=== PATIENT | female | born 1945 | race Caucasian/White ===

== ENCOUNTER 2017-01-13 12:57 | Outpatient (CLI) | payer MEDICARE, OTHER | END 2017-01-13 12:58 | disposition home or self-care (01) | DX: Z12.31 Encounter for screening mammogram for malignant neoplasm of breast (principal) ==

== ENCOUNTER 2017-01-13 13:00 | Outpatient (CLI) | payer MEDICARE, OTHER | END 2017-01-13 13:01 | disposition home or self-care (01) | DX: M85.89 Other specified disorders of bone density and structure, multiple sites (principal) ==

== ENCOUNTER 2017-01-20 08:22 | Outpatient (CLI) | payer MEDICARE, OTHER | END 2017-01-20 08:23 | disposition critical access hospital (66) | DX: M25.551 Pain in right hip (principal); M53.3 Sacrococcygeal disorders, not elsewhere classified; W18.39XA Other fall on same level, initial encounter; Y92.039 Unspecified place in apartment as the place of occurrence of the external cause | CPT/HCPCS: A0425; A0429 ==

== ENCOUNTER 2017-01-20 08:42 | Emergency (ER) | payer MEDICARE, OTHER ==
[2017-01-20] MEDS ORDERED: traMADol 50 MG TABLET PO STA (09:08)
[2017-01-20] MEDS ORDERED: ACETAMINOPHEN 325 MG TABLET PO STA (09:08)
[2017-01-20] MEDS ORDERED: traMADol 50 MG TABLET PO ONE (09:16)
[2017-01-20] MEDS ORDERED: ACETAMINOPHEN 325 MG TABLET PO ONE (09:16)
== END 2017-01-20 13:19 | disposition home or self-care (01) ==
DX: M54.2 Cervicalgia (principal); M54.5 Low back pain; W01.0XXA Fall on same level from slipping, tripping and stumbling without subsequent striking against object, initial encounter; Y92.013 Bedroom of single-family (private) house as the place of occurrence of the external cause; E78.00 Pure hypercholesterolemia, unspecified; K21.9 Gastro-esophageal reflux disease without esophagitis; M19.90 Unspecified osteoarthritis, unspecified site; Z86.718 Personal history of other venous thrombosis and embolism; Z86.711 Personal history of pulmonary embolism
CPT/HCPCS: 71020; 72125; 72192; 99283; 99284; A9270

== ENCOUNTER 2017-02-12 09:28 | Day surgery (SDC) | payer MEDICARE, OTHER ==
[2017-02-12] MEDS ORDERED: LACTATED RINGERS 1,000 ML IV ONE (10:19)
[2017-02-12] MEDS ORDERED: MIDAZOLAM 2 MG/2 ML VIAL IVP ONE (11:06)
[2017-02-12] MEDS ORDERED: fentaNYL 100 MCG/2 ML VIAL IVP ONE (11:06)
[2017-02-12 11:58] VITALS: BP 132/71
== END 2017-02-12 09:29 | disposition home or self-care (01) ==
LOC: SDS 09:28
PROVIDERS: ATTEND Internal Medicine
PROC: 0DBL8ZX Excision of Transverse Colon, Via Natural or Artificial Opening Endoscopic, Diagnostic (ICD-10-PCS; 2017-02-12)
PROC: 0DBM8ZX Excision of Descending Colon, Via Natural or Artificial Opening Endoscopic, Diagnostic (ICD-10-PCS; 2017-02-12)
PROC: 0DBK8ZX Excision of Ascending Colon, Via Natural or Artificial Opening Endoscopic, Diagnostic (ICD-10-PCS; principal; 2017-02-12 11:00)
DX: Z12.11 Encounter for screening for malignant neoplasm of colon (principal); D12.2 Benign neoplasm of ascending colon; D12.4 Benign neoplasm of descending colon; D12.3 Benign neoplasm of transverse colon; K64.1 Second degree hemorrhoids; K21.9 Gastro-esophageal reflux disease without esophagitis; Z86.718 Personal history of other venous thrombosis and embolism
CPT/HCPCS: 45380; 45385; 88305; J7120

== ENCOUNTER 2017-03-25 11:53 | Outpatient (CLI) | payer MEDICARE, OTHER | END 2017-03-25 11:54 | disposition critical access hospital (66) | LOC: EMS 11:53 | PROVIDERS: ATTEND Surgery | DX: M79.662 Pain in left lower leg (principal) | CPT/HCPCS: A0425; A0429 ==

== ENCOUNTER 2017-03-25 12:13 | Emergency (ER) | payer MEDICARE, OTHER ==
--- NOTE | 2017-03-25 12:54 | ED Physician Documentation ---
PD HPI LOWER EXT INJURY - Stated complaint Stated Complaint: L LEG PX - Chief complaint Chief Complaint: Ext Problem - History obtained from History obtained from: Patient - History of Present Illness PD HPI LOW EXT INJURY LOCATION: Left, Knee, Lower leg Type of injury: Other (she has been trying to exercise more and had walked a bit more than usual several days ago. Having pain in left knee and some swelling of left lower leg increasing since then.). No: Fall, Twist, Blunt / blow Where injury occurred: Home Timing - onset: How many days ago (4-5) Timing - details: Gradual onset, Still present, Waxing and waning Improved by: Rest Worsened by: Moving, Other (walking hurts in the knee a lot.) Associated symptoms: Swelling (of the knee and lower leg some. Has some pain in upper calf and medial thigh.). No: Weakness, Numbness Similar symptoms before: Has not had sx before Recently seen: Not recently seen (tried to get appt with PMD but no openings until next week.) Review of Systems Constitutional: denies: Fever, Chills Nose: denies: Rhinorrhea / runny nose, Congestion Throat: denies: Sore throat Cardiac: denies: Chest pain / pressure, Palpitations Respiratory: denies: Dyspnea, Cough GI: denies: Nausea, Vomiting, Diarrhea PD PAST MEDICAL HISTORY - Past Medical History Cardiovascular: High cholesterol, Deep vein thrombosis, Pulmonary embolism Respiratory: None Neuro: Headache/migraine Endocrine/Autoimmune: None GI: GERD : Incontinence, Frequency Psych: Depression, Anxiety, Panic attacks Musculoskeletal: Osteoarthritis Derm: Other - Past Surgical History Past Surgical History: No 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, 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 HEENT: Tonsil/Adenoidectomy Derm: Skin cancer surgery - Present Medications Home Medications: Ambulatory Orders Medication Instructions Recorded Confirmed Venlafaxine ER [Effexor ER] 2 tab PO DAILY 04/30/13 03/25/17 Vitamin B12 Injection 1,000 mcg IM ONCE 07/17/14 03/25/17 Topiramate [Topamax] 200 mg PO QPM 11/24/15 03/25/17 diltiaZEM [Cardizem] 15 mg PO DAILY 11/24/15 03/25/17 raNITIdine [Zantac] 150 mg PO BID 11/24/15 03/25/17 traMADol [Ultram] 50 mg PO Q6HR PRN 11/24/15 03/25/17 LORazepam [Ativan] 1 mg PO TID 01/13/16 03/25/17 Hydrocodone/Acetaminophen [[place] 1 each PO Q6H PRN #15 tablet 03/25/17 5-325 Tablet] - Allergies Allergies/Adverse Reactions: Allergies Allergy/AdvReac Type Severity Reaction Status Date / Time lithium [[place]] Allergy Severe Edema Verified 02/11/17 13:22 tetracycline [Tetracycline] Allergy Severe Hives Verified 02/11/17 13:22 butalbital [From Fioricet] AdvReac Severe Dizziness Verified 02/11/17 13:54 - Social History Does the pt smoke?: No Smoking Status: Never smoker Does the pt drink ETOH?: No Does the pt have substance abuse?: No - Immunizations Immunizations are current?: No - POLST Patient has POLST: No PD ED PE NORMAL - Vitals Vital signs reviewed: Yes - General General: Alert and oriented X 3, No acute distress, Well developed/nourished - Cardiac Cardiac: RRR - Respiratory Respiratory: No respiratory distress, Clear bilaterally - Abdomen Abdomen: Soft, Non tender - Back Back: No CVA TTP - Derm Derm: Normal color, Warm and dry, No rash - Extremities Extremities: No calf tenderness / cord, Other (normal pulses, color and cap refill in toes. pain in anterior and medial knee without obvious effusion. Some local swelling of the knee. No calf tenderness nor overt swelling. No rash nor sores. ) - Neuro Neuro: No motor deficit, No sensory deficit Results - Vitals Vitals: Vital Signs - 24 hr 03/25/17 03/25/17 12:19 15:16 Temperature 36.7 C 36.5 C Heart Rate 93 81 Respiratory 18 20 Rate Blood Pressure 142/84 H 136/84 H O2 Saturation 96 100 Oxygen O2 Source Room air - Rads (name of study) duplex left lower leg Radiology: Prelim report reviewed (no DVT) PD MEDICAL DECISION MAKING - ED course Complexity details: reviewed results, considered differential (presume arthritis of knee as she had been doing some more walking than usual. ), d/w patient Departure - Departure Disposition: 01 Home, Self Care Clinical Impression: Left leg swelling, Arthritis of knee, left Knee pain, acute Qualifiers: Laterality: left Qualified Code(s): M25.562 - Pain in left knee Clinical Impression: (Ruled Out): Deep vein thrombosis Condition: Stable Record reviewed to determine appropriate education?: Yes Instructions: ED Degenerative Joint Disease Follow-Up: Moose Shelton DO [Primary Care Provider] - Prescriptions: Hydrocodone/Acetaminophen [[place] 5-325 Tablet] 1 each PO Q6H PRN #15 tablet PRN Reason: Pain Comments: Presume the knee pain is some arthritis flare up leading to some swelling in lower leg. Follow up with Dr. Shelton in a few days/next week, call for appt. Continue usual medications, adding hydrocodone short term if needed for pains. Discharge Date/Time: 03/25/17 16:07
[2017-03-25] MEDS ORDERED: HYDROcod/ACETAM 5/325 MG TABLET PO STA ×2 (13:19→15:18)
[2017-03-25] MEDS ORDERED: HYDROcod/ACETAM 5/325 MG TABLET ONE ×2 (13:21→15:24)
[2017-03-25 15:17] VITALS: BP 136/84
[2017-03-25] MEDS ORDERED: DEXAMETHASONE 10 MG/ML VIAL PO STA (15:20)
[2017-03-25] MEDS ORDERED: DEXAMETHASONE 10 MG/ML VIAL ONE (15:24)
[2017-03-25] MEDS ORDERED: CHERRY SYRUP 10 ML UDC PO ONE (15:24)
--- NOTE | 2017-03-25 15:41 | Ultrasound Report ---
ULTRASOUND VENOUS DUPLEX LEFT LE03/25/2017 CLINICAL INDICATION: Left leg swelling, pain. COMPARISON: 06/27/2015 TECHNIQUE: Real-time sonographic vascular imaging was performed by the party supply specialist through the left l ower extremity utilizing both color flow and Doppler spectral analysis. Multiple aircraft sales representative stat ic images were saved for review. FINDINGS: A left lower extremity venous sonogram is performed revealing the common femoral, superfici al femoral, profunda femoris, and popliteal veins to be adequately visualized without intraluminal de fects. There is normal venous compression, augmentation, phasicity, and spontaneity of venous flow. In the calf, the visualized more cephalad portions of posterior tibial and peroneal veins are grossly compressible, without filling defects. IMPRESSION: NO EVIDENCE OF DEEP VENOUS THROMBOSIS. JOB #: [id number] EXT JOB #:[id number]
== END 2017-03-25 16:07 | disposition home or self-care (01) ==
LOC: EDUNIT# → ED 12:13
DX: M17.12 Unilateral primary osteoarthritis, left knee (principal); M25.562 Pain in left knee; M79.89 Other specified soft tissue disorders; Z86.718 Personal history of other venous thrombosis and embolism
CPT/HCPCS: 93971; 99283; A9270

== ENCOUNTER 2017-04-18 13:18 | Outpatient (CLI) | payer MEDICARE, OTHER ==
--- NOTE | 2017-04-19 08:46 | XRAY Report ---
THREE VIEW BILATERAL KNEES: 04/18/2017 CLINICAL INDICATION: Worsening pain. AP, lateral, sunrise views of the bilateral knees demonstrate mild bilateral osteoarthritis. There i s no evidence of acute fracture. No effusion is seen. IMPRESSION: MILD BILATERAL KNEE OSTEOARTHRITIS. JOB #: [id number] EXT JOB #:[id number]
== END 2017-04-18 13:19 | disposition home or self-care (01) ==
LOC: DI.N 13:18
PROVIDERS: ATTEND Family Medicine
DX: M17.0 Bilateral primary osteoarthritis of knee (principal)

== ENCOUNTER 2017-05-13 13:38 | Outpatient (CLI) | payer MEDICARE, OTHER | END 2017-05-13 13:39 | disposition critical access hospital (66) | LOC: EMS 13:38 | PROVIDERS: ATTEND Surgery | DX: F41.0 Panic disorder [episodic paroxysmal anxiety] (principal) | CPT/HCPCS: A0425; A0429 ==

== ENCOUNTER 2017-05-13 14:04 | Emergency (ER) | payer MEDICARE, OTHER ==
[2017-05-13 14:07] VITALS: BP 127/72
[2017-05-13] MEDS ORDERED: diazePAM INJ 5 MG/ML SYRINGE IM STA (14:08)
--- NOTE | 2017-05-13 14:12 | ED Physician Documentation ---
History of Present Illness - Stated complaint Stated Complaint: PANICK ATTACK - Chief complaint Chief Complaint: General - History obtained from History obtained from: Patient - History of Present Illness Timing: Other (She has been having a lot of heartburn lately and her insurance stopped paying for Nexium. Because of that she is become increasingly depressed and her psychiatrist recommended increasing the dose of venlafaxine but she became quite anxious about that and is feeling very anxious today but without suicidal ideation. She needs something to help her calm down.) Review of Systems Constitutional: denies: Fever, Chills GI: reports: Abdominal Pain (upper, GERD). denies: Nausea, Vomiting PD PAST MEDICAL HISTORY - Present Medications Home Medications: Ambulatory Orders Medication Instructions Recorded Confirmed Hydroxyzine Pamoate 50 mg PO BID PRN #10 capsule 05/13/17 Sucralfate [Carafate] 1 gm PO ACHS #40 tablet 05/13/17 PD ED PE NORMAL - Vitals Vital signs reviewed: Yes - General General: Alert and oriented X 3 - Abdomen Abdomen: Normal bowel sounds, Soft, Non tender - Neuro Neuro: Alert and oriented X 3, drop forge operator 2-12 intact, No motor deficit, No sensory deficit, Normal speech - Psych Psych: Other (anxious, not manic) Results - Vitals Vitals: Vital Signs - 24 hr 05/13/17 14:04 Temperature 37.8 C H Heart Rate 97 Respiratory 24 Rate Blood Pressure 127/72 O2 Saturation 98 Oxygen O2 Source Room air PD MEDICAL DECISION MAKING - ED course ED course: She presents with anxiety, just needs something to calm her down. No suicidal ideation. She is administered Valium 5 mg IM. Departure - Departure Disposition: 01 Home, Self Care Clinical Impression: Anxiety Condition: Good Record reviewed to determine appropriate education?: Yes Instructions: ED Panic Attack Prescriptions: Sucralfate [Carafate] 1 gm PO ACHS #40 tablet Hydroxyzine Pamoate 50 mg PO BID PRN #10 capsule PRN Reason: Anxiety Comments: You can take the hydroxyzine in addition to your usual Ativan as needed for anxiety. Do not drink or drive with it. The Carafate should help with your heartburn/reflux symptoms. Take it before eating and at bedtime. Do not take it within half an hour of any of your other medications because it will inhibit absorption of the other medications. Follow up with your psychiatrist on Friday as scheduled. Return if worse.
[2017-05-13] MEDS ORDERED: diazePAM INJ 5 MG/ML SYRINGE ONE (14:16)
== END 2017-05-13 14:28 | disposition home or self-care (01) ==
LOC: ED 14:04 → MERGE 14:04 → ED 14:28
DX: F41.9 Anxiety disorder, unspecified (principal)
CPT/HCPCS: 96372; 99283

== ENCOUNTER 2017-05-15 15:47 | Outpatient (CLI) | payer MEDICARE, OTHER | END 2017-05-15 15:48 | disposition critical access hospital (66) | LOC: EMS 15:47 | PROVIDERS: ATTEND Surgery | DX: R45.851 Suicidal ideations (principal) | CPT/HCPCS: A0425; A0429 ==

== ENCOUNTER 2017-05-15 16:06 | Emergency (ER) | payer MEDICARE, OTHER ==
--- NOTE | 2017-05-15 16:18 | ED Physician Documentation ---
PD HPI MHE - Stated complaint Stated Complaint: SI - Chief complaint Chief Complaint: MHE - History obtained from History obtained from: Patient, EMS - History of Present Illness Primary symptom: Suicidal ideation (She is a long history of depression and and anxiety. She was seen here couple of days ago for anxiety, at that time she denied suicidal ideation but now returns by ambulance and says she has had suicidal thoughts for 2 weeks without attempts. She called her psychiatrist who recommended she come to the emergency department for evaluation and likely admission to a psychiatric facility. She says she has been hospitalized for psychiatric reasons about 15 years ago in [place].) Review of Systems Ten Systems: 10 systems reviewed and negative Constitutional: reports: Reviewed and negative Throat: reports: Reviewed and negative Cardiac: reports: Reviewed and negative Respiratory: reports: Reviewed and negative PD PAST MEDICAL HISTORY - Past Medical History Cardiovascular: Deep vein thrombosis, High cholesterol, Pulmonary embolism Respiratory: None Neuro: Headache/migraine Endocrine/Autoimmune: None GI: GERD : Frequency, Incontinence Psych: Depression, Anxiety, Panic attacks Musculoskeletal: Osteoarthritis Derm: Other - Past Surgical History Past Surgical History: No 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, 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 HEENT: Tonsil/Adenoidectomy Derm: Skin cancer surgery - Present Medications Home Medications: Ambulatory Orders Medication Instructions Recorded Confirmed Venlafaxine ER [Effexor ER] 2 tab PO BID 04/30/13 05/15/17 Vitamin B12 Injection 1,000 mcg IM ONCE 07/17/14 05/15/17 Topiramate [Topamax] 200 mg PO QPM 11/24/15 05/15/17 diltiaZEM [Cardizem] 15 mg PO DAILY 11/24/15 05/15/17 traMADol [Ultram] 50 mg PO BID 11/24/15 05/15/17 LORazepam [Ativan] 1 mg PO TID 01/13/16 05/15/17 Hydroxyzine Pamoate 50 mg PO BID PRN #10 capsule 05/13/17 05/15/17 - Allergies Allergies/Adverse Reactions: Allergies Allergy/AdvReac Type Severity Reaction Status Date / Time lithium [[place]] Allergy Severe Edema Verified 02/11/17 13:22 tetracycline [Tetracycline] Allergy Severe Hives Verified 02/11/17 13:22 butalbital [From Fioricet] AdvReac Severe Dizziness Verified 02/11/17 13:54 - Social History Does the pt smoke?: No Smoking Status: Never smoker Does the pt drink ETOH?: No Does the pt have substance abuse?: No - Family History Family history: reports: Non contributory - Immunizations Immunizations are current?: No - POLST Patient has POLST: No PD ED PE NORMAL - Vitals Vital signs reviewed: Yes - General General: Alert and oriented X 3, No acute distress - HEENT HEENT: PERRL, EOMI - Neck Neck: Supple, no meningeal sign, No bony TTP - Cardiac Cardiac: Strong equal pulses, Other (Intermittently irregular and tachycardic, sometimes regular and normal rate) - Respiratory Respiratory: No respiratory distress, Clear bilaterally - Abdomen Abdomen: Soft, Non tender - Back Back: No CVA TTP, No spinal TTP - Derm Derm: Normal color, Warm and dry - Extremities Extremities: No edema, No calf tenderness / cord - Neuro Neuro: Alert and oriented X 3, Normal speech - Psych Psych: Normal mood, Normal affect Results - Vitals Vitals: Vital Signs - 24 hr 05/15/17 05/15/17 16:11 20:03 Temperature 37.4 C Heart Rate 61 78 Respiratory 18 20 Rate Blood Pressure 159/102 H 112/62 O2 Saturation 94 98 Oxygen O2 Source Room air - EKG (time done) 1619 Rate: Rate (enter#) (91) Rhythm: NSR (PVC) [place]: Normal Intervals: Normal AR QRS: Normal Ischemia: Normal ST segments Computer interpretation: Agree with computer - Labs Labs: Laboratory Tests 05/15/17 05/15/17 05/15/17 16:32 16:32 16:32 WBC 6.9 RBC 4.47 Hgb 13.9 Hct 41.8 MCV 93.7 MCH 31.2 H MCHC 33.3 RDW 15.9 H Plt Count 263 MPV 6.8 L Neut # 4.1 Lymph # 1.8 [place] # 0.8 Eos # 0.1 Baso # 0.1 Absolute Nucleated RBC 0.00 Nucleated RBCs 0.0 Sodium 142 Potassium 3.4 L Chloride 112 H Carbon Dioxide 22 Anion Gap 8.0 BUN 9 Creatinine 0.9 Estimated GFR (MDRD) 61 L Glucose 87 Calcium 9.4 Total Bilirubin 0.5 AST 13 ALT 17 Alkaline Phosphatase 83 Total Protein 6.4 L Albumin 4.2 Globulin 2.2 Albumin/Globulin Ratio 1.9 Lipase 22 TSH 0.72 Urine Color Urine Clarity Urine pH Ur Specific [place] Urine Protein Urine Glucose (UA) Urine Ketones Urine Occult Blood Urine Nitrite Urine Bilirubin Urine Urobilinogen Ur Leukocyte Esterase Ur Microscopic Review Urine Culture Comments Salicylates < 6.0 Urine Opiates Screen Ur Oxycodone Screen Urine Methadone Screen Ur Propoxyphene Screen Acetaminophen < 10 L Ur Barbiturates Screen Ur Tricyclics Screen Ur Phencyclidine Scrn Ur Amphetamine Screen U Methamphetamines Scrn U Benzodiazepines Scrn Urine Cocaine Screen U Cannabinoids Screen Ethyl Alcohol < 5.0 05/15/17 17:04 WBC RBC Hgb Hct MCV MCH MCHC RDW Plt Count MPV Neut # Lymph # [place] # Eos # Baso # Absolute Nucleated RBC Nucleated RBCs Sodium Potassium Chloride Carbon Dioxide Anion Gap BUN Creatinine Estimated GFR (MDRD) Glucose Calcium Total Bilirubin AST ALT Alkaline Phosphatase Total Protein Albumin Globulin Albumin/Globulin Ratio Lipase TSH Urine Color STRAW Urine Clarity CLEAR Urine pH 7.0 Ur Specific [place] <=1.005 Urine Protein NEGATIVE Urine Glucose (UA) NEGATIVE Urine Ketones NEGATIVE Urine Occult Blood NEGATIVE Urine Nitrite NEGATIVE Urine Bilirubin NEGATIVE Urine Urobilinogen 0.2 (NORMAL) Ur Leukocyte Esterase NEGATIVE Ur Microscopic Review NOT INDICATED Urine Culture Comments NOT INDICATED Salicylates Urine Opiates Screen NEGATIVE Ur Oxycodone Screen NEGATIVE Urine Methadone Screen NEGATIVE Ur Propoxyphene Screen NEGATIVE Acetaminophen Ur Barbiturates Screen NEGATIVE Ur Tricyclics Screen NEGATIVE Ur Phencyclidine Scrn NEGATIVE Ur Amphetamine Screen NEGATIVE U Methamphetamines Scrn NEGATIVE U Benzodiazepines Scrn POSITIVE H Urine Cocaine Screen NEGATIVE U Cannabinoids Screen NEGATIVE Ethyl Alcohol PD MEDICAL DECISION MAKING - ED course ED course: 71-year-old woman with depression and suicidal ideation, seen and evaluated by the drug abuse social worker, And arrangements were made to send her to [facility], cobras were completed. Departure - Departure Disposition: 65 Psych Hosp/Unit DC/Xfer Clinical Impression: Depression Qualifiers: Depression Type: major depressive disorder Major depression recurrence: recurrent Active/Remission status: currently active Major depression episode severity: severe Psychotic features: without psychotic features Qualified Code(s ): F33.2 - Major depressive disorder, recurrent severe without psychotic features Condition: Stable
[2017-05-15 16:40] LABS: BASOPHILS # (AUTO) 0.1 10^3/uL (0.0-0.1); BASOPHILS % (AUTO) 0.8 %; EOSINOPHILS # (AUTO) 0.1 10^3/uL (0.0-0.7); EOSINOPHILS % (AUTO) 1.3 %; HCT - HEMATOCRIT 41.8 % (37.0-47.0); HGB - HEMOGLOBIN 13.9 g/dL (12.0-16.0); LYMPHOCYTES # (AUTO) 1.8 10^3/uL (1.5-3.5); LYMPHOCYTES % (AUTO) 26.3 %; MEAN CORPUSCULAR HEMOGLOBIN 31.2 pg (27.0-31.0); MEAN CORPUSCULAR HGB CONC 33.3 g/dL (32.0-36.0); MEAN CORPUSCULAR VOLUME 93.7 fL (81.0-99.0); MEAN PLATELET VOLUME 6.8 fL (7.9-10.8); MONOCYTES # (AUTO) 0.8 10^3/uL (0.0-1.0); MONOCYTES % (AUTO) 11.8 %; NEUTROPHILS # (AUTO) 4.1 10^3/uL (1.5-6.6); NEUTROPHILS % (AUTO) 59.8 %; RED BLOOD COUNT 4.47 10^6/uL (4.20-5.40); RED CELL DISTRIBUTION WIDTH 15.9 % (12.0-15.0); UNCORRECTED WHITE BLOOD COUNT 6.9 x10^3/uL; WHITE BLOOD COUNT 6.9 x10^3/uL (4.8-10.8)
[2017-05-15 16:57] LABS: ALBUMIN/GLOBULIN RATIO 1.9 (1.0-2.2); BILIRUBIN,TOTAL 0.5 mg/dL (0.2-1.0); BUN - BLOOD UREA NITROGEN 9 mg/dL (6-20); CALCIUM 9.4 mg/dL (8.5-10.3); CARBON DIOXIDE - CO2 22 mmol/L (21-32); CHLORIDE 112 mmol/L (101-111); CREATININE 0.9 mg/dL (0.4-1.0); GFR - MDRD 61 (>89); GLUCOSE 87 mg/dL (70-100); LIPASE 22 U/L (22-51); POTASSIUM 3.4 mmol/L (3.5-5.0); SALICYLATE < 6.0 mg/dL; SODIUM 142 mmol/L (135-145); TOTAL PROTEIN 6.4 g/dL (6.7-8.2)
[2017-05-15 17:06] LABS: BILIRUBIN,URINE NEGATIVE (NEGATIVE)
[2017-05-15 17:09] LABS: UA CHARGE (STRIP ONLY) YES; UR CULTURE IF IND NOT INDICATED
[2017-05-15 17:21] LABS: ACETAMINOPHEN < 10 ug/mL (10-30)
[2017-05-15] MEDS ORDERED: diazePAM 5 MG TABLET PO STA ×2 (17:24→21:12)
[2017-05-15] MEDS ORDERED: diazePAM 5 MG TABLET PO ONE ×2 (17:28→21:18)
[2017-05-15] MEDS ORDERED: ACETAMINOPHEN 500 MG TABLET PO STA (19:15)
[2017-05-15] MEDS ORDERED: ACETAMINOPHEN 500 MG TABLET PO ONE (19:27)
[2017-05-15 21:19] VITALS: BP 124/62
== END 2017-05-15 22:54 ==
LOC: ED 16:06
DX: F33.2 Major depressive disorder, recurrent severe without psychotic features (principal); Z86.718 Personal history of other venous thrombosis and embolism; Z86.711 Personal history of pulmonary embolism
CPT/HCPCS: 36415; 80053; 80306; 80307; 81003; 83690; 84443; 85025; 93005; 99284; 99285; A9270; G0480; 80320; 80329; 81001; 87086

== ENCOUNTER 2017-06-12 20:21 | Outpatient (CLI) | payer MEDICARE, OTHER | END 2017-06-12 20:22 | disposition EMS.NT | LOC: EMS 20:21 | PROVIDERS: ATTEND Surgery | DX: Z03.89 Encounter for observation for other suspected diseases and conditions ruled out (principal) ==

== ENCOUNTER 2017-09-06 14:22 | Outpatient (CLI) | payer MEDICARE, OTHER | END 2017-09-06 14:23 | disposition critical access hospital (66) | LOC: EMS 14:22 | PROVIDERS: ATTEND Surgery | DX: R41.0 Disorientation, unspecified (principal) | CPT/HCPCS: A0425; A0429 ==

== ENCOUNTER 2017-09-06 14:40 | Emergency (ER) | payer MEDICARE, OTHER ==
[2017-09-06 15:41] LABS: BASOPHILS # (AUTO) 0.1 10^3/uL (0.0-0.1); BASOPHILS % (AUTO) 1.3 %; EOSINOPHILS # (AUTO) 0.1 10^3/uL (0.0-0.7); EOSINOPHILS % (AUTO) 0.7 %; HCT - HEMATOCRIT 42.4 % (37.0-47.0); HGB - HEMOGLOBIN 14.2 g/dL (12.0-16.0); LYMPHOCYTES % (AUTO) 27.3 %; MEAN CORPUSCULAR HEMOGLOBIN 32.3 pg (27.0-31.0); MEAN CORPUSCULAR HGB CONC 33.6 g/dL (32.0-36.0); MEAN CORPUSCULAR VOLUME 96.3 fL (81.0-99.0); MEAN PLATELET VOLUME 6.7 fL (7.9-10.8); MONOCYTES # (AUTO) 0.8 10^3/uL (0.0-1.0); MONOCYTES % (AUTO) 10.2 %; NEUTROPHILS # (AUTO) 4.5 10^3/uL (1.5-6.6); NEUTROPHILS % (AUTO) 60.5 %; RED CELL DISTRIBUTION WIDTH 13.6 % (12.0-15.0); UNCORRECTED WHITE BLOOD COUNT 7.4 x10^3/uL; WHITE BLOOD COUNT 7.4 x10^3/uL (4.8-10.8)
--- NOTE | 2017-09-06 15:45 | ED Physician Documentation ---
History of Present Illness - Stated complaint Stated Complaint: CONFUSION - Chief complaint Chief Complaint: General - History obtained from History obtained from: Patient, EMS - History of Present Illness Timing: How many days ago (2) Pain level max: 0 Pain level now: 0 Improved by: nothing Worsened by: nothing - Additonal information Additional information: Patient is a 71-year-old female with a long psychiatric history who presents to the emergency department with 2 days of intermittent confusion. States that occasionally she has trouble remembering which medications to take as well as trouble reading the packages. This appears to be intermittent. No focal weakness or numbness. No difficulty with word finding or speech. States that this happened when she stopped her Ativan which she had been on for several years. Her psychiatrist told her "you are addicted and need to stop denying it ". Review of Systems Ten Systems: 10 systems reviewed and negative Constitutional: denies: Fever, Chills Ears: denies: Ear pain Nose: denies: Rhinorrhea / runny nose, Congestion Throat: denies: Sore throat Cardiac: denies: Chest pain / pressure Respiratory: denies: Cough GI: denies: Abdominal Pain, Nausea, Vomiting, Diarrhea : denies: Dysuria, Frequency, Hesitancy Skin: denies: Rash Musculoskeletal: denies: Neck pain, Back pain Neurologic: denies: Focal weakness, Numbness, Headache, Head injury, LOC PD PAST MEDICAL HISTORY - Past Medical History Cardiovascular: Deep vein thrombosis, High cholesterol, Pulmonary embolism Respiratory: None Neuro: Headache/migraine Endocrine/Autoimmune: None GI: GERD : Frequency, Incontinence Psych: Depression, Anxiety, Panic attacks Musculoskeletal: Osteoarthritis Derm: Other - Past Surgical History Past Surgical History: No 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, 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 HEENT: Tonsil/Adenoidectomy Derm: Skin cancer surgery - Present Medications Home Medications: Ambulatory Orders Medication Instructions Recorded Confirmed Venlafaxine ER [Effexor ER] 2 tab PO BID 04/30/13 05/15/17 Vitamin B12 Injection 1,000 mcg IM ONCE 07/17/14 05/15/17 Topiramate [Topamax] 200 mg PO QPM 11/24/15 05/15/17 diltiaZEM [Cardizem] 15 mg PO DAILY 11/24/15 05/15/17 traMADol [Ultram] 50 mg PO BID 11/24/15 05/15/17 LORazepam [Ativan] 1 mg PO TID 01/13/16 05/15/17 hydrOXYzine pamoate [Hydroxyzine 50 mg PO BID PRN #10 capsule 05/13/17 05/15/17 Pamoate] - Allergies Allergies/Adverse Reactions: Allergies Allergy/AdvReac Type Severity Reaction Status Date / Time lithium [[place]] Allergy Severe Edema Verified 02/11/17 13:22 tetracycline [Tetracycline] Allergy Severe Hives Verified 02/11/17 13:22 butalbital [From Fioricet] AdvReac Severe Dizziness Verified 02/11/17 13:54 - Social History Does the pt smoke?: No Smoking Status: Never smoker Does the pt drink ETOH?: No Does the pt have substance abuse?: No - Immunizations Immunizations are current?: No - POLST Patient has POLST: No PD ED PE NORMAL - Vitals Vital signs reviewed: Yes - General General: Alert and oriented X 3, No acute distress, Well developed/nourished - HEENT HEENT: PERRL, Ears normal, Moist mucous membranes, Pharynx benign - Neck Neck: Supple, no meningeal sign, No bony TTP, No adenopathy - Cardiac Cardiac: RRR, Strong equal pulses - Respiratory Respiratory: No respiratory distress, Clear bilaterally - Abdomen Abdomen: Soft, Non tender, Non distended - Derm Derm: Warm and dry - Extremities Extremities: No edema - Neuro Neuro: Alert and oriented X 3, produce sorter 2-12 intact, No motor deficit, No sensory deficit, Normal speech Eye Opening: Spontaneous Motor: Obeys Commands Verbal: Oriented GCS Score: 15 - Psych Psych: Normal mood, Normal affect Results - Vitals Vitals: Vital Signs - 24 hr 09/06/17 09/06/17 15:13 17:03 Temperature 37.3 C 36.7 C Heart Rate 94 84 Respiratory 20 16 Rate Blood Pressure 131/71 H 136/78 H O2 Saturation 98 100 Oxygen O2 Source Room air - Labs Labs: Laboratory Tests 09/06/17 09/06/17 09/06/17 15:32 15:32 17:20 WBC 7.4 RBC 4.40 Hgb 14.2 Hct 42.4 MCV 96.3 MCH 32.3 H MCHC 33.6 RDW 13.6 Plt Count 308 MPV 6.7 L Neut # 4.5 Lymph # 2.0 [place] # 0.8 Eos # 0.1 Baso # 0.1 Absolute Nucleated RBC 0.00 Nucleated RBC % 0.0 Sodium 139 Potassium 3.1 L Chloride 111 Carbon Dioxide 20 L Anion Gap 8.0 BUN 6 Creatinine 0.9 Estimated GFR (MDRD) 61 L Glucose 96 Calcium 9.1 Total Bilirubin 0.4 AST 15 ALT 16 Alkaline Phosphatase 72 Total Protein 6.7 Albumin 4.1 Globulin 2.6 Albumin/Globulin Ratio 1.6 Lipase 15 L Urine Color YELLOW Urine Clarity CLEAR Urine pH 7.0 Ur Specific [place] <=1.005 Urine Protein NEGATIVE Urine Glucose (UA) NEGATIVE Urine Ketones NEGATIVE Urine Occult Blood NEGATIVE Urine Nitrite NEGATIVE Urine Bilirubin NEGATIVE Urine Urobilinogen 0.2 (NORMAL) Ur Leukocyte Esterase NEGATIVE Ur Microscopic Review NOT INDICATED Urine Culture Comments NOT INDICATED Salicylates < 6.0 Urine Opiates Screen NEGATIVE Ur Oxycodone Screen NEGATIVE Urine Methadone Screen NEGATIVE Ur Propoxyphene Screen NEGATIVE Acetaminophen < 10 L Ur Barbiturates Screen NEGATIVE Ur Tricyclics Screen NEGATIVE Ur Phencyclidine Scrn NEGATIVE Ur Amphetamine Screen NEGATIVE U Methamphetamines Scrn NEGATIVE U Benzodiazepines Scrn NEGATIVE Urine Cocaine Screen NEGATIVE U Cannabinoids Screen NEGATIVE Ethyl Alcohol < 5.0 - Rads (name of study) head CT Radiology: Prelim report reviewed, EMP read contemporaneously, See rad report ( no acute changes) PD MEDICAL DECISION MAKING - ED course Complexity details: reviewed old records, reviewed results, re-evaluated patient , considered differential, d/w patient ED course: Patient is a 71-year-old female who presents to the emergency department with apparent perceptual changes secondary to benzodiazepine withdrawal. No evidence of seizures, hallucinations. No other acute laboratory findings to explain her symptoms. Mildly decreased potassium and this was replaced. No acute findings on head CT. No seizures. Will have her follow-up with her doctor to create a plan to taper off her medications. Patient counseled regarding signs and symptoms for which I believe and urgent re-evaluation would be necessary. Patient with good understanding of and agreement to plan and is comfortable going home at this time This document was made in part using voice recognition software. While efforts are made to proofread this document, sound alike and grammatical errors may occur. 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 Shelton on Friday to discuss tapering off of your benzodiazepines. The withdrawal from the benzodiazepine is likely causing your symptoms today. Your laboratory tests are otherwise normal other than a mildly decreased potassium. Return if you worsen
[2017-09-06 15:52] LABS: ALBUMIN/GLOBULIN RATIO 1.6 (1.0-2.2); BILIRUBIN,TOTAL 0.4 mg/dL (0.2-1.0); BUN - BLOOD UREA NITROGEN 6 mg/dL (6-20); CALCIUM 9.1 mg/dL (8.5-10.3); CARBON DIOXIDE - CO2 20 mmol/L (21-32); CHLORIDE 111 mmol/L (101-111); CREATININE 0.9 mg/dL (0.4-1.0); GFR - MDRD 61 (>89); GLUCOSE 96 mg/dL (70-100); LIPASE 15 U/L (22-51); POTASSIUM 3.1 mmol/L (3.5-5.0); SALICYLATE < 6.0 mg/dL; SODIUM 139 mmol/L (135-145); TOTAL PROTEIN 6.7 g/dL (6.7-8.2)
[2017-09-06 16:02] LABS: ACETAMINOPHEN < 10 ug/mL (10-30)
--- NOTE | 2017-09-06 16:13 | CT Preliminary Report ---
Exam: CT HEAD W/O IMPRESSION: 1. No definite acute intracranial abnormality. 2. Chronic atrophic and probable small vessel ischemic changes, as noted above. RADIA SITE ID: [id number]
--- NOTE | 2017-09-06 16:15 | CT Report ---
EXAM: CT HEAD EXAM DATE: 09/06/2017 03:57 PM. CLINICAL HISTORY: ALOC x 2 days. COMPARISON: CT head 02/15/2016. TECHNIQUE: Multiaxial CT images were obtained from the foramen magnum to the vertex. Reformats: Coron al. IV contrast: None. In accordance with CT protocol optimization, one or more of the following dose reduction techniques w ere utilized for this exam: automated exposure control, adjustment of mA and/or KV based on patient s ize, or use of iterative reconstructive technique. FINDINGS: Parenchyma: No intraparenchymal hemorrhage. No evidence of mass, midline shift, or CT findings of inf arction. Lemon-white differentiation is distinct. Mild patchy hypodensity in the periventricular white matter and centrum semiovale suggesting chronic microvascular ischemic change. Extraaxial Spaces: Normal for age. No subdural or epidural collections identified. Ventricles: Normal in size and position accounting for mild generalized cerebral and cerebellar volum e loss. Sinuses and Orbits: Imaged paranasal sinuses, orbits, and mastoids show no significant abnormality. Bones: No evidence of fracture or calvarial defect. Other: None. IMPRESSION: 1. No definite acute intracranial abnormality. 2. Chronic atrophic and probable small vessel ischemic changes, as noted above. [facility] Referring Provider Line: [phone] SITE ID: [id number]
[2017-09-06] MEDS ORDERED: SODIUM CHLORIDE 0.9% 1,000 ML IV ONE (16:23)
[2017-09-06] MEDS ORDERED: POTASSIUM BICARB 25 MEQ TABLET PO STA (16:41)
[2017-09-06] MEDS ORDERED: POTASSIUM BICARB 25 MEQ TABLET PO ONE (16:59)
[2017-09-06 17:24] LABS: BILIRUBIN,URINE NEGATIVE (NEGATIVE)
[2017-09-06 17:29] LABS: UA CHARGE (STRIP ONLY) YES; UR CULTURE IF IND NOT INDICATED
[2017-09-06 18:23] VITALS: BP 121/68
== END 2017-09-06 19:40 | disposition home or self-care (01) ==
LOC: EDUNIT# → ED 14:40
DX: F13.232 Sedative, hypnotic or anxiolytic dependence with withdrawal with perceptual disturbance (principal); E87.6 Hypokalemia; R41.0 Disorientation, unspecified; E78.00 Pure hypercholesterolemia, unspecified; K21.9 Gastro-esophageal reflux disease without esophagitis; M19.90 Unspecified osteoarthritis, unspecified site; Z86.718 Personal history of other venous thrombosis and embolism; Z86.711 Personal history of pulmonary embolism
CPT/HCPCS: 36415; 70450; 80053; 80306; 80307; 81003; 83690; 85025; 96360; 96361; 99283; 99284; A9270; G0480; 80320; 80329; 81001; 87086

== ENCOUNTER 2017-10-08 09:00 | Outpatient (CLI) | payer MEDICARE, OTHER ==
--- NOTE | 2017-10-08 11:55 | XRAY Report ---
DATE OF SERVICE: 10/08/2017 MODIFIED BARIUM SWALLOW: 10/08/2017 CLINICAL INDICATION: Swallowing difficulty. FINDINGS: Various consistencies of barium were prepared and administered in conjunction with speech pathology. There was no evidence of penetration or aspiration with any administered consistency. Please also refer to full report from speech pathology for further findings. IMPRESSION: NO EVIDENCE OF PENETRATION OR ASPIRATION. FLUOROSCOPY TIME: 1 MINUTE 6 SECONDS; 1 SPOT IMAGE OBTAINED (CINE FLUOROSCOPY RECORDED). TD: 10/08/2017 12:54
== END 2017-10-08 09:01 | disposition home or self-care (01) ==
LOC: DI 09:00
PROVIDERS: ATTEND Family Medicine
DX: R13.10 Dysphagia, unspecified (principal)
CPT/HCPCS: 74230; 92611; G8996; G8997; G8998

== ENCOUNTER 2017-10-11 20:18 | Outpatient (CLI) | payer MEDICARE, OTHER | END 2017-10-11 20:19 | disposition EMS.NT | LOC: EMS 20:18 | PROVIDERS: ATTEND Surgery | DX: T40.4X1A Poisoning by other synthetic narcotics, accidental (unintentional), initial encounter (principal) ==

== ENCOUNTER 2018-02-20 12:55 | Outpatient (CLI) | payer MEDICARE, OTHER ==
--- NOTE | 2018-02-24 17:16 | Mammography Report ---
DIGITAL SCREENING MAMMOGRAM: 02/20/2018 CLINICAL INDICATION: A 72-year-old for screening. COMPARISON: 12/2016, 08/2014, 05/2009. TECHNIQUE: Routine CC and MLO projections were obtained of the breasts. FINDINGS: The breasts again demonstrate scattered fibroglandular densities bilaterally. A few punctate, typically benign calcifications are present. No suspicious masses, clustered microcalcifications, or regions of architectural distortion are identified. IMPRESSION: BENIGN FINDINGS. RECOMMENDATION: Routine annual screening unless otherwise clinically indicated. BIRADS category 2 benign findings. STANDARD QUALIFYING STATEMENTS 1. This examination was reviewed with the aid of Computed-Aided Detection (CAD). 2. A negative or benign imaging report should not delay biopsy if clinically suspicious findings are present. Consider surgical consultation if warranted. More than 5% of cancers are not identified by imaging. 3. Dense breasts may obscure an underlying neoplasm. TD: 02/24/2018 15:24
== END 2018-02-20 12:56 | disposition home or self-care (01) ==
LOC: DI.N 12:55
PROVIDERS: ATTEND Family Medicine
DX: Z12.31 Encounter for screening mammogram for malignant neoplasm of breast (principal)
CPT/HCPCS: 77067

== ENCOUNTER 2018-04-10 11:55 | Outpatient (CLI) | payer MEDICARE, OTHER ==
[2018-04-10] MEDS ORDERED: IOPAMIDOL-300 100 ML VIAL ONE (12:15)
[2018-04-10] MEDS ORDERED: IOPAMIDOL-300 100 ML VIAL IVP ONE (13:15)
--- NOTE | 2018-04-10 14:48 | CT Report ---
Procedure Date: 04/10/2018 Accession Number: [id number] / [id number] Procedure: CT - Head W/WO CPT Code: FULL RESULT: EXAM: Head W/WO DATE: 04/10/2018 1:08 PM CLINICAL HISTORY: LEFT SIDE WEAKNESS, R FACIAL DROOP COMPARISON: None. TECHNIQUE: Multiaxial CT images were obtained from the foramen magnum to the vertex. IV contrast: None. Reformats: Coronal. In accordance with CT protocol optimization, one or more of the following dose reduction techniques were utilized for this exam: automated exposure control, adjustment of mA and/or KV based on patient size, or use of iterative reconstructive technique. FINDINGS: Parenchyma: No intraparenchymal hemorrhage. No evidence of mass, midline shift, or CT findings of infarction. Lemon-white differentiation is distinct. Extraaxial Spaces: Normal for age. No subdural or epidural collections identified. Ventricles: Normal in size and position. Sinuses: Imaged paranasal sinuses, orbits, and mastoids show no significant abnormality. Bones: No evidence of fracture or calvarial defect. Other: None. IMPRESSION: No evidence of acute intracranial hemorrhage. If there is concern for ischemic infarction in the acute to subacute setting, MRI represents the appropriate modality. [facility]
== END 2018-04-10 11:56 | disposition home or self-care (01) ==
LOC: DI 11:55
PROVIDERS: ATTEND Family Medicine
DX: R29.810 Facial weakness (principal); R53.1 Weakness
CPT/HCPCS: 70470; Q9967

== ENCOUNTER 2018-05-27 12:29 | Outpatient (CLI) | payer MEDICARE, OTHER | END 2018-05-27 12:30 | disposition short-term general hospital (02) | LOC: EMS 12:29 | PROVIDERS: ATTEND Surgery | DX: T17.920A Food in respiratory tract, part unspecified causing asphyxiation, initial encounter (principal) | CPT/HCPCS: A0425; A0427 ==

== ENCOUNTER 2018-09-16 03:17 | Outpatient (CLI) | payer MEDICARE, OTHER | END 2018-09-16 03:18 | disposition critical access hospital (66) | LOC: EMS 03:17 | PROVIDERS: ATTEND Surgery | DX: R41.82 Altered mental status, unspecified (principal); S05.92XA Unspecified injury of left eye and orbit, initial encounter; X58.XXXA Exposure to other specified factors, initial encounter; Y92.039 Unspecified place in apartment as the place of occurrence of the external cause | CPT/HCPCS: A0425; A0429 ==

== ENCOUNTER 2018-09-16 03:34 | Emergency (ER) | payer MEDICARE, OTHER ==
--- NOTE | 2018-09-16 04:40 | ED Physician Documentation ---
PD HPI SYNCOPE - Stated complaint Stated Complaint: SYNCOPE/L EYE INJ - Chief complaint Chief Complaint: Neuro - History obtained from History obtained from: Patient, EMS - History of Present Illness Witnessed: Unwitnessed Timing - onset: Today Preceding symptoms: None Associated symptoms: Vision changes Contributing factors: Unknown Injury occurred: Other (facial injury) Pain level now: 8 Similar symptoms before: Has not had sx before Recently seen: Not recently seen - Additional information Additional information: BIBA. Patient says she has no recollection of passing out or feeling unusual in any way until she felt something trickling from her left eye while walking in her house. She applied a washcloth to the left side of her face and noted blood on the washcloth. She went to the mirror and noted blood and fluid coming from her left eye. She had significant pain and great difficulty opening the left eye due to pain, but noted she could only see shadows and light with left eye. She then called 911. Patient lives alone. Review of Systems Constitutional: reports: Reviewed and negative Eyes: reports: Loss of vision (left eye), Discharge Ears: reports: Reviewed and negative Nose: reports: Reviewed and negative Throat: reports: Reviewed and negative Cardiac: reports: Reviewed and negative Respiratory: reports: Reviewed and negative GI: reports: Reviewed and negative Skin: reports: Reviewed and negative Musculoskeletal: reports: Reviewed and negative Neurologic: reports: Head injury. denies: Generalized weakness, Focal weakness, Numbness, Difficulty speaking, Confused, Headache PD PAST MEDICAL HISTORY - Past Medical History Past Medical History: Yes Cardiovascular: Deep vein thrombosis, High cholesterol, Pulmonary embolism Respiratory: None Endocrine/Autoimmune: None GI: GERD : Frequency, Incontinence Psych: Depression, Anxiety, Panic attacks Musculoskeletal: Osteoarthritis Derm: Other - Past Surgical History Past Surgical History: Yes 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, Appendectomy /[employer] ERECTING: Hysterectomy HEENT: Tonsil/Adenoidectomy Derm: Skin cancer surgery - Present Medications Home Medications: Ambulatory Orders Medication Instructions Recorded Confirmed Venlafaxine ER [Effexor ER] 2 tab PO BID 04/30/13 05/15/17 Vitamin B12 Injection 1,000 mcg IM ONCE 07/17/14 05/15/17 Topiramate [Topamax] 200 mg PO QPM 11/24/15 05/15/17 diltiaZEM [Cardizem] 15 mg PO DAILY 11/24/15 05/15/17 traMADol [Ultram] 50 mg PO BID 11/24/15 05/15/17 LORazepam [Ativan] 1 mg PO TID 01/13/16 05/15/17 hydrOXYzine pamoate [Hydroxyzine 50 mg PO BID PRN #10 capsule 05/13/17 05/15/17 Pamoate] - Allergies Allergies/Adverse Reactions: Allergies Allergy/AdvReac Type Severity Reaction Status Date / Time lithium [[place]] Allergy Severe Edema Verified 09/16/18 03:50 tetracycline [Tetracycline] Allergy Severe Hives Verified 09/16/18 03:50 butalbital [From Fioricet] AdvReac Severe Dizziness Verified 09/16/18 03:50 - Social History Does the pt smoke?: No Smoking Status: Never smoker Does the pt drink ETOH?: No Does the pt have substance abuse?: No - Immunizations Immunizations are current?: No - POLST Patient has POLST: No PD ED PE NORMAL - Vitals Vital signs reviewed: Yes - General General: Alert and oriented X 3, No acute distress, Well developed/nourished - HEENT HEENT: Other (trace swelling, mild tenderness supra/infraorbit left eye. trace dried blood from left orbit. Difficult to open left eye due to pain, but inspection reveals globe rupture with some blood and vitreous leaking from the globe and absence of corneal tissue.) - Neck Neck: Supple, no meningeal sign, No bony TTP - Cardiac Cardiac: RRR, No murmur - Respiratory Respiratory: No respiratory distress, Clear bilaterally - Abdomen Abdomen: Soft, Non tender - Derm Derm: Normal color, Warm and dry - Extremities Extremities: No edema - Neuro Neuro: Alert and oriented X 3, No motor deficit, No sensory deficit, Normal speech Eye Opening: Spontaneous Motor: Obeys Commands Verbal: Oriented GCS Score: 15 - Psych Psych: Normal mood, Normal affect Results - Vitals Vitals: Vital Signs - 24 hr 09/16/18 09/16/18 03:43 05:00 Temperature 36.8 C Heart Rate 82 87 Respiratory 14 18 Rate Blood Pressure 127/62 126/71 O2 Saturation 100 97 Oxygen O2 Source Room air - EKG (time done) No standard instances Rate: Rate (enter#) (79) Rhythm: NSR Lena: LAD Intervals: Normal GA QRS: Normal Ischemia: Normal ST segments - Labs Labs: Laboratory Tests 09/16/18 09/16/18 09/16/18 06:07 06:07 06:07 WBC 8.3 RBC 4.09 L Hgb 13.5 Hct 39.7 MCV 96.9 MCH 33.1 H MCHC 34.1 RDW 13.2 Plt Count 226 MPV 6.5 L Neut # (Auto) 6.4 Lymph # (Auto) 1.1 L [place] # (Auto) 0.6 Eos # (Auto) 0.0 Baso # (Auto) 0.1 Absolute Nucleated RBC 0.00 Nucleated RBC % 0.0 Sodium 140 Potassium 3.4 L Chloride 108 Carbon Dioxide 23 Anion Gap 9.0 BUN 16 Creatinine 1.0 Estimated GFR (MDRD) 54 L Glucose 127 H Calcium 9.2 Total Bilirubin 0.4 AST 18 ALT 19 Alkaline Phosphatase 62 Troponin I < 0.04 Total Protein 6.2 L Albumin 3.8 Globulin 2.4 Albumin/Globulin Ratio 1.6 Lipase 21 L - Rads (name of study) CT head Radiology: Prelim report reviewed, See rad report CT facial bones Radiology: Prelim report reviewed, See rad report PD MEDICAL DECISION MAKING - ED course Complexity details: reviewed results, re-evaluated patient, considered differential, d/w patient ED course: D/W Dr. Bowers (ophtho at [facility]) regarding the initial exam findings. She recommends CTH and CT facial bones before considering transfer. These do not demonstrate any fractures, but confirm globe rupture and also reveal 7mm right frontal SAH. D/W Dr. Nj (trauma at [facility]), accepts patient for transfer. I also updated Dr. Bowers with the results. Dr. Bowers had recommended IV moxifloxacin. This was started in IV RUE but there was swelling and erythema which RN thought was due to infiltration of the IV and thus it was discontinued and eventually resumed through IV in LUE. As flight medics were evaluating patient and preparing to take patient, they noted swelling and erythema at LUE IV site. I was asked to evaluate this, and there is significant swelling and erythema of LUE s/o local reaction to the moxifloxacin and thus this was discontinued. Rather than delay transport, I did not order another antibiotic. Departure - Departure Disposition: 02 Transfer Acute Care Hosp Clinical Impression: Ruptured globe of left eye, Subarachnoid bleed Condition: Serious
[2018-09-16] MEDS ORDERED: MOXIFLOXACIN 400MG/250ML IV 400 MG/250 ML BAG IV STA (05:41)
[2018-09-16 06:18] LABS: BASOPHILS # (AUTO) 0.1 10^3/uL (0.0-0.1); BASOPHILS % (AUTO) 0.7 %; EOSINOPHILS % (AUTO) 0.6 %; HGB - HEMOGLOBIN 13.5 g/dL (12.0-16.0); LYMPHOCYTES # (AUTO) 1.1 10^3/uL (1.5-3.5); LYMPHOCYTES % (AUTO) 13.9 %; MEAN CORPUSCULAR HEMOGLOBIN 33.1 pg (27.0-31.0); MEAN CORPUSCULAR HGB CONC 34.1 g/dL (32.0-36.0); MEAN CORPUSCULAR VOLUME 96.9 fL (81.0-99.0); MEAN PLATELET VOLUME 6.5 fL (7.9-10.8); MONOCYTES # (AUTO) 0.6 10^3/uL (0.0-1.0); MONOCYTES % (AUTO) 7.5 %; NEUTROPHILS # (AUTO) 6.4 10^3/uL (1.5-6.6); NEUTROPHILS % (AUTO) 77.3 %; PLT - PLATELET COUNT 226 10^3/uL (130-450); RED BLOOD COUNT 4.09 10^6/uL (4.20-5.40); RED CELL DISTRIBUTION WIDTH 13.2 % (12.0-15.0); WHITE BLOOD COUNT 8.3 x10^3/uL (4.8-10.8)
[2018-09-16 06:28] LABS: ALBUMIN 3.8 g/dL (3.2-5.5); ALBUMIN/GLOBULIN RATIO 1.6 (1.0-2.2); BILIRUBIN,TOTAL 0.4 mg/dL (0.2-1.0); CALCIUM 9.2 mg/dL (8.5-10.3); TOTAL PROTEIN 6.2 g/dL (6.7-8.2)
[2018-09-16] MEDS ORDERED: ONDANSETRON 4 MG/2 ML VIAL IVP STA (06:40)
--- NOTE | 2018-09-16 06:57 | CT Report ---
Reason: syncope Procedure Date: 09/16/2018 Accession Number: [id number] / [id number] Procedure: CT - Head W/O CPT Code: FULL RESULT: EXAM: CT HEAD EXAM DATE: 09/16/2018 06:36 AM. CLINICAL HISTORY: Syncope, fall. COMPARISON: Prior head CT on 04/10/2018. TECHNIQUE: Multiaxial CT images were obtained from the foramen magnum to the vertex. Reformats: Sagittal and coronal. IV contrast: None. In accordance with CT protocol optimization, one or more of the following dose reduction techniques were utilized for this exam: automated exposure control, adjustment of mA and/or KV based on patient size, or use of iterative reconstructive technique. FINDINGS: Parenchyma: No intraparenchymal hemorrhage. No evidence of mass, midline shift, or CT findings of infarction. Lemon-white differentiation is distinct. Extraaxial Spaces: There is a 7 mm focus of right frontal subarachnoid hemorrhage. No parenchymal hemorrhage. No subdural or epidural collections identified. Ventricles: Normal in size and position. Sinuses and Orbits: Paranasal sinuses are well aerated. Status post left globe rupture. Bones: No evidence of fracture or calvarial defect. Other: None. IMPRESSION: 1. 7 mm focus of right frontal convexity traumatic subarachnoid hemorrhage. [facility] The above findings were discussed with Dr. Hernandez by Dr. Mitch Link at 06:55 hrs on 09/16/18.
--- NOTE | 2018-09-16 07:04 | CT Report ---
Reason: fall, left globe rupture Procedure Date: 09/16/2018 Accession Number: [id number] / [id number] Procedure: CT - Facial Bones W/O CPT Code: FULL RESULT: EXAM: CT MAXILLOFACIAL WITHOUT CONTRAST EXAM DATE: 09/16/2018 06:36 AM. CLINICAL HISTORY: Fall, left globe rupture. COMPARISONS: None. TECHNIQUE: Thin-section axial images were acquired of the face without contrast. Post-processing: Coronal and sagittal reformats. Other: None. In accordance with CT protocol optimization, one or more of the following dose reduction techniques were utilized for this exam: automated exposure control, adjustment of mA and/or KV based on patient size, or use of iterative reconstructive technique. FINDINGS: Soft Tissue: There is left periorbital and left cheek contusion. Orbits: Left globe contour is distorted with a 13 mm area of gas anteriorly. There is a small radiodense focus posteriorly in the globe which may represent displaced lens implant. Bones: No fracture or bone lesion. Temporomandibular Joints: The temporomandibular joints are symmetric and normally located. Sinuses: Normal. No mucosal thickening or fluid levels. Other: None. IMPRESSION: 1. Left globe rupture with probable displaced lens implant. 2. No evidence of maxillofacial fracture. [facility]
[2018-09-16] MEDS ORDERED: ONDANSETRON ODT 4 MG TABLET TL STA (08:07)
[2018-09-16 10:22] VITALS: BP 113/78
== END 2018-09-16 08:20 | disposition short-term general hospital (02) ==
LOC: EDUNIT# → ED 03:34
DX: S05.32XA Ocular laceration without prolapse or loss of intraocular tissue, left eye, initial encounter (principal); S06.6X9A Traumatic subarachnoid hemorrhage with loss of consciousness of unspecified duration, initial encounter; R22.9 Localized swelling, mass and lump, unspecified; Z86.718 Personal history of other venous thrombosis and embolism; Z86.711 Personal history of pulmonary embolism; Z79.899 Other long term (current) drug therapy
CPT/HCPCS: 36415; 70450; 70486; 80053; 83690; 84484; 85025; 93005; 96365; 99284; 99285

== ENCOUNTER 2018-09-23 20:32 | Outpatient (CLI) | payer MEDICARE, OTHER | END 2018-09-23 20:33 | disposition EMS.NT | LOC: EMS 20:32 | PROVIDERS: ATTEND Surgery | DX: Z03.89 Encounter for observation for other suspected diseases and conditions ruled out (principal) ==

== ENCOUNTER 2018-12-02 13:56 | Outpatient (CLI) | payer MEDICARE, OTHER | END 2018-12-02 13:57 | disposition home or self-care (01) | LOC: DI 13:56 | PROVIDERS: ATTEND Internal Medicine | DX: I48.91 Unspecified atrial fibrillation (principal) | CPT/HCPCS: 93306 ==

== ENCOUNTER 2018-12-03 23:19 | Outpatient (CLI) | payer MEDICARE, OTHER | END 2018-12-03 23:20 | disposition critical access hospital (66) | LOC: EMS 23:19 | PROVIDERS: ATTEND Surgery | DX: R53.1 Weakness (principal); R05 Cough; R51 Headache | CPT/HCPCS: A0425; A0429 ==

== ENCOUNTER 2018-12-03 23:40 | Emergency (ER) | payer MEDICARE, OTHER ==
[2018-12-04] MEDS ORDERED: ACETAMINOPHEN 325 MG TABLET PO STA (01:15)
--- NOTE | 2018-12-04 01:31 | ED Physician Documentation ---
History of Present Illness - Stated complaint Stated Complaint: GLF - Chief complaint Chief Complaint: General - History obtained from History obtained from: Patient - History of Present Illness Timing: How many days ago (2-3) Improved by: rest Worsened by: exertion , ambulation - Additonal information Additional information: c/o 2-3 days of cough, dyspnea, generalized weakness, chest discomfort (only when coughing). saw PMD earlier today, no tests and no rd, but has since develope fever with sweats and chills Review of Systems Constitutional: reports: Fever, Chills, Myalgias, Fatigue, Sweats Cardiac: reports: Chest pain / pressure. 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 HEENT: Tonsil/Adenoidectomy Derm: Skin cancer surgery - Present Medications Home Medications: Ambulatory Orders Medication Instructions Recorded Confirmed Venlafaxine ER [Effexor ER] 2 tab PO BID 04/30/13 05/15/17 Vitamin B12 Injection 1,000 mcg IM ONCE 07/17/14 05/15/17 Topiramate [Topamax] 200 mg PO QPM 11/24/15 05/15/17 diltiaZEM [Cardizem] 15 mg PO DAILY 11/24/15 05/15/17 traMADol [Ultram] 50 mg PO BID 11/24/15 05/15/17 LORazepam [Ativan] 1 mg PO TID 01/13/16 05/15/17 hydrOXYzine pamoate [Hydroxyzine 50 mg PO BID PRN #10 capsule 05/13/17 05/15/17 Pamoate] Oseltamivir [Tamiflu] 75 mg PO BID #9 capsule 12/04/18 - Allergies Allergies/Adverse Reactions: Allergies Allergy/AdvReac Type Severity Reaction Status Date / Time lithium [[place]] Allergy Severe Edema Verified 12/03/18 23:59 tetracycline [Tetracycline] Allergy Severe Hives Verified 12/03/18 23:59 butalbital [From Fioricet] AdvReac Severe Dizziness Verified 12/03/18 23:59 - Social History Does the pt smoke?: No Smoking Status: Never smoker Does the pt drink ETOH?: No Does the pt have substance abuse?: No - Immunizations Immunizations are current?: No - POLST Patient has POLST: No PD ED PE NORMAL - Vitals Vital signs reviewed: Yes - General General: Alert and oriented X 3, No acute distress, Well developed/nourished - HEENT HEENT: Moist mucous membranes, Pharynx benign - Neck Neck: Supple, no meningeal sign - Cardiac Cardiac: No murmur - Respiratory Respiratory: No respiratory distress, Clear bilaterally - Derm Derm: Normal color, Warm and dry, No rash PD ED PE EXPANDED - Cardiac Cardiac: Tachy, Regular Rhythm Results - Vitals Vitals: Vital Signs - 24 hr 12/04/18 12/04/18 12/04/18 01:00 02:23 03:30 Temperature 38.4 C H 37.9 C H Heart Rate 111 H 110 H 109 H Respiratory 22 17 15 Rate Blood Pressure 142/72 H 125/60 125/67 O2 Saturation 93 93 97 12/04/18 12/04/18 12/04/18 03:54 04:59 06:08 Temperature 38.4 C H 37.5 C Heart Rate 106 H 108 H Respiratory 19 18 Rate Blood Pressure 114/71 130/78 O2 Saturation 95 94 12/04/18 06:20 Temperature 37.7 C H Heart Rate Respiratory Rate Blood Pressure O2 Saturation Oxygen O2 Source Room air - Labs Labs: Microbiology 12/04/18 00:20 Group A Strep Throat Culture - Preliminary Throat CULTURE IN PROGRESS. RESULTS TO FOLLOW. Laboratory Tests 12/04/18 12/04/18 12/04/18 00:20 00:20 01:55 WBC 5.8 RBC 4.00 L Hgb 12.8 Hct 38.3 MCV 95.8 MCH 32.0 H MCHC 33.4 RDW 13.1 Plt Count 203 MPV 6.5 L Neut # (Auto) 4.6 Lymph # (Auto) 0.3 L [place] # (Auto) 0.7 Eos # (Auto) 0.0 Baso # (Auto) 0.0 Absolute Nucleated RBC 0.00 Nucleated RBC % 0.0 Sodium Potassium Chloride Carbon Dioxide Anion Gap BUN Creatinine Estimated GFR (MDRD) Glucose Calcium Total Bilirubin AST ALT Alkaline Phosphatase Total Protein Albumin Globulin Albumin/Globulin Ratio Lipase Influenza A (Rapid) POSITIVE H Influenza B (Rapid) Negative Group A Strep Rapid Negative 12/04/18 01:55 WBC RBC Hgb Hct MCV MCH MCHC RDW Plt Count MPV Neut # (Auto) Lymph # (Auto) [place] # (Auto) Eos # (Auto) Baso # (Auto) Absolute Nucleated RBC Nucleated RBC % Sodium 137 Potassium 3.2 L Chloride 107 Carbon Dioxide 21 Anion Gap 9.0 BUN 8 Creatinine 0.8 Estimated GFR (MDRD) 70 L Glucose 120 H Calcium 8.9 Total Bilirubin 0.6 AST 13 ALT 17 Alkaline Phosphatase 69 Total Protein 6.1 L Albumin 3.7 Globulin 2.4 Albumin/Globulin Ratio 1.5 Lipase 24 Influenza A (Rapid) Influenza B (Rapid) Group A Strep Rapid PD MEDICAL DECISION MAKING - ED course Complexity details: reviewed results, re-evaluated patient, considered differential, d/w patient Departure - Departure Disposition: 01 Home, Self Care Clinical Impression: Influenza A Condition: Good Instructions: ED Flu, Medication: Tamiflu (Oseltamivir) Follow-Up: Bennett Storey MD [Primary Care Provider] - Prescriptions: Oseltamivir [Tamiflu] 75 mg PO BID #9 capsule Discharge Date/Time: 12/04/18 06:30
[2018-12-04] MEDS ORDERED: SODIUM CHLORIDE 0.9% 1,000 ML IV STA (01:49)
[2018-12-04 02:06] LABS: BASOPHILS % (AUTO) 0.6 %; EOSINOPHILS % (AUTO) 0.6 %; HGB - HEMOGLOBIN 12.8 g/dL (12.0-16.0); LYMPHOCYTES # (AUTO) 0.3 10^3/uL (1.5-3.5); LYMPHOCYTES % (AUTO) 5.9 %; MEAN CORPUSCULAR HGB CONC 33.4 g/dL (32.0-36.0); MEAN CORPUSCULAR VOLUME 95.8 fL (81.0-99.0); MEAN PLATELET VOLUME 6.5 fL (7.9-10.8); MONOCYTES # (AUTO) 0.7 10^3/uL (0.0-1.0); MONOCYTES % (AUTO) 12.8 %; NEUTROPHILS # (AUTO) 4.6 10^3/uL (1.5-6.6); NEUTROPHILS % (AUTO) 80.1 %; PLT - PLATELET COUNT 203 10^3/uL (130-450); RED CELL DISTRIBUTION WIDTH 13.1 % (12.0-15.0); WHITE BLOOD COUNT 5.8 x10^3/uL (4.8-10.8)
[2018-12-04 02:22] LABS: ALBUMIN 3.7 g/dL (3.2-5.5); ALBUMIN/GLOBULIN RATIO 1.5 (1.0-2.2); BILIRUBIN,TOTAL 0.6 mg/dL (0.2-1.0); CALCIUM 8.9 mg/dL (8.5-10.3); CREATININE 0.8 mg/dL (0.4-1.0); TOTAL PROTEIN 6.1 g/dL (6.7-8.2)
--- NOTE | 2018-12-04 02:27 | XRAY Report ---
Reason: cough, fever Procedure Date: 12/04/2018 Accession Number: [id number] / [id number] Procedure: XR - Chest 2 View X-Ray CPT Code: 90353 FULL RESULT: EXAM: CHEST RADIOGRAPHY EXAM DATE: 12/04/2018 02:11 AM. CLINICAL HISTORY: Cough, fever. COMPARISON: CHEST 2 VIEW PA/LAT 01/20/2017 9:15 AM. TECHNIQUE: 2 views. FINDINGS: Lungs/Pleura: No alveolar consolidation or pleural effusion seen. No pneumothorax. Mediastinum: Lordotic position. Cardiomediastinal silhouette is unremarkable. Other: Osteopenia. IMPRESSION: 1. No acute abnormality seen in the chest. [facility]
[2018-12-04] MEDS ORDERED: OSELTAMIVIR 75 MG CAPSULE PO STA (03:40)
[2018-12-04] MEDS ORDERED: ACETAMINOPHEN 160 MG/5 ML SUSP UDC PO STA (03:40)
[2018-12-04 06:08] VITALS: BP 130/78
== END 2018-12-04 06:30 | disposition home or self-care (01) ==
LOC: EDUNIT# → ED 23:40
DX: J10.1 Influenza due to other identified influenza virus with other respiratory manifestations (principal); R00.0 Tachycardia, unspecified; E78.00 Pure hypercholesterolemia, unspecified; Z86.718 Personal history of other venous thrombosis and embolism; Z79.01 Long term (current) use of anticoagulants; Z86.711 Personal history of pulmonary embolism
CPT/HCPCS: 36415; 71046; 80053; 83690; 85025; 87070; 87275; 87276; 87430; 93005; 96360; 99283; 99285; A9270

== ENCOUNTER 2018-12-26 10:33 | Outpatient (CLI) | payer MEDICARE, OTHER | END 2018-12-26 10:34 | disposition critical access hospital (66) | LOC: EMS 10:33 | PROVIDERS: ATTEND Surgery | DX: R07.81 Pleurodynia (principal); W01.190A Fall on same level from slipping, tripping and stumbling with subsequent striking against furniture, initial encounter; Y93.89 Activity, other specified; Y92.009 Unspecified place in unspecified non-institutional (private) residence as the place of occurrence of the external cause | CPT/HCPCS: A0425; A0429 ==

== ENCOUNTER 2018-12-26 10:52 | Emergency (ER) | payer MEDICARE, OTHER ==
--- NOTE | 2018-12-26 11:07 | ED Physician Documentation ---
PD HPI Fall - Stated complaint Stated Complaint: GLF - History obtained from History obtained from: Patient, Family - History of Present Illness Mechanism of injury: Lost balance Fall distance: Standing position Where injury occurred: Home Timing - onset: Today Injury(ies) location: Chest Quality of pain: Pain Associated symptoms: No: LOC, AMS, Amnesia, Seizures, Ear drainage, Nasal drainage, Neck pain, Weakness, Paresthesias, Dyspnea, Nausea / vomiting, Hematemesis, Abdominal distension Symptoms improve with: Rest Worsens with: Movement, Palpation Contributing factors: No: Anticoagulated Similar symptoms before: Has not had sx before Recently seen: Not recently seen - Additional information Additional information: 73-year-old female who has 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 She complains of pain in the left lateral chest wall. She states that she was well prior to this and that she does use a walker for ambulation for the past 3 years. She uses a cane inside of her house and the walker when she is outside the house. Review of Systems Constitutional: denies: Fever Eyes: reports: Loss of vision (left eye pre-existing). denies: Photophobia Ears: denies: Ear pain Nose: denies: Congestion Throat: denies: Sore throat Cardiac: reports: Chest pain / pressure. denies: Palpitations, Pedal edema, Calf pain Respiratory: denies: Dyspnea, Cough GI: denies: Abdominal Pain, Nausea, Vomiting : reports: Frequency. 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 HEENT: Tonsil/Adenoidectomy Derm: Skin cancer surgery - Present Medications Home Medications: Ambulatory Orders Medication Instructions Recorded Confirmed Venlafaxine ER [Effexor ER] 2 tab PO DAILY 04/30/13 12/26/18 Vitamin B12 Injection 1,000 mcg IM ONCE 07/17/14 12/26/18 Topiramate [Topamax] 200 mg PO QPM 11/24/15 12/26/18 traMADol [Ultram] 50 mg PO BID 11/24/15 05/15/17 Aspirin [Aspirin EC] 81 mg PO DAILY 12/26/18 12/26/18 Calcium Carbonate [[id number]] 500 mg PO BID 12/26/18 12/26/18 Cholecalciferol (Vitamin D3) 2,000 unit PO DAILY PM 12/26/18 12/26/18 [Vitamin D] Esomeprazole Magnesium 40 mg PO DAILY 12/26/18 12/26/18 Hydrocodone/Acetaminophen 1 - 2 each PO Q6H PRN #14 tablet 12/26/18 [Hydrocodon-Acetaminophen 5-325] Magnesium Oxide [Magnesium] 500 mg PO DAILY 12/26/18 12/26/18 Metoprolol Tartrate 12.5 mg PO BID 12/26/18 12/26/18 Multivitamin [Multiple Vitamins] 1 each PO DAILY 12/26/18 12/26/18 [place]-3S/Dha/Epa/Fish Oil [Fish 1 each PO DAILY 12/26/18 12/26/18 Oil 1,200 mg Softgel] Polyethylene Glycol 3350 [Miralax] 17 gm PO DAILY PRN 12/26/18 12/26/18 Prednisolone Acetate/Pf 1 drops LEFTEYE TID 12/26/18 12/26/18 [Prednisolone Acet 1% Eye Drop] Trazodone HCl 300 mg PO DAILY PM 12/26/18 12/26/18 - Allergies Allergies/Adverse Reactions: Allergies Allergy/AdvReac Type Severity Reaction Status Date / Time lithium [[place]] Allergy Severe Edema Verified 12/03/18 23:59 tetracycline [Tetracycline] Allergy Severe Hives Verified 12/03/18 23:59 gabapentin Allergy Edema Verified 12/26/18 11:14 butalbital [From Fioricet] AdvReac Severe Dizziness Verified 12/03/18 23:59 - Social History Does the pt smoke?: No Smoking Status: Never smoker Does the pt drink ETOH?: No Does the pt have substance abuse?: No - Immunizations Immunizations are current?: No - POLST Patient has POLST: No PD ED PE NORMAL - Vitals Vital signs reviewed: Yes - General General: Alert and oriented X 3, No acute distress, Well developed/nourished - HEENT HEENT: Atraumatic, EOMI, Other (There is corneal opacification to the left eye.) - Neck Neck: Supple, no meningeal sign, No bony TTP - Cardiac Cardiac: No murmur, Other (irregular) - Respiratory Respiratory: No respiratory distress, Clear bilaterally, Other (point tenderness to the chest wall anterolateral at breast level. ) - Abdomen Abdomen: Soft, Non tender - Back Back: No CVA TTP, No spinal TTP - Derm Derm: Normal color, Warm and dry, No rash - Extremities Extremities: No deformity, No edema - Neuro Neuro: Alert and oriented X 3, No motor deficit, No sensory deficit, Normal speech Eye Opening: Spontaneous Motor: Obeys Commands Verbal: Oriented GCS Score: 15 - Psych Psych: Normal mood, Normal affect Results - Vitals Vitals: Vital Signs - 24 hr 12/26/18 12/26/18 10:57 11:57 Temperature 36.8 C Heart Rate 72 67 Respiratory 16 16 Rate Blood Pressure 123/74 98/58 L O2 Saturation 97 99 Oxygen O2 Source Room air - Labs Labs: Laboratory Tests 12/26/18 12:48 Urine Color YELLOW Urine Clarity CLEAR Urine pH 8.0 H Ur Specific Beauty 1.010 Urine Protein NEGATIVE Urine Glucose (UA) NEGATIVE Urine Ketones NEGATIVE Urine Occult Blood NEGATIVE Urine Nitrite NEGATIVE Urine Bilirubin NEGATIVE Urine Urobilinogen 0.2 (NORMAL) Ur Leukocyte Esterase NEGATIVE Ur Microscopic Review NOT INDICATED Urine Culture Comments NOT INDICATED - Rads (name of study) ribs and PA chest Radiology: Prelim report reviewed (Impression: No displaced rib fracture or acute cardiopulmonary abnormality demonstrated.), EMP read indepedently, See rad report PD MEDICAL DECISION MAKING - ED course Complexity details: considered differential, d/w patient ED course: 73-year-old female with a fall in her home has a chest wall contusion without evidence of fracture of the ribs. Her pain is manageable when she is not moving around. Departure - Departure Disposition: Home, Self Care Clinical Impression: Chest wall contusion Qualifiers: Encounter type: initial encounter Laterality: left Qualified Code(s): S20.212A - Contusion of left front wall of thorax, initial encounter Condition: Stable Instructions: ED Contusion Rib Follow-Up: Bennett Storey MD [Primary Care Provider] - Prescriptions: Hydrocodone/Acetaminophen [Hydrocodon-Acetaminophen 5-325] 1 - 2 each PO Q6H PRN #14 tablet PRN Reason: pain
[2018-12-26 11:59] VITALS: BP 98/58
--- NOTE | 2018-12-26 12:17 | XRAY Report ---
Reason: fall onto left chest wall. Procedure Date: 12/26/2018 Accession Number: [id number] / [id number] Procedure: XR - Ribs w/PA Chest LT CPT Code: FULL RESULT: EXAM: LEFT RIB RADIOGRAPHY EXAM DATE: 12/26/2018 11:44 AM. CLINICAL HISTORY: Left chest wall pain. COMPARISON: CHEST 2 VIEW 12/04/2018 1:54 AM. TECHNIQUE: 1 view of the chest and 2 views of the ribs. FINDINGS: Bones: Normal. No fracture or bone lesion. Lungs: No focal opacities. No pneumothorax. No pleural effusions. Mediastinum: Heart and mediastinal contours are unremarkable. Other: None. IMPRESSION: No displaced rib fracture or acute cardiopulmonary abnormality demonstrated. RADIA
[2018-12-26 12:52] LABS: BILIRUBIN,URINE NEGATIVE (NEGATIVE); GLUCOSE, URINE (UA) NEGATIVE (NEGATIVE); KETONES,URINE (UA) NEGATIVE (NEGATIVE); LEUKOCYTE ESTERASE, URINE NEGATIVE (NEGATIVE); NITRITE,URINE NEGATIVE (NEGATIVE); OCCULT BLOOD,URINE NEGATIVE (NEGATIVE); PROTEIN,URINE NEGATIVE (NEGATIVE); UROBILINOGEN,URINE 0.2 (NORMAL) E.U./dL (NORMAL)
[2018-12-26 12:54] LABS: CLARITY,URINE CLEAR (CLEAR)
== END 2018-12-26 13:15 | disposition home or self-care (01) ==
LOC: EDUNIT# → ED 10:52
DX: S20.212A Contusion of left front wall of thorax, initial encounter (principal); W18.39XA Other fall on same level, initial encounter; Y92.009 Unspecified place in unspecified non-institutional (private) residence as the place of occurrence of the external cause
CPT/HCPCS: 81001; 81003; 87086; 99283

== ENCOUNTER 2019-03-03 13:40 | Outpatient (CLI) | payer MEDICARE, OTHER ==
--- NOTE | 2019-03-04 08:45 | Mammography Report ---
Reason: SCREENING MAMMO Procedure Date: 03/03/2019 Accession Number: [id number] / [id number] Procedure: MGN - Screening Mammo Dig Bilat CPT Code: FULL RESULT: EXAM: Screening Mammo Dig Bilat DATE: 03/03/2019 2:30 PM CLINICAL HISTORY: Screening encounter. History of early menses. TECHNIQUE: (B) - Bilateral CC and MLO views were obtained. COMPARISON: 02/20/2018 through 06/12/2009. PARENCHYMAL PATTERN: (D) - The breast(s) demonstrate(s) heterogeneously dense fibroglandular parenchyma. FINDINGS: There are no suspicious masses, calcifications, or areas of distortion. IMPRESSION: Negative examination. BI-RADS category 1. RECOMMENDATION: (ANNUAL) - Recommend routine annual screening mammography. BI-RADS CATEGORY: (1) - Negative. STANDARD QUALIFYING STATEMENTS: 1. This examination was not reviewed with the aid of Computer-Aided Detection (CAD). 2. A negative or benign imaging report should not preclude biopsy if clinically suspicious findings are present. 3. Dense breasts may obscure an underlying neoplasm. 4. This examination was reviewed without the aid of 3D breast imaging (tomosynthesis).
== END 2019-03-03 13:41 | disposition home or self-care (01) ==
LOC: DI.N 13:40
DX: Z12.31 Encounter for screening mammogram for malignant neoplasm of breast (principal)
CPT/HCPCS: 77067

== ENCOUNTER 2019-07-15 22:00 | Outpatient (CLI) | payer MEDICARE, OTHER | END 2019-07-15 22:01 | disposition EMS.NT | LOC: EMS 22:00 | PROVIDERS: ATTEND Surgery | DX: M79.622 Pain in left upper arm (principal) ==

== ENCOUNTER 2019-11-27 23:33 | Outpatient (CLI) | payer MEDICARE, OTHER | END 2019-11-27 23:59 | disposition critical access hospital (66) | LOC: EMS 23:33 | PROVIDERS: ATTEND Surgery | DX: R51 Headache (principal); W18.30XA Fall on same level, unspecified, initial encounter; Y92.032 Bedroom in apartment as the place of occurrence of the external cause | CPT/HCPCS: A0425; A0429 ==

== ENCOUNTER 2019-11-27 23:49 | Emergency (ER) | payer MEDICARE, OTHER ==
[2019-11-28] MEDS ORDERED: SODIUM CHLORIDE 0.9% 1,000 ML IV ONE (00:20)
--- NOTE | 2019-11-28 00:28 | ED Physician Documentation ---
History of Present Illness - Stated complaint Stated Complaint: GLF - Chief complaint Chief Complaint: Trauma Hd/Nk - History obtained from History obtained from: Patient, EMS - Additonal information Additional information: Patient is brought to the emergency department by EMS after taking a fall at home and having a possible syncopal episode. Patient states the last thing she remembers was getting ready for bed, and then suddenly, she woke up on the floor away from where she had last remembered being. Patient states that she has had a bad cold and a cough recently and has not been feeling so great. She denies shortness of breath that is worse than usual, and denies fever. She states that she is mainly had a dry cough with thick lesional phlegm production. She is also had nasal congestion. The patient states that she did not remember having any chest pain or particular shortness of breath. She is not been nauseated or vomiting. She states she has been trying to drink plenty of fluid. She does not remember tripping or slipping and falling. Patient states she woke up on the floor with her walker on top of her, and pressed her life alert button to call for the medics. She states that she feels some soreness on the back of her head as though she may have hit her head. She states she also has distant fractures in her C-spine and some arthritis, but that she has noticed some pain in her neck since the fall. Patient denies any weakness, numbness or tingling in her extremities. She denies any rib pain. She states she has some mild left hip pain. No abdominal or chest pain. No other complaints at this time. Review of Systems Ten Systems: 10 systems reviewed and negative Constitutional: reports: Reviewed and negative Eyes: reports: Reviewed and negative Ears: reports: Reviewed and negative Nose: reports: Rhinorrhea / runny nose, Congestion Throat: reports: Reviewed and negative Cardiac: reports: Reviewed and negative Respiratory: reports: Cough GI: reports: Reviewed and negative : reports: Reviewed and negative Skin: reports: Reviewed and negative Musculoskeletal: reports: Neck pain, Joint pain Neurologic: reports: Syncope, Headache, Head injury Psychiatric: reports: Reviewed and negative Endocrine: reports: Reviewed and negative Immunocompromised: reports: Reviewed and negative PD PAST MEDICAL HISTORY - Past Medical History Past Medical History: Yes Cardiovascular: Deep vein thrombosis, High cholesterol, Pulmonary embolism Respiratory: None Neuro: Head injury Endocrine/Autoimmune: None GI: GERD : Frequency, Incontinence Psych: Depression, Anxiety, Panic attacks Musculoskeletal: Osteoarthritis Derm: Other - Past Surgical History Past Surgical History: Yes 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, 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 HEENT: Tonsil/Adenoidectomy Derm: Skin cancer surgery - Present Medications Home Medications: Ambulatory Orders Medication Instructions Recorded Confirmed Venlafaxine ER [Effexor ER] 2 tab PO DAILY 04/30/13 12/26/18 Vitamin B12 Injection 1,000 mcg IM ONCE 07/17/14 12/26/18 Topiramate [Topamax] 200 mg PO QPM 11/24/15 12/26/18 traMADol [Ultram] 50 mg PO BID 11/24/15 05/15/17 Aspirin [Aspirin EC] 81 mg PO DAILY 12/26/18 12/26/18 Calcium Carbonate [[id number]] 500 mg PO BID 12/26/18 12/26/18 Cholecalciferol (Vitamin D3) 2,000 unit PO DAILY PM 12/26/18 12/26/18 [Vitamin D] Esomeprazole Magnesium 40 mg PO DAILY 12/26/18 12/26/18 Hydrocodone/Acetaminophen 1 - 2 each PO Q6H PRN #14 tablet 12/26/18 [Hydrocodon-Acetaminophen 5-325] Magnesium Oxide [Magnesium] 500 mg PO DAILY 12/26/18 12/26/18 Metoprolol Tartrate 12.5 mg PO BID 12/26/18 12/26/18 Multivitamin [Multiple Vitamins] 1 each PO DAILY 12/26/18 12/26/18 [place]-3S/Dha/Epa/Fish Oil [Fish 1 each PO DAILY 12/26/18 12/26/18 Oil 1,200 mg Softgel] Prednisolone Acetate/Pf 1 drops LEFTEYE TID 12/26/18 12/26/18 [Prednisolone Acet 1% Eye Drop] Trazodone HCl 300 mg PO DAILY PM 12/26/18 12/26/18 polyethylene glycoL 3350 [Miralax] 17 gm PO DAILY PRN 12/26/18 12/26/18 - Allergies Allergies/Adverse Reactions: Allergies Allergy/AdvReac Type Severity Reaction Status Date / Time lithium [[place]] Allergy Severe Edema Verified 12/03/18 23:59 tetracycline [Tetracycline] Allergy Severe Hives Verified 12/03/18 23:59 acetaminophen [From Fioricet] Allergy Hives Verified 11/27/19 23:57 caffeine [From Fioricet] Allergy Hives Verified 11/27/19 23:57 gabapentin Allergy Edema Verified 12/26/18 11:14 butalbital [From Fioricet] AdvReac Severe Dizziness Verified 12/03/18 23:59 - Social History Does the pt smoke?: No Smoking Status: Never smoker Does the pt drink ETOH?: No Does the pt have substance abuse?: No - Immunizations Immunizations are current?: No - POLST Patient has POLST: No PD ED PE NORMAL - Vitals Vital signs reviewed: Yes - General General: Alert and oriented X 3, No acute distress, Well developed/nourished - HEENT HEENT: PERRL, EOMI, Moist mucous membranes, Other (Patient has mild tenderness without swelling over the left occipital area.) - Neck Neck: Supple, no meningeal sign, Other (Mild bony tenderness around the C3 areaNo deformity or step-off.) - Cardiac Cardiac: RRR, No murmur - Respiratory Respiratory: No respiratory distress, Clear bilaterally - Abdomen Abdomen: Soft, Non tender, Non distended - Back Back: No CVA TTP, No spinal TTP - Derm Derm: Normal color, Warm and dry, No rash - Extremities Extremities: No deformity, Other (Mild tenderness palpation over left hip. No shortening or rotation.) - Neuro Neuro: Alert and oriented X 3, vamp throater 2-12 intact, No motor deficit, No sensory deficit, Normal speech - Psych Psych: Normal mood, Normal affect Results - Vitals Vitals: Vital Signs - 24 hr 11/27/19 11/28/19 11/28/19 23:58 00:06 02:00 Temperature 36.7 C Heart Rate 89 87 92 Respiratory 18 16 16 Rate Blood Pressure 128/68 115/93 H 132/65 H O2 Saturation 98 97 97 11/28/19 03:12 Temperature Heart Rate 95 Respiratory 18 Rate Blood Pressure 123/78 O2 Saturation 97 Oxygen O2 Source Room air - EKG (time done) 0036 Rate: Rate (enter#) (86) Rhythm: NSR [place]: Normal Intervals: Other (Left anterior fascicular block) QRS: Normal Ischemia: Normal ST segments Compare to prior EKG: Old EKG unavailable - Labs Labs: Laboratory Tests 11/28/19 11/28/19 11/28/19 00:30 00:30 00:30 WBC 8.3 RBC 4.28 Hgb 13.8 Hct 42.9 MCV 100.2 H MCH 32.2 H MCHC 32.2 RDW 12.6 Plt Count 184 MPV 8.7 Neut # (Auto) 7.0 H Lymph # (Auto) 0.5 L [place] # (Auto) 0.7 Eos # (Auto) 0.1 Baso # (Auto) 0.0 Absolute Nucleated RBC 0.00 Nucleated RBC % 0.0 Sodium 134 L Potassium 3.4 L Chloride 102 Carbon Dioxide 24 Anion Gap 8.0 BUN 15 Creatinine 1.0 Estimated GFR (MDRD) 54 L Glucose 143 H Calcium 9.1 Total Bilirubin 0.6 AST 16 ALT 18 Alkaline Phosphatase 66 Troponin I High Sens 13.4 Total Protein 6.6 L Albumin 4.0 Globulin 2.6 Albumin/Globulin Ratio 1.5 Lipase 22 Influenza A (Rapid) Influenza B (Rapid) 11/28/19 01:25 WBC RBC Hgb Hct MCV MCH MCHC RDW Plt Count MPV Neut # (Auto) Lymph # (Auto) [place] # (Auto) Eos # (Auto) Baso # (Auto) Absolute Nucleated RBC Nucleated RBC % Sodium Potassium Chloride Carbon Dioxide Anion Gap BUN Creatinine Estimated GFR (MDRD) Glucose Calcium Total Bilirubin AST ALT Alkaline Phosphatase Troponin I High Sens Total Protein Albumin Globulin Albumin/Globulin Ratio Lipase Influenza A (Rapid) Negative Influenza B (Rapid) Negative - Rads (name of study) CT head Radiology: Final report received, Discussed with JOSE RAFAEL key read indepedently, See rad report (Final radiologist impression: No acute intracranial findings; hyperdense material within the left globe; mild decrease parenchymal volume loss; minimal chronic microangiopathic changes.) CT C-spine Radiology: Final report received, Discussed with JOSE RAFAEL key read indepedently, See rad report (Final radiologist impression: Stable appearing C2 deformity consistent with old fracture; stable degenerative changes in the cervical spine; no evidence of recent fracture.) X-ray hip/pelvis Radiology: Final report received, Discussed with JOSE RAFAEL key read indepedently, See rad report (Final radiology interpretation: No acute fractures.) Chest x-ray Radiology: Final report received, Discussed with JOSE RAFAEL key read indepedently, See rad report (Final radiologist interpretation: No acute radiographic pulmonary abnormalities.) PD MEDICAL DECISION MAKING - ED course Complexity details: reviewed old records, reviewed results, re-evaluated patient, considered differential, d/w patient ED course: Patient was worked up with labs, EKG, chest x-ray, pelvis and left hip x-rays, and CTs of the head and neck. She was given a liter bolus point and normal saline in the emergency department, as well.Patient was found to be feeling quite a bit better. I discussed with her that her entire work-up was unremarkable, And that she had been hemodynamically stable in the emergency department. I discussed with her that if she continues to have episodes like this, she will need to get set up with her doctor to wear a Holter monitor to try to troubleshoot symptoms. We have discussed home management of her symptoms as well as usual indications for return. Departure - Departure Disposition: 01 Home, Self Care Clinical Impression: Fall, Fall from ground level, Syncope Condition: Good Instructions: ED Fainting Unkn Cause Comments: Your labs, urinalysis, CTs, and x-rays all look good. It is not clear what caused you to fall or lose consciousness today. It is possible that you lost her balance, fell backward, hit your head, and lost consciousness in this way. However, you do not have much in the way of trauma to the back of your head, and your head CT is normal. It is possible that you fainted first and then fell. We have not found a serious or emergent cause for your fainting episode, if this is so. It is possible that you are somewhat weak from the viral illness you have been fighting, and that this caused you to fall in the first place. We have given you IV fluids to be sure that any possible dehydration has been treated. Additionally, you have been tested for influenza, which was negative, and of also been evaluated with chest x-ray, which did not show any pneumonia. At this point in time, please be sure to get plenty of rest and plenty of fluids. Any walking you do should be with your walker until you are feeling better. If you continue to have fainting episodes, then you will need to follow-up with your primary care physician to discuss wearing an event monitor to see what your heart may be doing during the episodes. At this point in time, and while you have been here, there has been no evidence of any trouble with your heart. Please make an appointment first thing on Friday morning to follow- up with your primary care physician.She developed chest pain, worsening shortness of breath, or any other concerning symptoms, please return to the emergency department. Discharge Date/Time: 11/28/19 03:12
[2019-11-28 00:44] LABS: BASOPHILS % (AUTO) 0.4 %; EOSINOPHILS # (AUTO) 0.1 10^3/uL (0.0-0.7); HGB - HEMOGLOBIN 13.8 g/dL (12.0-16.0); LYMPHOCYTES # (AUTO) 0.5 10^3/uL (1.5-3.5); LYMPHOCYTES % (AUTO) 6.1 %; MEAN CORPUSCULAR HEMOGLOBIN 32.2 pg (27.0-31.0); MEAN CORPUSCULAR HGB CONC 32.2 g/dL (32.0-36.0); MEAN CORPUSCULAR VOLUME 100.2 fL (81.0-99.0); MEAN PLATELET VOLUME 8.7 fL (7.9-10.8); MONOCYTES # (AUTO) 0.7 10^3/uL (0.0-1.0); MONOCYTES % (AUTO) 8.9 %; NEUTROPHILS % (AUTO) 83.2 %; PLT - PLATELET COUNT 184 10^3/uL (130-450); RED BLOOD COUNT 4.28 10^6/uL (4.20-5.40); RED CELL DISTRIBUTION WIDTH 12.6 % (12.0-15.0); WHITE BLOOD COUNT 8.3 x10^3/uL (4.8-10.8)
[2019-11-28 01:09] LABS: ALBUMIN/GLOBULIN RATIO 1.5 (1.0-2.2); BILIRUBIN,TOTAL 0.6 mg/dL (0.2-1.0); CALCIUM 9.1 mg/dL (8.5-10.3); TOTAL PROTEIN 6.6 g/dL (6.7-8.2)
--- NOTE | 2019-11-28 01:50 | XRAY Report ---
Reason: chest pain Procedure Date: 11/28/2019 Accession Number: [id number] / [id number] Procedure: XR - Chest 1 View X-Ray CPT Code: 24702 Final Report FULL RESULT: EXAM: CHEST RADIOGRAPHY EXAM DATE: 11/28/2019 01:05 AM. CLINICAL HISTORY: Chest pain. COMPARISON: RIBS W/PA CHEST LT 12/26/2018 11:22 AM. TECHNIQUE: 1 view. FINDINGS: Lungs/Pleura: No dense consolidation. No large effusion or pneumothorax. No pulmonary edema. Mediastinum: Heart and mediastinal contours are unremarkable. Other: None. IMPRESSION: No acute radiographic pulmonary abnormalities. RADIA
--- NOTE | 2019-11-28 01:50 | CT Report ---
Reason: fall/pain/bony tenderness Procedure Date: 11/28/2019 Accession Number: [id number] / [id number] Procedure: CT - CERVICAL SPINE WO CPT Code: Final Report FULL RESULT: EXAM: CT CERVICAL SPINE WITHOUT CONTRAST DATE: 11/28/2019 12:59 AM. HISTORY: Fall/pain/bony tenderness. COMPARISONS: CERVICAL SPINE W/O 01/20/2017 11:35 AM. TECHNIQUE: Thin-section axial images were acquired of the cervical spine without contrast. Post-processing: Coronal and sagittal reformats. Other: None. In accordance with CT protocol optimization, one or more of the following dose reduction techniques were utilized for this exam: automated exposure control, adjustment of mA and/or KV based on patient size, or use of iterative reconstructive technique. FINDINGS: Alignment: No scoliosis or spondylolisthesis. Bones: Chronic appearing deformity of C2, unchanged. This involves the base of the dens and the right lateral mass consistent with remote, healed fracture. There is moderate diffuse osteopenia. Interspace Levels/Facets: Stable degenerative changes in the cervical spine, most pronounced at C6-C7. Endplate osteophyte mildly narrows the central canal with moderate to severe right-sided foraminal stenosis, unchanged. Moderate right-sided facet arthropathy at C5-C6, right-sided facet arthropathy at C1-C2. Musculature: Normal. No fatty atrophy. Other: The paravertebral and prevertebral soft tissues are unremarkable. The lung apices are clear. IMPRESSION: 1. Stable appearing C2 deformity consistent with old fracture. 2. Stable degenerative changes in the cervical spine. 3. No evidence of recent fracture. RADIA
--- NOTE | 2019-11-28 01:52 | XRAY Report ---
Reason: fall/pain Procedure Date: 11/28/2019 Accession Number: [id number] / [id number] Procedure: XR - Hip w/Pelvis 2-3V LT CPT Code: Final Report FULL RESULT: EXAM: LEFT HIP RADIOGRAPHY EXAM DATE: 11/28/2019 01:05 AM. CLINICAL HISTORY: Fall/pain. COMPARISON: None. TECHNIQUE: 2 views. FINDINGS: Bones: No acute fractures. Old fracture of the left inferior pubic ramus. Internal fixation of prior left iliac fractures. Joints: Moderate osteoarthritis of the hip joint. No dislocation. Soft Tissues: Unremarkable IMPRESSION: No acute fractures. RADIA
--- NOTE | 2019-11-28 01:53 | CT Report ---
Reason: trauma, LOC Procedure Date: 11/28/2019 Accession Number: [id number] / [id number] Procedure: CT - HEAD WO CPT Code: Final Report FULL RESULT: EXAM: CT HEAD EXAM DATE: 11/28/2019 12:59 AM. CLINICAL HISTORY: Trauma, LOC. COMPARISON: HEAD W/O 09/16/2018 6:20 AM HEAD W/WO 04/10/2018 12:41 PM. TECHNIQUE: Multiaxial CT images were obtained from the foramen magnum to the vertex. Reformats: Sagittal and coronal. IV contrast: None. In accordance with CT protocol optimization, one or more of the following dose reduction techniques were utilized for this exam: automated exposure control, adjustment of mA and/or KV based on patient size, or use of iterative reconstructive technique. FINDINGS: Parenchyma: No intraparenchymal hemorrhage. No evidence of mass, midline shift, or CT findings of infarction. Lemon-white differentiation is distinct. Mild decreased parenchymal volume loss. Minimal periventricular white matter hyperattenuation, statistically most like representing chronic cholangiopathy white matter changes. Extraaxial Spaces: No subdural or epidural collections identified. Ventricles: Normal in size and position. Sinuses and Orbits: Visualized paranasal sinuses unremarkable. Hyperdense material within the left globe. Bones: No evidence of fracture or calvarial defect. Other: None. IMPRESSION: 1. No acute intracranial findings. 2. Hyperdense material within the left globe. Air was seen in the left globe on CT scan from 2018 consistent with globe rupture at that time. Uncertain if this presents material seen today represents chronic vitreal hemorrhage versus iatrogenically placed material. 3. Mild decreased parenchymal volume loss. 4. Minimal chronic microangiopathic changes. RADIA
[2019-11-28 03:12] VITALS: BP 123/78
== END 2019-11-28 03:12 | disposition home or self-care (01) ==
LOC: EDUNIT# → ED 23:49
DX: R55 Syncope and collapse (principal)
CPT/HCPCS: 36415; 70450; 71045; 72125; 80053; 83690; 84484; 85025; 87275; 87276; 93005; 96360; 99285

== ENCOUNTER 2021-01-25 09:12 | Outpatient (CLI) | payer MEDICARE, OTHER | END 2021-01-25 09:13 | disposition critical access hospital (66) | LOC: EMS 09:12 | DX: M25.562 Pain in left knee (principal); M79.662 Pain in left lower leg; R29.898 Other symptoms and signs involving the musculoskeletal system | CPT/HCPCS: A0425; A0429 ==

== ENCOUNTER 2021-01-25 09:31 | Emergency (ER) | payer MEDICARE, OTHER ==
--- NOTE | 2021-01-25 10:50 | ED Physician Documentation ---
PD HPI LOWER EXT INJURY - Stated complaint Stated Complaint: GLF - Chief complaint Chief Complaint: Ext Problem - History obtained from History obtained from: Patient - History of Present Illness PD HPI LOW EXT INJURY LOCATION: Left, Knee Type of injury: Fall (she uses walker and has had leg weakness. Also limping gait due to recent toe fracture last week. Slumped/fell with some twist of knee. Able to get up. Had onset of pain in knee today, with hurting to walk. Pain anterior under patella, radiating to back of knee. No calf pain per se.) Where injury occurred: Home Timing - onset: Today, Last night Timing - details: Abrupt onset, Still present Worsened by: Moving, Other (weight bearing). No: Palpating Associated symptoms: No: Weakness, Numbness, Swelling Similar symptoms before: Diagnosis (knee arthritis but usually mild. This is more abrupt/worse.) Review of Systems Constitutional: denies: Fever, Chills Nose: denies: Rhinorrhea / runny nose, Congestion Throat: denies: Sore throat Cardiac: denies: Chest pain / pressure, Palpitations Respiratory: denies: Dyspnea, Cough Skin: denies: Abrasion (s), Laceration (s) Neurologic: denies: Focal weakness, Numbness PD PAST MEDICAL HISTORY - Past Medical History Past Medical History: Yes Cardiovascular: Deep vein thrombosis, High cholesterol, Pulmonary embolism Respiratory: None Neuro: Head injury Endocrine/Autoimmune: None GI: GERD : Frequency, Incontinence Psych: Depression, Anxiety, Panic attacks Musculoskeletal: Osteoarthritis Derm: Other - Past Surgical History Past Surgical History: Yes 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, 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 HEENT: Tonsil/Adenoidectomy Derm: Skin cancer surgery - Present Medications Home Medications: Ambulatory Orders Medication Instructions Recorded Confirmed Venlafaxine ER [Effexor ER] 2 tab PO DAILY 04/30/13 01/25/21 Topiramate [Topamax] 200 mg PO QPM 11/24/15 01/25/21 Aspirin [Aspirin EC] 81 mg PO DAILY 12/26/18 01/25/21 Calcium Carbonate [[id number]] 500 mg PO BID 12/26/18 01/25/21 Cholecalciferol (Vitamin D3) 2,000 unit PO DAILY PM 12/26/18 01/25/21 [Vitamin D] Esomeprazole Magnesium 40 mg PO DAILY 12/26/18 01/25/21 Magnesium Oxide [Magnesium] 500 mg PO DAILY 12/26/18 01/25/21 Metoprolol Tartrate 12.5 mg PO BID 12/26/18 01/25/21 Multivitamin [Multiple Vitamins] 1 each PO DAILY 12/26/18 01/25/21 [place]-3S/Dha/Epa/Fish Oil [Fish 1 each PO DAILY 12/26/18 01/25/21 Oil 1,200 mg Softgel] Trazodone HCl 300 mg PO DAILY PM 12/26/18 01/25/21 HYDROcod/ACETAM 5/325 [[place] 5/325] 1 ea PO Q8H PRN #15 tablet 01/25/21 Vitamin E 2,000 unit PO DAILY PM 01/25/21 01/25/21 - Allergies Allergies/Adverse Reactions: Allergies Allergy/AdvReac Type Severity Reaction Status Date / Time lithium [[place]] Allergy Severe Edema Verified 01/25/21 09:56 tetracycline [Tetracycline] Allergy Severe Hives Verified 01/25/21 09:56 acetaminophen [From Fioricet] Allergy Hives Verified 01/25/21 09:56 caffeine [From Fioricet] Allergy Hives Verified 01/25/21 09:56 gabapentin Allergy Edema Verified 01/25/21 09:56 butalbital [From Fioricet] AdvReac Severe Dizziness Verified 01/25/21 09:56 - Social History Does the pt smoke?: No Smoking Status: Never smoker Does the pt drink ETOH?: No Does the pt have substance abuse?: No - Immunizations Immunizations are current?: No - POLST Patient has POLST: No PD ED PE NORMAL - Vitals Vital signs reviewed: Yes - General General: Alert and oriented X 3, No acute distress (seems comfortable while sitting on cart. ), Well developed/nourished - Derm Derm: Normal color, Warm and dry - Extremities Extremities: Other (bruising and tender base of middle toe left foot from recent toe fracture. Left knee without effusion. Tender around infrapatellar area. Mild swelling/tender popliteal area and also tender in mid calf without swelling. No gross laxity on stress testing of knee but hurts with valgus stress. ) - Neuro Neuro: No motor deficit, No sensory deficit, Other (slight dusky color in both ankles/feet, but palpable DP pulses and has good color in nailbeds with brisk cap refill. ) Results - Vitals Vitals: Vital Signs - 24 hr 01/25/21 01/25/21 09:38 14:27 Temperature 36.7 C 98.7 C H Heart Rate 68 70 Respiratory 16 14 Rate Blood Pressure 127/63 111/56 L O2 Saturation 98 97 Oxygen O2 Source Room air - Labs Labs: Laboratory Tests 01/25/21 01/25/21 12:15 12:15 WBC 5.4 RBC 4.22 Hgb 13.6 Hct 42.9 MCV 101.7 H MCH 32.2 H MCHC 31.7 L RDW 12.2 Plt Count 198 MPV 8.5 Neut # (Auto) 3.5 Lymph # (Auto) 1.2 L [place] # (Auto) 0.5 Eos # (Auto) 0.1 Baso # (Auto) 0.1 Absolute Nucleated RBC 0.00 Nucleated RBC % 0.0 Sodium 140 Potassium 3.8 Chloride 109 Carbon Dioxide 22 Anion Gap 9.0 BUN 26 H Creatinine 1.0 Estimated GFR (MDRD) 54 L Glucose 101 H Calcium 9.2 Total Bilirubin 0.6 AST 12 ALT 13 Alkaline Phosphatase 62 C-Reactive Protein < 1.0 Total Protein 6.2 L Albumin 3.9 Globulin 2.3 Albumin/Globulin Ratio 1.7 Lipase 26 - Rads (name of study) left knee Radiology: Prelim report reviewed (arthritic changes, no fractrues), See rad report duplex left leg Radiology: Prelim report reviewed (no DVT), See rad report PD MEDICAL DECISION MAKING - ED course Complexity details: re-evaluated patient (patient ambulatory with walker after pain meds. ), considered differential (presume knee strain/arthritis flare. She had broken a toe last week, and admittedly is limping/favoring foot, so this likely caused knee arthritis to flare with changed gait. ), d/w patient Departure - Departure Disposition: 01 Home, Self Care Clinical Impression: Fall from slip, trip, or stumble Acute knee pain Qualifiers: Laterality: left Qualified Code(s): M25.562 - Pain in left knee Condition: Stable Record reviewed to determine appropriate education?: Yes Instructions: ED Sprain Knee Follow-Up: Moose Shelton DO [Primary Care Provider] - Prescriptions: HYDROcod/ACETAM 5/325 [[place] 5/325] 1 ea PO Q8H PRN #15 tablet PRN Reason: Pain Comments: Your x-ray of the knee does not show any fractures. I presume there is some strain of the ligaments or a flareup of arthritis in the knee causing your pain. This should likely be short-term and improve over the the next several days to week or so. Use the knee brace when up and around to help support the knee and still allow of flexion and extension. Use Tylenol 500 mg 4 times a day regularly for the next several days to week. Alternatively hydrocodone as needed for worse pain. Follow-up with your primary care early next week for recheck, call today for an appointment. Return to the ER if worsening symptoms or other things develop. Discharge Date/Time: 01/25/21 14:35
[2021-01-25] MEDS ORDERED: ACETAMINOPHEN 500 MG TABLET PO STA (11:17)
[2021-01-25] MEDS ORDERED: PANTOPRAZOLE 40 MG TABLET PO STA (11:17)
[2021-01-25] MEDS ORDERED: HYDROcod/ACETAM 5/325 MG TABLET PO STA (11:19)
--- NOTE | 2021-01-25 11:44 | XRAY Report ---
PROCEDURE: Knee 3 View LT INDICATIONS: knee pain for 2 days; no noted injury TECHNIQUE: 3 views of the right knee(s) were acquired. COMPARISON: None. FINDINGS: Bones: No fractures or dislocations. No suspicious bony lesions. Tricompartmental degenerative radha rowing. Small periarticular osteophytes are present without visualized erosions. Soft tissues: Trace joint effusion. No suspicious soft tissue calcifications. IMPRESSION: No visualized acute fracture or dislocation. However, occult injury cannot be excluded. Recommend short interval imaging follow-up in 7-10 days as clinically indicated for additional evalua tion. Reviewed by: Leta Adair MD on 01/25/2021 10:43 AM MANUEL Approved by: Leta Adair MD on 01/25/2021 10:43 AM MANUEL Station ID: [id number]
[2021-01-25 12:20] LABS: BASOPHILS # (AUTO) 0.1 10^3/uL (0.0-0.1); BASOPHILS % (AUTO) 0.9 %; EOSINOPHILS # (AUTO) 0.1 10^3/uL (0.0-0.7); EOSINOPHILS % (AUTO) 1.3 %; HCT - HEMATOCRIT 42.9 % (37.0-47.0); HGB - HEMOGLOBIN 13.6 g/dL (12.0-16.0); LYMPHOCYTES # (AUTO) 1.2 10^3/uL (1.5-3.5); LYMPHOCYTES % (AUTO) 23.1 %; MEAN CORPUSCULAR HEMOGLOBIN 32.2 pg (27.0-31.0); MEAN CORPUSCULAR HGB CONC 31.7 g/dL (32.0-36.0); MEAN CORPUSCULAR VOLUME 101.7 fL (81.0-99.0); MEAN PLATELET VOLUME 8.5 fL (7.9-10.8); MONOCYTES # (AUTO) 0.5 10^3/uL (0.0-1.0); MONOCYTES % (AUTO) 9.7 %; NEUTROPHILS # (AUTO) 3.5 10^3/uL (1.5-6.6); NEUTROPHILS % (AUTO) 64.8 %; PLT - PLATELET COUNT 198 10^3/uL (130-450); RED BLOOD COUNT 4.22 10^6/uL (4.20-5.40); RED CELL DISTRIBUTION WIDTH 12.2 % (12.0-15.0); WHITE BLOOD COUNT 5.4 x10^3/uL (4.8-10.8)
--- NOTE | 2021-01-25 12:20 | Ultrasound Report ---
PROCEDURE: Duplex Ext Veins Left INDICATIONS: knee/calf pain for 2 days TECHNIQUE: Real-time imaging, as well as color and pulse Doppler interrogation, were performed of the lower extr emity deep veins from the inguinal ligament to the popliteal fossa. COMPARISON: None. FINDINGS: The deep veins are normally compressible, and free of intraluminal thrombus. Color and pu lse Doppler demonstrate normal phasic intraluminal flow. There is normal augmentation response to di stal compression maneuver. IMPRESSION: No evidence of deep vein thrombosis involving the left lower extremity. Reviewed by: Olga Katz MD, PhD on 01/25/2021 12:19 PM PDT Approved by: Olga Katz MD, PhD on 01/25/2021 12:19 PM PDT Station ID: [id number]
[2021-01-25 12:49] LABS: ALBUMIN 3.9 g/dL (3.2-5.5); ALBUMIN/GLOBULIN RATIO 1.7 (1.0-2.2); ALKALINE PHOSPHATASE 62 IU/L (42-121); ALT ALANINE AMINOTRANSFERASE 13 IU/L (10-60); AST ASPARTATE AMINOTRANSFERASE 12 IU/L (10-42); BILIRUBIN,TOTAL 0.6 mg/dL (0.2-1.0); BUN - BLOOD UREA NITROGEN 26 mg/dL (6-20); CALCIUM 9.2 mg/dL (8.5-10.3); CARBON DIOXIDE - CO2 22 mmol/L (21-32); CHLORIDE 109 mmol/L (101-111); GFR - MDRD 54 (>89); GLUCOSE 101 mg/dL (70-100); LIPASE 26 U/L (22-51); POTASSIUM 3.8 mmol/L (3.5-5.0); SODIUM 140 mmol/L (135-145); TOTAL PROTEIN 6.2 g/dL (6.7-8.2)
[2021-01-25 14:31] VITALS: BP 111/56
[2021-01-25 14:41] LABS: CRP - C-REACTIVE PROTEIN < 1.0 mg/dL (0-1.0)
== END 2021-01-25 14:35 | disposition home or self-care (01) ==
LOC: EDUNIT# → ED 09:31
DX: M25.562 Pain in left knee (principal); W19.XXXA Unspecified fall, initial encounter; X50.1XXA Overexertion from prolonged static or awkward postures, initial encounter; Y92.009 Unspecified place in unspecified non-institutional (private) residence as the place of occurrence of the external cause; Z86.718 Personal history of other venous thrombosis and embolism; Z79.01 Long term (current) use of anticoagulants
CPT/HCPCS: 36415; 73562; 80053; 83690; 85025; 86140; 93971; 99283; 99284; A9270

== ENCOUNTER 2021-04-19 12:29 | Outpatient (CLI) | payer MEDICARE, OTHER ==
--- NOTE | 2021-04-19 16:50 | XRAY Report ---
PROCEDURE: Wrist 3 View RT INDICATIONS: RIGHT WRIST PAIN TECHNIQUE: 3 views of the wrist were acquired. COMPARISON: None FINDINGS: Bones: No fractures or dislocations. No suspicious bony lesions. Mild triscaphe joint degenerative arthritis. Soft tissues: No suspicious soft tissue calcifications. IMPRESSION: 1. Mild triscaphe joint degenerative change. 2. No evidence acute bony abnormality of the right wrist. If clinical suspicion and/or symptoms persist, further assessment with repeat plain films or advanced imaging (e.g., CT, MRI, or bone scan) may be helpful for further assessment. Reviewed by: Franco Hoffman MD on 04/19/2021 4:49 PM PDT Approved by: Franco Hoffman MD on 04/19/2021 4:49 PM PDT Station ID: [id number]
== END 2021-04-19 12:30 | disposition home or self-care (01) ==
LOC: DI.N 12:29
PROVIDERS: ATTEND Physician Assistant Medical
DX: M19.031 Primary osteoarthritis, right wrist (principal)

== ENCOUNTER 2021-07-16 13:36 | Outpatient (CLI) | payer MEDICARE, OTHER ==
--- NOTE | 2021-07-16 16:18 | CT Report ---
PROCEDURE: UPPER EXTREMITY WO - RT INDICATIONS: RIGHT WRIST NERVE COMPRESSION TECHNIQUE: Noncontrast 3 mm axial sections acquired of the right hand, with coronal and sagittal reformats. COMPARISON: None. FINDINGS: Image quality: Excellent. Bones: Mild ulnar negative variance is seen. Moderate and second through fifth the IP joints without significant bony erosive changes. No suspicious intraosseous lesion. No fracture or dislocation. Ost eoarthritic changes are noted throughout right-hand and wrist joints with joint space narrowing and s ubchondral sclerosis and prominent at first CMC joint. Osteoarthritic changes also noted involving fi rst interphalangeal joint. Soft tissues: There is no gross full-thickness wrist tendon rupture. No abnormal soft tissue calcifi cations. No discrete soft tissue mass or fluid collection is seen. No significant joint effusion. IMPRESSION: 1. Mild to moderate osteoarthritic changes in right hand and wrist joints as described above. No frac ture or dislocation. No bony erosive changes. No suspicious intraosseous lesion. 2. No gross right hand and wrist soft tissue abnormality is seen. No full-thickness tendon rupture. Reviewed by: Gunner Sahni MD on 07/16/2021 4:16 PM PDT Approved by: Gunner Sahni MD on 07/16/2021 4:16 PM PDT Station ID: [id number]
== END 2021-07-16 13:37 | disposition home or self-care (01) ==
LOC: DI 13:36
PROVIDERS: ATTEND Family Medicine
DX: M19.031 Primary osteoarthritis, right wrist (principal); M19.041 Primary osteoarthritis, right hand; M18.11 Unilateral primary osteoarthritis of first carpometacarpal joint, right hand

== ENCOUNTER 2021-09-04 12:18 | Outpatient (CLI) | payer MEDICARE, OTHER ==
--- NOTE | 2021-09-05 11:47 | Mammography Report ---
BILATERAL DIGITAL SCREENING MAMMOGRAM 3D/2D: 09/04/2021 CLINICAL: Routine screening. Comparison is made to exams dated: 03/03/2019 mammogram, 02/20/2018 mammogram, 01/13/2017 mammogram, mammogram - [facility], 08/21/1999 mammogram, and 08/06/1999 mammogram - [facility]. The tissue of both breasts is heterogeneously dense. This may lower the sensiti vity of mammography. No significant masses, calcifications, or other findings are seen in either breast. There has been no significant interval change. IMPRESSION: NEGATIVE There is no mammographic evidence of malignancy. A 1 year screening mammogram is recommended. This exam was interpreted at Station ID: [id number]. NOTE: For mammograms, a report in lay terms will be sent to the patient. Approximately 15% of breast malignancies will not be visualized mammographically. In the management of a palpable breast mass, a negative mammogram must not discourage biopsy of a clinically suspicious lesion. Electronically Signed By: Augustin cho/charles:09/04/2021 13:35:05 ACR BI-RADS Category 1: Negative [id number] PARENCHYMAL PATTERN: (D) - The breast(s) demonstrate(s) heterogeneously dense fibroglandular mari rosas. BI-RADS CATEGORY: (1) - 1 RECOMMENDATION: (ANNUAL) - Recommend routine annual screening mammography. [id number] 1 year screening LATERALITY: (B)
== END 2021-09-04 12:19 | disposition home or self-care (01) ==
LOC: DI.N 12:18
DX: Z12.31 Encounter for screening mammogram for malignant neoplasm of breast (principal)

== ENCOUNTER 2022-01-05 14:55 | Outpatient (CLI) | payer MEDICARE, OTHER ==
--- NOTE | 2022-01-05 16:45 | XRAY Report ---
PROCEDURE: Cervical Spine 2 View INDICATIONS: NECK PAIN TECHNIQUE: 3 view(s) of the cervical spine were acquired. COMPARISON: Cervical spine CT, 11/27/2019 FINDINGS: Bones: This patient has a known chronic fracture of C2, which appears similar to the prior CT examin ation. No new fracture can be seen on these plain films. Focal degenerative change can also be seen involving the C1-C2 interface anteriorly. There is mild di sc space narrowing seen at C5-C6, with at least moderate disc space narrowing at C6-C7. Partially michael dging anterior osteophytes are seen C4-C7. The lateral masses of C1 appear intact on the odontoid view. No suspicious bony lesions. Soft tissues: No prevertebral soft tissue swelling. The visualized pulmonary apices are unremarkab le. IMPRESSION: There is a chronic fracture seen involving the dens, which is better seen on the prior C T. Degenerative changes are seen, which are worst at C6-C7. If it would be helpful for clinical management decision making, please consider a dedicated cervical spine MRI for further evaluation (assuming that there is no contraindication). Reviewed by: Kevin Nunes MD on 01/05/2022 3:43 PM MANUEL Approved by: Kevin Nunes MD on 01/05/2022 3:43 PM MANUEL Station ID: [id number]
--- NOTE | 2022-01-05 16:46 | XRAY Report ---
PROCEDURE: Shoulder 3 View LT INDICATIONS: LEFT SHOULDER PAIN TECHNIQUE: 3 views of the shoulder were acquired. COMPARISON: Correlation is made with the accompanying cervical spine radiographs, 01/05/2022. FINDINGS: Bones: No fractures or dislocations. No suspicious bony lesions. Visualized ribs appear intact. D egenerative changes are seen, with mild subacromial spurring. Mild, humeral joint space narrowing can be seen. Soft tissues: No suspicious soft tissue calcifications. The visualized lung demonstrates a normal a ppearance. Calcification is seen of the aortic arch. IMPRESSION: Mild degenerative changes are seen of the left shoulder on these plain films. If it would be helpful for clinical management decision making, please consider a dedicated, schedule d shoulder MRI for further evaluation (assuming that there is no contraindication). Reviewed by: Kevin Nunes MD on 01/05/2022 3:44 PM MANUEL Approved by: Kevin Nunes MD on 01/05/2022 3:44 PM MANUEL Station ID: [id number]
== END 2022-01-05 14:56 | disposition home or self-care (01) ==
LOC: DI.N 14:55
PROVIDERS: ATTEND Physician Assistant
DX: M19.012 Primary osteoarthritis, left shoulder (principal); M48.52XS Collapsed vertebra, not elsewhere classified, cervical region, sequela of fracture; M47.812 Spondylosis without myelopathy or radiculopathy, cervical region

== ENCOUNTER 2022-03-27 12:27 | Outpatient (CLI) | payer MEDICARE | END 2022-03-27 12:28 | disposition EMS.NT | LOC: EMS 12:27 | DX: M79.671 Pain in right foot (principal) ==

== ENCOUNTER 2022-03-28 09:45 | Outpatient (CLI) | payer MEDICARE | END 2022-03-28 09:46 | disposition critical access hospital (66) | LOC: EMS 09:45 | DX: M25.571 Pain in right ankle and joints of right foot (principal); R60.0 Localized edema; R45.851 Suicidal ideations; Z91.81 History of falling | CPT/HCPCS: A0425; A0429 ==

== ENCOUNTER 2022-03-28 10:02 | Emergency (ER) | payer MEDICARE ==
--- NOTE | 2022-03-28 11:21 | ED Physician Documentation ---
PD HPI Fall - Stated complaint Stated Complaint: LEG PX - Chief complaint Chief Complaint: Trauma Ext - History obtained from History obtained from: Patient, EMS - History of Present Illness Mechanism of injury: Tripped, Lost balance Fall distance: Standing position Where injury occurred: Home Timing - onset: Last night Injury(ies) location: Right Foot. No: Head, Neck, Chest, Abdomen Associated symptoms: No: LOC, AMS Worsens with: Movement, Palpation, Other (weight bearing hurts and she feels her ankle is not supporting her. Concerned about fracture.) Contributing factors: No: Anticoagulated, Intoxicated Similar symptoms before: Has not had sx before Review of Systems Constitutional: denies: Fever, Chills Nose: denies: Rhinorrhea / runny nose, Congestion Throat: denies: Sore throat Cardiac: denies: Chest pain / pressure, Palpitations Respiratory: denies: Cough GI: denies: Vomiting, Diarrhea Neurologic: denies: Altered mental status, Headache, Head injury, LOC PD PAST MEDICAL HISTORY - Past Medical History Cardiovascular: Deep vein thrombosis, High cholesterol, Pulmonary embolism Respiratory: None Neuro: Head injury Endocrine/Autoimmune: None GI: GERD : Frequency, Incontinence Psych: Depression, Anxiety, Panic attacks Musculoskeletal: Osteoarthritis Derm: Other - Past Surgical History Past Surgical History: Yes 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, 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 HEENT: Tonsil/Adenoidectomy Derm: Skin cancer surgery - Present Medications Home Medications: Ambulatory Orders Medication Instructions Recorded Confirmed Venlafaxine ER [Effexor ER] 2 tab PO DAILY 04/30/13 01/25/21 Topiramate [Topamax] 200 mg PO QPM 11/24/15 01/25/21 Aspirin [Aspirin EC] 81 mg PO DAILY 12/26/18 01/25/21 Calcium Carbonate [Qppc-Tew-687] 500 mg PO BID 12/26/18 01/25/21 Cholecalciferol (Vitamin D3) 2,000 unit PO DAILY PM 12/26/18 01/25/21 [Vitamin D] Esomeprazole Magnesium 40 mg PO DAILY 12/26/18 01/25/21 Magnesium Oxide [Magnesium] 500 mg PO DAILY 12/26/18 01/25/21 Metoprolol Tartrate 12.5 mg PO BID 12/26/18 01/25/21 Multivitamin [Multiple Vitamins] 1 each PO DAILY 12/26/18 01/25/21 [place]-3S/Dha/Epa/Fish Oil [Fish 1 each PO DAILY 12/26/18 01/25/21 Oil 1,200 mg Softgel] Trazodone HCl 300 mg PO DAILY PM 12/26/18 01/25/21 HYDROcod/ACETAM 5/325 [[place] 5/325] 1 ea PO Q8H PRN #15 tablet 01/25/21 Vitamin E 2,000 unit PO DAILY PM 01/25/21 01/25/21 HYDROcod/ACETAM 5/325 [[place] 5/325] 1 ea PO Q6H PRN #12 tablet 03/28/22 - Allergies Allergies/Adverse Reactions: Allergies Allergy/AdvReac Type Severity Reaction Status Date / Time lithium [[place]] Allergy Severe Edema Verified 03/28/22 10:36 tetracycline [Tetracycline] Allergy Severe Hives Verified 03/28/22 10:36 acetaminophen [From Fioricet] Allergy Hives Verified 03/28/22 10:36 caffeine [From Fioricet] Allergy Hives Verified 03/28/22 10:36 gabapentin Allergy Edema Verified 03/28/22 10:36 butalbital [From Fioricet] AdvReac Severe Dizziness Verified 03/28/22 10:36 - Social History Does the pt smoke?: No Smoking Status: Never smoker Does the pt drink ETOH?: No Does the pt have substance abuse?: No - Immunizations Immunizations are current?: No - POLST Patient has POLST: No PD ED PE NORMAL - Vitals Vital signs reviewed: Yes - General General: Alert and oriented X 3, No acute distress, Well developed/nourished - HEENT HEENT: Atraumatic - Neck Neck: Supple, no meningeal sign, No bony TTP - Respiratory Respiratory: Clear bilaterally, Other (no chestwall tenderness) - Back Back: No spinal TTP - Derm Derm: Normal color, Warm and dry - Extremities Extremities: Other (right ankle with swelling and tenderness, early bruising at anterolateral ankle to proximal foot. Good color and cap refill in toes. Achilles not tender. Medially not tender. ) - Neuro Neuro: Alert and oriented X 3, No motor deficit, No sensory deficit, Normal speech Results - Vitals Vitals: Vital Signs - 24 hr 03/28/22 03/28/22 03/28/22 10:08 10:30 12:30 Temperature 37.3 C Heart Rate 73 73 86 Respiratory 23 18 17 Rate Blood Pressure 124/65 122/64 137/78 H O2 Saturation 99 97 97 03/28/22 13:00 Temperature Heart Rate 76 Respiratory 16 Rate Blood Pressure 152/74 H O2 Saturation 95 Oxygen O2 Source Room air - Labs Labs: Laboratory Tests 03/28/22 03/28/22 03/28/22 11:54 11:54 11:54 WBC 5.3 RBC 4.20 Hgb 13.4 Hct 41.8 MCV 99.5 H MCH 31.9 H MCHC 32.1 RDW 12.4 Plt Count 216 MPV 8.7 Neut # (Auto) 3.1 Lymph # (Auto) 1.4 L [place] # (Auto) 0.6 Eos # (Auto) 0.1 Baso # (Auto) 0.1 Absolute Nucleated RBC 0.00 Nucleated RBC % 0.0 Sodium 144 Potassium 3.8 Chloride 105 Carbon Dioxide 27 Anion Gap 12.0 BUN 17 Creatinine 1.1 H Estimated GFR (MDRD) 48 L Glucose 92 Calcium 9.5 Magnesium 2.2 Total Bilirubin 0.2 AST 13 ALT 15 Alkaline Phosphatase 65 Total Protein 6.7 Albumin 3.9 Globulin 2.8 Albumin/Globulin Ratio 1.4 Lipase 33 TSH 0.90 - Rads (name of study) right ankle and foot Radiology: Prelim report reviewed (no fractures. ), See rad report PD MEDICAL DECISION MAKING - ED course Complexity details: reviewed results (no fractures), considered differential (patient states having more falls due to balance the past few months. She was on floor awhile last evening after foot hurt since her [employer] button/neck cord is broken, so not on her. 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 Will have SW talk with her and help with these. ), d/w patient Departure - Departure Disposition: 01 Home, Self Care Clinical Impression: Frequent falls Ankle sprain Qualifiers: Encounter type: initial encounter Involved ligament of ankle: unspecified ligament Laterality: right Qualified Code(s): S93.401A - Sprain of unspecified ligament of right ankle, initial encounter Condition: Stable Record reviewed to determine appropriate education?: Yes Instructions: ED Sprain Ankle Prescriptions: HYDROcod/ACETAM 5/325 [[place]es 5/325] 1 ea PO Q6H PRN #12 tablet PRN Reason: Pain Comments: Your foot and ankle x-rays are good without any signs of fractures. Presume a sprain with swelling and bruising. We can add the ankle brace and wrap to help support your ankle while its healing. Will likely be 2 to 3 weeks for healing up however. The ankle brace should help you when you are walking around though. I would suggest some Tylenol 4 times daily for pain. Occasionally you could use the hydrocodone if needed for worse pain in the short-term. I sent your prescription to the pharmacy. I am prescribing a short course of narcotic pain medication for you. These are potentially dangerous and addictive medications that should be used carefully. These medications may constipate you. Take an feto-fuh-dalbbmo stool softener such as docusate twice daily with plenty of water while taking these medications. If you go 24 hours without a bowel movement, take rzap-evt-fursoiz MiraLAX, per package instructions. Do not drink or drive while taking these medications. If you received narcotic or sedating medications while in the emergency department do not drive for 24 hours. Store this medication in a safe, secure place and out of reach of children. It is a violation of federal law to give or sell this medication to another person or to use in a manner other than prescribed. The ED will not refill narcotic prescriptions, including prescriptions lost or stolen. You can dispose of unwanted medications at the [facility] office or at several pharmacies such as [facility]. Discharge Date/Time: 03/28/22 14:10
[2022-03-28] MEDS ORDERED: HYDROcod/ACETAM 5/325 MG TABLET PO STA (11:47)
[2022-03-28 11:58] LABS: BASOPHILS # (AUTO) 0.1 10^3/uL (0.0-0.1); BASOPHILS % (AUTO) 0.9 %; EOSINOPHILS # (AUTO) 0.1 10^3/uL (0.0-0.7); EOSINOPHILS % (AUTO) 1.5 %; HCT - HEMATOCRIT 41.8 % (37.0-47.0); HGB - HEMOGLOBIN 13.4 g/dL (12.0-16.0); LYMPHOCYTES # (AUTO) 1.4 10^3/uL (1.5-3.5); LYMPHOCYTES % (AUTO) 27.2 %; MEAN CORPUSCULAR HEMOGLOBIN 31.9 pg (27.0-31.0); MEAN CORPUSCULAR HGB CONC 32.1 g/dL (32.0-36.0); MEAN CORPUSCULAR VOLUME 99.5 fL (81.0-99.0); MEAN PLATELET VOLUME 8.7 fL (7.9-10.8); MONOCYTES # (AUTO) 0.6 10^3/uL (0.0-1.0); MONOCYTES % (AUTO) 11.7 %; NEUTROPHILS # (AUTO) 3.1 10^3/uL (1.5-6.6); NEUTROPHILS % (AUTO) 58.3 %; PLT - PLATELET COUNT 216 10^3/uL (130-450); RED CELL DISTRIBUTION WIDTH 12.4 % (12.0-15.0); WHITE BLOOD COUNT 5.3 x10^3/uL (4.8-10.8)
[2022-03-28] MEDS ORDERED: PANTOPRAZOLE 40 MG TABLET PO STA (12:17)
[2022-03-28 12:22] LABS: ALBUMIN 3.9 g/dL (3.2-5.5); ALBUMIN/GLOBULIN RATIO 1.4 (1.0-2.2); BILIRUBIN,TOTAL 0.2 mg/dL (0.2-1.0); CALCIUM 9.5 mg/dL (8.5-10.3); CREATININE 1.1 mg/dL (0.4-1.0); MAGNESIUM 2.2 mg/dL (1.7-2.8); POTASSIUM 3.8 mmol/L (3.5-5.0); TOTAL PROTEIN 6.7 g/dL (6.7-8.2)
--- NOTE | 2022-03-28 12:42 | XRAY Report ---
PROCEDURE: Ankle 3 View RT INDICATIONS: twist/fall with ankle pain TECHNIQUE: 3 views of the ankle were acquired. COMPARISON: None. FINDINGS: Bones: No definite acute fractures or dislocations. Ankle mortise is normally aligned. No suspicio us bony lesions. Corticated appearing osseous density adjacent to the fibular tip could represent se quela of prior trauma. Soft tissues: No tibiotalar joint effusion. Possible soft tissue swelling about the lateral malleolu s. IMPRESSION: No acute fracture visualized. If clinical suspicion for acute fracture persists, follow-up radiograph s or CT could be helpful for further evaluation. Reviewed by: Fidel Alcaraz MD on 03/28/2022 12:41 PM PDT Approved by: Fidel Alcaraz MD on 03/28/2022 12:41 PM PDT Station ID: [id number]
--- NOTE | 2022-03-28 12:43 | XRAY Report ---
PROCEDURE: Foot 3 View RT INDICATIONS: twist/fall injury TECHNIQUE: 3 views of the foot were acquired. COMPARISON: None FINDINGS: Bones: There are degenerative changes of interphalangeal joints. The toes demonstrate claw toe defor mities. The great toe has a moderate to severe hallux valgus deformity. No fractures or dislocations. No suspicious bony lesions. Soft tissues: No tibiotalar joint effusion. Achilles tendon appears normal. IMPRESSION: No acute abnormality of the right foot Reviewed by: Demetrio Pierre on 03/28/2022 12:42 PM PDT Approved by: Demetrio Pierre on 03/28/2022 12:42 PM PDT Station ID: [id number]
[2022-03-28 13:11] VITALS: BP 152/74
== END 2022-03-28 14:10 | disposition home or self-care (01) ==
LOC: EDUNIT# → ED 10:02
DX: S93.401A Sprain of unspecified ligament of right ankle, initial encounter (principal); W01.0XXA Fall on same level from slipping, tripping and stumbling without subsequent striking against object, initial encounter; Z91.81 History of falling
CPT/HCPCS: 36415; 73610; 73630; 80053; 83690; 83735; 84443; 85025; 99282; 99284; A9270

== ENCOUNTER 2022-12-13 18:37 | Outpatient (CLI) | payer MEDICARE | END 2022-12-13 23:59 | disposition critical access hospital (66) | LOC: EMS 18:37 | DX: R10.11 Right upper quadrant pain (principal); R10.811 Right upper quadrant abdominal tenderness | CPT/HCPCS: A0425; A0429 ==

== ENCOUNTER 2022-12-13 18:57 | Emergency (ER) | payer MEDICARE ==
[2022-12-13] MEDS ORDERED: iohexoL-300 100 ML VIAL ONE (19:29)
--- NOTE | 2022-12-13 19:33 | ED Physician Documentation ---
PD HPI ABD PAIN - Stated complaint Stated Complaint: RUQ ABD PAIN - Chief complaint Chief Complaint: Abd Pain - History obtained from History obtained from: Patient - Additional information Additional information: Patient is a 77-year-old female with a history of paroxysmal atrial fibrillation Presenting for evaluation of right-sided abdominal pain that started this evening. Patient had eaten bagel with peanut butter. She denies associated nausea or vomiting. She denies diarrhea. She denies chest pain or difficulty breathing. Nothing makes the pain better or worse. The pain is intermittent a nd feels sharp. It does not radiate elsewhere. She has had prior appendectomy and cholecystectomy and denies any recent surgeries.She does not currently take a blood thinner. Review of Systems Constitutional: denies: Fever Cardiac: denies: Chest pain / pressure Respiratory: denies: Dyspnea GI: reports: Abdominal Pain. 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 HEENT: Tonsil/Adenoidectomy Derm: Skin cancer surgery - Present Medications Home Medications: Ambulatory Orders Medication Instructions Recorded Confirmed Venlafaxine ER [Effexor ER] 2 tab PO DAILY 04/30/13 12/13/22 Topiramate [Topamax] 200 mg PO QPM 11/24/15 12/13/22 Aspirin [Aspirin EC] 81 mg PO DAILY 12/26/18 12/13/22 Calcium Carbonate [[id number]] 500 mg PO BID 12/26/18 12/13/22 Cholecalciferol (Vitamin D3) 2,000 unit PO DAILY PM 12/26/18 12/13/22 [Vitamin D] Esomeprazole Magnesium 40 mg PO DAILY 12/26/18 12/13/22 Magnesium Oxide [Magnesium] 500 mg PO DAILY 12/26/18 12/13/22 Metoprolol Tartrate 12.5 mg PO BID 12/26/18 12/13/22 Multivitamin [Multiple Vitamins] 1 each PO DAILY 12/26/18 12/13/22 [place]-3S/Dha/Epa/Fish Oil [Fish 1 each PO DAILY 12/26/18 12/13/22 Oil 1,200 mg Softgel] Trazodone HCl 300 mg PO DAILY PM 12/26/18 12/13/22 Vitamin E (Dl,Tocopheryl Acet) 2,000 unit PO DAILY PM 01/25/21 12/13/22 [Vitamin E] polyethylene glycoL 3350 [Miralax] 17 gm PO DAILY PRN #14 packet 12/13/22 - Allergies Allergies/Adverse Reactions: Allergies Allergy/AdvReac Type Severity Reaction Status Date / Time lithium [[place]] Allergy Severe Edema Verified 12/13/22 19:03 tetracycline [Tetracycline] Allergy Severe Hives Verified 12/13/22 19:03 acetaminophen [From Fioricet] Allergy Hives Verified 12/13/22 19:03 caffeine [From Fioricet] Allergy Hives Verified 12/13/22 19:03 gabapentin Allergy Edema Verified 12/13/22 19:03 butalbital [From Fioricet] AdvReac Severe Dizziness Verified 12/13/22 19:03 - Social History Does the pt smoke?: No Smoking Status: Never smoker Does the pt drink ETOH?: No Does the pt have substance abuse?: No - Immunizations Immunizations are current?: No - POLST Patient has POLST: No PD ED PE NORMAL - General General: Alert and oriented X 3, No acute distress, Well developed/nourished - HEENT HEENT: Atraumatic - Neck Neck: Supple, no meningeal sign - Cardiac Cardiac: RRR - Respiratory Respiratory: No respiratory distress, Clear bilaterally - Abdomen Abdomen: Soft, Non distended, Other (Right-sided abdominal tenderness to palpation) - Back Back: No CVA TTP - Derm Derm: Warm and dry - Neuro Neuro: Normal speech Results - Vitals Vitals: Vital Signs - 24 hr 12/13/22 12/13/22 12/13/22 19:03 19:06 21:31 Temperature 37.2 C Heart Rate 78 77 83 Respiratory 16 16 18 Rate Blood Pressure 116/68 120/65 127/70 O2 Saturation 99 96 97 Oxygen O2 Source Room air - EKG (time done) 1936 EKG releavant findings:: EKG personally interpreted by author of this note. Relevant findings are: Rate 72, normal sinus rhythm, no STEMI, no ST depressions Rate: Rate (enter#) (72) Rhythm: NSR Intervals: No: Prolonged QT Ischemia: No: ST elevation c/w ischemia, ST depression - Labs Labs: Laboratory Tests 12/13/22 12/13/22 12/13/22 19:23 19:23 20:13 WBC 5.1 RBC 4.54 Hgb 14.2 Hct 46.0 MCV 101.3 H MCH 31.3 H MCHC 30.9 L RDW 12.8 Plt Count 225 MPV 8.5 Neut # (Auto) 2.7 Lymph # (Auto) 1.6 [place] # (Auto) 0.6 Eos # (Auto) 0.2 Baso # (Auto) 0.0 Absolute Nucleated RBC 0.00 Nucleated RBC % 0.0 Sodium 139 Potassium 3.8 Chloride 109 Carbon Dioxide 26 Anion Gap 4.0 L BUN 20 Creatinine 0.9 Estimated GFR (MDRD) 60 L Glucose 85 Calcium 8.8 Total Bilirubin 0.6 AST 14 ALT 16 Alkaline Phosphatase 68 Total Protein 6.6 L Albumin 3.9 Globulin 2.7 Albumin/Globulin Ratio 1.4 Lipase 34 Urine Color YELLOW Urine Clarity CLEAR Urine pH 7.5 Ur Specific [place] 1.015 Urine Protein NEGATIVE Urine Glucose (UA) NEGATIVE Urine Ketones NEGATIVE Urine Occult Blood NEGATIVE Urine Nitrite NEGATIVE Urine Bilirubin NEGATIVE Urine Urobilinogen 0.2 (NORMAL) Ur Leukocyte Esterase NEGATIVE Ur Microscopic Review NOT INDICATED Urine Culture Comments NOT INDICATED PD Medical Decision Making - ED course Complexity details: reviewed results, re-evaluated patient, d/w patient ED course: Patient is a 77-year-old female with a prior history of appendectomy and cholecystectomy presenting for evaluation of right-sided abdominal pain starting this evening.Her vital signs are stable. An EKG was obtained given her age which demonstrates a sinus rhythm without signs of acute ischemia. Her labs including CBC, chemistries and urine analysis are reassuring without signs of infection or significant electrolyte derangement.A CT scan of the abdomen pelvis was obtained which I also reviewed. Patient appears to have constipation with stool burden on the right colon.Patient did have improvement in her pain with IV morphine, IV fluids and Zofran. I reviewed her CT results with her and discussed options for treatment including trial of MiraLAX which she is agreeable to.Patient is counseled on need for close follow-up with her PCP as well as advised on concerning symptoms to return for. Departure - Departure Disposition: 01 Home, Self Care Clinical Impression: Obstipation, Right sided abdominal pain Condition: Stable Instructions: ED Constipation Prescriptions: polyethylene glycoL 3350 [Miralax] 17 gm PO DAILY PRN #14 packet PRN Reason: Constipation Comments: Your testing today shows that you have constipation. Your stool is not located in an area where an enema would be helpful at this time. However I do think MiraLAX would be beneficial and have sent this prescription to [facility] in [place]. Please take as directed. Please stay hydrated.I would consider reaching out to your primary care doctor on Friday to discuss a bowel regiment to prevent this issue in the future. If you have any worsening symptoms please consider return to the emergency department. Discharge Date/Time: 12/13/22 21:35
[2022-12-13 19:34] LABS: BASOPHILS % (AUTO) 0.4 %; EOSINOPHILS # (AUTO) 0.2 10^3/uL (0.0-0.7); EOSINOPHILS % (AUTO) 3.2 %; HGB - HEMOGLOBIN 14.2 g/dL (12.0-16.0); LYMPHOCYTES # (AUTO) 1.6 10^3/uL (1.5-3.5); LYMPHOCYTES % (AUTO) 31.5 %; MEAN CORPUSCULAR HEMOGLOBIN 31.3 pg (27.0-31.0); MEAN CORPUSCULAR HGB CONC 30.9 g/dL (32.0-36.0); MEAN CORPUSCULAR VOLUME 101.3 fL (81.0-99.0); MEAN PLATELET VOLUME 8.5 fL (7.9-10.8); MONOCYTES # (AUTO) 0.6 10^3/uL (0.0-1.0); MONOCYTES % (AUTO) 11.3 %; NEUTROPHILS # (AUTO) 2.7 10^3/uL (1.5-6.6); NEUTROPHILS % (AUTO) 53.4 %; PLT - PLATELET COUNT 225 10^3/uL (130-450); RED BLOOD COUNT 4.54 10^6/uL (4.20-5.40); RED CELL DISTRIBUTION WIDTH 12.8 % (12.0-15.0); WHITE BLOOD COUNT 5.1 x10^3/uL (4.8-10.8)
[2022-12-13 19:44] LABS: ALBUMIN 3.9 g/dL (3.2-5.5); ALBUMIN/GLOBULIN RATIO 1.4 (1.0-2.2); BILIRUBIN,TOTAL 0.6 mg/dL (0.2-1.0); CALCIUM 8.8 mg/dL (8.5-10.3); CREATININE 0.9 mg/dL (0.4-1.0); POTASSIUM 3.8 mmol/L (3.5-5.0); TOTAL PROTEIN 6.6 g/dL (6.7-8.2)
[2022-12-13] MEDS ORDERED: SODIUM CHLORIDE 0.9% 500 ML IV STA (20:06)
[2022-12-13] MEDS ORDERED: ONDANSETRON 4 MG/2 ML VIAL IVP STA (20:06)
[2022-12-13] MEDS ORDERED: MORPHINE 2 MG/ML CARPUJECT IVP STA (20:06)
[2022-12-13 20:25] LABS: BILIRUBIN,URINE NEGATIVE (NEGATIVE); GLUCOSE, URINE (UA) NEGATIVE (NEGATIVE); KETONES,URINE (UA) NEGATIVE (NEGATIVE); LEUKOCYTE ESTERASE, URINE NEGATIVE (NEGATIVE); NITRITE,URINE NEGATIVE (NEGATIVE); OCCULT BLOOD,URINE NEGATIVE (NEGATIVE); PH,URINE 7.5 PH (5.0-7.5); PROTEIN,URINE NEGATIVE (NEGATIVE); UROBILINOGEN,URINE 0.2 (NORMAL) E.U./dL (NORMAL)
[2022-12-13 20:31] LABS: CLARITY,URINE CLEAR (CLEAR)
[2022-12-13] MEDS ORDERED: iohexoL-300 100 ML VIAL IVP ONE (20:53)
--- NOTE | 2022-12-13 21:07 | CT Report ---
PROCEDURE: ABDOMEN/PELVIS W INDICATIONS: R sided abd pain CONTRAST: 100 ML OMNI 300 AT 2 ML/SEC TECHNIQUE: After the administration of nonionic contrast, 5 mm thick sections acquired from the diaphragms to th e symphysis. 5 mm thick coronal and sagittal reformats were acquired. For radiation dose reduction, the following was used: automated exposure control, adjustment of mA and/or kV according to patient size. COMPARISON: Pelvic CT from 01/20/2017. FINDINGS: Image quality: Excellent. ABDOMEN: Lung bases: Lung bases are clear. Heart size is normal. Solid organs: Liver and spleen are normal in size and enhancement. Gallbladder has been previously resected Biliary system is non dilated. Pancreas enhances normally. No adrenal nodules. Kidneys d emonstrate normal size and enhancement, without hydronephrosis. Peritoneum and bowel: Bowel loops demonstrate normal wall thickness and caliber. Moderate colonic o bstipation, right greater than left. No free fluid or air. Nodes and vessels: No retroperitoneal or mesenteric adenopathy by size criteria. Aorta and inferior vena cava are normal in size. Miscellaneous: No ventral hernias. PELVIS: Genitourinary: Bladder wall thickness is normal. Miscellaneous: No inguinal hernias or adenopathy. Prior trauma surgery with fixation devices left h emipelvis. These appear chronic. A normal or abnormal appendix could not be located but there is no s econdary CT evidence of acute appendicitis. Asymmetric right colonic obstipation. Bones: No suspicious bony lesions. No vertebral body compression fractures. IMPRESSION: Right colonic obstipation, when compared to the colon on the left. This is present withi n the abdomen and pelvis. A normal or abnormal appendix could not be located but no secondary CT evidence of acute appendicitis is found. Prior cholecystectomy. Prior left pelvic trauma fracture fixations. Reviewed by: Alex Church MD on 12/13/2022 9:06 PM PDT Approved by: Alex Church MD on 12/13/2022 9:06 PM PDT Station ID: [id number]
[2022-12-13 21:32] VITALS: BP 127/70
== END 2022-12-13 21:35 | disposition home or self-care (01) ==
LOC: EDUNIT# → ED 18:57
DX: K59.00 Constipation, unspecified (principal); I10 Essential (primary) hypertension
CPT/HCPCS: 36415; 74177; 80053; 81003; 83690; 85025; 93005; 96374; 99284; 99285; Q9967; 81001; 87086

== ENCOUNTER 2022-12-27 19:16 | Outpatient (CLI) | payer MEDICARE | END 2022-12-27 23:59 | disposition left against medical advice (07) | LOC: EMS 19:16 | DX: R07.81 Pleurodynia (principal); W01.190A Fall on same level from slipping, tripping and stumbling with subsequent striking against furniture, initial encounter; Y92.009 Unspecified place in unspecified non-institutional (private) residence as the place of occurrence of the external cause; Y99.8 Other external cause status ==

== ENCOUNTER 2022-12-31 00:33 | Outpatient (CLI) | payer MEDICARE | END 2022-12-31 23:59 | disposition home or self-care (01) | LOC: DI 00:33 | PROVIDERS: ATTEND Internal Medicine | DX: Z53.9 Procedure and treatment not carried out, unspecified reason (principal) ==

== ENCOUNTER 2023-02-20 13:05 | Outpatient (CLI) | payer MEDICARE | END 2023-02-20 13:06 | disposition short-term general hospital (02) | LOC: EMS 13:05 | DX: R53.81 Other malaise (principal); R11.0 Nausea; R42 Dizziness and giddiness; R26.81 Unsteadiness on feet; R68.84 Jaw pain | CPT/HCPCS: A0425; A0429; A0888 ==

== ENCOUNTER 2023-03-17 15:33 | Outpatient (CLI) | payer MEDICARE | END 2023-03-17 23:59 | disposition critical access hospital (66) | LOC: EMS 15:33 | DX: R42 Dizziness and giddiness (principal); R11.0 Nausea | CPT/HCPCS: A0425; A0429 ==

== ENCOUNTER 2023-03-17 15:52 | Emergency (ER) | payer MEDICARE ==
[2023-03-17] MEDS ORDERED: MECLIZINE 12.5 MG TABLET PO STA (16:20)
--- NOTE | 2023-03-17 16:26 | ED Physician Documentation ---
PD HPI HEENT - Stated complaint Stated Complaint: DIZZY - Chief complaint Chief Complaint: Neuro - History obtained from History obtained from: Patient, EMS - History of Present Illness Timing - onset: Today (onset this morning when got up from bed.) Timing - duration: Hours (8) Timing - details: Abrupt onset, Still present Location: Other (The patient is experiencing vertigo initially with getting up this morning and has persisted with movement and head motion through the day. It does lessen when sleeping sitting still. It is associated with a moderate headache. She denies scotomata or vision changes in her right eye.) Associated symptoms: Headache. No: Fever, Congestion, Rhinorrhea Similar symptoms before: Diagnosis (general diagnosis of vertigo - presumed BPV as usually lasts just minutes to hour or so. COmmonly associated with headache. No focal weaknesses.) Recently seen: Clinic (Starting with a new provider, Dr. Storey. She was scheduled to get preappointment blood tests tomorrow at the office. 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 denies: Photophobia Nose: denies: Rhinorrhea / runny nose Throat: denies: Sore throat Cardiac: denies: Chest pain / pressure, Palpitations Respiratory: denies: Cough GI: reports: Nausea. denies: Abdominal Pain, Vomiting, Diarrhea Neurologic: reports: Headache. 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 HEENT: Tonsil/Adenoidectomy Derm: Skin cancer surgery - Present Medications Home Medications: Ambulatory Orders Medication Instructions Recorded Confirmed Venlafaxine ER [Effexor ER] 2 tab PO DAILY 04/30/13 12/13/22 Topiramate [Topamax] 200 mg PO QPM 11/24/15 12/13/22 Aspirin [Aspirin EC] 81 mg PO DAILY 12/26/18 12/13/22 Calcium Carbonate [[id number]] 500 mg PO BID 12/26/18 12/13/22 Cholecalciferol (Vitamin D3) 2,000 unit PO DAILY PM 12/26/18 12/13/22 [Vitamin D] Esomeprazole Magnesium 40 mg PO DAILY 12/26/18 12/13/22 Magnesium Oxide [Magnesium] 500 mg PO DAILY 12/26/18 12/13/22 Metoprolol Tartrate 12.5 mg PO BID 12/26/18 12/13/22 Multivitamin [Multiple Vitamins] 1 each PO DAILY 12/26/18 12/13/22 [place]-3S/Dha/Epa/Fish Oil [Fish 1 each PO DAILY 12/26/18 12/13/22 Oil 1,200 mg Softgel] Trazodone HCl 300 mg PO DAILY PM 12/26/18 12/13/22 Vitamin E (Dl,Tocopheryl Acet) 2,000 unit PO DAILY PM 01/25/21 12/13/22 [Vitamin E] polyethylene glycoL 3350 [Miralax] 17 gm PO DAILY PRN #14 packet 12/13/22 Meclizine HCl [Motion Sickness] 25 mg PO Q6H PRN #25 tablet 03/17/23 dexAMETHasone [Decadron] 4 mg PO DAILY #5 tablet 03/17/23 - Allergies Allergies/Adverse Reactions: Allergies Allergy/AdvReac Type Severity Reaction Status Date / Time lithium [[place]] Allergy Severe Edema Verified 03/17/23 15:54 tetracycline [Tetracycline] Allergy Severe Hives Verified 03/17/23 15:54 acetaminophen [From Fioricet] Allergy Hives Verified 03/17/23 15:54 caffeine [From Fioricet] Allergy Hives Verified 03/17/23 15:54 gabapentin Allergy Edema Verified 03/17/23 15:54 butalbital [From Fioricet] AdvReac Severe Dizziness Verified 03/17/23 15:54 - Social History Does the pt smoke?: No Smoking Status: Never smoker Does the pt drink ETOH?: No Does the pt have substance abuse?: No - Immunizations Immunizations are current?: No - POLST Patient has POLST: No PD ED PE NORMAL - Vitals Vital signs reviewed: Yes - General General: Alert and oriented X 3, Well developed/nourished - HEENT HEENT: EOMI (with nystagmus to right on right eye (left eye blind and eyelid closed).) - Neck Neck: Supple, no meningeal sign, No adenopathy, No bruit - Cardiac Cardiac: RRR, No murmur - Respiratory Respiratory: Clear bilaterally - Abdomen Abdomen: Soft, Non tender - Derm Derm: Normal color, Warm and dry - Extremities Extremities: Normal ROM s pain - Neuro Neuro: Alert and oriented X 3, No motor deficit, No sensory deficit, Normal speech Eye Opening: Spontaneous Motor: Obeys Commands Verbal: Oriented GCS Score: 15 Results - Vitals Vitals: Vital Signs - 24 hr 03/17/23 03/17/23 03/17/23 15:55 15:58 17:58 Temperature 36.9 C 36.9 C Heart Rate 84 84 78 Respiratory 16 16 16 Rate Blood Pressure 149/86 H 149/86 H 117/81 H O2 Saturation 98 98 98 Oxygen O2 Source Room air - Labs Labs: Laboratory Tests 03/17/23 03/17/23 03/17/23 16:30 16:30 16:30 WBC RBC Hgb Hct MCV MCH MCHC RDW Plt Count MPV Neut # (Auto) Lymph # (Auto) [place] # (Auto) Eos # (Auto) Baso # (Auto) Absolute Nucleated RBC Nucleated RBC % ESR 1 Sodium 143 Potassium 3.6 Chloride 112 H Carbon Dioxide 23 Anion Gap 8.0 BUN 11 Creatinine 1.0 Estimated GFR (MDRD) 53 L Glucose 112 H Calcium 9.2 Magnesium 2.0 Total Bilirubin 0.7 AST 14 ALT 12 Alkaline Phosphatase 68 Total Protein 6.5 L Albumin 3.8 Globulin 2.7 Albumin/Globulin Ratio 1.4 Lipase 29 TSH 0.17 L Free T4 Free T3 pg/mL T3 Uptake 03/17/23 03/17/23 16:30 16:51 WBC 4.9 RBC 4.48 Hgb 14.0 Hct 43.4 MCV 96.9 MCH 31.3 H MCHC 32.3 RDW 12.5 Plt Count 206 MPV 8.5 Neut # (Auto) 3.6 Lymph # (Auto) 0.9 L [place] # (Auto) 0.3 Eos # (Auto) 0.0 Baso # (Auto) 0.0 Absolute Nucleated RBC 0.00 Nucleated RBC % 0.0 ESR Sodium Potassium Chloride Carbon Dioxide Anion Gap BUN Creatinine Estimated GFR (MDRD) Glucose Calcium Magnesium Total Bilirubin AST ALT Alkaline Phosphatase Total Protein Albumin Globulin Albumin/Globulin Ratio Lipase TSH Free T4 0.84 Free T3 pg/mL 2.97 T3 Uptake 37.7 - Rads (name of study) brain MRI Relevant Findings:: Prelim report reviewed (normal brain MRI.), See rad report PD Medical Decision Making - ED course Complexity details: reviewed results (The patient with 6 months of episodic vertigo but associated with headache when it occurs. No change in vision or focal weaknesses. Likely positional vertigo. No tinnitus. However has not had evaluation for central causes. Can get MRI and labs.), considered differential (The patient states she has had episodic vertigo commonly in the morning when she first gets up and lasts just for a few minutes to an hour or so. Today's episode more severe symptoms and prolonged. No prior medications nor evaluation per se. Symptoms in the last 6 months.), d/w patient Reviewed Lab Results: Normal sed rate so unlikely vascular inflammatory process. Electrolytes are good with normal sodium in particular. Her TSH is quite low so I ordered T3 and T4 studies as well. The brain MRI does not show any abnormalities. Conclusion therefore is as it clinically sounded a peripheral/inner ear vertigo. However given the persistence of it through the day, less likely to think just otoliths related BPV and consider more inflammatory or such. With that in mind we can give some anti-inflammatories along with the meclizine motion sickness medicine. Follow-up with your primary care. I did try to call their office which was already closed. She was supposed to get bloods drawn preprimary care appointment tomorrow and I wanted to see if there was anything to add here. However was not able to get in touch with them to see what had been ordered for him that lab. Otherwise we did do basic labs here and that hopefully is sufficient. Consider for her primary care to potentially have a ENT referral for evaluation of the vertigo. Departure - Departure Disposition: 01 Home, Self Care Clinical Impression: Vertigo Nausea and vomiting Qualifiers: Vomiting type: unspecified Qualified Code(s): R11.2 - Nausea with vomiting, unspecified Condition: Stable Record reviewed to determine appropriate education?: Yes Instructions: ED Vertigo Unspecified Follow-Up: Bennett Storey MD [Primary Care Provider] - Prescriptions: dexAMETHasone [Decadron] 4 mg PO DAILY #5 tablet Meclizine HCl [Motion Sickness] 25 mg PO Q6H PRN #25 tablet PRN Reason: Vertigo Comments: Your brain MRI is normal without any signs of acute or prior strokes, tumors or masses, MS or other abnormalities. Therefore the conclusion reinforces that this sounds like an inner ear process with the vertigo. The brain related vertigo is excluded. There is still some different reasons to have vertigo related to the inner ear. Given the persistence of your symptoms through the day, it sounds less likely just small debris/calcifications in the wrong location and more likely to be perhaps increased fluid through the inner ear or inflammation. I would suggest treating this with a dexamethasone steroid anti-inflammatory for 3 to 5 days and also meclizine every 6-8 hours if needed for the vertigo. Moves slow and easily. Perhaps prop yourself up a little bit with pillows to sleep semireclined but what ever is most comfortable. Follow-up with Dr. Storey as planned. I did call their office soon after you got here to see what blood test you had ordered outpatient. However their office was already closed at 430. I would presume the test we did today are most likely the ones they would have wanted. He can call the office in the morning to see if there is any extra so as to not have to go get more blood drawn necessarily. Recheck if not improving well over the next few days. I sent your prescriptions to your preferred pharmacy.
[2023-03-17 16:50] LABS: ALBUMIN 3.8 g/dL (3.2-5.5); ALBUMIN/GLOBULIN RATIO 1.4 (1.0-2.2); BILIRUBIN,TOTAL 0.7 mg/dL (0.2-1.0); CALCIUM 9.2 mg/dL (8.5-10.3); POTASSIUM 3.6 mmol/L (3.5-5.0); TOTAL PROTEIN 6.5 g/dL (6.7-8.2)
[2023-03-17 16:54] LABS: BASOPHILS % (AUTO) 0.8 %; EOSINOPHILS % (AUTO) 0.6 %; HCT - HEMATOCRIT 43.4 % (37.0-47.0); LYMPHOCYTES # (AUTO) 0.9 10^3/uL (1.5-3.5); LYMPHOCYTES % (AUTO) 17.8 %; MEAN CORPUSCULAR HEMOGLOBIN 31.3 pg (27.0-31.0); MEAN CORPUSCULAR HGB CONC 32.3 g/dL (32.0-36.0); MEAN CORPUSCULAR VOLUME 96.9 fL (81.0-99.0); MEAN PLATELET VOLUME 8.5 fL (7.9-10.8); MONOCYTES # (AUTO) 0.3 10^3/uL (0.0-1.0); MONOCYTES % (AUTO) 6.9 %; NEUTROPHILS # (AUTO) 3.6 10^3/uL (1.5-6.6); NEUTROPHILS % (AUTO) 73.5 %; PLT - PLATELET COUNT 206 10^3/uL (130-450); RED BLOOD COUNT 4.48 10^6/uL (4.20-5.40); RED CELL DISTRIBUTION WIDTH 12.5 % (12.0-15.0); WHITE BLOOD COUNT 4.9 x10^3/uL (4.8-10.8)
--- OUTSIDE RECORDS SUMMARY | 2023-03-17 17:05 | EXTERNAL MEDICAL SUMMARY RPT | Continuity of Care Document ---
Author Name Unknown Address [address] [place] [address] Phone Organization [facility] Address [address] [place] [address] Phone Care Team Providers Care District Superintendent Name Role Phone Mitch Roland Unavailable Unavailable Allergies and Intolerances date description facility type (no date) acetaminophen [facility] (unknown) (no date) butalbital [facility] (unknown) (no date) caffeine [facility] (unknown) (no date) gabapentin [facility] (unknown) (no date) lithium [facility] (unknown) (no date) tetracycline [facility] (unknown) Problems date description facility 2023-02-20 00:00 Chronic 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 [facility] 2023-02-20 00:[address] [facility] Procedures date description facility 2023-02-20 00:00 Computed tomography of head or brain without contrast [facility] 2023-02-20 00:00 X-ray of chest, single [facility] Results/Labs test date author facility value unit interpretation Result panel 1 (unknown) (no date) (unknown) [facility] (no value) (units unknown) (unknown) Result panel 2 (unknown) (no date) (unknown) [facility] (no value) (units unknown) (unknown) Result panel 3 (unknown) (no date) (unknown) [facility] (no value) (units unknown) (unknown) Result panel 4 (unknown) (no date) (unknown) [facility] (no value) (units unknown) (unknown) Result panel 5 (unknown) (no date) (unknown) [facility] (no value) (units unknown) (unknown) Result panel 6 (unknown) (no date) (unknown) [facility] (no value) (units unknown) (unknown) Result panel 7 (unknown) (no date) (unknown) [facility] (no value) (units unknown) (unknown) Result panel 8 (unknown) (no date) (unknown) [facility] (no value) (units unknown) (unknown) Result panel 9 (unknown) (no date) (unknown) [facility] (no value) (units unknown) (unknown) Result panel 10 (unknown) (no date) (unknown) [facility] (no value) (units unknown) (unknown) Result panel 11 (unknown) (no date) (unknown) [facility] (no value) (units unknown) (unknown) Result panel 12 (unknown) (no date) (unknown) [facility] (no value) (units unknown) (unknown) Result panel 13 (unknown) (no date) (unknown) [facility] (no value) (units unknown) (unknown) Result panel 14 (unknown) (no date) (unknown) [facility] (no value) (units unknown) (unknown) Result panel 15 (unknown) (no date) (unknown) [facility] (no value) (units unknown) (unknown) Result panel 16 (unknown) (no date) (unknown) [facility] (no value) (units unknown) (unknown) Result panel 17 (unknown) (no date) (unknown) [facility] (no value) (units unknown) (unknown) Result panel 18 (unknown) (no date) (unknown) [facility] (no value) (units unknown) (unknown) Result panel 19 (unknown) (no date) (unknown) [facility] (no value) (units unknown) (unknown) Result panel 20 (unknown) (no date) (unknown) [facility] (no value) (units unknown) (unknown) Result panel 21 (unknown) (no date) (unknown) [facility] (no value) (units unknown) (unknown) Result panel 22 (unknown) (no date) (unknown) [facility] (no value) (units unknown) (unknown) Result panel 23 (unknown) (no date) (unknown) [facility] (no value) (units unknown) (unknown) Result panel 24 (unknown) (no date) (unknown) [facility] (no value) (units unknown) (unknown) Result panel 25 (unknown) (no date) (unknown) [facility] (no value) (units unknown) (unknown) Result panel 26 (unknown) (no date) (unknown) [facility] (no value) (units unknown) (unknown) Result panel 27 (unknown) (no date) (unknown) [facility] (no value) (units unknown) (unknown) Result panel 28 (unknown) (no date) (unknown) [facility] (no value) (units unknown) (unknown) Result panel 29 (unknown) (no date) (unknown) [facility] (no value) (units unknown) (unknown) Result panel 30 (unknown) (no date) (unknown) [facility] (no value) (units unknown) (unknown) Result panel 31 (unknown) (no date) (unknown) [facility] (no value) (units unknown) (unknown) Result panel 32 (unknown) (no date) (unknown) [facility] (no value) (units unknown) (unknown) Result panel 33 (unknown) (no date) (unknown) [facility] (no value) (units unknown) (unknown) Result panel 34 (unknown) (no date) (unknown) [facility] (no value) (units unknown) (unknown) Result panel 35 (unknown) (no date) (unknown) [facility] (no value) (units unknown) (unknown) Result panel 36 (unknown) (no date) (unknown) [facility] (no value) (units unknown) (unknown) Result panel 37 (unknown) (no date) (unknown) [facility] (no value) (units unknown) (unknown) Result panel 38 (unknown) (no date) (unknown) [facility] (no value) (units unknown) (unknown) Result panel 39 (unknown) (no date) (unknown) [facility] (no value) (units unknown) (unknown) Result panel 40 (unknown) (no date) (unknown) [facility] (no value) (units unknown) (unknown) Result panel 41 (unknown) (no date) (unknown) [facility] (no value) (units unknown) (unknown) Result panel 42 (unknown) (no date) (unknown) [facility] (no value) (units unknown) (unknown) Result panel 43 (unknown) (no date) (unknown) [facility] (no value) (units unknown) (unknown) Result panel 44 (unknown) (no date) (unknown) [facility] (no value) (units unknown) (unknown) Result panel 45 (unknown) (no date) (unknown) [facility] (no value) (units unknown) (unknown) Result panel 46 (unknown) (no date) (unknown) [facility] (no value) (units unknown) (unknown) Result panel 47 (unknown) (no date) (unknown) [facility] (no value) (units unknown) (unknown) Result panel 48 (unknown) (no date) (unknown) [facility] (no value) (units unknown) (unknown) Result panel 49 (unknown) (no date) (unknown) [facility] (no value) (units unknown) (unknown) Result panel 50 (unknown) (no date) (unknown) [facility] (no value) (units unknown) (unknown) Result panel 51 (unknown) (no date) (unknown) [facility] (no value) (units unknown) (unknown) Result panel 52 (unknown) (no date) (unknown) [facility] (no value) (units unknown) (unknown) Result panel 53 (unknown) (no date) (unknown) [facility] (no value) (units unknown) (unknown) Result panel 54 (unknown) (no date) (unknown) [facility] (no value) (units unknown) (unknown) Result panel 55 (unknown) (no date) (unknown) [facility] (no value) (units unknown) (unknown) Result panel 56 (unknown) (no date) (unknown) [facility] (no value) (units unknown) (unknown) Result panel 57 (unknown) (no date) (unknown) [facility] (no value) (units unknown) (unknown) Result panel 58 (unknown) (no date) (unknown) [facility] (no value) (units unknown) (unknown) Result panel 59 (unknown) (no date) (unknown) [facility] (no value) (units unknown) (unknown) Result panel 60 (unknown) (no date) (unknown) [facility] (no value) (units unknown) (unknown) Result panel 61 (unknown) (no date) (unknown) [facility] (no value) (units unknown) (unknown) Result panel 62 (unknown) (no date) (unknown) [facility] (no value) (units unknown) (unknown) Result panel 63 (unknown) (no date) (unknown) [facility] (no value) (units unknown) (unknown) Result panel 64 (unknown) (no date) (unknown) [facility] (no value) (units unknown) (unknown) Result panel 65 (unknown) (no date) (unknown) [facility] (no value) (units unknown) (unknown) Result panel 66 (unknown) (no date) (unknown) [facility] (no value) (units unknown) (unknown) Result panel 67 (unknown) (no date) (unknown) [facility] (no value) (units unknown) (unknown) Result panel 68 (unknown) (no date) (unknown) [facility] (no value) (units unknown) (unknown) Result panel 69 (unknown) (no date) (unknown) [facility] (no value) (units unknown) (unknown) Result panel 70 (unknown) (no date) (unknown) [facility] (no value) (units unknown) (unknown) Result panel 71 (unknown) (no date) (unknown) [facility] (no value) (units unknown) (unknown) Result panel 72 (unknown) (no date) (unknown) [facility] (no value) (units unknown) (unknown) Result panel 73 (unknown) (no date) (unknown) [facility] (no value) (units unknown) (unknown) Result panel 74 (unknown) (no date) (unknown) [facility] (no value) (units unknown) (unknown) Result panel 75 (unknown) (no date) (unknown) [facility] (no value) (units unknown) (unknown) Result panel 76 (unknown) (no date) (unknown) [facility] (no value) (units unknown) (unknown) Result panel 77 (unknown) (no date) (unknown) [facility] (no value) (units unknown) (unknown) Result panel 78 (unknown) (no date) (unknown) [facility] (no value) (units unknown) (unknown) Result panel 79 (unknown) (no date) (unknown) [facility] (no value) (units unknown) (unknown) Result panel 80 (unknown) (no date) (unknown) [facility] (no value) (units unknown) (unknown) Result panel 81 (unknown) (no date) (unknown) [facility] (no value) (units unknown) (unknown) Result panel 82 (unknown) (no date) (unknown) [facility] (no value) (units unknown) (unknown) Result panel 83 (unknown) (no date) (unknown) [facility] (no value) (units unknown) (unknown) Result panel 84 (unknown) (no date) (unknown) [facility] (no value) (units unknown) (unknown) Result panel 85 (unknown) (no date) (unknown) [facility] (no value) (units unknown) (unknown) Result panel 86 (unknown) (no date) (unknown) [facility] (no value) (units unknown) (unknown) Result panel 87 (unknown) (no date) (unknown) [facility] (no value) (units unknown) (unknown) Result panel 88 (unknown) (no date) (unknown) [facility] (no value) (units unknown) (unknown) Result panel 89 (unknown) (no date) (unknown) [facility] (no value) (units unknown) (unknown) Result panel 90 (unknown) (no date) (unknown) [facility] (no value) (units unknown) (unknown) Result panel 91 (unknown) (no date) (unknown) [facility] (no value) (units unknown) (unknown) Result panel 92 (unknown) (no date) (unknown) [facility] (no value) (units unknown) (unknown) Result panel 93 (unknown) (no date) (unknown) [facility] (no value) (units unknown) (unknown) Result panel 94 (unknown) (no date) (unknown) [facility] (no value) (units unknown) (unknown) Result panel 95 (unknown) (no date) (unknown) [facility] (no value) (units unknown) (unknown) Result panel 96 (unknown) (no date) (unknown) (unknown) (no value) (units unknown) (unknown) (unknown) (no date) (unknown) (unknown) 02/20/23 (units unknown) (unknown) (unknown) (no date) (unknown) (unknown) 1. No acute intracranial process. (units unknown) (unknown) (unknown) (no date) (unknown) (unknown) [address] [place] [address] (units unknown) (unknown) (unknown) (no date) (unknown) (unknown) 2. 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 The globe is small. (units unknown) (unknown) (unknown) (no date) (unknown) (unknown) [id number] (units unknown) (unknown) (unknown) (no date) (unknown) (unknown) Accession Number: [id number] (units unknown) (unknown) (unknown) (no date) (unknown) (unknown) Accession Number: [id number] (units unknown) (unknown) (unknown) (no date) (unknown) (unknown) Age/Sex: 77 / F Date of Service: (units unknown) (unknown) (unknown) (no date) (unknown) (unknown) MARTHA Bashir [id number] (units unknown) (unknown) (unknown) (no date) (unknown) (unknown) Approved by: Jose Rowan M.D. on 02/20/2023 at 15:14 (units unknown) (unknown) (unknown) (no date) (unknown) (unknown) Approved by: Franco Hoffman M.D. on 02/20/2023 at 15:06 (units unknown) (unknown) (unknown) (no date) (unknown) (unknown) Bones and chest wall: No suspicious bony lesions. Overlying soft tissues (units unknown) (unknown) (unknown) (no date) (unknown) (unknown) Brain: No intracranial bleeds or masses. There is cerebral volume loss for (units unknown) (unknown) (unknown) (no date) (unknown) (unknown) COMPARISON: None. (units unknown) (unknown) (unknown) (no date) (unknown) (unknown) COMPARISON: [facility], CR, XR CHEST 1 VIEW, 05/27/2018, 14:08. (units unknown) (unknown) (unknown) (no date) (unknown) (unknown) CSF spaces: Basal cisterns are patent. No extra-axial fluid collections. The (units unknown) (unknown) (unknown) (no date) (unknown) (unknown) CT Scan Report (units unknown) (unknown) (unknown) (no date) (unknown) (unknown) Comment: Findings were discussed with Dr. Roland at the time of study dictation. (units unknown) (unknown) (unknown) (no date) (unknown) (unknown) : 1945 Acct:[id number] (units unknown) (unknown) (unknown) (no date) (unknown) (unknown) Dictated by: Jose Rowan M.D. on 02/20/2023 at 15:13 (units unknown) (unknown) (unknown) (no date) (unknown) (unknown) Dictated by: Franco Hoffman M.D. on 02/20/2023 at 14:48 (units unknown) (unknown) (unknown) (no date) (unknown) (unknown) FINDINGS: (units unknown) (unknown) (unknown) (no date) (unknown) (unknown) IMPRESSION: No acute cardiopulmonary disease. (units unknown) (unknown) (unknown) (no date) (unknown) (unknown) IMPRESSION: (units unknown) (unknown) (unknown) (no date) (unknown) (unknown) INDICATIONS: chest pain (units unknown) (unknown) (unknown) (no date) (unknown) (unknown) INDICATIONS: fall with head injury (units unknown) (unknown) (unknown) (no date) (unknown) (unknown) Image quality: Excellent. (units unknown) (unknown) (unknown) (no date) (unknown) (unknown) [facility] (units unknown) (unknown) (unknown) (no date) (unknown) (unknown) Loc: ED (units unknown) (unknown) (unknown) (no date) (unknown) (unknown) Lungs and pleura: Lungs are clear. No pleural effusions or pneumothorax. (units unknown) (unknown) (unknown) (no date) (unknown) (unknown) Mediastinum: Mediastinal contours appear normal. Heart size is normal. (units unknown) (unknown) (unknown) (no date) (unknown) (unknown) Noncontrast 4.5 mm thick angled axial sections acquired from the foramen magnum (units unknown) (unknown) (unknown) (no date) (unknown) (unknown) Ordering Provider: Mitch Roland D.O. (units unknown) (unknown) (unknown) (no date) (unknown) (unknown) PROCEDURE: CT HEAD/BRAIN WO CON (units unknown) (unknown) (unknown) (no date) (unknown) (unknown) PROCEDURE: XR CHEST 1V (units unknown) (unknown) (unknown) (no date) (unknown) (unknown) Patient: Adelaida Mitchell MR#: [id number] (units unknown) (unknown) (unknown) (no date) (unknown) (unknown) Procedure: CT head/brain wo con (units unknown) (unknown) (unknown) (no date) (unknown) (unknown) Procedure: XR chest 1V (units unknown) (unknown) (unknown) (no date) (unknown) (unknown) Recommend (units unknown) (unknown) (unknown) (no date) (unknown) (unknown) Signed (units unknown) (unknown) (unknown) (no date) (unknown) (unknown) Sinuses: Visualized sinuses and mastoids are clear. (units unknown) (unknown) (unknown) (no date) (unknown) (unknown) Skull and face: Calvarium and visualized facial bones appear intact, without (units unknown) (unknown) (unknown) (no date) (unknown) (unknown) Surgical changes and devices: None. (units unknown) (unknown) (unknown) (no date) (unknown) (unknown) TECHNIQUE: One view of the chest was acquired. (units unknown) (unknown) (unknown) (no date) (unknown) (unknown) TECHNIQUE: (units unknown) (unknown) (unknown) (no date) (unknown) (unknown) There is (units unknown) (unknown) (unknown) (no date) (unknown) (unknown) XRay Report (units unknown) (unknown) (unknown) (no date) (unknown) (unknown) age, with (units unknown) (unknown) (unknown) (no date) (unknown) (unknown) and has (units unknown) (unknown) (unknown) (no date) (unknown) (unknown) appear (units unknown) (unknown) (unknown) (no date) (unknown) (unknown) artery atherosclerosis. (units unknown) (unknown) (unknown) (no date) (unknown) (unknown) carotid (units unknown) (unknown) (unknown) (no date) (unknown) (unknown) clinical correlation. (units unknown) (unknown) (unknown) (no date) (unknown) (unknown) extensive increased density within it, as well as some calcification. (units unknown) (unknown) (unknown) (no date) (unknown) (unknown) following (units unknown) (unknown) (unknown) (no date) (unknown) (unknown) lesions. Left lobe is definitely abnormal, it is smaller than the right globe (units unknown) (unknown) (unknown) (no date) (unknown) (unknown) matter chronic small vessel ischemic changes. There is intracranial internal (units unknown) (unknown) (unknown) (no date) (unknown) (unknown) patient (units unknown) (unknown) (unknown) (no date) (unknown) (unknown) resultant ventricular and sulcal prominence. There are periventricular and deep (units unknown) (unknown) (unknown) (no date) (unknown) (unknown) significant increased density with calcification. Differential includes prior (units unknown) (unknown) (unknown) (no date) (unknown) (unknown) size. (units unknown) (unknown) (unknown) (no date) (unknown) (unknown) suspicious (units unknown) (unknown) (unknown) (no date) (unknown) (unknown) to the (units unknown) (unknown) (unknown) (no date) (unknown) (unknown) trauma (units unknown) (unknown) (unknown) (no date) (unknown) (unknown) unremarkable. (units unknown) (unknown) (unknown) (no date) (unknown) (unknown) ventricles are symmetric in size and shape. (units unknown) (unknown) (unknown) (no date) (unknown) (unknown) vertex, with coronal and sagittal reformats. For radiation dose reduction, the (units unknown) (unknown) (unknown) (no date) (unknown) (unknown) was used: automated exposure control, adjustment of mA and/or kV according to (units unknown) (unknown) (unknown) (no date) (unknown) (unknown) white (units unknown) (unknown) (unknown) (no date) (unknown) (unknown) with hemorrhage which has not resorbed. Ocular tumor is not excluded. (units unknown) (unknown) Result panel 97 (unknown) (no date) (unknown) (unknown) (no value) (units unknown) (unknown) (unknown) (no date) (unknown) (unknown) (#EFFEXOR) (units unknown) (unknown) (unknown) (no date) (unknown) (unknown) (Topamax) (units unknown) (unknown) (unknown) (no date) (unknown) (unknown) 0.75 dose TP BIDPRN Qty: 0 (units unknown) (unknown) (unknown) (no date) (unknown) (unknown) 02/20/23 13:47 (units unknown) (unknown) (unknown) (no date) (unknown) (unknown) 02/20/23 13:48 (units unknown) (unknown) (unknown) (no date) (unknown) (unknown) 097 (units unknown) (unknown) (unknown) (no date) (unknown) (unknown) 1,000 mg PO BID Qty: 0 (units unknown) (unknown) (unknown) (no date) (unknown) (unknown) 12 point review of systems is negative except for those stated above (units unknown) (unknown) (unknown) (no date) (unknown) (unknown) 12.5 mg PO BID (units unknown) (unknown) (unknown) (no date) (unknown) (unknown) 200 mg PO DAILY Qty: 0 (units unknown) (unknown) (unknown) (no date) (unknown) (unknown) 200 mg PO DAILY (units unknown) (unknown) (unknown) (no date) (unknown) (unknown) 37.5 mg at noon (units unknown) (unknown) (unknown) (no date) (unknown) (unknown) 40 mg PO BIDAC Qty: 180 3RF (units unknown) (unknown) (unknown) (no date) (unknown) (unknown) 75 mg PO DAILY Qty: 0 (units unknown) (unknown) (unknown) (no date) (unknown) (unknown) 77-year-old female nonsmoker with history of multiple falls and overall a (units unknown) (unknown) (unknown) (no date) (unknown) (unknown) 81 mg PO DAILY (units unknown) (unknown) (unknown) (no date) (unknown) (unknown) Acetaminophen Stat (units unknown) (unknown) (unknown) (no date) (unknown) (unknown) Age/Sex: 77 / F (units unknown) (unknown) (unknown) (no date) (unknown) (unknown) Allergies (units unknown) (unknown) (unknown) (no date) (unknown) (unknown) Allergy/AdvReac Type Severity Reaction Status Date / Time (units unknown) (unknown) (unknown) (no date) (unknown) (unknown) Anxiety (units unknown) (unknown) (unknown) (no date) (unknown) (unknown) Arthritis (units unknown) (unknown) (unknown) (no date) (unknown) (unknown) Atrial fibrillation (units unknown) (unknown) (unknown) (no date) (unknown) (unknown) BACK: Nontender without deformity or crepitance. No flank tenderness. (units unknown) (unknown) (unknown) (no date) (unknown) (unknown) CARDIOVASCULAR: Regular rate and rhythm without murmurs, gallops, or rubs. (units unknown) (unknown) (unknown) (no date) (unknown) (unknown) CARDIOVASCULAR: See HPI (units unknown) (unknown) (unknown) (no date) (unknown) (unknown) CT head/brain wo con Stat (units unknown) (unknown) (unknown) (no date) (unknown) (unknown) Complete Blood Count AUTO DIFF Stat (units unknown) (unknown) (unknown) (no date) (unknown) (unknown) Comprehensive Metabolic Panel Stat (units unknown) (unknown) (unknown) (no date) (unknown) (unknown) Course (units unknown) (unknown) (unknown) (no date) (unknown) (unknown) : 1945 Acct:[id number] (units unknown) (unknown) (unknown) (no date) (unknown) (unknown) Date of Service: 02/20/23 (units unknown) (unknown) (unknown) (no date) (unknown) (unknown) Departure (units unknown) (unknown) (unknown) (no date) (unknown) (unknown) Depression (units unknown) (unknown) (unknown) (no date) (unknown) (unknown) Discharge Plan (units unknown) (unknown) (unknown) (no date) (unknown) (unknown) ED Orders (units unknown) (unknown) (unknown) (no date) (unknown) (unknown) EKG-12 Lead Stat (units unknown) (unknown) (unknown) (no date) (unknown) (unknown) ENT: Dry mucous membranes Nose without bleeding, purulent drainage. Throat (units unknown) (unknown) (unknown) (no date) (unknown) (unknown) ER Physician: Mitch Roland D.O. (units unknown) (unknown) (unknown) (no date) (unknown) (unknown) EXTREMITIES: No edema or joint tenderness. (units unknown) (unknown) (unknown) (no date) (unknown) (unknown) EYES: Pupils equal round and reactive. Extraocular motions intact. No scleral (units unknown) (unknown) (unknown) (no date) (unknown) (unknown) Emergency Report (units unknown) (unknown) (unknown) (no date) (unknown) (unknown) Ethanol (ETOH) Stat (units unknown) (unknown) (unknown) (no date) (unknown) (unknown) Exam Narrative: (units unknown) (unknown) (unknown) (no date) (unknown) (unknown) Exam (units unknown) (unknown) (unknown) (no date) (unknown) (unknown) Fish Oil (#OMEGA 3) 1,000 mg PO BID ##0 05/22/11 04/17/20 (units unknown) (unknown) (unknown) (no date) (unknown) (unknown) Fish Oil (#OMEGA 3) (units unknown) (unknown) (unknown) (no date) (unknown) (unknown) GASTROINTESTINAL: Abdomen soft, non-tender, nondistended. (units unknown) (unknown) (unknown) (no date) (unknown) (unknown) GASTROINTESTINAL: Denies nausea, vomiting, abdominal pain, diarrhea, (units unknown) (unknown) (unknown) (no date) (unknown) (unknown) GENERAL: See HPI (units unknown) (unknown) (unknown) (no date) (unknown) (unknown) GENERAL: [77] year old patient appears stated age. Well-developed patient, in (units unknown) (unknown) (unknown) (no date) (unknown) (unknown) GERD (gastroesophageal reflux disease) (units unknown) (unknown) (unknown) (no date) (unknown) (unknown) : Denies dysuria, frequency, incontinence, hematuria, urinary retention. (units unknown) (unknown) (unknown) (no date) (unknown) (unknown) General (units unknown) (unknown) (unknown) (no date) (unknown) (unknown) H/O hysterectomy for benign disease (units unknown) (unknown) (unknown) (no date) (unknown) (unknown) HEAD: Atraumatic. Normocephalic. (units unknown) (unknown) (unknown) (no date) (unknown) (unknown) HEENT: Denies sinus pain, ear pain, sore throat, difficulty swallowing, (units unknown) (unknown) (unknown) (no date) (unknown) (unknown) HPI - Weakness (units unknown) (unknown) (unknown) (no date) (unknown) (unknown) HPI Narrative: (units unknown) (unknown) (unknown) (no date) (unknown) (unknown) Hepatitis A (units unknown) (unknown) (unknown) (no date) (unknown) (unknown) History of Present Illness (units unknown) (unknown) (unknown) (no date) (unknown) (unknown) History of pelvic surgery (units unknown) (unknown) (unknown) (no date) (unknown) (unknown) Home Medications (units unknown) (unknown) (unknown) (no date) (unknown) (unknown) Hx of tonsillectomy (units unknown) (unknown) (unknown) (no date) (unknown) (unknown) [address] [address] (units unknown) (unknown) (unknown) (no date) (unknown) (unknown) Moose Shelton DO [Primary Care Provider] (units unknown) (unknown) (unknown) (no date) (unknown) (unknown) Lipase Stat (units unknown) (unknown) (unknown) (no date) (unknown) (unknown) METRONIDAZOLE (#METROGEL) 0.75 dose TP BIDPRN ##0 05/22/11 04/17/20 (units unknown) (unknown) (unknown) (no date) (unknown) (unknown) METRONIDAZOLE (#METROGEL) (units unknown) (unknown) (unknown) (no date) (unknown) (unknown) MUSCULOSKELETAL: d see HPI (units unknown) (unknown) (unknown) (no date) (unknown) (unknown) Medical History (units unknown) (unknown) (unknown) (no date) (unknown) (unknown) Medication Instructions Recorded Confirmed (units unknown) (unknown) (unknown) (no date) (unknown) (unknown) Medication Instructions Recorded (units unknown) (unknown) (unknown) (no date) (unknown) (unknown) NECK: Trachea midline. Non tender (units unknown) (unknown) (unknown) (no date) (unknown) (unknown) NEURO: AOx3. (units unknown) (unknown) (unknown) (no date) (unknown) (unknown) NEUROLOGIC: Denies weakness, headache, numbness, change in speech, confusion, (units unknown) (unknown) (unknown) (no date) (unknown) (unknown) NT-proBNP (BNP-Adult 18+) Stat (units unknown) (unknown) (unknown) (no date) (unknown) (unknown) Narrative (units unknown) (unknown) (unknown) (no date) (unknown) (unknown) Narrative: (units unknown) (unknown) (unknown) (no date) (unknown) (unknown) Neuropathy (units unknown) (unknown) (unknown) (no date) (unknown) (unknown) No Action (units unknown) (unknown) (unknown) (no date) (unknown) (unknown) Ordered: (units unknown) (unknown) (unknown) (no date) (unknown) (unknown) Orders (units unknown) (unknown) (unknown) (no date) (unknown) (unknown) PSYCHIATRIC: No concerning psychosocial issues. (units unknown) (unknown) (unknown) (no date) (unknown) (unknown) Patient History (units unknown) (unknown) (unknown) (no date) (unknown) (unknown) Patient: Adelaida Mitchell MR#: [id number] (units unknown) (unknown) (unknown) (no date) (unknown) (unknown) Prescriptions: (units unknown) (unknown) (unknown) (no date) (unknown) (unknown) Previous Rx's (units unknown) (unknown) (unknown) (no date) (unknown) (unknown) Procalcitonin Stat (units unknown) (unknown) (unknown) (no date) (unknown) (unknown) Prothrombin Time INR Stat (units unknown) (unknown) (unknown) (no date) (unknown) (unknown) RESPIRATORY: Clear to auscultation. Breath sounds equal bilaterally. No wheezes, (units unknown) (unknown) (unknown) (no date) (unknown) (unknown) RESPIRATORY: Denies dyspnea, cough, wheezing, hemoptysis, sputum. (units unknown) (unknown) (unknown) (no date) (unknown) (unknown) Referrals: (units unknown) (unknown) (unknown) (no date) (unknown) (unknown) Related Data (units unknown) (unknown) (unknown) (no date) (unknown) (unknown) Review of Systems (units unknown) (unknown) (unknown) (no date) (unknown) (unknown) Rx Instructions: (units unknown) (unknown) (unknown) (no date) (unknown) (unknown) SKIN: Denies rash, skin lesions, or other (units unknown) (unknown) (unknown) (no date) (unknown) (unknown) SKIN: Mild pruritic rash on back with some scabs that are slightly excoriated, (units unknown) (unknown) (unknown) (no date) (unknown) (unknown) Salicylate Stat (units unknown) (unknown) (unknown) (no date) (unknown) (unknown) Seizures (units unknown) (unknown) (unknown) (no date) (unknown) (unknown) Signed By: (units unknown) (unknown) (unknown) (no date) (unknown) (unknown) Skin cancer (units unknown) (unknown) (unknown) (no date) (unknown) (unknown) Smoking Status: Never smoker (units unknown) (unknown) (unknown) (no date) (unknown) (unknown) Social History (units unknown) (unknown) (unknown) (no date) (unknown) (unknown) Sodium Chloride (Normal Saline 0.9%) 1,000 mls @ 1,000 mls/hr IV BOLUS ONE (units unknown) (unknown) (unknown) (no date) (unknown) (unknown) Stated complaint: 'unwell' x1 week, jaw pain, possible fall (units unknown) (unknown) (unknown) (no date) (unknown) (unknown) Stop: 02/20/23 14:46 (units unknown) (unknown) (unknown) (no date) (unknown) (unknown) Substance Use Type: does not use (units unknown) (unknown) (unknown) (no date) (unknown) (unknown) Surgical History (units unknown) (unknown) (unknown) (no date) (unknown) (unknown) Time Seen by Provider: 02/20/23 13:47 (units unknown) (unknown) (unknown) (no date) (unknown) (unknown) Troponin + CK Cardiac Panel Stat (units unknown) (unknown) (unknown) (no date) (unknown) (unknown) Urine Drug Screen, Rapid Stat (units unknown) (unknown) (unknown) (no date) (unknown) (unknown) Venlafaxine Hydrochloride (#EFFEXOR) (units unknown) (unknown) (unknown) (no date) (unknown) (unknown) Venlafaxine Hydrochloride 75 mg PO DAILY ##0 05/22/11 (units unknown) (unknown) (unknown) (no date) (unknown) (unknown) XR chest 1V Stat (units unknown) (unknown) (unknown) (no date) (unknown) (unknown) acetaminophen [From Fioricet] Allergy Seizure Verified 04/17/20 07:57 (units unknown) (unknown) (unknown) (no date) (unknown) (unknown) alcohol intake frequency: holidays/special occasions only (units unknown) (unknown) (unknown) (no date) (unknown) (unknown) alcohol intake: current (units unknown) (unknown) (unknown) (no date) (unknown) (unknown) and states that she appears to be at her baseline. There is no evidence of (units unknown) (unknown) (unknown) (no date) (unknown) (unknown) aspirin 81 mg tablet,delayed 81 mg PO DAILY 04/17/20 04/17/20 (units unknown) (unknown) (unknown) (no date) (unknown) (unknown) aspirin [Kathy Low Dose Aspirin] 81 mg Tablet,Delayed Release (Dr/Ec) (units unknown) (unknown) (unknown) (no date) (unknown) (unknown) butalbital Allergy Verified 04/17/20 07:57 (units unknown) (unknown) (unknown) (no date) (unknown) (unknown) caffeine [From Fioricet] Allergy Seizure Verified 04/17/20 07:57 (units unknown) (unknown) (unknown) (no date) (unknown) (unknown) capsule,delayed release (Nexium) (units unknown) (unknown) (unknown) (no date) (unknown) (unknown) constipation, melena. (units unknown) (unknown) (unknown) (no date) (unknown) (unknown) diarrhea. She denies any change in her medications. She denies any difficulty (units unknown) (unknown) (unknown) (no date) (unknown) (unknown) dizziness. (units unknown) (unknown) (unknown) (no date) (unknown) (unknown) esomeprazole magnesium 40 mg 40 mg PO BIDAC ##180 06/04/11 (units unknown) (unknown) (unknown) (no date) (unknown) (unknown) esomeprazole magnesium [Nexium] 40 MG capsule,delayed release(DR/EC) (units unknown) (unknown) (unknown) (no date) (unknown) (unknown) for at least a few months and is particularly itchy today. EMS evaluated her (units unknown) (unknown) (unknown) (no date) (unknown) (unknown) gabapentin Allergy Verified 04/17/20 07:57 (units unknown) (unknown) (unknown) (no date) (unknown) (unknown) household members: none (units unknown) (unknown) (unknown) (no date) (unknown) (unknown) icterus. No injection or drainage. (units unknown) (unknown) (unknown) (no date) (unknown) (unknown) lithium Allergy Unknown Swelling Verified 04/17/20 07:06 (units unknown) (unknown) (unknown) (no date) (unknown) (unknown) metoprolol tartrate 25 mg tablet 12.5 mg PO BID 04/17/20 04/17/20 (units unknown) (unknown) (unknown) (no date) (unknown) (unknown) metoprolol tartrate 25 mg tablet (units unknown) (unknown) (unknown) (no date) (unknown) (unknown) mild distress. Very hard of hearing, alert and oriented caught GCS 15 (units unknown) (unknown) (unknown) (no date) (unknown) (unknown) no longer is. She denies any fever or chills. She is had no blurred vision or (units unknown) (unknown) (unknown) (no date) (unknown) (unknown) or shortness of breath and has had no cough. She denies nausea, vomiting or (units unknown) (unknown) (unknown) (no date) (unknown) (unknown) poor skin turgor (units unknown) (unknown) (unknown) (no date) (unknown) (unknown) rales, or rhonchi. (units unknown) (unknown) (unknown) (no date) (unknown) (unknown) relatively poor historian presents by EMS for evaluation of generalized weakness (units unknown) (unknown) (unknown) (no date) (unknown) (unknown) release (Kathy Low Dose Aspirin) (units unknown) (unknown) (unknown) (no date) (unknown) (unknown) seizures, incoordination. (units unknown) (unknown) (unknown) (no date) (unknown) (unknown) tetracycline Allergy Unknown Hives Verified 04/17/20 07:06 (units unknown) (unknown) (unknown) (no date) (unknown) (unknown) that has been present for at least a few days. She thinks maybe she fell (units unknown) (unknown) (unknown) (no date) (unknown) (unknown) topiramate 25 mg sprinkle capsule 200 mg PO DAILY ##0 05/22/11 04/17/20 (units unknown) (unknown) (unknown) (no date) (unknown) (unknown) topiramate [Topamax] 25 MG capsule, sprinkle (units unknown) (unknown) (unknown) (no date) (unknown) (unknown) trauma per their exam, no focal findings. (units unknown) (unknown) (unknown) (no date) (unknown) (unknown) trazodone 100 mg tablet 200 mg PO DAILY 04/17/20 04/17/20 (units unknown) (unknown) (unknown) (no date) (unknown) (unknown) trazodone 100 mg tablet (units unknown) (unknown) (unknown) (no date) (unknown) (unknown) trouble with speech. She is had no had or neck pain. She denies any chest pain (units unknown) (unknown) (unknown) (no date) (unknown) (unknown) with urination or bowel movements. She has been dealing with a rash on her back (units unknown) (unknown) (unknown) (no date) (unknown) (unknown) without erythema, tonsillar hypertrophy or exudate. Airway patent. (units unknown) (unknown) (unknown) (no date) (unknown) (unknown) yesterday but it is unclear. She is concerned because her jaw was popping but (units unknown) (unknown) Result panel 98 (unknown) (no date) (unknown) (unknown) > 60 ml/min (unknown) (unknown) (no date) (unknown) (unknown) > 60 ml/min (unknown) (unknown) (no date) (unknown) (unknown) < 1.0 mg/dl (unknown) (unknown) (no date) (unknown) (unknown) < 1.0 mg/dl (unknown) (unknown) (no date) (unknown) (unknown) < 10 mg/dl (unknown) (unknown) (no date) (unknown) (unknown) < 10 mg/dl (unknown) (unknown) (no date) (unknown) (unknown) < 10 ug/ml (unknown) (unknown) (no date) (unknown) (unknown) < 10 ug/ml (unknown) (unknown) (no date) (unknown) (unknown) 0.3 mg/dl (unknown) (unknown) (no date) (unknown) (unknown) 0.90 mg/dl (unknown) (unknown) (no date) (unknown) (unknown) 1.0 (units unknown) (unknown) (unknown) (no date) (unknown) (unknown) 1.5 (units unknown) (unknown) (unknown) (no date) (unknown) (unknown) 11.4 seconds (unknown) (unknown) (no date) (unknown) (unknown) 110 mmol/l (unknown) (unknown) (no date) (unknown) (unknown) 138 mmol/l (unknown) (unknown) (no date) (unknown) (unknown) 15 mg/dl (unknown) (unknown) (no date) (unknown) (unknown) 16.7 (units unknown) (unknown) (unknown) (no date) (unknown) (unknown) 2.4 g/dl (unknown) (unknown) (no date) (unknown) (unknown) 20 iu/l (unknown) (unknown) (no date) (unknown) (unknown) 22 iu/l (unknown) (unknown) (no date) (unknown) (unknown) 24 mmol/l (unknown) (unknown) (no date) (unknown) (unknown) 3.5 g/dl (unknown) (unknown) (no date) (unknown) (unknown) 4.0 mmol/l (unknown) (unknown) (no date) (unknown) (unknown) 5.9 g/dl (unknown) (unknown) (no date) (unknown) (unknown) 52 u/l (unknown) (unknown) (no date) (unknown) (unknown) 55 u/l (unknown) (unknown) (no date) (unknown) (unknown) 69 u/l (unknown) (unknown) (no date) (unknown) (unknown) 8.9 mg/dl (unknown) (unknown) (no date) (unknown) (unknown) 91 mg/dl (unknown) (unknown) (no date) (unknown) (unknown) 91 mg/dl (unknown) (unknown) (no date) (unknown) (unknown) Test not performed % (unknown) (unknown) (no date) (unknown) (unknown) Test not performed % (unknown) (unknown) (no date) (unknown) (unknown) Test not performed ng/ml (unknown) (unknown) (no date) (unknown) (unknown) Test not performed ng/ml (unknown) Result panel 99 (unknown) (no date) (unknown) (unknown) > 60 ml/min (unknown) (unknown) (no date) (unknown) (unknown) > 60 ml/min (unknown) (unknown) (no date) (unknown) (unknown) < 0.012 ng/ml (unknown) (unknown) (no date) (unknown) (unknown) < 0.012 ng/ml (unknown) (unknown) (no date) (unknown) (unknown) 0.3 mg/dl (unknown) (unknown) (no date) (unknown) (unknown) 0.90 mg/dl (unknown) (unknown) (no date) (unknown) (unknown) 1.5 (units unknown) (unknown) (unknown) (no date) (unknown) (unknown) 110 mmol/l (unknown) (unknown) (no date) (unknown) (unknown) 138 mmol/l (unknown) (unknown) (no date) (unknown) (unknown) 15 mg/dl (unknown) (unknown) (no date) (unknown) (unknown) 16.7 (units unknown) (unknown) (unknown) (no date) (unknown) (unknown) 163 pg/ml (unknown) (unknown) (no date) (unknown) (unknown) 163 pg/ml (unknown) (unknown) (no date) (unknown) (unknown) 2.4 g/dl (unknown) (unknown) (no date) (unknown) (unknown) 20 iu/l (unknown) (unknown) (no date) (unknown) (unknown) 22 iu/l (unknown) (unknown) (no date) (unknown) (unknown) 24 mmol/l (unknown) (unknown) (no date) (unknown) (unknown) 3.5 g/dl (unknown) (unknown) (no date) (unknown) (unknown) 4.0 mmol/l (unknown) (unknown) (no date) (unknown) (unknown) 5.9 g/dl (unknown) (unknown) (no date) (unknown) (unknown) 52 u/l (unknown) (unknown) (no date) (unknown) (unknown) 55 u/l (unknown) (unknown) (no date) (unknown) (unknown) 69 u/l (unknown) (unknown) (no date) (unknown) (unknown) 8.9 mg/dl (unknown) (unknown) (no date) (unknown) (unknown) 91 mg/dl (unknown) (unknown) (no date) (unknown) (unknown) 91 mg/dl (unknown) (unknown) (no date) (unknown) (unknown) Test not performed % (unknown) (unknown) (no date) (unknown) (unknown) Test not performed % (unknown) (unknown) (no date) (unknown) (unknown) Test not performed ng/ml (unknown) (unknown) (no date) (unknown) (unknown) Test not performed ng/ml (unknown) Result panel 100 (unknown) (no date) (unknown) (unknown) 1.2 % (unknown) (unknown) (no date) (unknown) (unknown) 1.5 % (unknown) (unknown) (no date) (unknown) (unknown) 100 /ul (unknown) (unknown) (no date) (unknown) (unknown) 100 /ul (unknown) (unknown) (no date) (unknown) (unknown) 11.8 % (unknown) (unknown) (no date) (unknown) (unknown) 13.6 % (unknown) (unknown) (no date) (unknown) (unknown) 14.0 g/dl (unknown) (unknown) (no date) (unknown) (unknown) 1400 /ul (unknown) (unknown) (no date) (unknown) (unknown) 2300 /ul (unknown) (unknown) (no date) (unknown) (unknown) 232 x10 3/ul (unknown) (unknown) (no date) (unknown) (unknown) 32.0 pg (unknown) (unknown) (no date) (unknown) (unknown) 33.2 % (unknown) (unknown) (no date) (unknown) (unknown) 33.7 % (unknown) (unknown) (no date) (unknown) (unknown) 4.3 x10 3/ul (unknown) (unknown) (no date) (unknown) (unknown) 4.38 x10 6/ul (unknown) (unknown) (no date) (unknown) (unknown) 41.6 % (unknown) (unknown) (no date) (unknown) (unknown) 500 /ul (unknown) (unknown) (no date) (unknown) (unknown) 52.3 % (unknown) (unknown) (no date) (unknown) (unknown) 95.1 fl (unknown) Result panel 101 (unknown) (no date) (unknown) (unknown) < 1.0 mg/dl (unknown) (unknown) (no date) (unknown) (unknown) < 1.0 mg/dl (unknown) (unknown) (no date) (unknown) (unknown) < 10 mg/dl (unknown) (unknown) (no date) (unknown) (unknown) < 10 mg/dl (unknown) (unknown) (no date) (unknown) (unknown) < 10 ug/ml (unknown) (unknown) (no date) (unknown) (unknown) < 10 ug/ml (unknown) (unknown) (no date) (unknown) (unknown) 0.05 ng/ml (unknown) (unknown) (no date) (unknown) (unknown) 0.05 ng/ml (unknown) Result panel 102 (unknown) (no date) (unknown) (unknown) (no value) (units unknown) (unknown) (unknown) (no date) (unknown) (unknown) (#EFFEXOR) (units unknown) (unknown) (unknown) (no date) (unknown) (unknown) (Topamax) (units unknown) (unknown) (unknown) (no date) (unknown) (unknown) *Please continue to take your regular medications as directed. (units unknown) (unknown) (unknown) (no date) (unknown) (unknown) *Please follow up with your primary care provider in 2-3 days, call for an (units unknown) (unknown) (unknown) (no date) (unknown) (unknown) *Return to Emergency Department if you should have any new, worsening or (units unknown) (unknown) (unknown) (no date) (unknown) (unknown) *What to do: (units unknown) (unknown) (unknown) (no date) (unknown) (unknown) *You have been diagnosed with [generalized weakness and chronic rash. As we (units unknown) (unknown) (unknown) (no date) (unknown) (unknown) 0.75 dose TP BIDPRN Qty: 0 (units unknown) (unknown) (unknown) (no date) (unknown) (unknown) 02/20/23 02/20/23 02/20/23 Range/Units (units unknown) (unknown) (unknown) (no date) (unknown) (unknown) 02/20/23 13:47 (units unknown) (unknown) (unknown) (no date) (unknown) (unknown) 02/20/23 13:48 (units unknown) (unknown) (unknown) (no date) (unknown) (unknown) 02/20/23 14:43 (units unknown) (unknown) (unknown) (no date) (unknown) (unknown) 02/20/23 14:52 (units unknown) (unknown) (unknown) (no date) (unknown) (unknown) 02/20/23 16:35 (units unknown) (unknown) (unknown) (no date) (unknown) (unknown) 02/20/23 16:58 (units unknown) (unknown) (unknown) (no date) (unknown) (unknown) 02/20/23 Range/Units (units unknown) (unknown) (unknown) (no date) (unknown) (unknown) 02/20/23 (units unknown) (unknown) (unknown) (no date) (unknown) (unknown) 097 (units unknown) (unknown) (unknown) (no date) (unknown) (unknown) 1,000 mg PO BID Qty: 0 (units unknown) (unknown) (unknown) (no date) (unknown) (unknown) 12 point review of systems is negative except for those stated above (units unknown) (unknown) (unknown) (no date) (unknown) (unknown) 12.5 mg PO BID (units unknown) (unknown) (unknown) (no date) (unknown) (unknown) 13:48 02/20/23 (units unknown) (unknown) (unknown) (no date) (unknown) (unknown) 14:00 (units unknown) (unknown) (unknown) (no date) (unknown) (unknown) 14:04 05/25/23 (units unknown) (unknown) (unknown) (no date) (unknown) (unknown) 14:30 02/20/23 (units unknown) (unknown) (unknown) (no date) (unknown) (unknown) 14:43 14:52 14:52 (units unknown) (unknown) (unknown) (no date) (unknown) (unknown) 14:52 (units unknown) (unknown) (unknown) (no date) (unknown) (unknown) 14:55 02/20/23 (units unknown) (unknown) (unknown) (no date) (unknown) (unknown) 14:55 (units unknown) (unknown) (unknown) (no date) (unknown) (unknown) 15:00 02/20/23 (units unknown) (unknown) (unknown) (no date) (unknown) (unknown) 15:30 02/20/23 (units unknown) (unknown) (unknown) (no date) (unknown) (unknown) 15:30 (units unknown) (unknown) (unknown) (no date) (unknown) (unknown) 16:00 02/20/23 (units unknown) (unknown) (unknown) (no date) (unknown) (unknown) 16:00 (units unknown) (unknown) (unknown) (no date) (unknown) (unknown) 16:30 02/20/23 (units unknown) (unknown) (unknown) (no date) (unknown) (unknown) 16:55 (units unknown) (unknown) (unknown) (no date) (unknown) (unknown) 16:56 02/20/23 (units unknown) (unknown) (unknown) (no date) (unknown) (unknown) 16:59 02/20/23 (units unknown) (unknown) (unknown) (no date) (unknown) (unknown) 16:59 (units unknown) (unknown) (unknown) (no date) (unknown) (unknown) 17:00 02/20/23 (units unknown) (unknown) (unknown) (no date) (unknown) (unknown) 17:00 (units unknown) (unknown) (unknown) (no date) (unknown) (unknown) 200 mg PO DAILY Qty: 0 (units unknown) (unknown) (unknown) (no date) (unknown) (unknown) 200 mg PO DAILY (units unknown) (unknown) (unknown) (no date) (unknown) (unknown) 37.5 mg at noon (units unknown) (unknown) (unknown) (no date) (unknown) (unknown) 40 mg PO BIDAC Qty: 180 3RF (units unknown) (unknown) (unknown) (no date) (unknown) (unknown) 75 mg PO DAILY Qty: 0 (units unknown) (unknown) (unknown) (no date) (unknown) (unknown) 77-year-old female nonsmoker with history of multiple falls and overall a (units unknown) (unknown) (unknown) (no date) (unknown) (unknown) 81 mg PO DAILY (units unknown) (unknown) (unknown) (no date) (unknown) (unknown) ALT (<35) IU/L (units unknown) (unknown) (unknown) (no date) (unknown) (unknown) ALT 20 (<35) IU/L (units unknown) (unknown) (unknown) (no date) (unknown) (unknown) AST (14-36) IU/L (units unknown) (unknown) (unknown) (no date) (unknown) (unknown) AST 22 (14-36) IU/L (units unknown) (unknown) (unknown) (no date) (unknown) (unknown) Acetaminophen < 10 (10-30) ug/mL (units unknown) (unknown) (unknown) (no date) (unknown) (unknown) Acetaminophen (10-30) ug/mL (units unknown) (unknown) (unknown) (no date) (unknown) (unknown) Acetaminophen Stat (units unknown) (unknown) (unknown) (no date) (unknown) (unknown) Activity Restrictions/Additio nal Instructions: (units unknown) (unknown) (unknown) (no date) (unknown) (unknown) Admin: 02/20/23 14:55 Dose: 1,000 mls/hr (units unknown) (unknown) (unknown) (no date) (unknown) (unknown) Age/Sex: 77 / F (units unknown) (unknown) (unknown) (no date) (unknown) (unknown) Albumin (3.5-5.0) g/dL (units unknown) (unknown) (unknown) (no date) (unknown) (unknown) Albumin 3.5 (3.5-5.0) g/dL (units unknown) (unknown) (unknown) (no date) (unknown) (unknown) Albumin/Globulin Ratio (1.0-2.8) (units unknown) (unknown) (unknown) (no date) (unknown) (unknown) Albumin/Globulin Ratio 1.5 (1.0-2.8) (units unknown) (unknown) (unknown) (no date) (unknown) (unknown) Alkaline Phosphatase (38-126) U/L (units unknown) (unknown) (unknown) (no date) (unknown) (unknown) Alkaline Phosphatase 69 (38-126) U/L (units unknown) (unknown) (unknown) (no date) (unknown) (unknown) Allergies (units unknown) (unknown) (unknown) (no date) (unknown) (unknown) Allergy/AdvReac Type Severity Reaction Status Date / Time (units unknown) (unknown) (unknown) (no date) (unknown) (unknown) Anxiety (units unknown) (unknown) (unknown) (no date) (unknown) (unknown) Arthritis (units unknown) (unknown) (unknown) (no date) (unknown) (unknown) Atrial fibrillation (units unknown) (unknown) (unknown) (no date) (unknown) (unknown) BACK: Nontender without deformity or crepitance. No flank tenderness. (units unknown) (unknown) (unknown) (no date) (unknown) (unknown) BUN (7-17) mg/dL (units unknown) (unknown) (unknown) (no date) (unknown) (unknown) BUN 15 (7-17) mg/dL (units unknown) (unknown) (unknown) (no date) (unknown) (unknown) BUN/Creatinine Ratio (6-22) (units unknown) (unknown) (unknown) (no date) (unknown) (unknown) BUN/Creatinine Ratio 16.7 (6-22) (units unknown) (unknown) (unknown) (no date) (unknown) (unknown) Baso # (Auto) (0-100) /uL (units unknown) (unknown) (unknown) (no date) (unknown) (unknown) Baso # (Auto) 100 (0-100) /uL (units unknown) (unknown) (unknown) (no date) (unknown) (unknown) Baso % (Auto) (0-2) % (units unknown) (unknown) (unknown) (no date) (unknown) (unknown) Baso % (Auto) 1.2 (0-2) % (units unknown) (unknown) (unknown) (no date) (unknown) (unknown) Bedside Urine Bilirubin - Negative (units unknown) (unknown) (unknown) (no date) (unknown) (unknown) Bedside Urine Glucose Negative (units unknown) (unknown) (unknown) (no date) (unknown) (unknown) Bedside Urine Ketone - Negative (units unknown) (unknown) (unknown) (no date) (unknown) (unknown) Bedside Urine Leukocytes - Negative (units unknown) (unknown) (unknown) (no date) (unknown) (unknown) Bedside Urine Nitrite - Negative (units unknown) (unknown) (unknown) (no date) (unknown) (unknown) Bedside Urine Occult Blood - Negative (units unknown) (unknown) (unknown) (no date) (unknown) (unknown) Bedside Urine Protein - Negative (units unknown) (unknown) (unknown) (no date) (unknown) (unknown) Bedside Urine Urobilinogen - Negative (units unknown) (unknown) (unknown) (no date) (unknown) (unknown) Bedside Urine pH 6.5 (units unknown) (unknown) (unknown) (no date) (unknown) (unknown) Blood Pressure 124/74 (units unknown) (unknown) (unknown) (no date) (unknown) (unknown) Blood Pressure 126/61 (units unknown) (unknown) (unknown) (no date) (unknown) (unknown) Blood Pressure 135/66 133/76 (units unknown) (unknown) (unknown) (no date) (unknown) (unknown) Blood Pressure 136/77 (units unknown) (unknown) (unknown) (no date) (unknown) (unknown) Blood Pressure 141/67 H (units unknown) (unknown) (unknown) (no date) (unknown) (unknown) Blood Pressure 144/73 H (units unknown) (unknown) (unknown) (no date) (unknown) (unknown) Blood Pressure [Orthostatic Lying] 132/67 (units unknown) (unknown) (unknown) (no date) (unknown) (unknown) Blood Pressure [Orthostatic Lying] (units unknown) (unknown) (unknown) (no date) (unknown) (unknown) Blood Pressure [Orthostatic Sitting] 133/71 (units unknown) (unknown) (unknown) (no date) (unknown) (unknown) Blood Pressure [Orthostatic Sitting] (units unknown) (unknown) (unknown) (no date) (unknown) (unknown) Blood Pressure [Orthostatic Standing] 151/100 H (units unknown) (unknown) (unknown) (no date) (unknown) (unknown) Blood Pressure [Orthostatic Standing] (units unknown) (unknown) (unknown) (no date) (unknown) (unknown) Blood Pressure (units unknown) (unknown) (unknown) (no date) (unknown) (unknown) CARDIOVASCULAR: Regular rate and rhythm without murmurs, gallops, or rubs. (units unknown) (unknown) (unknown) (no date) (unknown) (unknown) CARDIOVASCULAR: See HPI (units unknown) (unknown) (unknown) (no date) (unknown) (unknown) CK-MB (CK-2) Rel Index TNP (units unknown) (unknown) (unknown) (no date) (unknown) (unknown) CK-MB (CK-2) Rel Index (units unknown) (unknown) (unknown) (no date) (unknown) (unknown) CK-MB (CK-2) TNP (units unknown) (unknown) (unknown) (no date) (unknown) (unknown) CK-MB (CK-2) (units unknown) (unknown) (unknown) (no date) (unknown) (unknown) CT head/brain wo con Stat (units unknown) (unknown) (unknown) (no date) (unknown) (unknown) Calcium (8.4-10.2) mg/dL (units unknown) (unknown) (unknown) (no date) (unknown) (unknown) Calcium 8.9 (8.4-10.2) mg/dL (units unknown) (unknown) (unknown) (no date) (unknown) (unknown) Carbon Dioxide (22-32) mmol/L (units unknown) (unknown) (unknown) (no date) (unknown) (unknown) Carbon Dioxide 24 (22-32) mmol/L (units unknown) (unknown) (unknown) (no date) (unknown) (unknown) Chief complaint: Weakness (units unknown) (unknown) (unknown) (no date) (unknown) (unknown) Chloride (98-107) mmol/L (units unknown) (unknown) (unknown) (no date) (unknown) (unknown) Chloride 110 H (98-107) mmol/L (units unknown) (unknown) (unknown) (no date) (unknown) (unknown) Clinical Impression: (units unknown) (unknown) (unknown) (no date) (unknown) (unknown) Complete Blood Count AUTO DIFF Stat (units unknown) (unknown) (unknown) (no date) (unknown) (unknown) Comprehensive Metabolic Panel Stat (units unknown) (unknown) (unknown) (no date) (unknown) (unknown) Consult to [facility] Mba Intern Stat (units unknown) (unknown) (unknown) (no date) (unknown) (unknown) Course (units unknown) (unknown) (unknown) (no date) (unknown) (unknown) Creatinine (0.52-1.04) mg/dL (units unknown) (unknown) (unknown) (no date) (unknown) (unknown) Creatinine 0.90 (0.52-1.04) mg/dL (units unknown) (unknown) (unknown) (no date) (unknown) (unknown) : 1945 Acct:[id number] (units unknown) (unknown) (unknown) (no date) (unknown) (unknown) Date of Service: 02/20/23 (units unknown) (unknown) (unknown) (no date) (unknown) (unknown) Departure (units unknown) (unknown) (unknown) (no date) (unknown) (unknown) Depression (units unknown) (unknown) (unknown) (no date) (unknown) (unknown) Discharge Plan (units unknown) (unknown) (unknown) (no date) (unknown) (unknown) Discontinued Medications (units unknown) (unknown) (unknown) (no date) (unknown) (unknown) Documented By: AT (units unknown) (unknown) (unknown) (no date) (unknown) (unknown) ED Orders (units unknown) (unknown) (unknown) (no date) (unknown) (unknown) EKG are very reassuring and there are no significant findings that would require (units unknown) (unknown) (unknown) (no date) (unknown) (unknown) EKG-12 Lead Stat (units unknown) (unknown) (unknown) (no date) (unknown) (unknown) ENT: Dry mucous membranes Nose without bleeding, purulent drainage. Throat (units unknown) (unknown) (unknown) (no date) (unknown) (unknown) ER Physician: Mitch Roland D.O. (units unknown) (unknown) (unknown) (no date) (unknown) (unknown) EXTREMITIES: No edema or joint tenderness. (units unknown) (unknown) (unknown) (no date) (unknown) (unknown) EYES: Pupils equal round and reactive. Extraocular motions intact. No scleral (units unknown) (unknown) (unknown) (no date) (unknown) (unknown) Emergency Report (units unknown) (unknown) (unknown) (no date) (unknown) (unknown) Eos # (Auto) (0-450) /uL (units unknown) (unknown) (unknown) (no date) (unknown) (unknown) Eos # (Auto) 100 (0-450) /uL (units unknown) (unknown) (unknown) (no date) (unknown) (unknown) Eos % (Auto) (2-4) % (units unknown) (unknown) (unknown) (no date) (unknown) (unknown) Eos % (Auto) 1.5 L (2-4) % (units unknown) (unknown) (unknown) (no date) (unknown) (unknown) Esterase (units unknown) (unknown) (unknown) (no date) (unknown) (unknown) Estimated GFR > 60 (>60) mL/min (units unknown) (unknown) (unknown) (no date) (unknown) (unknown) Estimated GFR (>60) mL/min (units unknown) (unknown) (unknown) (no date) (unknown) (unknown) Ethanol (ETOH) Stat (units unknown) (unknown) (unknown) (no date) (unknown) (unknown) Ethyl Alcohol < 10 ( - 10) mg/dL (units unknown) (unknown) (unknown) (no date) (unknown) (unknown) Ethyl Alcohol ( - 10) mg/dL (units unknown) (unknown) (unknown) (no date) (unknown) (unknown) Exam Narrative: (units unknown) (unknown) (unknown) (no date) (unknown) (unknown) Exam (units unknown) (unknown) (unknown) (no date) (unknown) (unknown) Findings and discharge diagnosis discussed with patient/family followed by (units unknown) (unknown) (unknown) (no date) (unknown) (unknown) Fish Oil (#OMEGA 3) 1,000 mg PO BID ##0 05/22/11 04/17/20 (units unknown) (unknown) (unknown) (no date) (unknown) (unknown) Fish Oil (#OMEGA 3) (units unknown) (unknown) (unknown) (no date) (unknown) (unknown) GASTROINTESTINAL: Abdomen soft, non-tender, nondistended. (units unknown) (unknown) (unknown) (no date) (unknown) (unknown) GASTROINTESTINAL: Denies nausea, vomiting, abdominal pain, diarrhea, (units unknown) (unknown) (unknown) (no date) (unknown) (unknown) GENERAL: See HPI (units unknown) (unknown) (unknown) (no date) (unknown) (unknown) GENERAL: [77] year old patient appears stated age. Well-developed patient, in (units unknown) (unknown) (unknown) (no date) (unknown) (unknown) GERD (gastroesophageal reflux disease) (units unknown) (unknown) (unknown) (no date) (unknown) (unknown) : Denies dysuria, frequency, incontinence, hematuria, urinary retention. (units unknown) (unknown) (unknown) (no date) (unknown) (unknown) General (units unknown) (unknown) (unknown) (no date) (unknown) (unknown) Globulin (1.7-4.1) g/dL (units unknown) (unknown) (unknown) (no date) (unknown) (unknown) Globulin 2.4 (1.7-4.1) g/dL (units unknown) (unknown) (unknown) (no date) (unknown) (unknown) Glucose (80-110) mg/dL (units unknown) (unknown) (unknown) (no date) (unknown) (unknown) Glucose 91 (80-110) mg/dL (units unknown) (unknown) (unknown) (no date) (unknown) (unknown) H/O hysterectomy for benign disease (units unknown) (unknown) (unknown) (no date) (unknown) (unknown) HEAD: Atraumatic. Normocephalic. (units unknown) (unknown) (unknown) (no date) (unknown) (unknown) HEENT: Denies sinus pain, ear pain, sore throat, difficulty swallowing, (units unknown) (unknown) (unknown) (no date) (unknown) (unknown) HPI - Weakness (units unknown) (unknown) (unknown) (no date) (unknown) (unknown) HPI Narrative: (units unknown) (unknown) (unknown) (no date) (unknown) (unknown) Hct (36-46) % (units unknown) (unknown) (unknown) (no date) (unknown) (unknown) Hct 41.6 (36-46) % (units unknown) (unknown) (unknown) (no date) (unknown) (unknown) Hepatitis A (units unknown) (unknown) (unknown) (no date) (unknown) (unknown) Hgb (12.0-16.0) g/dL (units unknown) (unknown) (unknown) (no date) (unknown) (unknown) Hgb 14.0 (12.0-16.0) g/dL (units unknown) (unknown) (unknown) (no date) (unknown) (unknown) History of Present Illness (units unknown) (unknown) (unknown) (no date) (unknown) (unknown) History of pelvic surgery (units unknown) (unknown) (unknown) (no date) (unknown) (unknown) Home Medications (units unknown) (unknown) (unknown) (no date) (unknown) (unknown) Hx of tonsillectomy (units unknown) (unknown) (unknown) (no date) (unknown) (unknown) INR (0.9-1.3) (units unknown) (unknown) (unknown) (no date) (unknown) (unknown) INR 1.0 (0.9-1.3) (units unknown) (unknown) (unknown) (no date) (unknown) (unknown) Imaging reviewed: Chest x-ray and head CT unremarkable (units unknown) (unknown) (unknown) (no date) (unknown) (unknown) Initial Vital Signs (units unknown) (unknown) (unknown) (no date) (unknown) (unknown) Initial Vital Signs: (units unknown) (unknown) (unknown) (no date) (unknown) (unknown) Instructions: DI for Rash (units unknown) (unknown) (unknown) (no date) (unknown) (unknown) [address] [address] (units unknown) (unknown) (unknown) (no date) (unknown) (unknown) Lab Data (units unknown) (unknown) (unknown) (no date) (unknown) (unknown) Lab Results (units unknown) (unknown) (unknown) (no date) (unknown) (unknown) Labs reviewed and interpreted by myself: No significant abnormal findings (units unknown) (unknown) (unknown) (no date) (unknown) (unknown) Labs: (units unknown) (unknown) (unknown) (no date) (unknown) (unknown) Last Infusion: 02/20/23 16:46 Dose: 0 mls/hr (units unknown) (unknown) (unknown) (no date) (unknown) (unknown) Moose Shelton DO [Primary Care Provider] (units unknown) (unknown) (unknown) (no date) (unknown) (unknown) Lipase (23-300) U/L (units unknown) (unknown) (unknown) (no date) (unknown) (unknown) Lipase 52 (23-300) U/L (units unknown) (unknown) (unknown) (no date) (unknown) (unknown) Lipase Stat (units unknown) (unknown) (unknown) (no date) (unknown) (unknown) Lymph # (Auto) (7468-1912) /uL (units unknown) (unknown) (unknown) (no date) (unknown) (unknown) Lymph # (Auto) 1400 (1900-5947) /uL (units unknown) (unknown) (unknown) (no date) (unknown) (unknown) Lymph % (Auto) (25-40) % (units unknown) (unknown) (unknown) (no date) (unknown) (unknown) Lymph % (Auto) 33.2 (25-40) % (units unknown) (unknown) (unknown) (no date) (unknown) (unknown) MCH (26-34) PG (units unknown) (unknown) (unknown) (no date) (unknown) (unknown) MCH 32.0 (26-34) PG (units unknown) (unknown) (unknown) (no date) (unknown) (unknown) MCHC (30-36) % (units unknown) (unknown) (unknown) (no date) (unknown) (unknown) MCHC 33.7 (30-36) % (units unknown) (unknown) (unknown) (no date) (unknown) (unknown) MCV (80-100) fL (units unknown) (unknown) (unknown) (no date) (unknown) (unknown) MCV 95.1 (80-100) fL (units unknown) (unknown) (unknown) (no date) (unknown) (unknown) MDM - Weakness (units unknown) (unknown) (unknown) (no date) (unknown) (unknown) MDM Narrative (units unknown) (unknown) (unknown) (no date) (unknown) (unknown) METRONIDAZOLE (#METROGEL) 0.75 dose TP BIDPRN ##0 05/22/11 04/17/20 (units unknown) (unknown) (unknown) (no date) (unknown) (unknown) METRONIDAZOLE (#METROGEL) (units unknown) (unknown) (unknown) (no date) (unknown) (unknown) MUSCULOSKELETAL: d see HPI (units unknown) (unknown) (unknown) (no date) (unknown) (unknown) Medical History (units unknown) (unknown) (unknown) (no date) (unknown) (unknown) Medical decision making narrative: (units unknown) (unknown) (unknown) (no date) (unknown) (unknown) Medication Instructions Recorded Confirmed (units unknown) (unknown) (unknown) (no date) (unknown) (unknown) Medication Instructions Recorded (units unknown) (unknown) (unknown) (no date) (unknown) (unknown) [place] # (Auto) (0-900) /uL (units unknown) (unknown) (unknown) (no date) (unknown) (unknown) [place] # (Auto) 500 (0-900) /uL (units unknown) (unknown) (unknown) (no date) (unknown) (unknown) [place] % (Auto) (3-14) % (units unknown) (unknown) (unknown) (no date) (unknown) (unknown) [place] % (Auto) 11.8 (3-14) % (units unknown) (unknown) (unknown) (no date) (unknown) (unknown) Multiple etiologies for patient's symptoms considered including, but not limited (units unknown) (unknown) (unknown) (no date) (unknown) (unknown) NECK: Trachea midline. Non tender (units unknown) (unknown) (unknown) (no date) (unknown) (unknown) NEURO: AOx3. (units unknown) (unknown) (unknown) (no date) (unknown) (unknown) NEUROLOGIC: Denies weakness, headache, numbness, change in speech, confusion, (units unknown) (unknown) (unknown) (no date) (unknown) (unknown) NT-Pro-B Natriuret Pep (<450) pg/mL (units unknown) (unknown) (unknown) (no date) (unknown) (unknown) NT-Pro-B Natriuret Pep 163 (<450) pg/mL (units unknown) (unknown) (unknown) (no date) (unknown) (unknown) NT-proBNP (BNP-Adult 18+) Stat (units unknown) (unknown) (unknown) (no date) (unknown) (unknown) Narrative (units unknown) (unknown) (unknown) (no date) (unknown) (unknown) Narrative: (units unknown) (unknown) (unknown) (no date) (unknown) (unknown) Neuropathy (units unknown) (unknown) (unknown) (no date) (unknown) (unknown) Neut # (Auto) (1578-7583) /uL (units unknown) (unknown) (unknown) (no date) (unknown) (unknown) Neut # (Auto) 2300 (9529-9283) /uL (units unknown) (unknown) (unknown) (no date) (unknown) (unknown) Neut % (Auto) (50-75) % (units unknown) (unknown) (unknown) (no date) (unknown) (unknown) Neut % (Auto) 52.3 (50-75) % (units unknown) (unknown) (unknown) (no date) (unknown) (unknown) No Action (units unknown) (unknown) (unknown) (no date) (unknown) (unknown) Ordered: (units unknown) (unknown) (unknown) (no date) (unknown) (unknown) Orders (units unknown) (unknown) (unknown) (no date) (unknown) (unknown) Oxygen Delivery Method Room Air Room Air (units unknown) (unknown) (unknown) (no date) (unknown) (unknown) Oxygen Delivery Method Room Air (units unknown) (unknown) (unknown) (no date) (unknown) (unknown) Oxygen Delivery Method (units unknown) (unknown) (unknown) (no date) (unknown) (unknown) PSYCHIATRIC: No concerning psychosocial issues. (units unknown) (unknown) (unknown) (no date) (unknown) (unknown) PT (10.1-12.7) SECONDS (units unknown) (unknown) (unknown) (no date) (unknown) (unknown) PT 11.4 (10.1-12.7) SECONDS (units unknown) (unknown) (unknown) (no date) (unknown) (unknown) Patient Disposition: Home (units unknown) (unknown) (unknown) (no date) (unknown) (unknown) Patient History (units unknown) (unknown) (unknown) (no date) (unknown) (unknown) Patient ambulatory in the department with reassuring history and physical exam, (units unknown) (unknown) (unknown) (no date) (unknown) (unknown) Patient's symptoms improved over duration of stay with above-stated therapies. (units unknown) (unknown) (unknown) (no date) (unknown) (unknown) Patient: Adelaida Mitchell MR#: [id number] (units unknown) (unknown) (unknown) (no date) (unknown) (unknown) Plt Count (150-400) X103/uL (units unknown) (unknown) (unknown) (no date) (unknown) (unknown) Plt Count 232 (150-400) X103/uL (units unknown) (unknown) (unknown) (no date) (unknown) (unknown) Potassium (3.4-5.1) mmol/L (units unknown) (unknown) (unknown) (no date) (unknown) (unknown) Potassium 4.0 (3.4-5.1) mmol/L (units unknown) (unknown) (unknown) (no date) (unknown) (unknown) Prescriptions: (units unknown) (unknown) (unknown) (no date) (unknown) (unknown) Previous Rx's (units unknown) (unknown) (unknown) (no date) (unknown) (unknown) Primary Historian: patient (units unknown) (unknown) (unknown) (no date) (unknown) (unknown) Prior Charts reviewed in our EMR (units unknown) (unknown) (unknown) (no date) (unknown) (unknown) Procalcitonin (<0.5) ng/mL (units unknown) (unknown) (unknown) (no date) (unknown) (unknown) Procalcitonin 0.05 (<0.5) ng/mL (units unknown) (unknown) (unknown) (no date) (unknown) (unknown) Procalcitonin Stat (units unknown) (unknown) (unknown) (no date) (unknown) (unknown) Prothrombin Time INR Stat (units unknown) (unknown) (unknown) (no date) (unknown) (unknown) Pulse Oximetry 94 96 97 (units unknown) (unknown) (unknown) (no date) (unknown) (unknown) Pulse Oximetry 96 02/20/23 13:48 (units unknown) (unknown) (unknown) (no date) (unknown) (unknown) Pulse Oximetry 96 99 (units unknown) (unknown) (unknown) (no date) (unknown) (unknown) Pulse Oximetry 96 (units unknown) (unknown) (unknown) (no date) (unknown) (unknown) Pulse Oximetry 97 96 (units unknown) (unknown) (unknown) (no date) (unknown) (unknown) Pulse Oximetry 98 98 (units unknown) (unknown) (unknown) (no date) (unknown) (unknown) Pulse Oximetry 99 (units unknown) (unknown) (unknown) (no date) (unknown) (unknown) Pulse Oximetry (units unknown) (unknown) (unknown) (no date) (unknown) (unknown) Pulse Rate 72 (units unknown) (unknown) (unknown) (no date) (unknown) (unknown) Pulse Rate 75 79 (units unknown) (unknown) (unknown) (no date) (unknown) (unknown) Pulse Rate 78 (units unknown) (unknown) (unknown) (no date) (unknown) (unknown) Pulse Rate 81 73 (units unknown) (unknown) (unknown) (no date) (unknown) (unknown) Pulse Rate 92 H 97 H 92 H (units unknown) (unknown) (unknown) (no date) (unknown) (unknown) Pulse Rate 95 H 94 H (units unknown) (unknown) (unknown) (no date) (unknown) (unknown) Pulse Rate 97 H 02/20/23 13:48 (units unknown) (unknown) (unknown) (no date) (unknown) (unknown) Pulse Rate [Orthostatic Lying] 95 H (units unknown) (unknown) (unknown) (no date) (unknown) (unknown) Pulse Rate [Orthostatic Lying] (units unknown) (unknown) (unknown) (no date) (unknown) (unknown) Pulse Rate [Orthostatic Sitting] 110 H (units unknown) (unknown) (unknown) (no date) (unknown) (unknown) Pulse Rate [Orthostatic Sitting] (units unknown) (unknown) (unknown) (no date) (unknown) (unknown) Pulse Rate [Orthostatic Standing] 120 H (units unknown) (unknown) (unknown) (no date) (unknown) (unknown) Pulse Rate [Orthostatic Standing] (units unknown) (unknown) (unknown) (no date) (unknown) (unknown) Pulse Rate (units unknown) (unknown) (unknown) (no date) (unknown) (unknown) RBC (4.0-5.2) X106/uL (units unknown) (unknown) (unknown) (no date) (unknown) (unknown) RBC 4.38 (4.0-5.2) X106/uL (units unknown) (unknown) (unknown) (no date) (unknown) (unknown) RDW (11.6-14.8) % (units unknown) (unknown) (unknown) (no date) (unknown) (unknown) RDW 13.6 (11.6-14.8) % (units unknown) (unknown) (unknown) (no date) (unknown) (unknown) RESPIRATORY: Clear to auscultation. Breath sounds equal bilaterally. No wheezes, (units unknown) (unknown) (unknown) (no date) (unknown) (unknown) RESPIRATORY: Denies dyspnea, cough, wheezing, hemoptysis, sputum. (units unknown) (unknown) (unknown) (no date) (unknown) (unknown) Referrals: (units unknown) (unknown) (unknown) (no date) (unknown) (unknown) Related Data (units unknown) (unknown) (unknown) (no date) (unknown) (unknown) Respiratory Rate 18 17 (units unknown) (unknown) (unknown) (no date) (unknown) (unknown) Respiratory Rate 18 22 (units unknown) (unknown) (unknown) (no date) (unknown) (unknown) Respiratory Rate 20 (units unknown) (unknown) (unknown) (no date) (unknown) (unknown) Respiratory Rate 22 21 (units unknown) (unknown) (unknown) (no date) (unknown) (unknown) Respiratory Rate (units unknown) (unknown) (unknown) (no date) (unknown) (unknown) Return precautions discussed with patient/family whom verbalize understanding of (units unknown) (unknown) (unknown) (no date) (unknown) (unknown) Review of Systems (units unknown) (unknown) (unknown) (no date) (unknown) (unknown) Rx Instructions: (units unknown) (unknown) (unknown) (no date) (unknown) (unknown) SKIN: Denies rash, skin lesions, or other (units unknown) (unknown) (unknown) (no date) (unknown) (unknown) SKIN: Mild pruritic rash on back with some scabs that are slightly excoriated, (units unknown) (unknown) (unknown) (no date) (unknown) (unknown) Salicylate Stat (units unknown) (unknown) (unknown) (no date) (unknown) (unknown) Salicylates < 1.0 (<20) mg/dL (units unknown) (unknown) (unknown) (no date) (unknown) (unknown) Salicylates (<20) mg/dL (units unknown) (unknown) (unknown) (no date) (unknown) (unknown) Seizures (units unknown) (unknown) (unknown) (no date) (unknown) (unknown) Signed By: (units unknown) (unknown) (unknown) (no date) (unknown) (unknown) Skin cancer (units unknown) (unknown) (unknown) (no date) (unknown) (unknown) Smoking Status: Never smoker (units unknown) (unknown) (unknown) (no date) (unknown) (unknown) Social History (units unknown) (unknown) (unknown) (no date) (unknown) (unknown) Sodium (137-145) mmol/L (units unknown) (unknown) (unknown) (no date) (unknown) (unknown) Sodium 138 (137-145) mmol/L (units unknown) (unknown) (unknown) (no date) (unknown) (unknown) Sodium Chloride (Normal Saline 0.9%) 1,000 mls @ 1,000 mls/hr IV BOLUS ONE (units unknown) (unknown) (unknown) (no date) (unknown) (unknown) Stand Alone Forms: Patient Portal/API (units unknown) (unknown) (unknown) (no date) (unknown) (unknown) Stated complaint: 'unwell' x1 week, jaw pain, possible fall (units unknown) (unknown) (unknown) (no date) (unknown) (unknown) Stop: 02/20/23 14:46 (units unknown) (unknown) (unknown) (no date) (unknown) (unknown) Substance Use Type: does not use (units unknown) (unknown) (unknown) (no date) (unknown) (unknown) Surgical History (units unknown) (unknown) (unknown) (no date) (unknown) (unknown) Temperature 97.6 F (units unknown) (unknown) (unknown) (no date) (unknown) (unknown) Temperature (units unknown) (unknown) (unknown) (no date) (unknown) (unknown) Time Seen by Provider: 02/20/23 13:47 (units unknown) (unknown) (unknown) (no date) (unknown) (unknown) Total Bilirubin (0.2-1.3) mg/dL (units unknown) (unknown) (unknown) (no date) (unknown) (unknown) Total Bilirubin 0.3 (0.2-1.3) mg/dL (units unknown) (unknown) (unknown) (no date) (unknown) (unknown) Total Creatine Kinase (30-135) U/L (units unknown) (unknown) (unknown) (no date) (unknown) (unknown) Total Creatine Kinase 55 (30-135) U/L (units unknown) (unknown) (unknown) (no date) (unknown) (unknown) Total Protein (6.3-8.2) g/dL (units unknown) (unknown) (unknown) (no date) (unknown) (unknown) Total Protein 5.9 L (6.3-8.2) g/dL (units unknown) (unknown) (unknown) (no date) (unknown) (unknown) Troponin + CK Cardiac Panel Stat (units unknown) (unknown) (unknown) (no date) (unknown) (unknown) Troponin I < 0.012 (0.01-0.034) ng/mL (units unknown) (unknown) (unknown) (no date) (unknown) (unknown) Troponin I (0.01-0.034) ng/mL (units unknown) (unknown) (unknown) (no date) (unknown) (unknown) Urine Dip (units unknown) (unknown) (unknown) (no date) (unknown) (unknown) Urine Drug Screen, Rapid Stat (units unknown) (unknown) (unknown) (no date) (unknown) (unknown) Urine Specific [place] 1.010 (units unknown) (unknown) (unknown) (no date) (unknown) (unknown) Venlafaxine Hydrochloride (#EFFEXOR) (units unknown) (unknown) (unknown) (no date) (unknown) (unknown) Venlafaxine Hydrochloride 75 mg PO DAILY ##0 05/22/11 (units unknown) (unknown) (unknown) (no date) (unknown) (unknown) Vital Signs - 8 hr (units unknown) (unknown) (unknown) (no date) (unknown) (unknown) Vital Signs (units unknown) (unknown) (unknown) (no date) (unknown) (unknown) Vital signs: (units unknown) (unknown) (unknown) (no date) (unknown) (unknown) WBC (4.5-11.0) X103/uL (units unknown) (unknown) (unknown) (no date) (unknown) (unknown) WBC 4.3 L (4.5-11.0) X103/uL (units unknown) (unknown) (unknown) (no date) (unknown) (unknown) Weakness, Chronic 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 (units unknown) (unknown) (unknown) (no date) (unknown) (unknown) XR chest 1V Stat (units unknown) (unknown) (unknown) (no date) (unknown) (unknown) [77] year old patient presents with feeling unwell for at least a week (units unknown) (unknown) (unknown) (no date) (unknown) (unknown) [Embedded Image Not Available] (units unknown) (unknown) (unknown) (no date) (unknown) (unknown) acetaminophen [From Fioricet] Allergy Seizure Verified 02/20/23 15:32 (units unknown) (unknown) (unknown) (no date) (unknown) (unknown) alcohol intake frequency: holidays/special occasions only (units unknown) (unknown) (unknown) (no date) (unknown) (unknown) alcohol intake: current (units unknown) (unknown) (unknown) (no date) (unknown) (unknown) and states that she appears to be at her baseline. There is no evidence of (units unknown) (unknown) (unknown) (no date) (unknown) (unknown) appointment. Let them know you were seen in the Emergency Department and that we (units unknown) (unknown) (unknown) (no date) (unknown) (unknown) ask that you be seen in follow up. We will electronically transmit a record of (units unknown) (unknown) (unknown) (no date) (unknown) (unknown) aspirin 81 mg tablet,delayed 81 mg PO DAILY 04/17/20 04/17/20 (units unknown) (unknown) (unknown) (no date) (unknown) (unknown) aspirin [Kathy Low Dose Aspirin] 81 mg Tablet,Delayed Release (Dr/Ec) (units unknown) (unknown) (unknown) (no date) (unknown) (unknown) butalbital Allergy Verified 02/20/23 15:32 (units unknown) (unknown) (unknown) (no date) (unknown) (unknown) caffeine [From Fioricet] Allergy Seizure Verified 02/20/23 15:32 (units unknown) (unknown) (unknown) (no date) (unknown) (unknown) capsule,delayed release (Nexium) (units unknown) (unknown) (unknown) (no date) (unknown) (unknown) concerning symptoms, such as [fever greater than 101 F, shaking chills, (units unknown) (unknown) (unknown) (no date) (unknown) (unknown) constipation, melena. (units unknown) (unknown) (unknown) (no date) (unknown) (unknown) diagnosis and plan (units unknown) (unknown) (unknown) (no date) (unknown) (unknown) diarrhea. She denies any change in her medications. She denies any difficulty (units unknown) (unknown) (unknown) (no date) (unknown) (unknown) discussed your history and physical exam as well as labs, CT scan, chest x-ray, (units unknown) (unknown) (unknown) (no date) (unknown) (unknown) dizziness. (units unknown) (unknown) (unknown) (no date) (unknown) (unknown) esomeprazole magnesium 40 mg 40 mg PO BIDAC ##180 06/04/11 (units unknown) (unknown) (unknown) (no date) (unknown) (unknown) esomeprazole magnesium [Nexium] 40 MG capsule,delayed release(DR/EC) (units unknown) (unknown) (unknown) (no date) (unknown) (unknown) for at least a few months and is particularly itchy today. EMS evaluated her (units unknown) (unknown) (unknown) (no date) (unknown) (unknown) gabapentin Allergy Verified 02/20/23 15:32 (units unknown) (unknown) (unknown) (no date) (unknown) (unknown) household members: none (units unknown) (unknown) (unknown) (no date) (unknown) (unknown) icterus. No injection or drainage. (units unknown) (unknown) (unknown) (no date) (unknown) (unknown) infection, pneumonia versus other] (units unknown) (unknown) (unknown) (no date) (unknown) (unknown) labs, vitals. (units unknown) (unknown) (unknown) (no date) (unknown) (unknown) lithium Allergy Unknown Swelling Verified 02/20/23 15:32 (units unknown) (unknown) (unknown) (no date) (unknown) (unknown) metoprolol tartrate 25 mg tablet 12.5 mg PO BID 04/17/20 04/17/20 (units unknown) (unknown) (unknown) (no date) (unknown) (unknown) metoprolol tartrate 25 mg tablet (units unknown) (unknown) (unknown) (no date) (unknown) (unknown) mild distress. Very hard of hearing, alert and oriented caught GCS 15 (units unknown) (unknown) (unknown) (no date) (unknown) (unknown) no longer is. She denies any fever or chills. She is had no blurred vision or (units unknown) (unknown) (unknown) (no date) (unknown) (unknown) or shortness of breath and has had no cough. She denies nausea, vomiting or (units unknown) (unknown) (unknown) (no date) (unknown) (unknown) poor skin turgor (units unknown) (unknown) (unknown) (no date) (unknown) (unknown) rales, or rhonchi. (units unknown) (unknown) (unknown) (no date) (unknown) (unknown) relatively poor historian presents by EMS for evaluation of generalized weakness (units unknown) (unknown) (unknown) (no date) (unknown) (unknown) release (Kathy Low Dose Aspirin) (units unknown) (unknown) (unknown) (no date) (unknown) (unknown) require specific intervention (units unknown) (unknown) (unknown) (no date) (unknown) (unknown) seizures, incoordination. (units unknown) (unknown) (unknown) (no date) (unknown) (unknown) specific or immediate intervention.] (units unknown) (unknown) (unknown) (no date) (unknown) (unknown) tetracycline Allergy Unknown Hives Verified 02/20/23 15:32 (units unknown) (unknown) (unknown) (no date) (unknown) (unknown) that has been present for at least a few days. She thinks maybe she fell (units unknown) (unknown) (unknown) (no date) (unknown) (unknown) to: [Electrolyte abnormality, signs of infection, head injury, urinary tract (units unknown) (unknown) (unknown) (no date) (unknown) (unknown) today's note if your PCP is in our system (units unknown) (unknown) (unknown) (no date) (unknown) (unknown) topiramate 25 mg sprinkle capsule 200 mg PO DAILY ##0 05/22/11 04/17/20 (units unknown) (unknown) (unknown) (no date) (unknown) (unknown) topiramate [Topamax] 25 MG capsule, sprinkle (units unknown) (unknown) (unknown) (no date) (unknown) (unknown) trauma per their exam, no focal findings. (units unknown) (unknown) (unknown) (no date) (unknown) (unknown) trazodone 100 mg tablet 200 mg PO DAILY 04/17/20 04/17/20 (units unknown) (unknown) (unknown) (no date) (unknown) (unknown) trazodone 100 mg tablet (units unknown) (unknown) (unknown) (no date) (unknown) (unknown) trouble with speech. She is had no had or neck pain. She denies any chest pain (units unknown) (unknown) (unknown) (no date) (unknown) (unknown) verbalization of understanding (units unknown) (unknown) (unknown) (no date) (unknown) (unknown) with urination or bowel movements. She has been dealing with a rash on her back (units unknown) (unknown) (unknown) (no date) (unknown) (unknown) without erythema, tonsillar hypertrophy or exudate. Airway patent. (units unknown) (unknown) (unknown) (no date) (unknown) (unknown) worsening pain, persistent vomiting or other bothersome symptoms] (units unknown) (unknown) (unknown) (no date) (unknown) (unknown) yesterday but it is unclear. She is concerned because her jaw was popping but (units unknown) (unknown) Result panel 103 (unknown) (no date) (unknown) (unknown) Negative (units unknown) (unknown) (unknown) (no date) (unknown) (unknown) Normal (units unknown) (unknown) Result panel 104 (unknown) (no date) (unknown) (unknown) (no value) (units unknown) (unknown) (unknown) (no date) (unknown) (unknown) <Electronically signed by Mitch Roland D.O.> (units unknown) (unknown) (unknown) (no date) (unknown) (unknown) (#EFFEXOR) (units unknown) (unknown) (unknown) (no date) (unknown) (unknown) (Topamax) (units unknown) (unknown) (unknown) (no date) (unknown) (unknown) *Please continue to take your regular medications as directed. (units unknown) (unknown) (unknown) (no date) (unknown) (unknown) *Please follow up with your primary care provider in 2-3 days, call for an (units unknown) (unknown) (unknown) (no date) (unknown) (unknown) *Return to Emergency Department if you should have any new, worsening or (units unknown) (unknown) (unknown) (no date) (unknown) (unknown) *What to do: (units unknown) (unknown) (unknown) (no date) (unknown) (unknown) *You have been diagnosed with [generalized weakness and chronic rash. As we (units unknown) (unknown) (unknown) (no date) (unknown) (unknown) 0.75 dose TP BIDPRN Qty: 0 (units unknown) (unknown) (unknown) (no date) (unknown) (unknown) 02/20/23 02/20/23 02/20/23 Range/Units (units unknown) (unknown) (unknown) (no date) (unknown) (unknown) 02/20/23 02/20/23 Range/Units (units unknown) (unknown) (unknown) (no date) (unknown) (unknown) 02/20/23 14:43 (units unknown) (unknown) (unknown) (no date) (unknown) (unknown) 02/20/23 14:52 (units unknown) (unknown) (unknown) (no date) (unknown) (unknown) 02/20/23 (units unknown) (unknown) (unknown) (no date) (unknown) (unknown) 02/21/23 1214 (units unknown) (unknown) (unknown) (no date) (unknown) (unknown) 097 (units unknown) (unknown) (unknown) (no date) (unknown) (unknown) 1,000 mg PO BID Qty: 0 (units unknown) (unknown) (unknown) (no date) (unknown) (unknown) 12 point review of systems is negative except for those stated above (units unknown) (unknown) (unknown) (no date) (unknown) (unknown) 12.5 mg PO BID (units unknown) (unknown) (unknown) (no date) (unknown) (unknown) 13:48 02/20/23 (units unknown) (unknown) (unknown) (no date) (unknown) (unknown) 14:00 (units unknown) (unknown) (unknown) (no date) (unknown) (unknown) 14:04 02/20/23 (units unknown) (unknown) (unknown) (no date) (unknown) (unknown) 14:30 02/20/23 (units unknown) (unknown) (unknown) (no date) (unknown) (unknown) 14:43 14:52 14:52 (units unknown) (unknown) (unknown) (no date) (unknown) (unknown) 14:52 16:58 (units unknown) (unknown) (unknown) (no date) (unknown) (unknown) 14:55 02/20/23 (units unknown) (unknown) (unknown) (no date) (unknown) (unknown) 14:55 (units unknown) (unknown) (unknown) (no date) (unknown) (unknown) 15:00 02/20/23 (units unknown) (unknown) (unknown) (no date) (unknown) (unknown) 15:30 02/20/23 (units unknown) (unknown) (unknown) (no date) (unknown) (unknown) 15:30 (units unknown) (unknown) (unknown) (no date) (unknown) (unknown) 16:00 02/20/23 (units unknown) (unknown) (unknown) (no date) (unknown) (unknown) 16:00 (units unknown) (unknown) (unknown) (no date) (unknown) (unknown) 16:30 02/20/23 (units unknown) (unknown) (unknown) (no date) (unknown) (unknown) 16:55 (units unknown) (unknown) (unknown) (no date) (unknown) (unknown) 16:56 02/20/23 (units unknown) (unknown) (unknown) (no date) (unknown) (unknown) 16:59 02/20/23 (units unknown) (unknown) (unknown) (no date) (unknown) (unknown) 16:59 (units unknown) (unknown) (unknown) (no date) (unknown) (unknown) 17:00 02/20/23 (units unknown) (unknown) (unknown) (no date) (unknown) (unknown) 17:00 (units unknown) (unknown) (unknown) (no date) (unknown) (unknown) 200 mg PO DAILY Qty: 0 (units unknown) (unknown) (unknown) (no date) (unknown) (unknown) 200 mg PO DAILY (units unknown) (unknown) (unknown) (no date) (unknown) (unknown) 37.5 mg at noon (units unknown) (unknown) (unknown) (no date) (unknown) (unknown) 40 mg PO BIDAC Qty: 180 3RF (units unknown) (unknown) (unknown) (no date) (unknown) (unknown) 75 mg PO DAILY Qty: 0 (units unknown) (unknown) (unknown) (no date) (unknown) (unknown) 77-year-old female nonsmoker with history of multiple falls and overall a (units unknown) (unknown) (unknown) (no date) (unknown) (unknown) 81 mg PO DAILY (units unknown) (unknown) (unknown) (no date) (unknown) (unknown) ALT (<35) IU/L (units unknown) (unknown) (unknown) (no date) (unknown) (unknown) ALT 20 (<35) IU/L (units unknown) (unknown) (unknown) (no date) (unknown) (unknown) AST (14-36) IU/L (units unknown) (unknown) (unknown) (no date) (unknown) (unknown) AST 22 (14-36) IU/L (units unknown) (unknown) (unknown) (no date) (unknown) (unknown) Acetaminophen < 10 (10-30) ug/mL (units unknown) (unknown) (unknown) (no date) (unknown) (unknown) Acetaminophen (10-30) ug/mL (units unknown) (unknown) (unknown) (no date) (unknown) (unknown) Activity Restrictions/Additio nal Instructions: (units unknown) (unknown) (unknown) (no date) (unknown) (unknown) Admin: 02/20/23 14:55 Dose: 1,000 mls/hr (units unknown) (unknown) (unknown) (no date) (unknown) (unknown) Age/Sex: 77 / F (units unknown) (unknown) (unknown) (no date) (unknown) (unknown) Albumin (3.5-5.0) g/dL (units unknown) (unknown) (unknown) (no date) (unknown) (unknown) Albumin 3.5 (3.5-5.0) g/dL (units unknown) (unknown) (unknown) (no date) (unknown) (unknown) Albumin/Globulin Ratio (1.0-2.8) (units unknown) (unknown) (unknown) (no date) (unknown) (unknown) Albumin/Globulin Ratio 1.5 (1.0-2.8) (units unknown) (unknown) (unknown) (no date) (unknown) (unknown) Alkaline Phosphatase (38-126) U/L (units unknown) (unknown) (unknown) (no date) (unknown) (unknown) Alkaline Phosphatase 69 (38-126) U/L (units unknown) (unknown) (unknown) (no date) (unknown) (unknown) Allergies (units unknown) (unknown) (unknown) (no date) (unknown) (unknown) Allergy/AdvReac Type Severity Reaction Status Date / Time (units unknown) (unknown) (unknown) (no date) (unknown) (unknown) Anxiety (units unknown) (unknown) (unknown) (no date) (unknown) (unknown) Arthritis (units unknown) (unknown) (unknown) (no date) (unknown) (unknown) Atrial fibrillation (units unknown) (unknown) (unknown) (no date) (unknown) (unknown) BACK: Nontender without deformity or crepitance. No flank tenderness. (units unknown) (unknown) (unknown) (no date) (unknown) (unknown) BUN (7-17) mg/dL (units unknown) (unknown) (unknown) (no date) (unknown) (unknown) BUN 15 (7-17) mg/dL (units unknown) (unknown) (unknown) (no date) (unknown) (unknown) BUN/Creatinine Ratio (6-22) (units unknown) (unknown) (unknown) (no date) (unknown) (unknown) BUN/Creatinine Ratio 16.7 (6-22) (units unknown) (unknown) (unknown) (no date) (unknown) (unknown) Baso # (Auto) (0-100) /uL (units unknown) (unknown) (unknown) (no date) (unknown) (unknown) Baso # (Auto) 100 (0-100) /uL (units unknown) (unknown) (unknown) (no date) (unknown) (unknown) Baso % (Auto) (0-2) % (units unknown) (unknown) (unknown) (no date) (unknown) (unknown) Baso % (Auto) 1.2 (0-2) % (units unknown) (unknown) (unknown) (no date) (unknown) (unknown) Bedside Urine Bilirubin - Negative (units unknown) (unknown) (unknown) (no date) (unknown) (unknown) Bedside Urine Glucose Negative (units unknown) (unknown) (unknown) (no date) (unknown) (unknown) Bedside Urine Ketone - Negative (units unknown) (unknown) (unknown) (no date) (unknown) (unknown) Bedside Urine Leukocytes - Negative (units unknown) (unknown) (unknown) (no date) (unknown) (unknown) Bedside Urine Nitrite - Negative (units unknown) (unknown) (unknown) (no date) (unknown) (unknown) Bedside Urine Occult Blood - Negative (units unknown) (unknown) (unknown) (no date) (unknown) (unknown) Bedside Urine Protein - Negative (units unknown) (unknown) (unknown) (no date) (unknown) (unknown) Bedside Urine Urobilinogen - Negative (units unknown) (unknown) (unknown) (no date) (unknown) (unknown) Bedside Urine pH 6.5 (units unknown) (unknown) (unknown) (no date) (unknown) (unknown) Blood Pressure 124/74 (units unknown) (unknown) (unknown) (no date) (unknown) (unknown) Blood Pressure 126/61 (units unknown) (unknown) (unknown) (no date) (unknown) (unknown) Blood Pressure 135/66 133/76 (units unknown) (unknown) (unknown) (no date) (unknown) (unknown) Blood Pressure 136/77 (units unknown) (unknown) (unknown) (no date) (unknown) (unknown) Blood Pressure 141/67 H (units unknown) (unknown) (unknown) (no date) (unknown) (unknown) Blood Pressure 144/73 H (units unknown) (unknown) (unknown) (no date) (unknown) (unknown) Blood Pressure [Orthostatic Lying] 132/67 (units unknown) (unknown) (unknown) (no date) (unknown) (unknown) Blood Pressure [Orthostatic Lying] (units unknown) (unknown) (unknown) (no date) (unknown) (unknown) Blood Pressure [Orthostatic Sitting] 133/71 (units unknown) (unknown) (unknown) (no date) (unknown) (unknown) Blood Pressure [Orthostatic Sitting] (units unknown) (unknown) (unknown) (no date) (unknown) (unknown) Blood Pressure [Orthostatic Standing] 151/100 H (units unknown) (unknown) (unknown) (no date) (unknown) (unknown) Blood Pressure [Orthostatic Standing] (units unknown) (unknown) (unknown) (no date) (unknown) (unknown) Blood Pressure (units unknown) (unknown) (unknown) (no date) (unknown) (unknown) CARDIOVASCULAR: Regular rate and rhythm without murmurs, gallops, or rubs. (units unknown) (unknown) (unknown) (no date) (unknown) (unknown) CARDIOVASCULAR: See HPI (units unknown) (unknown) (unknown) (no date) (unknown) (unknown) CK-MB (CK-2) Rel Index TNP (units unknown) (unknown) (unknown) (no date) (unknown) (unknown) CK-MB (CK-2) Rel Index (units unknown) (unknown) (unknown) (no date) (unknown) (unknown) CK-MB (CK-2) TNP (units unknown) (unknown) (unknown) (no date) (unknown) (unknown) CK-MB (CK-2) (units unknown) (unknown) (unknown) (no date) (unknown) (unknown) Calcium (8.4-10.2) mg/dL (units unknown) (unknown) (unknown) (no date) (unknown) (unknown) Calcium 8.9 (8.4-10.2) mg/dL (units unknown) (unknown) (unknown) (no date) (unknown) (unknown) Carbon Dioxide (22-32) mmol/L (units unknown) (unknown) (unknown) (no date) (unknown) (unknown) Carbon Dioxide 24 (22-32) mmol/L (units unknown) (unknown) (unknown) (no date) (unknown) (unknown) Chief complaint: Weakness (units unknown) (unknown) (unknown) (no date) (unknown) (unknown) Chloride (98-107) mmol/L (units unknown) (unknown) (unknown) (no date) (unknown) (unknown) Chloride 110 H (98-107) mmol/L (units unknown) (unknown) (unknown) (no date) (unknown) (unknown) Clinical Impression: (units unknown) (unknown) (unknown) (no date) (unknown) (unknown) Course (units unknown) (unknown) (unknown) (no date) (unknown) (unknown) Creatinine (0.52-1.04) mg/dL (units unknown) (unknown) (unknown) (no date) (unknown) (unknown) Creatinine 0.90 (0.52-1.04) mg/dL (units unknown) (unknown) (unknown) (no date) (unknown) (unknown) : 1945 Acct:[id number] (units unknown) (unknown) (unknown) (no date) (unknown) (unknown) Date of Service: 02/20/23 (units unknown) (unknown) (unknown) (no date) (unknown) (unknown) Departure (units unknown) (unknown) (unknown) (no date) (unknown) (unknown) Depression (units unknown) (unknown) (unknown) (no date) (unknown) (unknown) Discharge Plan (units unknown) (unknown) (unknown) (no date) (unknown) (unknown) Discontinued Medications (units unknown) (unknown) (unknown) (no date) (unknown) (unknown) Documented By: AT (units unknown) (unknown) (unknown) (no date) (unknown) (unknown) EKG are very reassuring and there are no significant findings that would require (units unknown) (unknown) (unknown) (no date) (unknown) (unknown) ENT: Dry mucous membranes Nose without bleeding, purulent drainage. Throat (units unknown) (unknown) (unknown) (no date) (unknown) (unknown) ER Physician: Mitch Roland D.O. (units unknown) (unknown) (unknown) (no date) (unknown) (unknown) EXTREMITIES: No edema or joint tenderness. (units unknown) (unknown) (unknown) (no date) (unknown) (unknown) EYES: Pupils equal round and reactive. Extraocular motions intact. No scleral (units unknown) (unknown) (unknown) (no date) (unknown) (unknown) Emergency Report (units unknown) (unknown) (unknown) (no date) (unknown) (unknown) Eos # (Auto) (0-450) /uL (units unknown) (unknown) (unknown) (no date) (unknown) (unknown) Eos # (Auto) 100 (0-450) /uL (units unknown) (unknown) (unknown) (no date) (unknown) (unknown) Eos % (Auto) (2-4) % (units unknown) (unknown) (unknown) (no date) (unknown) (unknown) Eos % (Auto) 1.5 L (2-4) % (units unknown) (unknown) (unknown) (no date) (unknown) (unknown) Esterase (units unknown) (unknown) (unknown) (no date) (unknown) (unknown) Estimated GFR > 60 (>60) mL/min (units unknown) (unknown) (unknown) (no date) (unknown) (unknown) Estimated GFR (>60) mL/min (units unknown) (unknown) (unknown) (no date) (unknown) (unknown) Ethyl Alcohol < 10 ( - 10) mg/dL (units unknown) (unknown) (unknown) (no date) (unknown) (unknown) Ethyl Alcohol ( - 10) mg/dL (units unknown) (unknown) (unknown) (no date) (unknown) (unknown) Exam Narrative: (units unknown) (unknown) (unknown) (no date) (unknown) (unknown) Exam (units unknown) (unknown) (unknown) (no date) (unknown) (unknown) Findings and discharge diagnosis discussed with patient/family followed by (units unknown) (unknown) (unknown) (no date) (unknown) (unknown) Fish Oil (#OMEGA 3) 1,000 mg PO BID ##0 05/22/11 04/17/20 (units unknown) (unknown) (unknown) (no date) (unknown) (unknown) Fish Oil (#OMEGA 3) (units unknown) (unknown) (unknown) (no date) (unknown) (unknown) GASTROINTESTINAL: Abdomen soft, non-tender, nondistended. (units unknown) (unknown) (unknown) (no date) (unknown) (unknown) GASTROINTESTINAL: Denies nausea, vomiting, abdominal pain, diarrhea, (units unknown) (unknown) (unknown) (no date) (unknown) (unknown) GENERAL: See HPI (units unknown) (unknown) (unknown) (no date) (unknown) (unknown) GENERAL: [77] year old patient appears stated age. Well-developed patient, in (units unknown) (unknown) (unknown) (no date) (unknown) (unknown) GERD (gastroesophageal reflux disease) (units unknown) (unknown) (unknown) (no date) (unknown) (unknown) : Denies dysuria, frequency, incontinence, hematuria, urinary retention. (units unknown) (unknown) (unknown) (no date) (unknown) (unknown) General (units unknown) (unknown) (unknown) (no date) (unknown) (unknown) Globulin (1.7-4.1) g/dL (units unknown) (unknown) (unknown) (no date) (unknown) (unknown) Globulin 2.4 (1.7-4.1) g/dL (units unknown) (unknown) (unknown) (no date) (unknown) (unknown) Glucose (80-110) mg/dL (units unknown) (unknown) (unknown) (no date) (unknown) (unknown) Glucose 91 (80-110) mg/dL (units unknown) (unknown) (unknown) (no date) (unknown) (unknown) H/O hysterectomy for benign disease (units unknown) (unknown) (unknown) (no date) (unknown) (unknown) HEAD: Atraumatic. Normocephalic. (units unknown) (unknown) (unknown) (no date) (unknown) (unknown) HEENT: Denies sinus pain, ear pain, sore throat, difficulty swallowing, (units unknown) (unknown) (unknown) (no date) (unknown) (unknown) HPI - Weakness (units unknown) (unknown) (unknown) (no date) (unknown) (unknown) HPI Narrative: (units unknown) (unknown) (unknown) (no date) (unknown) (unknown) Hct (36-46) % (units unknown) (unknown) (unknown) (no date) (unknown) (unknown) Hct 41.6 (36-46) % (units unknown) (unknown) (unknown) (no date) (unknown) (unknown) Hepatitis A (units unknown) (unknown) (unknown) (no date) (unknown) (unknown) Hgb (12.0-16.0) g/dL (units unknown) (unknown) (unknown) (no date) (unknown) (unknown) Hgb 14.0 (12.0-16.0) g/dL (units unknown) (unknown) (unknown) (no date) (unknown) (unknown) History of Present Illness (units unknown) (unknown) (unknown) (no date) (unknown) (unknown) History of pelvic surgery (units unknown) (unknown) (unknown) (no date) (unknown) (unknown) Home Medications (units unknown) (unknown) (unknown) (no date) (unknown) (unknown) Hx of tonsillectomy (units unknown) (unknown) (unknown) (no date) (unknown) (unknown) INR (0.9-1.3) (units unknown) (unknown) (unknown) (no date) (unknown) (unknown) INR 1.0 (0.9-1.3) (units unknown) (unknown) (unknown) (no date) (unknown) (unknown) Imaging reviewed: Chest x-ray and head CT unremarkable (units unknown) (unknown) (unknown) (no date) (unknown) (unknown) Initial Vital Signs (units unknown) (unknown) (unknown) (no date) (unknown) (unknown) Initial Vital Signs: (units unknown) (unknown) (unknown) (no date) (unknown) (unknown) Instructions: DI for Rash (units unknown) (unknown) (unknown) (no date) (unknown) (unknown) [address] [address] (units unknown) (unknown) (unknown) (no date) (unknown) (unknown) Lab Data (units unknown) (unknown) (unknown) (no date) (unknown) (unknown) Lab Results (units unknown) (unknown) (unknown) (no date) (unknown) (unknown) Labs reviewed and interpreted by myself: No significant abnormal findings (units unknown) (unknown) (unknown) (no date) (unknown) (unknown) Labs: (units unknown) (unknown) (unknown) (no date) (unknown) (unknown) Last Infusion: 02/20/23 16:46 Dose: 0 mls/hr (units unknown) (unknown) (unknown) (no date) (unknown) (unknown) Moose Shelton DO [Primary Care Provider] (units unknown) (unknown) (unknown) (no date) (unknown) (unknown) Lipase (23-300) U/L (units unknown) (unknown) (unknown) (no date) (unknown) (unknown) Lipase 52 (23-300) U/L (units unknown) (unknown) (unknown) (no date) (unknown) (unknown) Lymph # (Auto) (1902-0807) /uL (units unknown) (unknown) (unknown) (no date) (unknown) (unknown) Lymph # (Auto) 1400 (5540-6320) /uL (units unknown) (unknown) (unknown) (no date) (unknown) (unknown) Lymph % (Auto) (25-40) % (units unknown) (unknown) (unknown) (no date) (unknown) (unknown) Lymph % (Auto) 33.2 (25-40) % (units unknown) (unknown) (unknown) (no date) (unknown) (unknown) MCH (26-34) PG (units unknown) (unknown) (unknown) (no date) (unknown) (unknown) MCH 32.0 (26-34) PG (units unknown) (unknown) (unknown) (no date) (unknown) (unknown) MCHC (30-36) % (units unknown) (unknown) (unknown) (no date) (unknown) (unknown) MCHC 33.7 (30-36) % (units unknown) (unknown) (unknown) (no date) (unknown) (unknown) MCV (80-100) fL (units unknown) (unknown) (unknown) (no date) (unknown) (unknown) MCV 95.1 (80-100) fL (units unknown) (unknown) (unknown) (no date) (unknown) (unknown) MDM - Weakness (units unknown) (unknown) (unknown) (no date) (unknown) (unknown) MDM Narrative (units unknown) (unknown) (unknown) (no date) (unknown) (unknown) METRONIDAZOLE (#METROGEL) 0.75 dose TP BIDPRN ##0 05/22/11 04/17/20 (units unknown) (unknown) (unknown) (no date) (unknown) (unknown) METRONIDAZOLE (#METROGEL) (units unknown) (unknown) (unknown) (no date) (unknown) (unknown) MUSCULOSKELETAL: d see HPI (units unknown) (unknown) (unknown) (no date) (unknown) (unknown) Medical History (units unknown) (unknown) (unknown) (no date) (unknown) (unknown) Medical decision making narrative: (units unknown) (unknown) (unknown) (no date) (unknown) (unknown) Medication Instructions Recorded Confirmed (units unknown) (unknown) (unknown) (no date) (unknown) (unknown) Medication Instructions Recorded (units unknown) (unknown) (unknown) (no date) (unknown) (unknown) Island # (Auto) (0-900) /uL (units unknown) (unknown) (unknown) (no date) (unknown) (unknown) [place] # (Auto) 500 (0-900) /uL (units unknown) (unknown) (unknown) (no date) (unknown) (unknown) [place] % (Auto) (3-14) % (units unknown) (unknown) (unknown) (no date) (unknown) (unknown) [place] % (Auto) 11.8 (3-14) % (units unknown) (unknown) (unknown) (no date) (unknown) (unknown) Multiple etiologies for patient's symptoms considered including, but not limited (units unknown) (unknown) (unknown) (no date) (unknown) (unknown) NECK: Trachea midline. Non tender (units unknown) (unknown) (unknown) (no date) (unknown) (unknown) NEURO: AOx3. (units unknown) (unknown) (unknown) (no date) (unknown) (unknown) NEUROLOGIC: Denies weakness, headache, numbness, change in speech, confusion, (units unknown) (unknown) (unknown) (no date) (unknown) (unknown) NT-Pro-B Natriuret Pep (<450) pg/mL (units unknown) (unknown) (unknown) (no date) (unknown) (unknown) NT-Pro-B Natriuret Pep 163 (<450) pg/mL (units unknown) (unknown) (unknown) (no date) (unknown) (unknown) Narrative (units unknown) (unknown) (unknown) (no date) (unknown) (unknown) Narrative: (units unknown) (unknown) (unknown) (no date) (unknown) (unknown) Neuropathy (units unknown) (unknown) (unknown) (no date) (unknown) (unknown) Neut # (Auto) (0077-6442) /uL (units unknown) (unknown) (unknown) (no date) (unknown) (unknown) Neut # (Auto) 2300 (8513-0457) /uL (units unknown) (unknown) (unknown) (no date) (unknown) (unknown) Neut % (Auto) (50-75) % (units unknown) (unknown) (unknown) (no date) (unknown) (unknown) Neut % (Auto) 52.3 (50-75) % (units unknown) (unknown) (unknown) (no date) (unknown) (unknown) No Action (units unknown) (unknown) (unknown) (no date) (unknown) (unknown) Ordered: (units unknown) (unknown) (unknown) (no date) (unknown) (unknown) Orders (units unknown) (unknown) (unknown) (no date) (unknown) (unknown) Oxygen Delivery Method Room Air Room Air (units unknown) (unknown) (unknown) (no date) (unknown) (unknown) Oxygen Delivery Method Room Air (units unknown) (unknown) (unknown) (no date) (unknown) (unknown) Oxygen Delivery Method (units unknown) (unknown) (unknown) (no date) (unknown) (unknown) PSYCHIATRIC: No concerning psychosocial issues. (units unknown) (unknown) (unknown) (no date) (unknown) (unknown) PT (10.1-12.7) SECONDS (units unknown) (unknown) (unknown) (no date) (unknown) (unknown) PT 11.4 (10.1-12.7) SECONDS (units unknown) (unknown) (unknown) (no date) (unknown) (unknown) Patient Disposition: Home (units unknown) (unknown) (unknown) (no date) (unknown) (unknown) Patient History (units unknown) (unknown) (unknown) (no date) (unknown) (unknown) Patient ambulatory in the department with reassuring history and physical exam, (units unknown) (unknown) (unknown) (no date) (unknown) (unknown) Patient's symptoms improved over duration of stay with above-stated therapies. (units unknown) (unknown) (unknown) (no date) (unknown) (unknown) Patient: Adelaida Mitchell MR#: [id number] (units unknown) (unknown) (unknown) (no date) (unknown) (unknown) Plt Count (150-400) X103/uL (units unknown) (unknown) (unknown) (no date) (unknown) (unknown) Plt Count 232 (150-400) X103/uL (units unknown) (unknown) (unknown) (no date) (unknown) (unknown) Potassium (3.4-5.1) mmol/L (units unknown) (unknown) (unknown) (no date) (unknown) (unknown) Potassium 4.0 (3.4-5.1) mmol/L (units unknown) (unknown) (unknown) (no date) (unknown) (unknown) Prescriptions: (units unknown) (unknown) (unknown) (no date) (unknown) (unknown) Previous Rx's (units unknown) (unknown) (unknown) (no date) (unknown) (unknown) Primary Historian: patient (units unknown) (unknown) (unknown) (no date) (unknown) (unknown) Prior Charts reviewed in our EMR (units unknown) (unknown) (unknown) (no date) (unknown) (unknown) Procalcitonin (<0.5) ng/mL (units unknown) (unknown) (unknown) (no date) (unknown) (unknown) Procalcitonin 0.05 (<0.5) ng/mL (units unknown) (unknown) (unknown) (no date) (unknown) (unknown) Pulse Oximetry 94 96 97 (units unknown) (unknown) (unknown) (no date) (unknown) (unknown) Pulse Oximetry 96 02/20/23 13:48 (units unknown) (unknown) (unknown) (no date) (unknown) (unknown) Pulse Oximetry 96 99 (units unknown) (unknown) (unknown) (no date) (unknown) (unknown) Pulse Oximetry 96 (units unknown) (unknown) (unknown) (no date) (unknown) (unknown) Pulse Oximetry 97 96 (units unknown) (unknown) (unknown) (no date) (unknown) (unknown) Pulse Oximetry 98 98 (units unknown) (unknown) (unknown) (no date) (unknown) (unknown) Pulse Oximetry 99 (units unknown) (unknown) (unknown) (no date) (unknown) (unknown) Pulse Oximetry (units unknown) (unknown) (unknown) (no date) (unknown) (unknown) Pulse Rate 72 (units unknown) (unknown) (unknown) (no date) (unknown) (unknown) Pulse Rate 75 79 (units unknown) (unknown) (unknown) (no date) (unknown) (unknown) Pulse Rate 78 (units unknown) (unknown) (unknown) (no date) (unknown) (unknown) Pulse Rate 81 73 (units unknown) (unknown) (unknown) (no date) (unknown) (unknown) Pulse Rate 92 H 97 H 92 H (units unknown) (unknown) (unknown) (no date) (unknown) (unknown) Pulse Rate 95 H 94 H (units unknown) (unknown) (unknown) (no date) (unknown) (unknown) Pulse Rate 97 H 02/20/23 13:48 (units unknown) (unknown) (unknown) (no date) (unknown) (unknown) Pulse Rate [Orthostatic Lying] 95 H (units unknown) (unknown) (unknown) (no date) (unknown) (unknown) Pulse Rate [Orthostatic Lying] (units unknown) (unknown) (unknown) (no date) (unknown) (unknown) Pulse Rate [Orthostatic Sitting] 110 H (units unknown) (unknown) (unknown) (no date) (unknown) (unknown) Pulse Rate [Orthostatic Sitting] (units unknown) (unknown) (unknown) (no date) (unknown) (unknown) Pulse Rate [Orthostatic Standing] 120 H (units unknown) (unknown) (unknown) (no date) (unknown) (unknown) Pulse Rate [Orthostatic Standing] (units unknown) (unknown) (unknown) (no date) (unknown) (unknown) Pulse Rate (units unknown) (unknown) (unknown) (no date) (unknown) (unknown) RBC (4.0-5.2) X106/uL (units unknown) (unknown) (unknown) (no date) (unknown) (unknown) RBC 4.38 (4.0-5.2) X106/uL (units unknown) (unknown) (unknown) (no date) (unknown) (unknown) RDW (11.6-14.8) % (units unknown) (unknown) (unknown) (no date) (unknown) (unknown) RDW 13.6 (11.6-14.8) % (units unknown) (unknown) (unknown) (no date) (unknown) (unknown) RESPIRATORY: Clear to auscultation. Breath sounds equal bilaterally. No wheezes, (units unknown) (unknown) (unknown) (no date) (unknown) (unknown) RESPIRATORY: Denies dyspnea, cough, wheezing, hemoptysis, sputum. (units unknown) (unknown) (unknown) (no date) (unknown) (unknown) Referrals: (units unknown) (unknown) (unknown) (no date) (unknown) (unknown) Related Data (units unknown) (unknown) (unknown) (no date) (unknown) (unknown) Respiratory Rate 18 17 (units unknown) (unknown) (unknown) (no date) (unknown) (unknown) Respiratory Rate 18 22 (units unknown) (unknown) (unknown) (no date) (unknown) (unknown) Respiratory Rate 20 (units unknown) (unknown) (unknown) (no date) (unknown) (unknown) Respiratory Rate 22 21 (units unknown) (unknown) (unknown) (no date) (unknown) (unknown) Respiratory Rate (units unknown) (unknown) (unknown) (no date) (unknown) (unknown) Return precautions discussed with patient/family whom verbalize understanding of (units unknown) (unknown) (unknown) (no date) (unknown) (unknown) Review of Systems (units unknown) (unknown) (unknown) (no date) (unknown) (unknown) Rx Instructions: (units unknown) (unknown) (unknown) (no date) (unknown) (unknown) SKIN: Denies rash, skin lesions, or other (units unknown) (unknown) (unknown) (no date) (unknown) (unknown) SKIN: Mild pruritic rash on back with some scabs that are slightly excoriated, (units unknown) (unknown) (unknown) (no date) (unknown) (unknown) Salicylates < 1.0 (<20) mg/dL (units unknown) (unknown) (unknown) (no date) (unknown) (unknown) Salicylates (<20) mg/dL (units unknown) (unknown) (unknown) (no date) (unknown) (unknown) Seizures (units unknown) (unknown) (unknown) (no date) (unknown) (unknown) Signed By: (units unknown) (unknown) (unknown) (no date) (unknown) (unknown) Skin cancer (units unknown) (unknown) (unknown) (no date) (unknown) (unknown) Smoking Status: Never smoker (units unknown) (unknown) (unknown) (no date) (unknown) (unknown) Social History (units unknown) (unknown) (unknown) (no date) (unknown) (unknown) Sodium (137-145) mmol/L (units unknown) (unknown) (unknown) (no date) (unknown) (unknown) Sodium 138 (137-145) mmol/L (units unknown) (unknown) (unknown) (no date) (unknown) (unknown) Sodium Chloride (Normal Saline 0.9%) 1,000 mls @ 1,000 mls/hr IV BOLUS ONE (units unknown) (unknown) (unknown) (no date) (unknown) (unknown) Stand Alone Forms: Patient Portal/API (units unknown) (unknown) (unknown) (no date) (unknown) (unknown) Stated complaint: 'unwell' x1 week, jaw pain, possible fall (units unknown) (unknown) (unknown) (no date) (unknown) (unknown) Stop: 02/20/23 14:46 (units unknown) (unknown) (unknown) (no date) (unknown) (unknown) Substance Use Type: does not use (units unknown) (unknown) (unknown) (no date) (unknown) (unknown) Surgical History (units unknown) (unknown) (unknown) (no date) (unknown) (unknown) Temperature 97.6 F (units unknown) (unknown) (unknown) (no date) (unknown) (unknown) Temperature (units unknown) (unknown) (unknown) (no date) (unknown) (unknown) Time Seen by Provider: 02/20/23 13:47 (units unknown) (unknown) (unknown) (no date) (unknown) (unknown) Total Bilirubin (0.2-1.3) mg/dL (units unknown) (unknown) (unknown) (no date) (unknown) (unknown) Total Bilirubin 0.3 (0.2-1.3) mg/dL (units unknown) (unknown) (unknown) (no date) (unknown) (unknown) Total Creatine Kinase (30-135) U/L (units unknown) (unknown) (unknown) (no date) (unknown) (unknown) Total Creatine Kinase 55 (30-135) U/L (units unknown) (unknown) (unknown) (no date) (unknown) (unknown) Total Protein (6.3-8.2) g/dL (units unknown) (unknown) (unknown) (no date) (unknown) (unknown) Total Protein 5.9 L (6.3-8.2) g/dL (units unknown) (unknown) (unknown) (no date) (unknown) (unknown) Troponin I < 0.012 (0.01-0.034) ng/mL (units unknown) (unknown) (unknown) (no date) (unknown) (unknown) Troponin I (0.01-0.034) ng/mL (units unknown) (unknown) (unknown) (no date) (unknown) (unknown) U Benzodiazepines Scrn (Negative) (units unknown) (unknown) (unknown) (no date) (unknown) (unknown) U Benzodiazepines Scrn Negative (Negative) (units unknown) (unknown) (unknown) (no date) (unknown) (unknown) U Marijuana (THC) Screen (Negative) (units unknown) (unknown) (unknown) (no date) (unknown) (unknown) U Marijuana (THC) Screen Negative (Negative) (units unknown) (unknown) (unknown) (no date) (unknown) (unknown) U Methamphetamines Scrn (Negative) (units unknown) (unknown) (unknown) (no date) (unknown) (unknown) U Methamphetamines Scrn Negative (Negative) (units unknown) (unknown) (unknown) (no date) (unknown) (unknown) U Opiates 300ng/mL cut (Negative) (units unknown) (unknown) (unknown) (no date) (unknown) (unknown) U Opiates 300ng/mL cut Negative (Negative) (units unknown) (unknown) (unknown) (no date) (unknown) (unknown) U Tricyclic Antidepress (Negative) (units unknown) (unknown) (unknown) (no date) (unknown) (unknown) U Tricyclic Antidepress Negative (Negative) (units unknown) (unknown) (unknown) (no date) (unknown) (unknown) Ur Amphetamines Screen (Negative) (units unknown) (unknown) (unknown) (no date) (unknown) (unknown) Ur Amphetamines Screen Negative (Negative) (units unknown) (unknown) (unknown) (no date) (unknown) (unknown) Ur Barbiturates Screen (Negative) (units unknown) (unknown) (unknown) (no date) (unknown) (unknown) Ur Barbiturates Screen Negative (Negative) (units unknown) (unknown) (unknown) (no date) (unknown) (unknown) Ur MDMA Scrn (Ecstasy) (Negative) (units unknown) (unknown) (unknown) (no date) (unknown) (unknown) Ur MDMA Scrn (Ecstasy) Negative (Negative) (units unknown) (unknown) (unknown) (no date) (unknown) (unknown) Ur Oxycodone Screen (Negative) (units unknown) (unknown) (unknown) (no date) (unknown) (unknown) Ur Oxycodone Screen Negative (Negative) (units unknown) (unknown) (unknown) (no date) (unknown) (unknown) Ur Phencyclidine Scrn (Negative) (units unknown) (unknown) (unknown) (no date) (unknown) (unknown) Ur Phencyclidine Scrn Negative (Negative) (units unknown) (unknown) (unknown) (no date) (unknown) (unknown) Urine Cocaine Screen (Negative) (units unknown) (unknown) (unknown) (no date) (unknown) (unknown) Urine Cocaine Screen Negative (Negative) (units unknown) (unknown) (unknown) (no date) (unknown) (unknown) Urine Dip (units unknown) (unknown) (unknown) (no date) (unknown) (unknown) Urine Methadone Screen (Negative) (units unknown) (unknown) (unknown) (no date) (unknown) (unknown) Urine Methadone Screen Negative (Negative) (units unknown) (unknown) (unknown) (no date) (unknown) (unknown) Urine Specific [place] 1.010 (units unknown) (unknown) (unknown) (no date) (unknown) (unknown) Venlafaxine Hydrochloride (#EFFEXOR) (units unknown) (unknown) (unknown) (no date) (unknown) (unknown) Venlafaxine Hydrochloride 75 mg PO DAILY ##0 05/22/11 (units unknown) (unknown) (unknown) (no date) (unknown) (unknown) Vital Signs - 8 hr (units unknown) (unknown) (unknown) (no date) (unknown) (unknown) Vital Signs (units unknown) (unknown) (unknown) (no date) (unknown) (unknown) Vital signs: (units unknown) (unknown) (unknown) (no date) (unknown) (unknown) WBC (4.5-11.0) X103/uL (units unknown) (unknown) (unknown) (no date) (unknown) (unknown) WBC 4.3 L (4.5-11.0) X103/uL (units unknown) (unknown) (unknown) (no date) (unknown) (unknown) Weakness, Chronic 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 (units unknown) (unknown) (unknown) (no date) (unknown) (unknown) [77] year old patient presents with feeling unwell for at least a week (units unknown) (unknown) (unknown) (no date) (unknown) (unknown) [Embedded Image Not Available] (units unknown) (unknown) (unknown) (no date) (unknown) (unknown) acetaminophen [From Fioricet] Allergy Seizure Verified 02/20/23 15:32 (units unknown) (unknown) (unknown) (no date) (unknown) (unknown) alcohol intake frequency: holidays/special occasions only (units unknown) (unknown) (unknown) (no date) (unknown) (unknown) alcohol intake: current (units unknown) (unknown) (unknown) (no date) (unknown) (unknown) and states that she appears to be at her baseline. There is no evidence of (units unknown) (unknown) (unknown) (no date) (unknown) (unknown) appointment. Let them know you were seen in the Emergency Department and that we (units unknown) (unknown) (unknown) (no date) (unknown) (unknown) ask that you be seen in follow up. We will electronically transmit a record of (units unknown) (unknown) (unknown) (no date) (unknown) (unknown) aspirin 81 mg tablet,delayed 81 mg PO DAILY 04/17/20 04/17/20 (units unknown) (unknown) (unknown) (no date) (unknown) (unknown) aspirin [Kathy Low Dose Aspirin] 81 mg Tablet,Delayed Release (Dr/Ec) (units unknown) (unknown) (unknown) (no date) (unknown) (unknown) butalbital Allergy Verified 02/20/23 15:32 (units unknown) (unknown) (unknown) (no date) (unknown) (unknown) caffeine [From Fioricet] Allergy Seizure Verified 02/20/23 15:32 (units unknown) (unknown) (unknown) (no date) (unknown) (unknown) capsule,delayed release (Nexium) (units unknown) (unknown) (unknown) (no date) (unknown) (unknown) concerning symptoms, such as [fever greater than 101 F, shaking chills, (units unknown) (unknown) (unknown) (no date) (unknown) (unknown) constipation, melena. (units unknown) (unknown) (unknown) (no date) (unknown) (unknown) diagnosis and plan (units unknown) (unknown) (unknown) (no date) (unknown) (unknown) diarrhea. She denies any change in her medications. She denies any difficulty (units unknown) (unknown) (unknown) (no date) (unknown) (unknown) discussed your history and physical exam as well as labs, CT scan, chest x-ray, (units unknown) (unknown) (unknown) (no date) (unknown) (unknown) dizziness. (units unknown) (unknown) (unknown) (no date) (unknown) (unknown) esomeprazole magnesium 40 mg 40 mg PO BIDAC ##180 06/04/11 (units unknown) (unknown) (unknown) (no date) (unknown) (unknown) esomeprazole magnesium [Nexium] 40 MG capsule,delayed release(DR/EC) (units unknown) (unknown) (unknown) (no date) (unknown) (unknown) for at least a few months and is particularly itchy today. EMS evaluated her (units unknown) (unknown) (unknown) (no date) (unknown) (unknown) gabapentin Allergy Verified 02/20/23 15:32 (units unknown) (unknown) (unknown) (no date) (unknown) (unknown) household members: none (units unknown) (unknown) (unknown) (no date) (unknown) (unknown) icterus. No injection or drainage. (units unknown) (unknown) (unknown) (no date) (unknown) (unknown) infection, pneumonia versus other] (units unknown) (unknown) (unknown) (no date) (unknown) (unknown) labs, vitals. (units unknown) (unknown) (unknown) (no date) (unknown) (unknown) lithium Allergy Unknown Swelling Verified 02/20/23 15:32 (units unknown) (unknown) (unknown) (no date) (unknown) (unknown) metoprolol tartrate 25 mg tablet 12.5 mg PO BID 04/17/20 04/17/20 (units unknown) (unknown) (unknown) (no date) (unknown) (unknown) metoprolol tartrate 25 mg tablet (units unknown) (unknown) (unknown) (no date) (unknown) (unknown) mild distress. Very hard of hearing, alert and oriented caught GCS 15 (units unknown) (unknown) (unknown) (no date) (unknown) (unknown) no longer is. She denies any fever or chills. She is had no blurred vision or (units unknown) (unknown) (unknown) (no date) (unknown) (unknown) or shortness of breath and has had no cough. She denies nausea, vomiting or (units unknown) (unknown) (unknown) (no date) (unknown) (unknown) poor skin turgor (units unknown) (unknown) (unknown) (no date) (unknown) (unknown) rales, or rhonchi. (units unknown) (unknown) (unknown) (no date) (unknown) (unknown) relatively poor historian presents by EMS for evaluation of generalized weakness (units unknown) (unknown) (unknown) (no date) (unknown) (unknown) release (Kathy Low Dose Aspirin) (units unknown) (unknown) (unknown) (no date) (unknown) (unknown) require specific intervention (units unknown) (unknown) (unknown) (no date) (unknown) (unknown) seizures, incoordination. (units unknown) (unknown) (unknown) (no date) (unknown) (unknown) specific or immediate intervention.] (units unknown) (unknown) (unknown) (no date) (unknown) (unknown) tetracycline Allergy Unknown Hives Verified 02/20/23 15:32 (units unknown) (unknown) (unknown) (no date) (unknown) (unknown) that has been present for at least a few days. She thinks maybe she fell (units unknown) (unknown) (unknown) (no date) (unknown) (unknown) to: [Electrolyte abnormality, signs of infection, head injury, urinary tract (units unknown) (unknown) (unknown) (no date) (unknown) (unknown) today's note if your PCP is in our system (units unknown) (unknown) (unknown) (no date) (unknown) (unknown) topiramate 25 mg sprinkle capsule 200 mg PO DAILY ##0 05/22/11 04/17/20 (units unknown) (unknown) (unknown) (no date) (unknown) (unknown) topiramate [Topamax] 25 MG capsule, sprinkle (units unknown) (unknown) (unknown) (no date) (unknown) (unknown) trauma per their exam, no focal findings. (units unknown) (unknown) (unknown) (no date) (unknown) (unknown) trazodone 100 mg tablet 200 mg PO DAILY 04/17/20 04/17/20 (units unknown) (unknown) (unknown) (no date) (unknown) (unknown) trazodone 100 mg tablet (units unknown) (unknown) (unknown) (no date) (unknown) (unknown) trouble with speech. She is had no had or neck pain. She denies any chest pain (units unknown) (unknown) (unknown) (no date) (unknown) (unknown) verbalization of understanding (units unknown) (unknown) (unknown) (no date) (unknown) (unknown) with urination or bowel movements. She has been dealing with a rash on her back (units unknown) (unknown) (unknown) (no date) (unknown) (unknown) without erythema, tonsillar hypertrophy or exudate. Airway patent. (units unknown) (unknown) (unknown) (no date) (unknown) (unknown) worsening pain, persistent vomiting or other bothersome symptoms] (units unknown) (unknown) (unknown) (no date) (unknown) (unknown) yesterday but it is unclear. She is concerned because her jaw was popping but (units unknown) (unknown) Social History date description facility 2023-02-20 00:00 Never smoked tobacco (finding) [facility] Vital Signs date measurement value units 2023-02-20 00:00 BP_diastolic 73 mmHg 2023-02-20 00:00 BP_systolic 144 mmHg 2023-02-20 00:00 heart_rate 98 /min 2023-02-20 00:00 o2_saturation 98 % 2023-02-20 00:00 respiration_rate 21 /min 2023-02-20 00:00 temperature_metric 36.44 C 2023-02-20 00:00 temperature_standard 97.6 F 2023-02-20 00:00 weight_metric 83.91 kg 2023-02-20 00:00 weight_standard 184.99 lb
[2023-03-17 17:55] LABS: T3 UPTAKE 37.7 % (32.0-48.4)
[2023-03-17 17:59] LABS: FREE T3 2.97 pg/mL (2.5-3.9)
[2023-03-17 18:01] LABS: FREE T4 (FREE THYROXINE) 0.84 ng/dL (0.58-1.64)
--- NOTE | 2023-03-17 18:18 | MRI Report ---
PROCEDURE: BRAIN WO INDICATIONS: vertigo/headache; recurrent TECHNIQUE: Noncontrast axial T1 spin echo, axial T2 fast spin echo, sagittal and axial FLAIR, coronal T2 fast sp in echo, axial gradient echo, axial diffusion and ADC through the brain. COMPARISON: . Correlation is made with CT, 11/28/2019 FINDINGS: Image quality: Motion artifact is noted. CSF Spaces: Basal cisterns are patent. No extra-axial fluid collections. Ventricles are normal in size and shape. Brain: No intracranial masses or hemorrhage. Lemon/white matter interface is normal. Brainstem appe ars normal. Diffusion-weighted images demonstrate no acute ischemic insult. No chronic ischemic ins ults. Normal intravascular flow voids are present. Skull and face: Calvarium has normal marrow signal. The left globe is abnormal and shrunken. Sinuses: Sinuses and mastoids are clear. IMPRESSION: No findings of acute or subacute infarction are seen. No significant intracranial abnormality is seen. Abnormal left globe, which is new compared to 2013, yet similar to the [address] CT. Reviewed by: Kevin Nunes MD on 03/17/2023 5:17 PM MANUEL Approved by: Kevin Nunes MD on 03/17/2023 5:17 PM MANUEL Station ID: [id number]
[2023-03-17] MEDS ORDERED: DEXAMETHASONE 10 MG/ML VIAL IVP STA (18:41)
[2023-03-17] MEDS ORDERED: ONDANSETRON 4 MG/2 ML VIAL IVP STA (18:41)
[2023-03-17 19:26] VITALS: BP 118/80
== END 2023-03-17 19:57 | disposition home or self-care (01) ==
LOC: EDUNIT# → ED 15:52
DX: R42 Dizziness and giddiness (principal); R94.6 Abnormal results of thyroid function studies
CPT/HCPCS: 36415; 70551; 80053; 83690; 83735; 84439; 84443; 84479; 84481; 85025; 85651; 96374; 96375; 99284; A9270

== ENCOUNTER 2023-05-05 01:25 | Outpatient (CLI) | payer MEDICARE | END 2023-05-05 23:59 | disposition critical access hospital (66) | LOC: EMS 01:25 | DX: R19.7 Diarrhea, unspecified (principal); R42 Dizziness and giddiness; R05.9 Cough, unspecified | CPT/HCPCS: A0425; A0429 ==

== ENCOUNTER 2023-05-05 01:53 | Emergency (ER) | payer MEDICARE ==
--- OUTSIDE RECORDS SUMMARY | 2023-05-05 02:12 | EXTERNAL MEDICAL SUMMARY RPT | Continuity of Care Document ---
Author Name Unknown Address [address] [place] [address] Phone Organization [place] Address [address] [place] [address] Phone Care Team Providers Care Insurance Verification Clerk Name Role Phone Mitch Roland Unavailable Unavailable Allergies and Intolerances date description facility reaction severity (no date) acetaminophen [facility] (no reaction) (no severity) (no date) butalbital [facility] (no reaction) (no se verity) (no date) caffeine [facility] (no reaction) (no se verity) (no date) gabapentin [facility] (no reaction) (no se verity) (no date) lithium [facility] (no reaction) (no se verity) (no date) tetracycline [facility] (no reaction) (no severity) Problems date description facility 2023-02-20 00:00 Chronic 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 [facility] 2023-02-20 00:00 Weakness [facility] 2023-04-15 17:21 [facility] Procedures date description facility 2023-02-20 00:00 Computed tomography of head or brain without contrast [facility] 2023-02-20 00:00 X-ray of chest, single [facility] Results/Labs test date facility value unit notes Social History date description facility 2023-02-20 00:00 Never smoked tobacco (finding) [facility] Vital Signs date measurement value units 2023-02-20 00:00 BP_diastolic 73 mmHg 2023-02-20 00:00 BP_systolic 144 mmHg 2023-02-20 00:00 heart_rate 98 /min 2023-02-20 00:00 o2_saturation 98 % 2023-02-20 00:00 respiration_rate 21 /min 2023-02-20 00:00 temperature_metric 36.44 C 2023-02-20 00:00 temperature_standard 97.6 F 2023-02-20 00:00 weight_metric 83.91 kg 2023-02-20 00:00 weight_standard 184.99 lb
--- NOTE | 2023-05-05 02:20 | ED Physician Documentation ---
History of Present Illness - Stated complaint Stated Complaint: DIZZY, LIGHTHEADED - Chief complaint Chief Complaint: Neuro - History obtained from History obtained from: Patient, EMS - Additonal information Additional information: BIBA. Patient offers much information in HPI; within the information provided by patient and EMS, I interpret the chief complaint/concern to be near-syncopal episode tonight. When I express this to the patient, she confirms that this is why she activated her medical alarm system. Patient says she saw PMD two weeks ago for spinning sensation, diagnosed as vertigo and given rx for antivert. Patient has paroxysmal atrial fibrillation but does not take anticoagulants. Tonight, she got out of bed to use the bathroom, experiencing cramping abdominal pain en route to bathroom. She had large stool output and felt resolution of the cramping abdominal pain, but upon returning to bedroom, she felt dizzy, lightheaded, generalized weakness, "shaky" and "felt like I was going to faint" (per patient). Denies chest pain/pressure/tightness/squeezing. Has not had this before. She says she had to help herself to ground due to weakness (could not make it all the way to the bed). Fortunately, she was able to get to a medical alarm button which she activated. She says she felt much better by the time medics arrived and by the time of this H+P, she says she feels well and questions if she should have activated the medical alarm at all (I reassured her that she absolutely did the right thing given her symptoms). 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 denies: Vomiting, Constipation, Diarrhea, Hematemesis, Bloody / black stool : denies: Dysuria, Frequency, Incontinent Musculoskeletal: reports: Reviewed and negative Neurologic: reports: Generalized weakness, Near syncope. 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 HEENT: Tonsil/Adenoidectomy Derm: Skin cancer surgery - Present Medications Home Medications: Ambulatory Orders Medication Instructions Recorded Confirmed Venlafaxine ER [Effexor ER] 2 tab PO DAILY 04/30/13 12/13/22 Topiramate [Topamax] 200 mg PO QPM 11/24/15 12/13/22 Aspirin [Aspirin EC] 81 mg PO DAILY 12/26/18 12/13/22 Calcium Carbonate [[id number]] 500 mg PO BID 12/26/18 12/13/22 Cholecalciferol (Vitamin D3) 2,000 unit PO DAILY PM 12/26/18 12/13/22 [Vitamin D] Esomeprazole Magnesium 40 mg PO DAILY 12/26/18 12/13/22 Magnesium Oxide [Magnesium] 500 mg PO DAILY 12/26/18 12/13/22 Metoprolol Tartrate 12.5 mg PO BID 12/26/18 12/13/22 Multivitamin [Multiple Vitamins] 1 each PO DAILY 12/26/18 12/13/22 [place]-3S/Dha/Epa/Fish Oil [Fish 1 each PO DAILY 12/26/18 12/13/22 Oil 1,200 mg Softgel] Trazodone HCl 300 mg PO DAILY PM 12/26/18 12/13/22 Vitamin E (Dl,Tocopheryl Acet) 2,000 unit PO DAILY PM 01/25/21 12/13/22 [Vitamin E] polyethylene glycoL 3350 [Miralax] 17 gm PO DAILY PRN #14 packet 12/13/22 Meclizine HCl [Motion Sickness] 25 mg PO Q6H PRN #25 tablet 03/17/23 dexAMETHasone [Decadron] 4 mg PO DAILY #5 tablet 03/17/23 - Allergies Allergies/Adverse Reactions: Allergies Allergy/AdvReac Type Severity Reaction Status Date / Time lithium [[place]] Allergy Severe Edema Verified 05/06/23 17:01 tetracycline [Tetracycline] Allergy Severe Hives Verified 05/06/23 17:01 acetaminophen [From Fioricet] Allergy Hives Verified 05/06/23 17:01 caffeine [From Fioricet] Allergy Hives Verified 05/06/23 17:01 gabapentin Allergy Edema Verified 05/06/23 17:01 butalbital [From Fioricet] AdvReac Severe Dizziness Verified 05/06/23 17:01 - Social History Does the pt smoke?: No Smoking Status: Never smoker Does the pt drink ETOH?: No Does the pt have substance abuse?: No - Immunizations Immunizations are current?: No - POLST Patient has POLST: No PD ED PE NORMAL - Vitals Vital signs reviewed: Yes - General General: Alert and oriented X 3, No acute distress, Well developed/nourished - HEENT HEENT: PERRL, EOMI, Moist mucous membranes, Pharynx benign - Cardiac Cardiac: RRR - Respiratory Respiratory: No respiratory distress, Clear bilaterally - Abdomen Abdomen: Soft, Non tender Results - Vitals Vitals: Oxygen O2 Source Room air - EKG (time done) No standard instances EKG releavant findings:: EKG personally interpreted by author of this note. Relevant findings are: Rate: Rate (enter#) (87) Rhythm: NSR Verdi: LAD Intervals: Normal NC QRS: Normal Ischemia: Normal ST segments - Labs Labs: Laboratory Tests 05/05/23 05/05/23 03:25 03:25 WBC 10.1 RBC 4.48 Hgb 14.2 Hct 45.2 MCV 100.9 H MCH 31.7 H MCHC 31.4 L RDW 12.8 Plt Count 202 MPV 8.8 Neut # (Auto) 7.9 H Lymph # (Auto) 1.1 L [place] # (Auto) 0.9 Eos # (Auto) 0.1 Baso # (Auto) 0.1 Absolute Nucleated RBC 0.00 Nucleated RBC % 0.0 Sodium 137 Potassium 3.0 L Chloride 109 Carbon Dioxide 22 Anion Gap 6.0 BUN 16 Creatinine 1.0 Estimated GFR (MDRD) 53 L Glucose 114 H Calcium 9.1 Total Bilirubin 0.4 AST 11 ALT 9 L Alkaline Phosphatase 73 Troponin I High Sens 4.7 Total Protein 6.2 L Albumin 3.9 Globulin 2.3 Albumin/Globulin Ratio 1.7 Lipase 11 - Rads (name of study) chest xray Relevant Findings:: Prelim report reviewed, EMP independent interpretation of test (I reviewed these images and my interpretation is no acute findings including no infiltrate, no pneumothorax, no effusions; heart size is within normal limits), See rad report PD Medical Decision Making - ED course Complexity details: reviewed results, re-evaluated patient, considered differential, d/w patient ED course: Asymptomatic during ED stay, NSR on EKG with stable vital signs (no hypotensive readings during stay). On blood tests, mild hypokalemia is noted (3.0), for which she is given 25meq KCL PO. This is unlikely to have caused, or contributed to, mirta's near syncopal episode (not low enough to realistically cause symptoms or dysrhythmias). Remainder of blood tests (CBC, ER abdominal panel) is without concerning/diagnostic results. CXR also unremarkable. Cause of her near-syncope is not apparent at this time. Differential includes, but not limited to, vaso-vagal episode (could be caused by, or even have caused, the abdominal cramping that heralded the episode), transient/paroxysmal dysrhythmia (such as loss of atrial kick in PAF, PSVT causing hypotension, sinus pauses). Results d/w patient. Return precautions reviewed. Advised to follow up with PMD, next available appointment. I also instructed her to mention the low potassium to her PMD; recheck of potassium might be helpful, at PMD's discretion. Departure - Departure Disposition: 01 Home, Self Care Clinical Impression: Near syncope, Hypokalemia Condition: Good Instructions: ED Potassium Deficiency, ED Near Syncope Unkn Comments: There were no concerning or diagnostic findings on mirta's tests. Your potassium was low, for which you were given a dose of oral potassium in the emergency department. This low potassium level was not low enough to account for any symptoms. Follow-up with your primary care provider, call the office to arrange for next available appointment for follow-up and possible further testing. Forms: PCP List Discharge Date/Time: 05/05/23 07:04
[2023-05-05 03:30] LABS: BASOPHILS # (AUTO) 0.1 10^3/uL (0.0-0.1); BASOPHILS % (AUTO) 0.7 %; EOSINOPHILS # (AUTO) 0.1 10^3/uL (0.0-0.7); EOSINOPHILS % (AUTO) 0.6 %; HCT - HEMATOCRIT 45.2 % (37.0-47.0); HGB - HEMOGLOBIN 14.2 g/dL (12.0-16.0); LYMPHOCYTES # (AUTO) 1.1 10^3/uL (1.5-3.5); MEAN CORPUSCULAR HEMOGLOBIN 31.7 pg (27.0-31.0); MEAN CORPUSCULAR HGB CONC 31.4 g/dL (32.0-36.0); MEAN CORPUSCULAR VOLUME 100.9 fL (81.0-99.0); MEAN PLATELET VOLUME 8.8 fL (7.9-10.8); MONOCYTES # (AUTO) 0.9 10^3/uL (0.0-1.0); MONOCYTES % (AUTO) 9.1 %; NEUTROPHILS # (AUTO) 7.9 10^3/uL (1.5-6.6); NEUTROPHILS % (AUTO) 78.3 %; PLT - PLATELET COUNT 202 10^3/uL (130-450); RED BLOOD COUNT 4.48 10^6/uL (4.20-5.40); RED CELL DISTRIBUTION WIDTH 12.8 % (12.0-15.0); WHITE BLOOD COUNT 10.1 x10^3/uL (4.8-10.8)
[2023-05-05 03:45] LABS: ALBUMIN 3.9 g/dL (3.2-5.5); ALBUMIN/GLOBULIN RATIO 1.7 (1.0-2.2); BILIRUBIN,TOTAL 0.4 mg/dL (0.2-1.0); CALCIUM 9.1 mg/dL (8.5-10.3); TOTAL PROTEIN 6.2 g/dL (6.4-8.9)
[2023-05-05 03:54] LABS: TROPONIN I HIGH SENSITIVITY 4.7 ng/L (2.3-14.8)
[2023-05-05] MEDS ORDERED: POTASSIUM BICARB 25 MEQ TABLET PO STA (06:48)
[2023-05-05 06:55] VITALS: BP 131/69; O2SAT 98
--- NOTE | 2023-05-05 07:24 | XRAY Report ---
PROCEDURE: Chest 2 View X-Ray INDICATIONS: syncope TECHNIQUE: 2 views of the chest were acquired. COMPARISON: 12/04/2018 FINDINGS: Surgical changes and devices: None. Lungs and pleura: No pleural effusions or pneumothorax. Lungs are clear. Mediastinum: Mediastinal contours appear normal. Heart size is normal. Bones and chest wall: No suspicious bony lesions. Overlying soft tissues appear unremarkable. IMPRESSION: No acute cardiopulmonary process. Findings are concordant with preliminary interpretation provided by [facility]. Reviewed by: Augustin Sol MD on 05/05/2023 7:23 AM PDT Approved by: Augustin Sol MD on 05/05/2023 7:23 AM PDT Station ID: [id number]
== END 2023-05-05 07:04 | disposition home or self-care (01) ==
LOC: EDUNIT# → ED 01:53
DX: R55 Syncope and collapse (principal); E87.6 Hypokalemia; I10 Essential (primary) hypertension; E78.00 Pure hypercholesterolemia, unspecified; I48.0 Paroxysmal atrial fibrillation; Z79.899 Other long term (current) drug therapy; Z79.82 Long term (current) use of aspirin
CPT/HCPCS: 36415; 71046; 80053; 83690; 84484; 85025; 93005; 99283; 99284; A9270

== ENCOUNTER 2023-05-30 09:46 | Outpatient (CLI) | payer MEDICARE | END 2023-05-30 23:59 | disposition critical access hospital (66) | LOC: EMS 09:46 | DX: R55 Syncope and collapse (principal); R07.9 Chest pain, unspecified; R53.1 Weakness | CPT/HCPCS: A0425; A0429 ==

== ENCOUNTER 2023-05-30 10:50 | Emergency (ER) | payer MEDICARE ==
--- NOTE | 2023-05-30 11:07 | ED Physician Documentation ---
PD HPI CHEST PAIN - Stated complaint Stated Complaint: SYNCOPE/CHEST PX - History obtained from History obtained from: Patient - History of Present Illness Timing - onset: Today Timing - onset during: Light activity (she has had vertigo with standing up and head movement today, recurreing when moves. Better rested. Lasts few minutes. Has had similar episodes in the past. Also complains of anxiety, and has not had usual meds for this for several days as her pharmacy was not delivering her meds as usual.) Timing - details: Intermittant Quality: Tightness. No: Pressure Location: Substernal Worsened by: No: Exertion, Inspiration Associated symptoms: Feeling faint / dizzy, Other (feeling anxious). 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 HEENT: Tonsil/Adenoidectomy Derm: Skin cancer surgery - Present Medications Home Medications: Ambulatory Orders Medication Instructions Recorded Confirmed Venlafaxine ER [Effexor ER] 2 tab PO DAILY 04/30/13 12/13/22 Topiramate [Topamax] 200 mg PO QPM 11/24/15 12/13/22 Aspirin [Aspirin EC] 81 mg PO DAILY 12/26/18 12/13/22 Calcium Carbonate [[id number]] 500 mg PO BID 12/26/18 12/13/22 Cholecalciferol (Vitamin D3) 2,000 unit PO DAILY PM 12/26/18 12/13/22 [Vitamin D] Esomeprazole Magnesium 40 mg PO DAILY 12/26/18 12/13/22 Magnesium Oxide [Magnesium] 500 mg PO DAILY 12/26/18 12/13/22 Metoprolol Tartrate 12.5 mg PO BID 12/26/18 12/13/22 Multivitamin [Multiple Vitamins] 1 each PO DAILY 12/26/18 12/13/22 [place]-3S/Dha/Epa/Fish Oil [Fish 1 each PO DAILY 12/26/18 12/13/22 Oil 1,200 mg Softgel] Trazodone HCl 300 mg PO DAILY PM 12/26/18 12/13/22 Vitamin E (Dl,Tocopheryl Acet) 2,000 unit PO DAILY PM 01/25/21 12/13/22 [Vitamin E] polyethylene glycoL 3350 [Miralax] 17 gm PO DAILY PRN #14 packet 12/13/22 Meclizine HCl [Motion Sickness] 25 mg PO Q6H PRN #25 tablet 03/17/23 dexAMETHasone [Decadron] 4 mg PO DAILY #5 tablet 03/17/23 Meclizine HCl [Motion Sickness] 25 mg PO Q6H PRN #30 tablet 05/30/23 - Allergies Allergies/Adverse Reactions: Allergies Allergy/AdvReac Type Severity Reaction Status Date / Time lithium [[place]] Allergy Severe Edema Verified 05/06/23 17:01 tetracycline [Tetracycline] Allergy Severe Hives Verified 05/06/23 17:01 acetaminophen [From Fioricet] Allergy Hives Verified 05/06/23 17:01 caffeine [From Fioricet] Allergy Hives Verified 05/06/23 17:01 gabapentin Allergy Edema Verified 05/06/23 17:01 butalbital [From Fioricet] AdvReac Severe Dizziness Verified 05/06/23 17:01 - Social History Does the pt smoke?: No Smoking Status: Never smoker Does the pt drink ETOH?: No Does the pt have substance abuse?: No - Immunizations Immunizations are current?: No - POLST Patient has POLST: No PD ED PE NORMAL - Vitals Vital signs reviewed: Yes - General General: Alert and oriented X 3, No acute distress (but is a bit anxious. ), Well developed/nourished - HEENT HEENT: Atraumatic, PERRL (no nuystagmus noted at this time, but vertigo has abated for now as well. ), Ears normal - Neck Neck: Supple, no meningeal sign, No adenopathy - Cardiac Cardiac: RRR, No murmur - Respiratory Respiratory: Clear bilaterally - Abdomen Abdomen: Soft, Non tender - Derm Derm: Normal color, Warm and dry Results - Vitals Vitals: Oxygen O2 Source Room air - Labs Labs: Laboratory Tests 05/30/23 12:16 Sodium 140 Potassium 3.4 L Chloride 109 Carbon Dioxide 25 Anion Gap 6.0 BUN 13 Creatinine 1.1 Estimated GFR (MDRD) 48 L Glucose 98 Calcium 9.8 Magnesium 1.8 Total Bilirubin 0.5 AST 11 ALT 9 L Alkaline Phosphatase 79 Total Protein 6.6 Albumin 4.2 Globulin 2.4 Albumin/Globulin Ratio 1.8 Lipase 14 PD Medical Decision Making - ED course Complexity details: reviewed old records (She has had episodic/frequent positional vertigo for months and had brain MRI 03/17/23. The report of that was nromal without infarcts nor masses. ), reviewed results (given recent brain MRI for these symptoms. Since same vertigo symptoms and are very positional, I do not see value in repeat imaging at this time. Can check lytes to eval for sodium, potassium, glucose. Otherwise she had meclizine for this but new script at pharmacy and they are not delivering it. ), re-evaluated patient (did feel better with meclizine and Diazepam (one of her usual daily meds per pharmacy script listing).), considered differential (has positional vertigo, recurring symptoms. Onset with getting up today. Better when still. Also feeling anxious and is without usual anxiety meds. She states her pharmacy usually delivers but is not currently. Her home health aide resigned or such, so not having help at home. Needs grocery shopping), d/w patient, d/w cost consultant (Social Work talked with patient to see what resources or assistance we might be able to do. Meals on Wheels will start next Fri. Home Aides list given and Senior Resources info. SW left message with her Computer Lab Assistant. Paratransit home arranged.) ED course: I referenced the pharmacy listings for her meds and it looks like scripts for meclizine, trazodone, diazepam, and venlafexine antidepressant are filled in past few days and presume these are the ones available for pickup. She is encouraged to get those, to call pharmacy again about delivery, or if can pick them up drive through on way home from ER? Lacking these usual meds would certainly augment her usual anxieyt. Departure - Departure Disposition: Home, Self Care Clinical Impression: Vertigo, Anxiety, Needs assistance while at home Condition: Stable Record reviewed to determine appropriate education?: Yes Instructions: ED Vertigo Unspecified Follow-Up: Bennett Storey MD [Provider Admit Priv/Credential] - Prescriptions: Meclizine HCl [Motion Sickness] 25 mg PO Q6H PRN #30 tablet PRN Reason: Vertigo Comments: Continue usual medications when able to get them from the pharmacy. That should help with some of your anxiety has it appears 2 of them are for that in particular. I also sent to your pharmacy the meclizine every 6-8 hours if needed for vertigo/off-balance. Stay well-hydrated otherwise. And continue usual medications. The social services designee did give you some information sheets and resources to try to help with obtaining new caregivers etc. Follow-up with your case consultant as well. Forms: PCP List Discharge Date/Time: 05/30/23 14:45
--- OUTSIDE RECORDS SUMMARY | 2023-05-30 11:43 | EXTERNAL MEDICAL SUMMARY RPT | Continuity of Care Document ---
Author Name Unknown Address [address] [place] [address] Phone Organization [place] Address [address] [place] [address] Phone Problems date description facility 2023-04-15 17:21 [facility]
[2023-05-30] MEDS ORDERED: diazePAM 5 MG TABLET PO STA (11:56)
[2023-05-30 12:37] LABS: ALBUMIN 4.2 g/dL (3.2-5.5); ALBUMIN/GLOBULIN RATIO 1.8 (1.0-2.2); BILIRUBIN,TOTAL 0.5 mg/dL (0.2-1.0); CALCIUM 9.8 mg/dL (8.5-10.3); CREATININE 1.1 mg/dL (0.6-1.3); MAGNESIUM 1.8 mg/dL (1.7-2.3); POTASSIUM 3.4 mmol/L (3.5-4.5); TOTAL PROTEIN 6.6 g/dL (6.4-8.9)
[2023-05-30 14:54] VITALS: BP 146/107; O2SAT 98
== END 2023-05-30 14:45 | disposition home or self-care (01) ==
LOC: EDUNIT# → ED 10:50
DX: R42 Dizziness and giddiness (principal); F41.9 Anxiety disorder, unspecified; I10 Essential (primary) hypertension; E78.00 Pure hypercholesterolemia, unspecified; Z79.899 Other long term (current) drug therapy; Z79.82 Long term (current) use of aspirin
CPT/HCPCS: 36415; 80053; 83690; 83735; 99283; 99284; A9270

== ENCOUNTER 2023-05-31 10:01 | Outpatient (CLI) | payer MEDICARE | END 2023-05-31 10:02 | disposition EMS.NT | LOC: EMS 10:01 | DX: F41.9 Anxiety disorder, unspecified (principal) ==

== ENCOUNTER 2023-06-04 12:04 | Outpatient (CLI) | payer MEDICARE | END 2023-06-04 23:59 | disposition critical access hospital (66) | LOC: EMS 12:04 | DX: S09.90XA Unspecified injury of head, initial encounter (principal); M54.2 Cervicalgia; M54.6 Pain in thoracic spine; R55 Syncope and collapse; W18.39XA Other fall on same level, initial encounter; Y92.030 Kitchen in apartment as the place of occurrence of the external cause | CPT/HCPCS: A0425; A0429 ==

== ENCOUNTER 2023-06-04 12:25 | Emergency (ER) | payer MEDICARE ==
[2023-06-04] MEDS ORDERED: HYDROmorphone 1 MG/ML CARPUJECT IVP STA (12:28)
[2023-06-04] MEDS ORDERED: SODIUM CHLORIDE 0.9% 1,000 ML IV STA (12:28)
--- NOTE | 2023-06-04 12:31 | ED Physician Documentation ---
PD HPI SYNCOPE - Stated complaint Stated Complaint: FALL/SYNCOPE - History obtained from History obtained from: Patient, EMS - Additional information Additional information: 77-year-old woman with history of A-fib, on metoprolol but not on a blood thinner presumably because of frequent falls, and she does have frequent falls certainly. Last seen by my partner with syncope a few days ago. Today she got out of bed at 11 AM which is not unusual for her and she was in her usual state of health. She was in the kitchen getting ready to take her medications and she fell. She feels more likely that she fell as opposed to syncopized but then did hit her head quite hard on the way down and then passed out. She was on the ground for some time, maybe 30 minutes and then called 911. Her only complaint is a severe posterior headache. 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, Appendectomy /[employer]: Hysterectomy HEENT: Tonsil/Adenoidectomy Derm: Skin cancer surgery - Present Medications Home Medications: Ambulatory Orders Medication Instructions Recorded Confirmed Venlafaxine ER [Effexor ER] 2 tab PO DAILY 04/30/13 12/13/22 Topiramate [Topamax] 200 mg PO QPM 11/24/15 12/13/22 Aspirin [Aspirin EC] 81 mg PO DAILY 12/26/18 12/13/22 Calcium Carbonate [[id number]] 500 mg PO BID 12/26/18 12/13/22 Cholecalciferol (Vitamin D3) 2,000 unit PO DAILY PM 12/26/18 12/13/22 [Vitamin D] Esomeprazole Magnesium 40 mg PO DAILY 12/26/18 12/13/22 Magnesium Oxide [Magnesium] 500 mg PO DAILY 12/26/18 12/13/22 Metoprolol Tartrate 12.5 mg PO BID 12/26/18 12/13/22 Multivitamin [Multiple Vitamins] 1 each PO DAILY 12/26/18 12/13/22 [place]-3S/Dha/Epa/Fish Oil [Fish 1 each PO DAILY 12/26/18 12/13/22 Oil 1,200 mg Softgel] Trazodone HCl 300 mg PO DAILY PM 12/26/18 12/13/22 Vitamin E (Dl,Tocopheryl Acet) 2,000 unit PO DAILY PM 01/25/21 12/13/22 [Vitamin E] polyethylene glycoL 3350 [Miralax] 17 gm PO DAILY PRN #14 packet 12/13/22 Meclizine HCl [Motion Sickness] 25 mg PO Q6H PRN #25 tablet 03/17/23 dexAMETHasone [Decadron] 4 mg PO DAILY #5 tablet 03/17/23 Meclizine HCl [Motion Sickness] 25 mg PO Q6H PRN #30 tablet 05/30/23 - Allergies Allergies/Adverse Reactions: Allergies Allergy/AdvReac Type Severity Reaction Status Date / Time lithium [[place]] Allergy Severe Edema Verified 06/04/23 12:34 tetracycline [Tetracycline] Allergy Severe Hives Verified 06/04/23 12:34 acetaminophen [From Fioricet] Allergy Hives Verified 06/04/23 12:34 caffeine [From Fioricet] Allergy Hives Verified 06/04/23 12:34 gabapentin Allergy Edema Verified 06/04/23 12:34 butalbital [From Fioricet] AdvReac Severe Dizziness Verified 06/04/23 12:34 - Social History Does the pt smoke?: No Smoking Status: Never smoker Does the pt drink ETOH?: No Does the pt have substance abuse?: No - Immunizations Immunizations are current?: No - POLST Patient has POLST: No PD ED PE NORMAL - Vitals Vital signs reviewed: Yes - General General: Alert and oriented X 3, No acute distress - HEENT HEENT: Other (The left anterior chamber is opacified. Right pupil small but reactive.) - Neck Neck: No bony TTP (Maintain in a collar pending imaging given potential for distracting injury from her head injury.) - Cardiac Cardiac: RRR, No murmur - Respiratory Respiratory: No respiratory distress, Clear bilaterally - Abdomen Abdomen: Non tender - Back Back: No CVA TTP - Derm Derm: Normal color, Warm and dry - Neuro Neuro: Alert and oriented X 3, Normal speech Eye Opening: Spontaneous Motor: Obeys Commands Verbal: Oriented GCS Score: 15 Results - Vitals Vitals: Vital Signs - 24 hr 06/04/23 12:30 Temperature 36.3 C L Heart Rate 79 Respiratory 18 Rate Blood Pressure 126/86 H O2 Saturation 97 Oxygen O2 Source Room air - EKG (time done) 1233 EKG releavant findings:: EKG personally interpreted by author of this note. Relevant findings are: Rate: Rate (enter#) (74) Rhythm: NSR [place]: Normal Intervals: Normal [place]. No: Prolonged QT QRS: Normal Ischemia: Non specific changes. No: ST elevation c/w ischemia, ST depression - Labs Labs: Laboratory Tests 06/04/23 06/04/23 13:13 13:13 WBC 6.3 RBC 4.37 Hgb 13.9 Hct 43.1 MCV 98.6 MCH 31.8 H MCHC 32.3 RDW 13.2 Plt Count 215 MPV 8.6 Neut # (Auto) 3.4 Lymph # (Auto) 2.1 [place] # (Auto) 0.7 Eos # (Auto) 0.1 Baso # (Auto) 0.1 Absolute Nucleated RBC 0.00 Nucleated RBC % 0.0 Sodium 144 Potassium 3.3 L Chloride 113 H Carbon Dioxide 27 Anion Gap 4.0 L BUN 15 Creatinine 0.9 Estimated GFR (MDRD) 60 L Glucose 102 Calcium 9.8 - Rads (name of study) Single view chest x-ray demonstrates mild interstitial prominence, possible edema? Relevant Findings:: Final report received, EMP independent interpretation of test CT of the head and neck were without acute trauma. They noted the abnormal left globe which is chronic per patient and we discussed the thyroid nodul Relevant Findings:: Final report received, EMP independent interpretation of test PD Medical Decision Making - ED course Complexity details: reviewed results (CBC, BMP normal save very mild hypokalemia) ED course: 77-year-old woman with frequent falls presents after a fall today with head injury and syncope. Work-up normal/negative save incidental findings. I did email her physician noting that she is having frequent falls and has been here with increasing frequency for fall related injuries. C-collar removed approximately 1:30 PM after results of CT of the C-spine. We did discuss the incidental finding of the thyroid nodule with further work-up recommended and I did write an email to her primary care physician, Dr. Bennett Storey about this and her frequent falls. Subsequently she was complaining of vertigo and requested a meclizine, the vertigo is chronic for her. Departure - Departure Disposition: 01 Home, Self Care Clinical Impression: Fall Qualifiers: Encounter type: initial encounter Qualified Code(s): W19.XXXA - Unspecified fall, initial encounter Head injury Qualifiers: Encounter type: initial encounter Qualified Code(s): S09.90XA - Unspecified injury of head, initial encounter Condition: Good Record reviewed to determine appropriate education?: Yes Instructions: Falls Change Living Space, ED Mechanical Fall, ED Head Injury Closed Comments: I have emailed Dr. Storey since you are having such frequent falls, you may benefit from referral to neurology or other work-up for that. On the CAT scan of your neck you did have "Heterogeneous thyroid, with a 1.5 cm left thyroid nodule. Recommend nonemergent thyroid ultrasound, if not performed in the past." Please discuss this with your doctor, next available appointment. Forms: PCP List Discharge Date/Time: 06/04/23 15:58
[2023-06-04 12:35] VITALS: BP 126/86; O2SAT 97
--- NOTE | 2023-06-04 12:53 | XRAY Report ---
PROCEDURE: Chest 1 View X-Ray INDICATIONS: syncope TECHNIQUE: One view of the chest was acquired. COMPARISON: Chest x-ray 05/05/2023 FINDINGS: Surgical changes and devices: 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 clips. Lungs and pleura: Mild interstitial prominence. Mediastinum: Mediastinal contours appear normal. Heart size is mildly enlarged. Bones and chest wall: No suspicious bony lesions. Overlying soft tissues appear unremarkable. IMPRESSION: Mild interstitial prominence possibly related to edema. Reviewed by: Leta Adair MD on 06/04/2023 12:52 PM PDT Approved by: Leta Adair MD on 06/04/2023 12:52 PM PDT Station ID: [id number]
[2023-06-04 13:19] LABS: BASOPHILS # (AUTO) 0.1 10^3/uL (0.0-0.1); BASOPHILS % (AUTO) 0.8 %; EOSINOPHILS # (AUTO) 0.1 10^3/uL (0.0-0.7); HCT - HEMATOCRIT 43.1 % (37.0-47.0); HGB - HEMOGLOBIN 13.9 g/dL (12.0-16.0); LYMPHOCYTES # (AUTO) 2.1 10^3/uL (1.5-3.5); LYMPHOCYTES % (AUTO) 33.5 %; MEAN CORPUSCULAR HEMOGLOBIN 31.8 pg (27.0-31.0); MEAN CORPUSCULAR HGB CONC 32.3 g/dL (32.0-36.0); MEAN CORPUSCULAR VOLUME 98.6 fL (81.0-99.0); MEAN PLATELET VOLUME 8.6 fL (7.9-10.8); MONOCYTES # (AUTO) 0.7 10^3/uL (0.0-1.0); MONOCYTES % (AUTO) 10.8 %; NEUTROPHILS # (AUTO) 3.4 10^3/uL (1.5-6.6); NEUTROPHILS % (AUTO) 53.6 %; PLT - PLATELET COUNT 215 10^3/uL (130-450); RED BLOOD COUNT 4.37 10^6/uL (4.20-5.40); RED CELL DISTRIBUTION WIDTH 13.2 % (12.0-15.0); WHITE BLOOD COUNT 6.3 x10^3/uL (4.8-10.8)
--- NOTE | 2023-06-04 13:22 | CT Report ---
PROCEDURE: CERVICAL SPINE WO INDICATIONS: head inj TECHNIQUE: Noncontrast 3 mm thick sections acquired from the skull base to the T4 level. Sagittal and coronal r eformats were then constructed. For radiation dose reduction, the following was used: automated exp osure control, adjustment of mA and/or kV according to patient size. COMPARISON: None. FINDINGS: Image quality: Excellent. Bones: No fractures or dislocations. Visualized superior ribs are intact. Moderate disc height los s at C6-7. Mild disc height loss at remaining levels. Multilevel facet arthrosis, most prominent wilfredo g the left side of C4-5. Soft tissues: Prevertebral soft tissues are normal in thickness. No paravertebral hematomas. No ap ical pneumothoraces. Heterogeneous attenuation of the thyroid, with a 1.5 cm nodule present on the l eft. IMPRESSION: No acute, displaced fracture or traumatic subluxation. Heterogeneous thyroid, with a 1.5 cm left thyroid nodule. Recommend nonemergent thyroid ultrasound, i f not performed in the past. Reviewed by: Uri Walker on 06/04/2023 1:20 PM PDT Approved by: Uri Walker on 06/04/2023 1:20 PM PDT Station ID: [id number]
--- OUTSIDE RECORDS SUMMARY | 2023-06-04 13:23 | EXTERNAL MEDICAL SUMMARY RPT | Continuity of Care Document ---
Author Name Unknown Address [address] [place] [address] Phone Organization Holder Address [address] [place] [address] Phone Problems date description facility 2023-04-15 17:21 [facility]
--- NOTE | 2023-06-04 13:26 | CT Report ---
PROCEDURE: HEAD WO INDICATIONS: head inj TECHNIQUE: Noncontrast 4.5 mm thick angled axial sections acquired from the foramen magnum to the vertex. For r adiation dose reduction, the following was used: automated exposure control, adjustment of mA and/or kV according to patient size. COMPARISON: None. FINDINGS: Image quality: Excellent. CSF spaces: Basal cisterns are patent. No extra-axial fluid collections. Ventricles are normal in size and shape. Brain: No midline shift. No intracranial masses or hemorrhage. [place]-white matter interface is norm al. Leukoaraiosis, commonly caused by chronic small vessel ischemic disease. Age-related volume loss . Skull and face: Calvarium and visualized facial bones are intact, without suspicious lesions. Simil ar appearance of the left globe, with hyperattenuating material present. Sinuses: Visualized sinuses and mastoids are clear. IMPRESSION: No acute intracranial pathology. Similar appearance of the left globe, with hyperattenuating material present. Differential includes p rior surgery or rupture, less likely malignancy such as melanoma. Reviewed by: Uri Walker on 06/04/2023 1:24 PM PDT Approved by: Uri Walker on 06/04/2023 1:24 PM PDT Station ID: [id number]
[2023-06-04] MEDS ORDERED: oxyCODONE 5 MG TABLET PO STA (13:30)
[2023-06-04 13:33] LABS: CALCIUM 9.8 mg/dL (8.5-10.3); CREATININE 0.9 mg/dL (0.6-1.3); POTASSIUM 3.3 mmol/L (3.5-4.5)
[2023-06-04] MEDS ORDERED: MECLIZINE 12.5 MG TABLET PO STA (14:31)
== END 2023-06-04 15:58 | disposition home or self-care (01) ==
LOC: EDUNIT# → ED 12:25
DX: S09.90XA Unspecified injury of head, initial encounter (principal); W18.30XA Fall on same level, unspecified, initial encounter; Y92.000 Kitchen of unspecified non-institutional (private) residence as the place of occurrence of the external cause; I48.91 Unspecified atrial fibrillation; I10 Essential (primary) hypertension; Z91.81 History of falling; Z86.718 Personal history of other venous thrombosis and embolism
CPT/HCPCS: 36415; 70450; 71045; 72125; 80048; 85025; 93005; 96374; 99284; A9270; J1170

== ENCOUNTER 2023-06-05 15:32 | Outpatient (CLI) | payer MEDICARE | END 2023-06-05 23:59 | disposition left against medical advice (07) | LOC: EMS 15:32 | DX: R11.2 Nausea with vomiting, unspecified (principal); R53.1 Weakness ==

== ENCOUNTER 2023-06-09 16:31 | Outpatient (CLI) | payer MEDICARE | END 2023-06-09 16:32 | disposition EMS.NT | LOC: EMS 16:31 | DX: Z03.89 Encounter for observation for other suspected diseases and conditions ruled out (principal) ==

== ENCOUNTER 2023-06-11 09:24 | Outpatient (CLI) | payer MEDICARE | END 2023-06-11 09:25 | disposition EMS.NT | LOC: EMS 09:24 | DX: Z03.89 Encounter for observation for other suspected diseases and conditions ruled out (principal) ==

== ENCOUNTER 2023-06-13 15:31 | Outpatient (CLI) | payer MEDICARE | END 2023-06-13 23:59 | disposition EMS.NT | LOC: EMS 15:31 | DX: R42 Dizziness and giddiness (principal) ==

== ENCOUNTER 2023-07-02 03:54 | Outpatient (CLI) | payer MEDICARE | END 2023-07-02 23:59 | disposition critical access hospital (66) | LOC: EMS 03:54 | DX: R53.1 Weakness (principal); R42 Dizziness and giddiness; M54.6 Pain in thoracic spine; R41.0 Disorientation, unspecified; W18.39XA Other fall on same level, initial encounter; Y92.039 Unspecified place in apartment as the place of occurrence of the external cause; R21 Rash and other nonspecific skin eruption | CPT/HCPCS: A0425; A0429 ==

== ENCOUNTER 2023-07-02 04:13 | Emergency (ER) | payer MEDICARE ==
[2023-07-02] MEDS ORDERED: SODIUM CHLORIDE 0.9% 1,000 ML IV STA (04:30)
--- NOTE | 2023-07-02 04:39 | ED Physician Documentation ---
History of Present Illness - Stated complaint Stated Complaint: GLF - Chief complaint Chief Complaint: General - History obtained from History obtained from: Patient, EMS - Additonal information Additional information: The patient is brought to the emergency department by EMS for chief complaint of ground-level fall and "I need help at home". The patient lives by herself in an apartment and normally gets around with a walker. She states that she has had chronic vertigo for the last 4 to 6 months and that she has been taking meclizine every 6 hours every day and it does not seem to do any good. She states that her vertigo seems worse when she gets up and around and that at some point over the last day or 2, she went down to get her mail and on her way back up to her apartment, began to feel as though she was getting generally weak. She also felt as though her vertigo was kicking in. She states she tried to speed up and get back to her apartment as quickly as she could but she got incr easingly weak until upon coming in the apartment door, she began to stumble forward. She states that she stumbled into a bookcase and then fell forward onto the floor. She does not think she hit her head, but mainly, her chest upon impact. She denies any chest pain. No difficulty breathing. She did not lose consciousness. No neck pain or back pain that is new. No hip or pelvic pain. The patient states that she stayed on the floor trying to rest so she can get up the strength to get herself back in bed, but after some hours, she felt as though it was taking too long for her to feel strong enough to get it back in the bed, so she used her call button to call 911. The patient is clear on exactly what time she fell. She states she has had multiple falls and usually calls EMS to help her get up but declines transport. However, when she called this time, she decided to accept transport to the ED because she feels like she is having increasing trouble at home and its not working very well the way it is. The patient states that she used to have home health came and assisted her, but that they did not get along with each other and that she thinks about 2 months ago, they stopped coming. The patient states that she has just been mainly at home and that her daughter pays for meal delivery service for her. Her daughter does live in [place]. The patient states she sees Dr. Bennett Storey and was supposed to see him within the last couple of days, but because of the fall, did not make it to her appointment to address the ongoing vertigo and generalized weakness, as well as the social issues. 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 ODD: Hysterectomy HEENT: Tonsil/Adenoidectomy Derm: Skin cancer surgery - Present Medications Home Medications: Ambulatory Orders Medication Instructions Recorded Confirmed Venlafaxine ER [Effexor ER] 2 tab PO DAILY 04/30/13 12/13/22 Topiramate [Topamax] 200 mg PO QPM 11/24/15 12/13/22 Aspirin [Aspirin EC] 81 mg PO DAILY 12/26/18 12/13/22 Calcium Carbonate [[id number]] 500 mg PO BID 12/26/18 12/13/22 Cholecalciferol (Vitamin D3) 2,000 unit PO DAILY PM 12/26/18 12/13/22 [Vitamin D] Esomeprazole Magnesium 40 mg PO DAILY 12/26/18 12/13/22 Magnesium Oxide [Magnesium] 500 mg PO DAILY 12/26/18 12/13/22 Metoprolol Tartrate 12.5 mg PO BID 12/26/18 12/13/22 Multivitamin [Multiple Vitamins] 1 each PO DAILY 12/26/18 12/13/22 [place]-3S/Dha/Epa/Fish Oil [Fish 1 each PO DAILY 12/26/18 12/13/22 Oil 1,200 mg Softgel] Trazodone HCl 300 mg PO DAILY PM 12/26/18 12/13/22 Vitamin E (Dl,Tocopheryl Acet) 2,000 unit PO DAILY PM 01/25/21 12/13/22 [Vitamin E] polyethylene glycoL 3350 [Miralax] 17 gm PO DAILY PRN #14 packet 12/13/22 Meclizine HCl [Motion Sickness] 25 mg PO Q6H PRN #25 tablet 03/17/23 dexAMETHasone [Decadron] 4 mg PO DAILY #5 tablet 03/17/23 Meclizine HCl [Motion Sickness] 25 mg PO Q6H PRN #30 tablet 05/30/23 Meclizine HCl [Motion Sickness] 25 mg PO Q6H PRN #20 tablet 06/23/23 - Allergies Allergies/Adverse Reactions: Allergies Allergy/AdvReac Type Severity Reaction Status Date / Time lithium [[place]] Allergy Severe Edema Verified 07/02/23 04:21 tetracycline [Tetracycline] Allergy Severe Hives Verified 07/02/23 04:21 acetaminophen [From Fioricet] Allergy Hives Verified 07/02/23 04:21 caffeine [From Fioricet] Allergy Hives Verified 07/02/23 04:21 gabapentin Allergy Edema Verified 07/02/23 04:21 butalbital [From Fioricet] AdvReac Severe Dizziness Verified 07/02/23 04:21 - Social History Does the pt smoke?: No Smoking Status: Never smoker Does the pt drink ETOH?: No Does the pt have substance abuse?: No - Immunizations Immunizations are current?: No - POLST Patient has POLST: No PD ED PE NORMAL - Vitals Vital signs reviewed: Yes - General General: Alert and oriented X 3, No acute distress, Well developed/nourished - HEENT HEENT: Atraumatic, PERRL, EOMI, Moist mucous membranes - Neck Neck: Supple, no meningeal sign - Cardiac Cardiac: RRR, No murmur - Respiratory Respiratory: No respiratory distress, Clear bilaterally - Abdomen Abdomen: Soft, Non tender, Non distended - Derm Derm: Normal color, Warm and dry, No rash - Extremities Extremities: No deformity, Other (Pain with movement of left hip and tenderness palpation over left groin/inguinal areaNo shortening or rotation of the left lower extremity compared to the right.) - Neuro Neuro: brush maker 2-12 intact, No motor deficit, No sensory deficit, Other (The patient is alert and answers questions appropriately. She is oriented but seems confused as to timelines of recent events.) - Psych Psych: Normal mood, Normal affect Results - Vitals Vitals: Vital Signs - 24 hr 07/02/23 07/02/23 07/02/23 04:17 04:21 06:35 Temperature 36.6 C Heart Rate 81 84 Respiratory 18 18 Rate Blood Pressure 143/82 H 142/79 H O2 Saturation 99 98 97 Oxygen O2 Source Room air - EKG (time done) 0425 EKG releavant findings:: EKG personally interpreted by author of this note. Relevant findings are: Rate: Rate (enter#) (80) Rhythm: NSR [place]: Normal Intervals: Normal [place] QRS: Normal Ischemia: Normal ST segments Compare to prior EKG: Old EKG unavailable Computer interpretation: Agree with computer - Labs Labs: Laboratory Tests 07/02/23 07/02/23 07/02/23 05:32 05:32 06:34 WBC 6.3 RBC 4.26 Hgb 13.7 Hct 43.3 MCV 101.6 H MCH 32.2 H MCHC 31.6 L RDW 13.2 Plt Count 169 MPV 10.3 Neut # (Auto) 3.7 Lymph # (Auto) 1.5 [place] # (Auto) 0.8 Eos # (Auto) 0.2 Baso # (Auto) 0.1 Absolute Nucleated RBC 0.00 Nucleated RBC % 0.0 Platelet Estimate NORMAL (130-450,000) Sodium 139 Potassium 4.2 Chloride 111 Carbon Dioxide 23 Anion Gap 5.0 L BUN 23 H Creatinine 1.0 Estimated GFR (MDRD) 53 L Glucose 102 Calcium 9.2 Total Bilirubin 0.3 AST 17 ALT 7 L Alkaline Phosphatase 79 Total Creatine Kinase 49 Total Protein 6.1 L Albumin 3.7 Globulin 2.4 Albumin/Globulin Ratio 1.5 Lipase 17 Urine Color YELLOW Urine Clarity CLEAR Urine pH 6.0 Ur Specific [place] 1.010 Urine Protein NEGATIVE Urine Glucose (UA) NEGATIVE Urine Ketones NEGATIVE Urine Occult Blood NEGATIVE Urine Nitrite NEGATIVE Urine Bilirubin NEGATIVE Urine Urobilinogen 0.2 (NORMAL) Ur Leukocyte Esterase NEGATIVE Ur Microscopic Review NOT INDICATED Urine Culture Comments NOT INDICATED - Rads (name of study) Head CT Relevant Findings:: Final report received, See rad report (Negative for acute findings) CT left hip Relevant Findings:: Final report received, See rad report (Negative other than DJD. No acute findings.) PD Medical Decision Making - ED course Complexity details: reviewed results, re-evaluated patient, considered differential, d/w patient ED course: The patient was given IV fluids and worked up with labs, EKG, urinalysis, and CTs of the head and the left hip. The CT of the head was done specifically because the patient could not be entirely clear about the nature of her fall, and because the patient has had per her report persistent vertigo for 6 months straight. Her work-up was unremarkable. The patient stable in the ED and I did order a social work consult to address the issue she is having at home with caring for herself and to see if home health assistance could be restarted. Patient will be signed out to my oncoming colleague at change of shift, pending social work consult and final disposition. Departure - Departure Forms: PCP List
--- OUTSIDE RECORDS SUMMARY | 2023-07-02 04:48 | EXTERNAL MEDICAL SUMMARY RPT | Continuity of Care Document ---
Author Name Unknown Address [address] [place] [address] Phone Organization [place] Address [address] [place] [address] Phone Problems date description facility 2023-04-15 17:21 [facility] Social History date description facility
[2023-07-02 05:40] LABS: BASOPHILS # (AUTO) 0.1 10^3/uL (0.0-0.1); BASOPHILS % (AUTO) 0.8 %; EOSINOPHILS # (AUTO) 0.2 10^3/uL (0.0-0.7); EOSINOPHILS % (AUTO) 3.2 %; HCT - HEMATOCRIT 43.3 % (37.0-47.0); HGB - HEMOGLOBIN 13.7 g/dL (12.0-16.0); LYMPHOCYTES # (AUTO) 1.5 10^3/uL (1.5-3.5); LYMPHOCYTES % (AUTO) 24.1 %; MEAN CORPUSCULAR HEMOGLOBIN 32.2 pg (27.0-31.0); MEAN CORPUSCULAR HGB CONC 31.6 g/dL (32.0-36.0); MEAN CORPUSCULAR VOLUME 101.6 fL (81.0-99.0); MEAN PLATELET VOLUME 10.3 fL (7.9-10.8); MONOCYTES # (AUTO) 0.8 10^3/uL (0.0-1.0); MONOCYTES % (AUTO) 12.9 %; NEUTROPHILS # (AUTO) 3.7 10^3/uL (1.5-6.6); NEUTROPHILS % (AUTO) 58.7 %; PLT - PLATELET COUNT 169 10^3/uL (130-450); RED BLOOD COUNT 4.26 10^6/uL (4.20-5.40); RED CELL DISTRIBUTION WIDTH 13.2 % (12.0-15.0); WHITE BLOOD COUNT 6.3 x10^3/uL (4.8-10.8)
[2023-07-02 05:57] LABS: ALBUMIN 3.7 g/dL (3.2-5.5)
[2023-07-02 05:58] LABS: ALBUMIN/GLOBULIN RATIO 1.5 (1.0-2.2); BILIRUBIN,TOTAL 0.3 mg/dL (0.2-1.0); CALCIUM 9.2 mg/dL (8.5-10.3); POTASSIUM 4.2 mmol/L (3.5-4.5); TOTAL PROTEIN 6.1 g/dL (6.4-8.9)
[2023-07-02 06:01] LABS: PLATELET ESTIMATE, MANUAL NORMAL (130-450,000) (NORMAL)
[2023-07-02 06:41] LABS: BILIRUBIN,URINE NEGATIVE (NEGATIVE); GLUCOSE, URINE (UA) NEGATIVE (NEGATIVE); KETONES,URINE (UA) NEGATIVE (NEGATIVE); LEUKOCYTE ESTERASE, URINE NEGATIVE (NEGATIVE); NITRITE,URINE NEGATIVE (NEGATIVE); OCCULT BLOOD,URINE NEGATIVE (NEGATIVE); PROTEIN,URINE NEGATIVE (NEGATIVE); UROBILINOGEN,URINE 0.2 (NORMAL) E.U./dL (NORMAL)
[2023-07-02 06:42] LABS: CLARITY,URINE CLEAR (CLEAR)
--- NOTE | 2023-07-02 08:00 | CT Report ---
PROCEDURE: HEAD WO INDICATIONS: fall/vertigo TECHNIQUE: Noncontrast 4.5 mm thick angled axial sections acquired from the foramen magnum to the vertex. For r adiation dose reduction, the following was used: automated exposure control, adjustment of mA and/or kV according to patient size. COMPARISON: CT head 06/23/2023 FINDINGS: Image quality: Excellent. CSF spaces: Basal cisterns are patent. No extra-axial fluid collections. Ventricles are normal in size and shape. Brain: No midline shift. No intracranial masses or hemorrhage. Areas of hypoattenuation within the deep and periventricular white matter, nonspecific and likely representing chronic microvascular isch emic change. Age-related global volume loss. Intracranial atherosclerotic vascular calcifications. Gr ay-white matter interface is normal. Skull and face: Calvarium and visualized facial bones are intact, without suspicious lesions. Right lens replacement. Stable appearance of hyperattenuating material in the left globe. Sinuses: Visualized sinuses and mastoids are clear. IMPRESSION: No acute intracranial pathology. Findings are concordant with preliminary interpretation provided by [facility]. Reviewed by: Yanick Herring MD on 07/02/2023 7:59 AM PDT Approved by: Yanick Herring MD on 07/02/2023 7:59 AM PDT Station ID: [id number]
--- NOTE | 2023-07-02 08:08 | CT Report ---
PROCEDURE: LOWER EXTREMITY WO - LT INDICATIONS: fall/L hip pain TECHNIQUE: Noncontrast 3-mm axial sections acquired from the distal tibial shaft to the talar dome, with coronal and sagittal reformats. For radiation dose reduction, the following was used: automated exposure c ontrol, adjustment of mA and/or kV according to patient size. COMPARISON: CT abdomen/pelvis 12/13/2022. Left hip radiographs 11/28/2019 FINDINGS: Image quality: Excellent. Bones: Postsurgical changes are seen from prior pelvic fracture fixations with malleable plate and s crew constructs. An old healed left inferior pubic ramus fracture and a healed left sacral fracture a re also noted. There is generalized osteopenia. No acute fracture is identified. Degenerative changes are seen in the left hip with moderate to severe joint space narrowing, subchondral sclerosis, pao nal osteophyte formation. Soft tissues: No significant joint effusion. The articular cartilages, labrum, ligaments, and tendon s are not well evaluated with standard CT. The musculature surrounding the hip is age-appropriate in bulk. There is moderate stool in the visualized colon. Status post hysterectomy. Included portions of the pelvis demonstrate no acute abnormality. IMPRESSION: 1.No acute osseous abnormality. 2.Postsurgical and posttreatment changes in the left pelvis and left sacrum appears stable. 3.Moderate to severe left hip osteoarthrosis. There is no significant discrepancy when compared with the preliminary overnight report. Reviewed by: Fidel Kat MD on 07/02/2023 8:07 AM PDT Approved by: Fidel Kat MD on 07/02/2023 8:07 AM PDT Station ID: [id number]
--- NOTE | 2023-07-02 13:52 | ED Physician Documentation ---
ED Addendum - Addendum Addendum: 07/02/23 13:48 The patient did not have any particular complaints this morning. She did have some breakfast and has been taking some fluids. Social work saw the patient and talked with her. She also talked with her jewel hole gauger in the community. The patient in actuality still does have a home health aide that comes twice weekly 4 hours. The jewel hole gauger reports they can increase that some. We could also have the home health evaluate the patient with home health nursing, social work, physical therapy to help with balance and strengthening. We did get a OT and PT evaluations here in the ER. Refer to their note for particular areas to work on. Our hospice social worker will be talking with home health to set up the consult and evaluation. I wrote for referral order. The patient is getting Meals on Wheels through her mother who lives out of state. At this point it did not seem the patient or her mother were looking at needing placement immediately. Reportedly the patient's hospice social worker in the community has been looking at assisted living or higher level of care and is still in progress. Disposition: The patient discharged home in stable condition. Diagnoses: 1. Gait disturbance 2. Frequent falling 3. Multiple abrasions
[2023-07-02 13:53] VITALS: O2SAT 97
[2023-07-02 17:06] VITALS: BP 122/74
== END 2023-07-02 14:09 | disposition home or self-care (01) ==
LOC: EDUNIT# → ED 04:13
DX: T14.8XXA Other injury of unspecified body region, initial encounter (principal); W18.39XA Other fall on same level, initial encounter; Z91.81 History of falling; Y93.01 Activity, walking, marching and hiking; Y92.038 Other place in apartment as the place of occurrence of the external cause; R26.9 Unspecified abnormalities of gait and mobility; R29.6 Repeated falls; I10 Essential (primary) hypertension; E78.00 Pure hypercholesterolemia, unspecified; Z79.82 Long term (current) use of aspirin; Z79.899 Other long term (current) drug therapy
CPT/HCPCS: 36415; 70450; 73700; 80053; 81003; 82550; 83690; 85025; 93005; 97116; 97162; 97166; 99283; 99284; G0480; 80320; 81001; 87086

== ENCOUNTER 2023-07-08 12:28 | Outpatient (CLI) | payer MEDICARE | END 2023-07-08 23:59 | disposition critical access hospital (66) | LOC: EMS 12:28 | DX: R41.0 Disorientation, unspecified (principal); R53.1 Weakness; R29.6 Repeated falls; Z74.2 Need for assistance at home and no other household member able to render care | CPT/HCPCS: A0425; A0429 ==

== ENCOUNTER 2023-07-08 12:52 | Emergency (ER) | payer MEDICARE ==
[2023-07-08 13:11] VITALS: BP 133/78; O2SAT 97
--- NOTE | 2023-07-08 13:11 | ED Physician Documentation ---
History of Present Illness - Stated complaint Stated Complaint: FALL - History obtained from History obtained from: Patient, EMS - History of Present Illness Timing: Today Pain level max: 0 Pain level now: 0 - Additonal information Additional information: Patient is a 77-year-old female with no medical complaints today. She had her new home health company come to see her today the home health nurse felt that the patient would require more care and so called 911 to bring her to the hospital for "placement". No other avenues were attempted to find additional care for this patient. Her PCP was not contacted, family was not contacted. Patient states that she "has no money". She has no complaints. No falls, no head injury, no chest pain, no shortness of breath, no fevers or chills. Fully asymptomatic. 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: Hysterectomy HEENT: Tonsil/Adenoidectomy Derm: Skin cancer surgery - Present Medications Home Medications: Ambulatory Orders Medication Instructions Recorded Confirmed Venlafaxine ER [Effexor ER] 2 tab PO DAILY 04/30/13 12/13/22 Topiramate [Topamax] 200 mg PO QPM 11/24/15 12/13/22 Aspirin [Aspirin EC] 81 mg PO DAILY 12/26/18 12/13/22 Calcium Carbonate [Rrmt-[id number]-352] 500 mg PO BID 12/26/18 12/13/22 Cholecalciferol (Vitamin D3) 2,000 unit PO DAILY PM 12/26/18 12/13/22 [Vitamin D] Esomeprazole Magnesium 40 mg PO DAILY 12/26/18 12/13/22 Magnesium Oxide [Magnesium] 500 mg PO DAILY 12/26/18 12/13/22 Metoprolol Tartrate 12.5 mg PO BID 12/26/18 12/13/22 Multivitamin [Multiple Vitamins] 1 each PO DAILY 12/26/18 12/13/22 [place]-3S/Dha/Epa/Fish Oil [Fish 1 each PO DAILY 12/26/18 12/13/22 Oil 1,200 mg Softgel] Trazodone HCl 300 mg PO DAILY PM 12/26/18 12/13/22 Vitamin E (Dl,Tocopheryl Acet) 2,000 unit PO DAILY PM 01/25/21 12/13/22 [Vitamin E] polyethylene glycoL 3350 [Miralax] 17 gm PO DAILY PRN #14 packet 12/13/22 Meclizine HCl [Motion Sickness] 25 mg PO Q6H PRN #25 tablet 03/17/23 dexAMETHasone [Decadron] 4 mg PO DAILY #5 tablet 03/17/23 Meclizine HCl [Motion Sickness] 25 mg PO Q6H PRN #30 tablet 05/30/23 Meclizine HCl [Motion Sickness] 25 mg PO Q6H PRN #20 tablet 06/23/23 - Allergies Allergies/Adverse Reactions: Allergies Allergy/AdvReac Type Severity Reaction Status Date / Time lithium [[place]] Allergy Severe Edema Verified 07/02/23 04:21 tetracycline [Tetracycline] Allergy Severe Hives Verified 07/02/23 04:21 acetaminophen [From Fioricet] Allergy Hives Verified 07/02/23 04:21 caffeine [From Fioricet] Allergy Hives Verified 07/02/23 04:21 gabapentin Allergy Edema Verified 07/02/23 04:21 butalbital [From Fioricet] AdvReac Severe Dizziness Verified 07/02/23 04:21 - Social History Does the pt smoke?: No Smoking Status: Never smoker Does the pt drink ETOH?: No Does the pt have substance abuse?: No - Immunizations Immunizations are current?: No - POLST Patient has POLST: No PD ED PE NORMAL - Vitals Vital signs reviewed: Yes - General General: Alert and oriented X 3, No acute distress - HEENT HEENT: Moist mucous membranes - Neck Neck: Supple, no meningeal sign - Cardiac Cardiac: RRR - Respiratory Respiratory: No respiratory distress, Clear bilaterally - Abdomen Abdomen: Soft, Non tender, Non distended - Derm Derm: Warm and dry - Extremities Extremities: No edema, No calf tenderness / cord - Neuro Neuro: Alert and oriented X 3 - Psych Psych: Normal mood, Normal affect Results - Vitals Vitals: Vital Signs - 24 hr 07/08/23 12:58 Temperature 36.5 C Heart Rate 92 Respiratory 18 Rate Blood Pressure 133/78 H O2 Saturation 97 Oxygen O2 Source Room air - Labs Labs: Laboratory Tests 07/08/23 07/08/23 07/08/23 13:10 13:10 14:31 WBC 4.7 L RBC 4.37 Hgb 13.7 Hct 43.8 MCV 100.2 H MCH 31.4 H MCHC 31.3 L RDW 12.7 Plt Count 243 MPV 8.2 Neut # (Auto) 2.9 Lymph # (Auto) 1.2 L [place] # (Auto) 0.5 Eos # (Auto) 0.1 Baso # (Auto) 0.0 Absolute Nucleated RBC 0.00 Nucleated RBC % 0.0 Sodium 141 Potassium 3.8 Chloride 109 Carbon Dioxide 27 Anion Gap 5.0 L BUN 16 Creatinine 0.9 Estimated GFR (MDRD) 60 L Glucose 92 Calcium 9.5 Total Bilirubin 0.4 AST 11 ALT 8 L Alkaline Phosphatase 82 Total Protein 5.9 L Albumin 3.8 Globulin 2.1 Albumin/Globulin Ratio 1.8 Lipase 12 SARS-CoV-2 (PCR) NOT DETECTED PD Medical Decision Making - ED course Complexity details: reviewed results, re-evaluated patient, considered differential, d/w patient, d/w it solutions sales consultant ED course: No emergency medical condition at this time. Discussed the case with social work who came and evaluated the patient. The patient does not want to go to a assisted or rehab facility. Patient states that she wants to go home. A caregiver agency will come and meet with her tomorrow per social work. Patient is ambulating without any difficulty and without any assistance throughout the emergency department. Tolerating p.o. without difficulty. Patient counseled regarding signs and symptoms for which I believe and urgent re-evaluation would be necessary. Patient with good understanding of and agreement to plan and is comfortable going home at this time This document was made in part using voice recognition software. While efforts are made to proofread this document, sound alike and grammatical errors may occur. Departure - Departure Disposition: Home, Self Care Clinical Impression: Encounter for medical screening examination Condition: Good Instructions: ED Screening Exam Medical Nonurgent Follow-Up: your,doctor in 1 week [Other] Comments: Please follow-up with your doctor for further care. Please continue your home health services at home. You can discuss assisted living or assisted placement with your primary care provider.
[2023-07-08 13:15] LABS: BASOPHILS % (AUTO) 0.6 %; EOSINOPHILS # (AUTO) 0.1 10^3/uL (0.0-0.7); EOSINOPHILS % (AUTO) 1.7 %; HCT - HEMATOCRIT 43.8 % (37.0-47.0); HGB - HEMOGLOBIN 13.7 g/dL (12.0-16.0); LYMPHOCYTES # (AUTO) 1.2 10^3/uL (1.5-3.5); LYMPHOCYTES % (AUTO) 25.3 %; MEAN CORPUSCULAR HEMOGLOBIN 31.4 pg (27.0-31.0); MEAN CORPUSCULAR HGB CONC 31.3 g/dL (32.0-36.0); MEAN CORPUSCULAR VOLUME 100.2 fL (81.0-99.0); MEAN PLATELET VOLUME 8.2 fL (7.9-10.8); MONOCYTES # (AUTO) 0.5 10^3/uL (0.0-1.0); NEUTROPHILS # (AUTO) 2.9 10^3/uL (1.5-6.6); NEUTROPHILS % (AUTO) 61.2 %; PLT - PLATELET COUNT 243 10^3/uL (130-450); RED BLOOD COUNT 4.37 10^6/uL (4.20-5.40); RED CELL DISTRIBUTION WIDTH 12.7 % (12.0-15.0); WHITE BLOOD COUNT 4.7 x10^3/uL (4.8-10.8)
--- OUTSIDE RECORDS SUMMARY | 2023-07-08 13:26 | EXTERNAL MEDICAL SUMMARY RPT | Continuity of Care Document ---
Author Name Unknown Address [address] [place] [address] Phone Organization [facility] Address [address] [place] [address] Phone Problems date description facility 2023-04-15 17:21 [facility] Social History date description facility
[2023-07-08 13:31] LABS: ALBUMIN 3.8 g/dL (3.2-5.5); ALBUMIN/GLOBULIN RATIO 1.8 (1.0-2.2); BILIRUBIN,TOTAL 0.4 mg/dL (0.2-1.0); CALCIUM 9.5 mg/dL (8.5-10.3); CREATININE 0.9 mg/dL (0.6-1.3); POTASSIUM 3.8 mmol/L (3.5-4.5); TOTAL PROTEIN 5.9 g/dL (6.4-8.9)
== END 2023-07-08 16:50 | disposition home or self-care (01) ==
LOC: EDUNIT# → ED 12:52
DX: Z02.89 Encounter for other administrative examinations (principal); I10 Essential (primary) hypertension; Z20.822 Contact with and (suspected) exposure to COVID-19
CPT/HCPCS: 36415; 80053; 83690; 85025; 87635; 99282; 99283

== ENCOUNTER 2023-07-11 00:31 | Outpatient (CLI) | payer MEDICARE | END 2023-07-11 23:59 | disposition EMS.NT | LOC: EMS 00:31 | DX: R53.83 Other fatigue (principal) ==

== ENCOUNTER 2023-07-14 12:41 | Outpatient (CLI) | payer MEDICARE | END 2023-07-14 12:42 | disposition critical access hospital (66) | LOC: EMS 12:41 | DX: M54.50 Low back pain, unspecified (principal); R42 Dizziness and giddiness; W18.30XA Fall on same level, unspecified, initial encounter; Y92.038 Other place in apartment as the place of occurrence of the external cause | CPT/HCPCS: A0425; A0429 ==

== ENCOUNTER 2023-07-14 13:01 | Emergency (ER) | payer MEDICARE ==
--- NOTE | 2023-07-14 13:17 | ED Physician Documentation ---
PD HPI Fall - Stated complaint Stated Complaint: GLF - History obtained from History obtained from: Patient, EMS - History of Present Illness Mechanism of injury: Lost balance, Unknown Fall distance: Standing position (she was going to her front door to open it for the [employer] delivery and she had onset of lumbar pain sharp and acute as she turned sideways with opening the door. Caused her to go to the ground but pain onset was while still standing. Hurts with ROM.) Where injury occurred: Home Timing - onset: Today Injury(ies) location: Back. No: Head, Neck Associated symptoms: No: LOC, AMS, Weakness, Paresthesias Worsens with: Movement Contributing factors: No: Anticoagulated Similar symptoms before: Has not had sx before Review of Systems Constitutional: denies: Fever, Chills Nose: denies: Rhinorrhea / runny nose, Congestion Throat: denies: Sore throat Respiratory: denies: Cough GI: denies: Abdominal Pain, Vomiting, Diarrhea Skin: denies: Rash, Lesions Neurologic: denies: Altered mental status, Headache, Head injury 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, 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 HEENT: Tonsil/Adenoidectomy Derm: Skin cancer surgery - Present Medications Home Medications: Ambulatory Orders Medication Instructions Recorded Confirmed Venlafaxine ER [Effexor ER] 2 tab PO DAILY 04/30/13 12/13/22 Topiramate [Topamax] 200 mg PO QPM 11/24/15 12/13/22 Aspirin [Aspirin EC] 81 mg PO DAILY 12/26/18 12/13/22 Calcium Carbonate [[id number]-[id number]] 500 mg PO BID 12/26/18 12/13/22 Cholecalciferol (Vitamin D3) 2,000 unit PO DAILY PM 12/26/18 12/13/22 [Vitamin D] Esomeprazole Magnesium 40 mg PO DAILY 12/26/18 12/13/22 Magnesium Oxide [Magnesium] 500 mg PO DAILY 12/26/18 12/13/22 Metoprolol Tartrate 12.5 mg PO BID 12/26/18 12/13/22 Multivitamin [Multiple Vitamins] 1 each PO DAILY 12/26/18 12/13/22 [place]-3S/Dha/Epa/Fish Oil [Fish 1 each PO DAILY 12/26/18 12/13/22 Oil 1,200 mg Softgel] Trazodone HCl 300 mg PO DAILY PM 12/26/18 12/13/22 Vitamin E (Dl,Tocopheryl Acet) 2,000 unit PO DAILY PM 01/25/21 12/13/22 [Vitamin E] polyethylene glycoL 3350 [Miralax] 17 gm PO DAILY PRN #14 packet 12/13/22 Meclizine HCl [Motion Sickness] 25 mg PO Q6H PRN #25 tablet 03/17/23 dexAMETHasone [Decadron] 4 mg PO DAILY #5 tablet 03/17/23 Meclizine HCl [Motion Sickness] 25 mg PO Q6H PRN #30 tablet 05/30/23 Meclizine HCl [Motion Sickness] 25 mg PO Q6H PRN #20 tablet 06/23/23 Calcitonin [Fortical] 1 sprays CAROLANN DAILY #1 each 07/14/23 Docusate Sodium 100Mg Capsule 100 mg PO DAILY #15 cap 07/14/23 [Colace 100Mg Capsule] Meloxicam [Mobic] 7.5 mg PO BID 10 Days #20 tablet 07/14/23 oxyCODONE [Roxicodone] 5 mg PO Q6H PRN #20 tablet 07/14/23 - Allergies Allergies/Adverse Reactions: Allergies Allergy/AdvReac Type Severity Reaction Status Date / Time lithium [[place]] Allergy Severe Edema Verified 07/02/23 04:21 tetracycline [Tetracycline] Allergy Severe Hives Verified 07/02/23 04:21 acetaminophen [From Fioricet] Allergy Hives Verified 07/02/23 04:21 caffeine [From Fioricet] Allergy Hives Verified 07/02/23 04:21 gabapentin Allergy Edema Verified 07/02/23 04:21 butalbital [From Fioricet] AdvReac Severe Dizziness Verified 07/02/23 04:21 - Social History Does the pt smoke?: No Smoking Status: Never smoker Does the pt drink ETOH?: No Does the pt have substance abuse?: No - Immunizations Immunizations are current?: No - POLST Patient has POLST: No PD ED PE NORMAL - Vitals Vital signs reviewed: Yes - General General: Alert and oriented X 3, Well developed/nourished, Other (appears in pain with ROM of the low back. Guarding movement. ) - HEENT HEENT: Atraumatic - Neck Neck: Supple, no meningeal sign, No bony TTP - Abdomen Abdomen: Soft, Non tender - Back Back: Other (she has tenderness to percussion in upper lumbar area. Some tender in muscles as well adjacent to spine. ) - Derm Derm: Normal color, Warm and dry - Extremities Extremities: No edema, No calf tenderness / cord - Neuro Neuro: Alert and oriented X 3, No motor deficit, No sensory deficit, Normal speech Results - Vitals Vitals: Oxygen O2 Source Room air - Labs Labs: Laboratory Tests 07/14/23 07/14/23 14:26 14:26 WBC 8.0 RBC 4.44 Hgb 14.0 Hct 43.6 MCV 98.2 MCH 31.5 H MCHC 32.1 RDW 12.9 Plt Count 237 MPV 8.4 Neut # (Auto) 6.2 Lymph # (Auto) 1.0 L [place] # (Auto) 0.7 Eos # (Auto) 0.1 Baso # (Auto) 0.0 Absolute Nucleated RBC 0.00 Nucleated RBC % 0.0 Sodium 140 Potassium 3.8 Chloride 111 Carbon Dioxide 24 Anion Gap 5.0 L BUN 14 Creatinine 1.0 Estimated GFR (MDRD) 53 L Glucose 98 Calcium 9.3 Total Bilirubin 0.3 AST 14 ALT 9 L Alkaline Phosphatase 74 Total Protein 5.8 L Albumin 3.8 Globulin 2.0 L Albumin/Globulin Ratio 1.9 Lipase 18 - Rads (name of study) abd/pelvic CT Relevant Findings:: Prelim report reviewed (L1 anterior endplate compression fracture. ), EMP independent interpretation of test PD Medical Decision Making - ED course Complexity details: reviewed results (Report is of small endplate deformity L1 most likely acute fracture. No posterior elements. ), re-evaluated patient, considered differential (abrupt onset marked lumbar pain with just twisting. No impact. But has ab rupt pain and given age, would be concerned for bony process in addition to muscular. Can get CT scan. Does not have nerve root symptoms, so I do not feel MRI needed at this time. Getting CT ab/pel to eval abd/vasc too), d/w patient Reviewed Lab Results: I discussed the finding swith the patient and showed printout of an image showing the defromity and relatively small size of it. Does not need intervention, but treating the symptoms. Discussed expected time course of 4 weeks. Drug Therapy Requiring Monitoring for Toxicity: given toradol and hydromorphone IV to help with the pain. Pt monitored for alertness and vitals without any problems from the meds. Departure - Departure Disposition: 01 Home, Self Care Clinical Impression: Acute lumbar back pain, Lumbar compression fracture Condition: Stable Record reviewed to determine appropriate education?: Yes Instructions: ED Fx Comp Vertebral Prescriptions: Docusate Sodium 100Mg Capsule [Colace 100Mg Capsule] 100 mg PO DAILY #15 cap Calcitonin [Fortical] 1 sprays CAROLANN DAILY #1 each Meloxicam [Mobic] 7.5 mg PO BID 10 Days #20 tablet oxyCODONE [Roxicodone] 5 mg PO Q6H PRN #20 tablet PRN Reason: Pain Comments: Your CT scan does not show any intra-abdominal abnormality or process. On the spine there is an area at the first lumbar vertebra of a possible acute com pression fracture as we discussed and on the picture I showed you. The degree of bony injury is small and minor so it should heal up okay but is still hurts a lot with movement and use. Typically will treat with a combination of anti-inflammatories as well as limitation on movement bending lifting etc. To that add calcitonin nasal spray to help with firming of the bone a little faster. To that add Tylenol if you are able 500 to 650 mg 4 times daily. It looks like you have acetaminophen listed as an allergy and if that is true then skip that part. Add oxycodone every 6-8 hours if needed for pain with the intention being in the short-term for this. Add a stool softener to ensure not getting constipated with the medications. Activity as tolerated. Follow-up with your primary care later this week or early next week, call for an appointment. I sent your prescription to [facility] pharmacy. I am prescribing a short course of narcotic pain medication for you. These are potentially dangerous and addictive medications that should be used carefully. These medications may constipate you. Take an wska-[id number]-[id number] stool softener such as docusate twice daily with plenty of water while taking these medications. If you go 24 hours without a bowel movement, take [id number]-cpt-[id number] MiraLAX, per package instructions. Do not drink or drive while taking these medications. If you received narcotic or sedating medications while in the emergency department do not drive for 24 hours. Store this medication in a safe, secure place and out of reach of children. It is a violation of federal law to give or sell this medication to another person or to use in a manner other than prescribed. The ED will not refill narcotic prescriptions, including prescriptions lost or stolen. You can dispose of unwanted medications at the [facility]'s office or at several pharmacies such as [facility]. Forms: PCP List Discharge Date/Time: 07/14/23 19:15
[2023-07-14] MEDS ORDERED: KETOROLAC 15 MG/ML VIAL IVP STA (13:20)
[2023-07-14] MEDS ORDERED: HYDROmorphone 0.5 MG/0.5 ML SYRINGE IVP STA (13:20)
[2023-07-14 13:21] VITALS: BP 118/66; O2SAT 97
--- OUTSIDE RECORDS SUMMARY | 2023-07-14 13:56 | EXTERNAL MEDICAL SUMMARY RPT | Continuity of Care Document ---
Author Name Unknown Address [address] [place] [address] Phone Organization [facility] Address [address] [place] [address] Phone Problems date description facility 2023-04-15 17:21 [facility] Social History date description facility
[2023-07-14 14:32] LABS: BASOPHILS % (AUTO) 0.5 %; EOSINOPHILS # (AUTO) 0.1 10^3/uL (0.0-0.7); HCT - HEMATOCRIT 43.6 % (37.0-47.0); LYMPHOCYTES % (AUTO) 12.9 %; MEAN CORPUSCULAR HEMOGLOBIN 31.5 pg (27.0-31.0); MEAN CORPUSCULAR HGB CONC 32.1 g/dL (32.0-36.0); MEAN CORPUSCULAR VOLUME 98.2 fL (81.0-99.0); MEAN PLATELET VOLUME 8.4 fL (7.9-10.8); MONOCYTES # (AUTO) 0.7 10^3/uL (0.0-1.0); MONOCYTES % (AUTO) 8.1 %; NEUTROPHILS # (AUTO) 6.2 10^3/uL (1.5-6.6); NEUTROPHILS % (AUTO) 76.9 %; PLT - PLATELET COUNT 237 10^3/uL (130-450); RED BLOOD COUNT 4.44 10^6/uL (4.20-5.40); RED CELL DISTRIBUTION WIDTH 12.9 % (12.0-15.0)
[2023-07-14 14:45] LABS: ALBUMIN 3.8 g/dL (3.2-5.5); ALBUMIN/GLOBULIN RATIO 1.9 (1.0-2.2); BILIRUBIN,TOTAL 0.3 mg/dL (0.2-1.0); CALCIUM 9.3 mg/dL (8.5-10.3); POTASSIUM 3.8 mmol/L (3.5-4.5); TOTAL PROTEIN 5.8 g/dL (6.4-8.9)
[2023-07-14] MEDS ORDERED: iohexoL-300 100 ML VIAL IVP ONE (16:47)
--- NOTE | 2023-07-14 17:15 | CT Report ---
PROCEDURE: ABDOMEN/PELVIS W INDICATIONS: low back with abd pain abrupt today CONTRAST: 100ml omni 300 TECHNIQUE: After the administration of intravenous contrast, 5 mm thick sections acquired from the diaphragms to the symphysis. 5 mm thick coronal and sagittal reformats were acquired. For radiation dose reducti on, the following was used: automated exposure control, adjustment of mA and/or kV according to trang ent size. COMPARISON: 12/13/2022 FINDINGS: Image quality: Excellent. Lung bases and heart: Unremarkable. Liver: No solid mass. Gallbladder and biliary tree: Surgically absent. No biliary dilation, accounting for post-cholecystec coral state. Spleen: No splenomegaly. Pancreas: No pancreatic ductal dilation. Adrenals: No adrenal nodule. Kidneys and ureters: No hydronephrosis. No renal cystic lesion which requires follow up. No solid mas s. Bowel and peritoneum: No bowel distension. No pathologic free fluid. There is a focal area of narrowi ng of the ascending colon with a short shelflike margin present, well seen on coronal image 22 of ser ies 5 as well as axial image 49 of series 2. This was well imaged on the previous study, and was norm al in appearance. The area therefore is consistent with an area of peristalsis and not neoplasm. Mild diverticulosis without evidence of diverticulitis. Colon is otherwise unremarkable. Appendix not vis ualized. Lymph nodes: No central or retroperitoneal adenopathy. Vessels: No infrarenal aortic aneurysm. PELVIS Reproductive organs: Uterus is surgically absent. Bladder: No abnormal wall thickening, accounting for underdistension. Pelvic lymph nodes: No pelvic adenopathy by size criteria. Bones: No aggressive osseous abnormality. Remote ORIF of pelvic fractures. Interval development of a mild inferior endplate compression fracture of L1, possibly acute. Other: No significant ventral or inguinal hernia. IMPRESSION: 1. Question possible acute inferior endplate L1 compression fracture. 2. No other potential acute findings identified in the abdomen and pelvis. Comment: If suspect acute L1 compression fracture, consider nonemergent lumbar spine MRI. Reviewed by: Franco Hoffman MD on 07/14/2023 5:13 PM PDT Approved by: Franco Hoffman MD on 07/14/2023 5:13 PM PDT Station ID: [id number]
[2023-07-14] MEDS ORDERED: HYDROmorphone 1 MG/ML CARPUJECT IVP STA (18:08)
== END 2023-07-14 19:15 | disposition home or self-care (01) ==
LOC: EDUNIT# → ED 13:01
DX: S32.010A Wedge compression fracture of first lumbar vertebra, initial encounter for closed fracture (principal); X58.XXXA Exposure to other specified factors, initial encounter; I10 Essential (primary) hypertension; E78.00 Pure hypercholesterolemia, unspecified; Z79.82 Long term (current) use of aspirin; Z79.899 Other long term (current) drug therapy
CPT/HCPCS: 36415; 74177; 80053; 83690; 85025; 96374; 96376; 99284; J1170; Q9967

== ENCOUNTER 2023-07-15 14:08 | Outpatient (CLI) | payer MEDICARE | END 2023-07-15 14:09 | disposition EMS.NT | LOC: EMS 14:08 | DX: M54.9 Dorsalgia, unspecified (principal); Z74.1 Need for assistance with personal care ==

== ENCOUNTER 2023-07-20 17:17 | Outpatient (CLI) | payer MEDICARE | END 2023-07-20 17:18 | disposition EMS.NT | LOC: EMS 17:17 | DX: R53.1 Weakness (principal) ==

== ENCOUNTER 2023-07-28 11:07 | Outpatient (CLI) | payer MEDICARE | END 2023-07-28 11:08 | disposition EMS.NT | LOC: EMS 11:07 | DX: M54.9 Dorsalgia, unspecified (principal) ==

== ENCOUNTER 2023-09-29 13:40 | Outpatient (CLI) | payer MEDICARE | END 2023-09-29 23:59 | disposition short-term general hospital (02) | LOC: EMS 13:40 | DX: M25.551 Pain in right hip (principal); W18.11XA Fall from or off toilet without subsequent striking against object, initial encounter; Y92.091 Bathroom in other non-institutional residence as the place of occurrence of the external cause | CPT/HCPCS: A0425; A0429 ==

== ENCOUNTER 2023-10-14 12:52 | Outpatient (CLI) | payer MEDICARE | END 2023-10-14 23:59 | disposition critical access hospital (66) | LOC: EMS 12:52 | DX: L98.9 Disorder of the skin and subcutaneous tissue, unspecified (principal); R52 Pain, unspecified | CPT/HCPCS: A0425; A0429 ==

== ENCOUNTER 2023-10-14 13:09 | Emergency (ER) | payer MEDICARE ==
[2023-10-14] MEDS ORDERED: cephALEXin 250 MG CAPSULE PO STA (13:18)
--- NOTE | 2023-10-14 13:20 | ED Physician Documentation ---
PD HPI SKIN - Stated complaint Stated Complaint: ABD SORES - History obtained from History obtained from: Patient, EMS - Additional information Additional information: 77-year-old woman presents by ambulance for the evaluation of a rash. She has painful sores on the abdominal wall mostly, but a few other spots. Patient is unable to state how long they have been going on for, "probably years." They are painful. It is unclear if there is been any treatment. She is not the best of historians. 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 HEENT: Tonsil/Adenoidectomy Derm: Skin cancer surgery - Present Medications Home Medications: Ambulatory Orders Medication Instructions Recorded Confirmed Venlafaxine ER [Effexor ER] 2 tab PO DAILY 04/30/13 12/13/22 Topiramate [Topamax] 200 mg PO QPM 11/24/15 12/13/22 Aspirin [Aspirin EC] 81 mg PO DAILY 12/26/18 12/13/22 Calcium Carbonate [Yqmj-Ies-497] 500 mg PO BID 12/26/18 12/13/22 Cholecalciferol (Vitamin D3) 2,000 unit PO DAILY PM 12/26/18 12/13/22 [Vitamin D] Esomeprazole Magnesium 40 mg PO DAILY 12/26/18 12/13/22 Magnesium Oxide [Magnesium] 500 mg PO DAILY 12/26/18 12/13/22 Metoprolol Tartrate 12.5 mg PO BID 12/26/18 12/13/22 Multivitamin [Multiple Vitamins] 1 each PO DAILY 12/26/18 12/13/22 [place]-3S/Dha/Epa/Fish Oil [Fish 1 each PO DAILY 12/26/18 12/13/22 Oil 1,200 mg Softgel] Trazodone HCl 300 mg PO DAILY PM 12/26/18 12/13/22 Vitamin E (Dl,Tocopheryl Acet) 2,000 unit PO DAILY PM 01/25/21 12/13/22 [Vitamin E] polyethylene glycoL 3350 [Miralax] 17 gm PO DAILY PRN #14 packet 12/13/22 Meclizine HCl [Motion Sickness] 25 mg PO Q6H PRN #25 tablet 03/17/23 dexAMETHasone [Decadron] 4 mg PO DAILY #5 tablet 03/17/23 Meclizine HCl [Motion Sickness] 25 mg PO Q6H PRN #30 tablet 05/30/23 Meclizine HCl [Motion Sickness] 25 mg PO Q6H PRN #20 tablet 06/23/23 Calcitonin [Fortical] 1 sprays CAROLANN DAILY #1 each 07/14/23 Docusate Sodium 100Mg Capsule 100 mg PO DAILY #15 cap 07/14/23 [Colace 100Mg Capsule] Meloxicam [Mobic] 7.5 mg PO BID 10 Days #20 tablet 07/14/23 oxyCODONE [Roxicodone] 5 mg PO Q6H PRN #20 tablet 07/14/23 Chlorhexidine Gluconate [Hibiclens] 10 ml TP DAILY #236 ml 10/14/23 cephALEXin [Keflex] 500 mg PO Q6H #40 cap 10/14/23 - Allergies Allergies/Adverse Reactions: Allergies Allergy/AdvReac Type Severity Reaction Status Date / Time lithium [[place]] Allergy Severe Edema Verified 07/02/23 04:21 tetracycline [Tetracycline] Allergy Severe Hives Verified 07/02/23 04:21 acetaminophen [From Fioricet] Allergy Hives Verified 07/02/23 04:21 caffeine [From Fioricet] Allergy Hives Verified 07/02/23 04:21 gabapentin Allergy Edema Verified 07/02/23 04:21 butalbital [From Fioricet] AdvReac Severe Dizziness Verified 07/02/23 04:21 - Social History Does the pt smoke?: No Smoking Status: Never smoker Does the pt drink ETOH?: No Does the pt have substance abuse?: No - Immunizations Immunizations are current?: No - POLST Patient has POLST: No PD ED PE NORMAL - Vitals Vital signs reviewed: Yes - General General: No acute distress (.), Other (She is alert and oriented to person and place, mediocre for events) - Abdomen Abdomen: Normal bowel sounds, Soft, Non tender - Derm Derm: Other (Small ulcers on the abdominal wall more than the extremities with minimal surrounding cellulitis of each and no drainage. Most consistent with kind of staph infection.) - Neuro Neuro: Normal speech Results - Vitals Vitals: Oxygen O2 Source Room air PD Medical Decision Making - ED course ED course: 77-year-old woman presents from assisted living with a rash that looks like a staph infection. Will start Keflex noting tetracycline allergy and obtain a cu lture. Departure - Departure Disposition: Home, Self Care Clinical Impression: Rash Condition: Good Record reviewed to determine appropriate education?: Yes Instructions: ED Staph Infec Abx Tx Only Prescriptions: Chlorhexidine Gluconate [Hibiclens] 10 ml TP DAILY #236 ml cephALEXin [Keflex] 500 mg PO Q6H #40 cap Comments: We are performing a wound culture, the results should be done in 48-72 hours. If antibiotic change is necessary we will call you. Return if worse in the meantime, especially if you develop increased pain, fevers, cannot keep down the medication. Otherwise follow-up with your physician in approximately 2-3 days.
[2023-10-14 13:34] VITALS: BP 116/77; O2SAT 98
== END 2023-10-14 13:57 | disposition home or self-care (01) ==
LOC: EDUNIT# → ED 13:09
DX: R21 Rash and other nonspecific skin eruption (principal); I10 Essential (primary) hypertension; E78.00 Pure hypercholesterolemia, unspecified; Z79.899 Other long term (current) drug therapy; Z79.82 Long term (current) use of aspirin
CPT/HCPCS: 87070; 87205; 99283; A9270

== ENCOUNTER 2023-11-03 13:39 | Outpatient (CLI) | payer MEDICARE | END 2023-11-03 13:40 | disposition critical access hospital (66) | LOC: EMS 13:39 | DX: L98.9 Disorder of the skin and subcutaneous tissue, unspecified (principal); L29.9 Pruritus, unspecified | CPT/HCPCS: A0425; A0429 ==

== ENCOUNTER 2023-11-03 13:58 | Emergency (ER) | payer MEDICARE ==
[2023-11-03 14:28] VITALS: O2SAT 98
--- NOTE | 2023-11-03 19:12 | ED Physician Documentation ---
History of Present Illness - Stated complaint Stated Complaint: BODY SORES - Chief complaint Chief Complaint: General - History obtained from History obtained from: Patient - History of Present Illness Timing: Chronic Pain level max: 0 Pain level now: 0 - Additonal information Additional information: 77-year-old female, lives at [facility]. Has chronic wounds to her abdomen. She states that she picks and scratches. Concerned about infection. She has been seen here previously for this. States antibiotics helped. No other complaints today. 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, 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 HEENT: Tonsil/Adenoidectomy Derm: Skin cancer surgery - Present Medications Home Medications: Ambulatory Orders Medication Instructions Recorded Confirmed Venlafaxine ER [Effexor ER] 2 tab PO DAILY 04/30/13 12/13/22 Topiramate [Topamax] 200 mg PO QPM 11/24/15 12/13/22 Esomeprazole Magnesium 40 mg PO DAILY 12/26/18 12/13/22 Metoprolol Tartrate 12.5 mg PO BID 12/26/18 12/13/22 Calcitonin [Fortical] 1 sprays CAROLANN DAILY #1 each 07/14/23 Meloxicam [Mobic] 7.5 mg PO BID 10 Days #20 tablet 07/14/23 Meclizine [Antivert] 25 mg PO Q6H PRN 10/14/23 10/14/23 Venlafaxine [Effexor] 75 mg PO DAILY 10/14/23 10/14/23 Mupirocin 2% Oint [Bactroban 2% 1 applic TOP BID PRN #50 gm 11/03/23 Oint] cephALEXin [Keflex] 500 mg PO Q6H #40 cap 11/03/23 - Allergies Allergies/Adverse Reactions: Allergies Allergy/AdvReac Type Severity Reaction Status Date / Time lithium [[place]] Allergy Severe Edema Verified 11/03/23 14:22 tetracycline [Tetracycline] Allergy Severe Hives Verified 11/03/23 14:22 acetaminophen [From Fioricet] Allergy Hives Verified 11/03/23 14:22 caffeine [From Fioricet] Allergy Hives Verified 11/03/23 14:22 gabapentin Allergy Edema Verified 11/03/23 14:22 butalbital [From Fioricet] AdvReac Severe Dizziness Verified 11/03/23 14:22 - Social History Does the pt smoke?: No Smoking Status: Never smoker Does the pt drink ETOH?: No Does the pt have substance abuse?: No - Immunizations Immunizations are current?: No - POLST Patient has POLST: No PD ED PE NORMAL - Vitals Vital signs reviewed: Yes - General General: Alert and oriented X 3, No acute distress - HEENT HEENT: Moist mucous membranes - Neck Neck: Supple, no meningeal sign - Cardiac Cardiac: RRR - Respiratory Respiratory: No respiratory distress, Clear bilaterally - Derm Derm: Warm and dry, Other (Excoriation and pick fitzgerald to the left arm and abdomen. Mild erythema. No drainage. No purulence.) - Neuro Neuro: Alert and oriented X 3 Results - Vitals Vitals: Vital Signs - 24 hr 11/03/23 11/03/23 14:22 19:22 Temperature 36.8 C 36.3 C L Heart Rate 80 108 H Respiratory 16 18 Rate Blood Pressure 139/81 H 133/79 H O2 Saturation 98 98 Oxygen O2 Source Room air PD Medical Decision Making - ED course Complexity details: considered differential, d/w patient ED course: 77-year-old female with excoriation and pick fitzgerald to the abdomen. There is nothing to culture. There is some mild erythema, we will place her back on antibiotics for this. Will trial her on mupirocin ointment to see if this helps deter the picking as well. No abscess, no sepsis, no necrotizing infection. We will have her follow-up with her doctor for further care. Patient counseled regarding signs and symptoms for which I believe and urgent re-evaluation would be necessary. Patient with good understanding of and agreement to plan and is c omfortable going home at this time This document was made in part using voice recognition software. While efforts are made to proofread this document, sound alike and grammatical errors may occur. Departure - Departure Disposition: 01 Home, Self Care Clinical Impression: Excoriation Cellulitis Qualifiers: Site of cellulitis: unspecified site Qualified Code(s): L03.90 - Cellulitis, unspecified Condition: Good Instructions: ED Infec Skin Cellulitis Follow-Up: Bennett Storey MD [Provider Admit Priv/Credential] - Bennett Storey MD [Provider Admit Priv/Credential] - Within 1 week Prescriptions: Mupirocin 2% Oint [Bactroban 2% Oint] 1 applic TOP BID PRN #50 gm PRN Reason: rash cephALEXin [Keflex] 500 mg PO Q6H #40 cap Comments: Your prescriptions were sent to [facility] in [place]. Please follow-up with your doctor for further care. Please return if you worsen. Take all medications as prescribed. Forms: PCP List Discharge Date/Time: 11/03/23 19:35
[2023-11-03 19:35] VITALS: BP 133/79
== END 2023-11-03 19:35 | disposition home or self-care (01) ==
LOC: EDUNIT# → ED 13:58
DX: L03.311 Cellulitis of abdominal wall (principal); F42.4 Excoriation (skin-picking) disorder; I10 Essential (primary) hypertension; E78.00 Pure hypercholesterolemia, unspecified; Z79.899 Other long term (current) drug therapy
CPT/HCPCS: 99283

== ENCOUNTER 2023-11-07 03:45 | Outpatient (CLI) | payer MEDICARE | END 2023-11-07 23:59 | disposition EMS.NT | LOC: EMS 03:45 | DX: G47.00 Insomnia, unspecified (principal); R45.1 Restlessness and agitation ==

== ENCOUNTER 2023-11-25 10:59 | Outpatient (CLI) | payer MEDICARE | END 2023-11-25 23:59 | disposition EMS.NT | LOC: EMS 10:59 | DX: Z03.89 Encounter for observation for other suspected diseases and conditions ruled out (principal) ==

== ENCOUNTER 2023-12-12 15:31 | Outpatient (CLI) | payer MEDICARE | END 2023-12-12 15:32 | disposition critical access hospital (66) | LOC: EMS 15:31 | DX: R10.84 Generalized abdominal pain (principal); R10.817 Generalized abdominal tenderness; K62.89 Other specified diseases of anus and rectum; K59.00 Constipation, unspecified; R14.0 Abdominal distension (gaseous) | CPT/HCPCS: A0425; A0429 ==

== ENCOUNTER 2023-12-12 15:51 | Emergency (ER) | payer MEDICARE ==
--- NOTE | 2023-12-12 16:06 | ED Physician Documentation ---
History of Present Illness - Stated complaint Stated Complaint: CONSTIPATION - History obtained from History obtained from: Patient, EMS - Additonal information Additional information: She presents from assisted living. It is unclear when her last BM was but she is having a lot of rectal pain despite 2 doses of Ex-Lax. 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 HEENT: Tonsil/Adenoidectomy Derm: Skin cancer surgery - Present Medications Home Medications: Ambulatory Orders Medication Instructions Recorded Confirmed Venlafaxine ER [Effexor ER] 2 tab PO DAILY 04/30/13 12/13/22 Topiramate [Topamax] 200 mg PO QPM 11/24/15 12/13/22 Esomeprazole Magnesium 40 mg PO DAILY 12/26/18 12/13/22 Metoprolol Tartrate 12.5 mg PO BID 12/26/18 12/13/22 Calcitonin [Fortical] 1 sprays CAROLANN DAILY #1 each 07/14/23 Meloxicam [Mobic] 7.5 mg PO BID 10 Days #20 tablet 07/14/23 Meclizine [Antivert] 25 mg PO Q6H PRN 10/14/23 10/14/23 Venlafaxine [Effexor] 75 mg PO DAILY 10/14/23 10/14/23 Mupirocin 2% Oint [Bactroban 2% 1 applic TOP BID PRN #50 gm 11/03/23 Oint] cephALEXin [Keflex] 500 mg PO Q6H #40 cap 11/03/23 - Allergies Allergies/Adverse Reactions: Allergies Allergy/AdvReac Type Severity Reaction Status Date / Time lithium [[place]] Allergy Severe Edema Verified 12/12/23 17:19 tetracycline [Tetracycline] Allergy Severe Hives Verified 12/12/23 17:19 acetaminophen [From Fioricet] Allergy Hives Verified 12/12/23 17:19 caffeine [From Fioricet] Allergy Hives Verified 12/12/23 17:19 gabapentin Allergy Edema Verified 12/12/23 17:19 butalbital [From Fioricet] AdvReac Severe Dizziness Verified 12/12/23 17:19 - Social History Does the pt smoke?: No Smoking Status: Never smoker Does the pt drink ETOH?: No Does the pt have substance abuse?: No - Immunizations Immunizations are current?: No - POLST Patient has POLST: No PD ED PE NORMAL - Vitals Vital signs reviewed: Yes - General General: No acute distress, Other (Poor short-term historian) - Abdomen Abdomen: Non tender - Rectal Rectal: Other ( she has a large and very firm fecal impaction) Results - Vitals Vitals: Vital Signs - 24 hr 12/12/23 12/12/23 12/12/23 16:09 18:30 18:35 Temperature 36.3 C L Heart Rate 113 H 93 93 Respiratory 18 21 30 H Rate Blood Pressure 143/81 H 145/86 H 142/65 H O2 Saturation 100 100 99 If not protocol 15 : Oxygen Flow, liters/minute 12/12/23 12/12/23 12/12/23 18:40 18:45 18:50 Temperature Heart Rate 121 H 108 H 104 H Respiratory 22 21 19 Rate Blood Pressure 156/129 H 131/79 H 133/80 H O2 Saturation 96 95 97 If not protocol 15 15 : Oxygen Flow, liters/minute Oxygen O2 Source Room air Procedures - Procedural sedation Sedation prep: Informed consent, Time out completed, ASA 2 - mild disease Sedation Medications: propofol (50mg then 30mg then 30mg IV= total 110 mg) Mallampati classification: I Patient status during sedation: Unresponsive Sedation recovery: Recovered uneventfully Time in sedation (Minutes): 15 PD Medical Decision Making - ED course ED course: 78-year-old woman presents with a fecal impaction. Initial fleets enema was unsuccessful and a subsequent soapsuds enema was also unsuccessful. She did not tolerate awake attempts at digital disimpaction and as such she consented for disimpaction under sedation. Departure - Departure Disposition: 01 Home, Self Care Clinical Impression: Fecal impaction Condition: Good Record reviewed to determine appropriate education?: Yes Instructions: ED Impaction Fecal Treated Comments: You were seen today for fecal impaction. We initially did some enemas which did not result in much output and you are very uncomfortable so ended up sedating you and manually disimpacted you with a lot of output and another large enema. Subsequently you were also given a bottle of magnesium citrate to drink. This should clean you out. Talk with your primary care physician, you should probably have an as needed laxative ordered at the assisted living. Call your doctor to arrange a follow-up appointment, make the next available appointment. In the interim, return anytime if worse or if new symptoms develop.
[2023-12-12] MEDS: PROPOFOL 200 MG/20 ML VIAL IVP STA (18:35)
[2023-12-12] MEDS: MAGNESIUM CITRATE 296 ML BOTTLE PO STA (19:42)
[2023-12-12] MEDS: ONDANSETRON 4 MG/2 ML VIAL IVP STA (20:05)
[2023-12-12 20:13] VITALS: BP 118/76; O2SAT 98
== END 2023-12-12 20:15 | disposition home or self-care (01) ==
LOC: EDUNIT# → ED 15:51
DX: K56.41 Fecal impaction (principal); I10 Essential (primary) hypertension; E78.00 Pure hypercholesterolemia, unspecified; Z79.899 Other long term (current) drug therapy
CPT/HCPCS: 99152; 99284; 99285; A9270

== ENCOUNTER 2023-12-12 20:16 | Outpatient (CLI) | payer MEDICARE | END 2023-12-12 20:17 | disposition home or self-care (01) | LOC: EMS 20:16 | PROVIDERS: ATTEND Emergency Medicine | DX: F03.90 Unspecified dementia, unspecified severity, without behavioral disturbance, psychotic disturbance, mood disturbance, and anxiety (principal); R41.0 Disorientation, unspecified | CPT/HCPCS: A0425; A0428 ==

== ENCOUNTER 2024-01-23 16:40 | Outpatient (CLI) | payer MEDICARE, MEDICAID | END 2024-01-23 23:59 | disposition critical access hospital (66) | LOC: EMS 16:40 | DX: R51.9 Headache, unspecified (principal); M54.2 Cervicalgia; W18.39XA Other fall on same level, initial encounter; Y92.090 Kitchen in other non-institutional residence as the place of occurrence of the external cause | CPT/HCPCS: A0425; A0429 ==

== ENCOUNTER 2024-01-23 17:03 | Emergency (ER) | payer MEDICARE, MEDICAID ==
--- NOTE | 2024-01-23 17:48 | ED Physician Documentation ---
History of Present Illness - Stated complaint Stated Complaint: GLF - Chief complaint Chief Complaint: Trauma Hd/Nk - History obtained from History obtained from: Patient, EMS - History of Present Illness Timing: Today Pain level max: 5 Pain level now: 4 - Additonal information Additional information: Patient is an 78-year-old female who lives at [facility], she states that she fell while making dinner today and hit the back of her right ear and her head. Has pain in the right side of the neck. She states she has a remote history of a cervical spine fracture. No loss of consciousness. No seizure activity. Not on anticoagulants. No numbness or tingling. No pain in the hips, shoulders, elbows, knees. No lacerations. Review of Systems Constitutional: denies: Fever, Chills Nose: denies: Rhinorrhea / runny nose, Congestion Throat: denies: Sore throat Respiratory: denies: Dyspnea, Cough GI: denies: Abdominal Pain, Nausea, Vomiting, Diarrhea : denies: Dysuria Skin: denies: Rash Musculoskeletal: denies: Back pain Neurologic: denies: Focal weakness, Numbness, Syncope, Seizure, Confused, Altered mental status, LOC PD PAST MEDICAL HISTORY - Past Medical History Past Medical History: Yes Cardiovascular: Hypertension, High cholesterol, Deep vein thrombosis, Pulmonary embolism Respiratory: None Neuro: Head injury Endocrine/Autoimmune: None GI: GERD : Frequency, Incontinence Psych: Depression, Anxiety, Panic attacks Musculoskeletal: Osteoarthritis Derm: Other - Past Surgical History Past Surgical History: Yes 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, 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 HEENT: Tonsil/Adenoidectomy Derm: Skin cancer surgery - Present Medications Home Medications: Ambulatory Orders Medication Instructions Recorded Confirmed Venlafaxine ER [Effexor ER] 2 tab PO DAILY 04/30/13 12/13/22 Topiramate [Topamax] 200 mg PO QPM 11/24/15 12/13/22 Esomeprazole Magnesium 40 mg PO DAILY 12/26/18 12/13/22 Metoprolol Tartrate 12.5 mg PO BID 12/26/18 12/13/22 Calcitonin [Fortical] 1 sprays CAROLANN DAILY #1 each 07/14/23 Meloxicam [Mobic] 7.5 mg PO BID 10 Days #20 tablet 07/14/23 Meclizine [Antivert] 25 mg PO Q6H PRN 01/16/24 01/16/24 Venlafaxine [Effexor] 75 mg PO DAILY 10/14/23 10/14/23 Mupirocin 2% Oint [Bactroban 2% 1 applic TOP BID PRN #50 gm 11/03/23 Oint] cephALEXin [Keflex] 500 mg PO Q6H #40 cap 11/03/23 - Allergies Allergies/Adverse Reactions: Allergies Allergy/AdvReac Type Severity Reaction Status Date / Time lithium [[place]] Allergy Severe Edema Verified 01/23/24 17:14 tetracycline [Tetracycline] Allergy Severe Hives Verified 01/23/24 17:14 acetaminophen [From Fioricet] Allergy Hives Verified 01/23/24 17:14 caffeine [From Fioricet] Allergy Hives Verified 01/23/24 17:14 gabapentin Allergy Edema Verified 01/23/24 17:14 butalbital [From Fioricet] AdvReac Severe Dizziness Verified 01/23/24 17:14 - Social History Does the pt smoke?: No Smoking Status: Never smoker Does the pt drink ETOH?: No Does the pt have substance abuse?: No - Immunizations Immunizations are current?: No - POLST Patient has POLST: No PD ED PE NORMAL - Vitals Vital signs reviewed: Yes - General General: Alert and oriented X 3, No acute distress - HEENT HEENT: Atraumatic, PERRL, Ears normal, Moist mucous membranes, Other (No scalp hematomas. No abrasions. No lacerations. No palpable skull fractures.) - Neck Neck: Other (Mild upper C-spine tenderness to palpation. No step-off or deformity. Otherwise normal examination of the neck. 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, No motor deficit, No sensory deficit, Normal speech Eye Opening: Spontaneous Motor: Obeys Commands Verbal: Oriented GCS Score: 15 - Psych Psych: Normal mood, Normal affect Results - Vitals Vitals: Vital Signs - 24 hr 01/23/24 01/23/24 01/23/24 17:05 17:15 20:22 Temperature 36.6 C Heart Rate 107 H 92 Respiratory 16 16 Rate Blood Pressure 150/93 H 151/83 H O2 Saturation 97 95 01/23/24 21:00 Temperature 36.6 C Heart Rate 92 Respiratory 16 Rate Blood Pressure 151/83 H O2 Saturation 95 Oxygen O2 Source Room air - Rads (name of study) head CT Relevant Findings:: Final report received, See rad report cervical spine CT Relevant Findings:: Final report received, See rad report PD Medical Decision Making - ED course Complexity details: reviewed results, re-evaluated patient, considered differential, d/w patient ED course: No acute findings on head CT, cervical spine CT. Cervical collar was removed after negative CT scans. Ambulating without difficulty. Patient initially declined pain medication, then requested Tylenol or Motrin. She was given a dose of Tylenol. No focal neurological deficits. No other acute injuries. Will have her follow-up with her doctor for further care. Patient counseled reg arding signs and symptoms for which I believe and urgent re-evaluation would be necessary. Patient with good understanding of and agreement to plan and is comfortable going home at this time This document was made in part using voice recognition software. While efforts are made to proofread this document, sound alike and grammatical errors may occur. Departure - Departure Disposition: 01 Home, Self Care Clinical Impression: Neck pain Fall Qualifiers: Encounter type: initial encounter Qualified Code(s): W19.XXXA - Unspecified fall, initial encounter Closed head injury Qualifiers: Encounter type: initial encounter Qualified Code(s): S09.90XA - Unspecified injury of head, initial encounter Condition: Good Instructions: ED Head Injury Closed, ED Neck Back Pain General Follow-Up: Bennett Storey MD [Primary Care Provider] - Within 1 week Comments: Please follow-up with your doctor for further care. Please return if you worsen. Your CAT scans did not show any acute abnormalities today. You do have some thyroid nodules on your cervical spine CT, I recommend that you follow-up with a outpatient ultrasound for this. This can be scheduled with your doctor. EXAM: [id number] CT/CSPWO ([id number]) PROCEDURE: Cervical Spine WO INDICATIONS: fall, neck pain TECHNIQUE: Noncontrast 3 mm thick sections acquired from the skull base to the T4 level. Sagittal and coronal reformats were then constructed. For radiation dose reduction, the following was used: automated exposure control, adjustment of mA and/or kV according to patient size. COMPARISON: None. FINDINGS: Image quality: Diagnostic Bones: Trace anterolisthesis of C4 on C5 again seen. Vertebral body heights are well-maintained. Overall moderate spondylotic changes. Slight deformity of the dens is unchanged. Soft tissues: No pathologic prevertebral soft tissue thickening. Multiple thyroid nodules, consider correlation with ultrasound if not already obtained. IMPRESSION: Moderate degenerative changes. No acute fracture or traumatic subluxation. Dens deformity again seen. If there is high concern for further derangement, consider MRI evaluation. Multiple thyroid nodules, consider correlation with ultrasound majority obtained. EXAM: [id number] CT/HEADWO ([id number]) PROCEDURE: Head WO INDICATIONS: fall, head pain TECHNIQUE: Noncontrast 4.5 mm thick angled axial sections acquired from the foramen magnum to the vertex. For radiation dose reduction, the following was used: automated exposure control, adjustment of mA and/or kV according to patient size. COMPARISON: 07/02/2023 FINDINGS: Image quality: Diagnostic CSF spaces: Basal cisterns are patent. Lateral ventricles are symmetric. Volume: Vascular calcifications. Periventricular white matter disease is commonly seen with chronic microangiopathy. Volume loss is present. These findings are moderate. Brain: No intracranial hemorrhage. Lemon-white differentiation is grossly maintained. Craniofacial structures: No acute craniofacial abnormality. 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 IMPRESSION: No acute intracranial abnormality. Forms: PCP List Discharge Date/Time: 01/23/24 21:03
--- NOTE | 2024-01-23 19:14 | CT Report ---
PROCEDURE: Head WO INDICATIONS: fall, head pain TECHNIQUE: Noncontrast 4.5 mm thick angled axial sections acquired from the foramen magnum to the vertex. For r adiation dose reduction, the following was used: automated exposure control, adjustment of mA and/or kV according to patient size. COMPARISON: 07/02/2023 FINDINGS: Image quality: Diagnostic CSF spaces: Basal cisterns are patent. Lateral ventricles are symmetric. Volume: Vascular calcifications. Periventricular white matter disease is commonly seen with chronic m icroangiopathy. Volume loss is present. These findings are moderate. Brain: No intracranial hemorrhage. Lemon-white differentiation is grossly maintained. Craniofacial structures: No acute craniofacial abnormality. 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 IMPRESSION: No acute intracranial abnormality. Reviewed by: Ace Pang MD on 01/23/2024 7:12 PM PDT Approved by: Ace Pang MD on 01/23/2024 7:12 PM PDT Station ID: [id number]
--- NOTE | 2024-01-23 19:20 | CT Report ---
PROCEDURE: Cervical Spine WO INDICATIONS: fall, neck pain TECHNIQUE: Noncontrast 3 mm thick sections acquired from the skull base to the T4 level. Sagittal and coronal r eformats were then constructed. For radiation dose reduction, the following was used: automated exp osure control, adjustment of mA and/or kV according to patient size. COMPARISON: None. FINDINGS: Image quality: Diagnostic Bones: Trace anterolisthesis of C4 on C5 again seen. Vertebral body heights are well-maintained. Over all moderate spondylotic changes. Slight deformity of the dens is unchanged. Soft tissues: No pathologic prevertebral soft tissue thickening. Multiple thyroid nodules, consider c orrelation with ultrasound if not already obtained. IMPRESSION: Moderate degenerative changes. No acute fracture or traumatic subluxation. Dens deformity again seen. If there is high concern for further derangement, consider MRI evaluation. Multiple thyroid nodules, consider correlation with ultrasound majority obtained. Reviewed by: Ace Pang MD on 01/23/2024 7:19 PM PDT Approved by: Ace Pang MD on 01/23/2024 7:19 PM PDT Station ID: [id number]
[2024-01-23] MEDS: IBUPROFEN 600 MG TABLET PO STA (20:03)
[2024-01-23] MEDS: ACETAMINOPHEN 325 MG TABLET PO STA (20:19)
[2024-01-23 20:27] VITALS: BP 151/83; O2SAT 95
== END 2024-01-23 21:03 | disposition home or self-care (01) ==
LOC: EDUNIT# → ED 17:03
DX: S09.90XA Unspecified injury of head, initial encounter (principal); M54.2 Cervicalgia; W19.XXXA Unspecified fall, initial encounter; Y93.G1 Activity, food preparation and clean up; Y92.090 Kitchen in other non-institutional residence as the place of occurrence of the external cause
CPT/HCPCS: 70450; 72125; 99284; A9270

== ENCOUNTER 2024-02-23 11:16 | Outpatient (CLI) | payer MEDICARE, MEDICAID | END 2024-02-23 23:59 | disposition critical access hospital (66) | LOC: EMS 11:16 | DX: R51.9 Headache, unspecified (principal); M54.2 Cervicalgia; R42 Dizziness and giddiness; S00.83XA Contusion of other part of head, initial encounter; W18.39XA Other fall on same level, initial encounter; Y92.099 Unspecified place in other non-institutional residence as the place of occurrence of the external cause | CPT/HCPCS: A0425; A0429 ==

== ENCOUNTER 2024-02-23 11:35 | Emergency (ER) | payer MEDICARE, MEDICAID ==
--- NOTE | 2024-02-23 11:37 | ED Physician Documentation ---
PD HPI Fall - Stated complaint Stated Complaint: GLF - History obtained from History obtained from: Patient, EMS - History of Present Illness Mechanism of injury: Lost balance Fall distance: Standing position (was getting up from bed and felt off balance, fell striking cheek. Has some face pain and neck, with also ankle and knee pains. got back up and into bed. Staff as Amber Ovalles noted her face bruised today. She has pain at ankle and knee.) Where injury occurred: Other (assisted Living [facility].) Injury(ies) location: Head, Face, Neck, Left Uppper Extremity (elbow and wrist) Associated symptoms: No: LOC, AMS, Weakness, Paresthesias Contributing factors: Anticoagulated 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, 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 HEENT: Tonsil/Adenoidectomy Derm: Skin cancer surgery - Present Medications Home Medications: Ambulatory Orders Medication Instructions Recorded Confirmed Venlafaxine ER [Effexor ER] 2 tab PO DAILY 04/30/13 12/13/22 Topiramate [Topamax] 200 mg PO QPM 11/24/15 12/13/22 Esomeprazole Magnesium 40 mg PO DAILY 12/26/18 12/13/22 Metoprolol Tartrate 12.5 mg PO BID 12/26/18 12/13/22 Calcitonin [Fortical] 1 sprays CAROLANN DAILY #1 each 07/14/23 Meloxicam [Mobic] 7.5 mg PO BID 10 Days #20 tablet 07/14/23 Meclizine [Antivert] 25 mg PO Q6H PRN 10/14/23 10/14/23 Venlafaxine [Effexor] 75 mg PO DAILY 10/14/23 10/14/23 Mupirocin 2% Oint [Bactroban 2% 1 applic TOP BID PRN #50 gm 11/03/23 Oint] cephALEXin [Keflex] 500 mg PO Q6H #40 cap 11/03/23 - Allergies Allergies/Adverse Reactions: Allergies Allergy/AdvReac Type Severity Reaction Status Date / Time lithium [[place]] Allergy Severe Edema Verified 02/23/24 11:43 tetracycline [Tetracycline] Allergy Severe Hives Verified 02/23/24 11:43 acetaminophen [From Fioricet] Allergy Hives Verified 02/23/24 11:43 caffeine [From Fioricet] Allergy Hives Verified 02/23/24 11:43 gabapentin Allergy Edema Verified 02/23/24 11:43 butalbital [From Fioricet] AdvReac Severe Dizziness Verified 02/23/24 11:43 ibuprofen AdvReac Nausea Verified 02/23/24 13:30 - Social History Does the pt smoke?: No Smoking Status: Never smoker Does the pt drink ETOH?: No Does the pt have substance abuse?: No - Immunizations Immunizations are current?: No - POLST Patient has POLST: No PD ED PE NORMAL - Vitals Vital signs reviewed: Yes - General General: Alert and oriented X 3, No acute distress, Well developed/nourished - HEENT HEENT: Other (bruising around lateral periorbital area. Eye movement without pain. ) - Neck Neck: Supple, no meningeal sign, No adenopathy, Other (some tender along right side of neck muscles. No noted deformity/stepoff. ) - Respiratory Respiratory: Clear bilaterally, Other (no chestwall tenderness) - Abdomen Abdomen: Soft, Non tender - Back Back: No CVA TTP, No spinal TTP - Derm Derm: Normal color, Warm and dry - Extremities Extremities: Other (both knees tender anteriorly without effusion nor deformity. ankles both tender anterolaterally, also without effusion nor swelling. Pain with ROM. ) - Neuro Neuro: Alert and oriented X 3, No motor deficit, No sensory deficit, Normal speech Results - Vitals Vitals: Oxygen O2 Source Room air - Rads (name of study) head CT Relevant Findings:: Prelim report reviewed (no ICH), EMP independent interpretation of test cervical CT Relevant Findings:: Prelim report reviewed (no fractures.), EMP independent interpretation of test bilat knees Relevant Findings:: Prelim report reviewed (no fractures) bilateral ankles Relevant Findings:: Prelim report reviewed (no fractures. ), EMP independent interpretation of test PD Medical Decision Making - ED course Complexity details: reviewed results (no notable injuries on imaging. ), considered differential (fall and struck face, landed on knees too. Pain in knees, ankles, neck and face. On DOAC so extra cautious. ), d/w patient Departure - Departure Disposition: 01 Home, Self Care Clinical Impression: Fall, accidental, Facial contusion, Neck pain, Lower extremity pain, Balance problems Condition: Stable Record reviewed to determine appropriate education?: Yes Comments: The CT scans of your head and neck do not show any acute abnormalities. There is evidence of a prior compression fracture at the first thoracic vertebra that is nonacute and appears old. X-rays of your knees and ankles are without any signs of fractures or bony abnormality. No doubt you will be having some pain around the facial area and knees and ankles from the fall. This should improve with time. Cool compresses or ice to the right cheek and periorbital area to help with swelling today and tomorrow. Tylenol 500 to 650 mg 4 times daily for the next several days to week to help with pains. I would anticipate improvement over the next several days or so. Forms: PCP List Discharge Date/Time: 02/23/24 15:32
--- NOTE | 2024-02-23 12:38 | XRAY Report ---
PROCEDURE: Ankle 3+V BL INDICATIONS: fall onto knees, with ankle twisted too TECHNIQUE: 3 views of the ankle were acquired. COMPARISON: None. FINDINGS: Bones: No fractures or dislocations. Ankle mortise is normally aligned. No suspicious bony lesions . Soft tissues: No tibiotalar joint effusion. Achilles tendon appears normal. IMPRESSION: No acute bony abnormality. Reviewed by: Maria Del Carmen Mobley MD, PhD on 02/23/2024 11:37 AM MANUEL Approved by: Maria Del Carmen Mobley MD, PhD on 02/23/2024 11:37 AM MANUEL Station ID: [id number]
--- NOTE | 2024-02-23 12:39 | XRAY Report ---
PROCEDURE: Knee 3V BL INDICATIONS: fall onto knees TECHNIQUE: 3 views of the knee(s) were acquired. COMPARISON: None. FINDINGS: Bones: No fractures or dislocations. No suspicious bony lesions. Soft tissues: No knee joint effusion. No suspicious soft tissue calcifications or masses. IMPRESSION: No acute bony abnormality. Reviewed by: Maria Del Carmen Mobley MD, PhD on 02/23/2024 11:37 AM MANUEL Approved by: Maria Del Carmen Mobley MD, PhD on 02/23/2024 11:37 AM MANUEL Station ID: [id number]
[2024-02-23] MEDS: IBUPROFEN 600 MG TABLET PO STA (13:29)
[2024-02-23] MEDS: ACETAMINOPHEN 500 MG TABLET PO STA (13:53)
--- NOTE | 2024-02-23 14:00 | CT Report ---
PROCEDURE: Cervical Spine WO INDICATIONS: fall, struck head with neck pain too TECHNIQUE: Noncontrast 3 mm thick sections acquired from the skull base to the T4 level. Sagittal and coronal r eformats were then constructed. For radiation dose reduction, the following was used: automated exp osure control, adjustment of mA and/or kV according to patient size. COMPARISON: CT cervical spine 06/04/2023. FINDINGS: Image quality: Diagnostic. Bones: Compared to prior CT 06/04/2023, there is anterior height loss of T1 vertebral body. Moderate C 6-C7 disc height loss and anterior osteophytosis. Multilevel facet arthrosis, most prominent along th e left C4-C5. Visualized superior ribs are intact. Soft tissues: Prevertebral soft tissues are normal in thickness. No paravertebral hematomas. No ap ical pneumothoraces. Redemonstration of heterogeneous left thyroid nodule measuring 1.5 cm. IMPRESSION: Compared to prior CT 06/04/2023, T1 vertebral body anterior height loss consistent with age indetermina nt compression deformity, suspect chronic. Heterogeneous thyroid with 1.5 cm left thyroid nodule. Recommend nonemergent thyroid ultrasound, if not performed in the past. Reviewed by: Maria Del Carmen Mobley MD, PhD on 02/23/2024 12:59 PM MANUEL Approved by: Maria Del Carmen Mobley MD, PhD on 02/23/2024 12:59 PM MANUEL Station ID: [id number]
--- NOTE | 2024-02-23 14:03 | CT Report ---
PROCEDURE: Head WO INDICATIONS: fall, struck head TECHNIQUE: Noncontrast 4.5 mm thick angled axial sections acquired from the foramen magnum to the vertex. For r adiation dose reduction, the following was used: automated exposure control, adjustment of mA and/or kV according to patient size. COMPARISON: CT head 01/23/2024, 07/02/2023, 06/23/2023. FINDINGS: Image quality: Diagnostic. CSF spaces: Basal cisterns are patent. No extra-axial fluid collections. Ventricles are normal in size and shape. Brain: No midline shift. No intracranial masses or hemorrhage. Lemon-white matter interface is norm al. Skull and face: Calvarium and visualized facial bones are intact, without suspicious lesions. Right lens replacement. Stable appearance of hyperattenuating material in the left globe. Sinuses: Visualized sinuses and mastoids are clear. IMPRESSION: No acute intracranial pathology. Reviewed by: Maria Del Carmen Mobley MD, PhD on 02/23/2024 1:01 PM MANUEL Approved by: Maria Del Carmen Mobley MD, PhD on 02/23/2024 1:01 PM MANUEL Station ID: [id number]
[2024-02-23 15:23] VITALS: BP 135/80; O2SAT 97
== END 2024-02-23 15:32 | disposition home or self-care (01) ==
LOC: EDUNIT# → ED 11:35
DX: S00.83XA Contusion of other part of head, initial encounter (principal); M54.2 Cervicalgia; M25.572 Pain in left ankle and joints of left foot; M25.571 Pain in right ankle and joints of right foot; M25.562 Pain in left knee; M25.561 Pain in right knee; W18.30XA Fall on same level, unspecified, initial encounter; Y92.092 Bedroom in other non-institutional residence as the place of occurrence of the external cause; R26.9 Unspecified abnormalities of gait and mobility; I10 Essential (primary) hypertension; E78.00 Pure hypercholesterolemia, unspecified; Z79.899 Other long term (current) drug therapy
CPT/HCPCS: 70450; 72125; 73562; 73610; 99284; A9270

== ENCOUNTER 2024-04-07 11:57 | Outpatient (CLI) | payer MEDICARE, MEDICAID | END 2024-04-07 23:59 | disposition critical access hospital (66) | LOC: EMS 11:57 | DX: M79.602 Pain in left arm (principal); R45.89 Other symptoms and signs involving emotional state | CPT/HCPCS: A0425; A0429 ==

== ENCOUNTER 2024-04-07 11:59 | Emergency (ER) | payer MEDICARE, MEDICAID ==
--- NOTE | 2024-04-07 12:32 | ED Physician Documentation ---
PD HPI CHEST PAIN - Stated complaint Stated Complaint: ANXIETY/CP - Chief complaint Chief Complaint: Cardiac - Additional information Additional information: 78 yo female with hx of HTN, A-fib, and PE, not anticuagulated. She doesnt know why? She comes in today for chest pain, she states shes had chest pain on and off for years, has it everyday and mostly at night. She called 911 bc her chest pain felt different than it normally does. She does not have a care with cardiology. Lives in assisted living at [facility] due to weakness and decreased mobility. No SOB, no dyspnea on exertion and pt states she suffers from anxiety and feels confident this chest pain is due to her anxiety. 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 HEENT: Tonsil/Adenoidectomy Derm: Skin cancer surgery - Present Medications Home Medications: Ambulatory Orders Medication Instructions Recorded Confirmed Venlafaxine ER [Effexor ER] 2 tab PO DAILY 04/30/13 04/07/24 Topiramate [Topamax] 200 mg PO QPM 11/24/15 04/07/24 Esomeprazole Magnesium 40 mg PO DAILY 12/26/18 04/07/24 Metoprolol Tartrate 12.5 mg PO BID 12/26/18 04/07/24 Calcitonin [Fortical] 1 sprays CAROLANN DAILY #1 each 07/14/23 04/07/24 Meloxicam [Mobic] 7.5 mg PO BID 10 Days #20 tablet 07/14/23 04/07/24 Meclizine [Antivert] 25 mg PO Q6H PRN 10/14/23 04/07/24 Venlafaxine [Effexor] 75 mg PO DAILY 10/14/23 04/07/24 Mupirocin 2% Oint [Bactroban 2% 1 applic TOP BID PRN #50 gm 11/03/23 04/07/24 Oint] cephALEXin [Keflex] 500 mg PO Q6H #40 cap 11/03/23 04/07/24 Trazodone HCl 100 mg PO 04/07/24 - Allergies Allergies/Adverse Reactions: Allergies Allergy/AdvReac Type Severity Reaction Status Date / Time lithium [[place]] Allergy Severe Edema Verified 04/07/24 12:05 tetracycline [Tetracycline] Allergy Severe Hives Verified 04/07/24 12:05 acetaminophen [From Fioricet] Allergy Hives Verified 04/07/24 12:05 caffeine [From Fioricet] Allergy Hives Verified 04/07/24 12:05 gabapentin Allergy Edema Verified 04/07/24 12:05 butalbital [From Fioricet] AdvReac Severe Dizziness Verified 04/07/24 12:05 ibuprofen AdvReac Nausea Verified 04/07/24 12:05 - Social History Does the pt smoke?: No Smoking Status: Never smoker Does the pt drink ETOH?: No Does the pt have substance abuse?: No - Immunizations Immunizations are current?: No - POLST Patient has POLST: No PD ED PE NORMAL - Vitals Vital signs reviewed: Yes - General General: Alert and oriented X 3, No acute distress, Well developed/nourished - Cardiac Cardiac: RRR - Respiratory Respiratory: No respiratory distress, Clear bilaterally - Abdomen Abdomen: Normal bowel sounds, Soft - Derm Derm: Normal color, Warm and dry, No rash - Extremities Extremities: No edema, No calf tenderness / cord PD ED PE EXPANDED - Psych Psych: Anxious Results - Vitals Vitals: Vital Signs - 24 hr 04/07/24 14:03 Temperature 36.8 C Heart Rate 82 Respiratory 16 Rate Blood Pressure 116/80 O2 Saturation 98 Oxygen O2 Source Room air - EKG (time done) 1247 EKG releavant findings:: EKG personally interpreted by author of this note. Relevant findings are: Rate: Rate (enter#) (88) Rhythm: NSR [place]: LAD Intervals: Normal VA QRS: Normal Ischemia: Normal ST segments Computer interpretation: Agree with computer - Labs Labs: Laboratory Tests 04/07/24 04/07/24 12:48 12:48 WBC 6.2 RBC 4.17 L Hgb 13.3 Hct 42.3 MCV 101.4 H MCH 31.9 H MCHC 31.4 L RDW 12.7 Plt Count 246 MPV 9.2 Neut # (Auto) 3.7 Lymph # (Auto) 1.6 [place] # (Auto) 0.6 Eos # (Auto) 0.1 Baso # (Auto) 0.0 Absolute Nucleated RBC 0.00 Nucleated RBC % 0.0 Sodium 142 Potassium 4.2 Chloride 109 Carbon Dioxide 29 Anion Gap 4.0 L BUN 20 Creatinine 1.0 Estimated GFR (MDRD) 53 L Glucose 95 Calcium 9.8 Total Bilirubin 0.4 AST 12 ALT 12 Alkaline Phosphatase 63 Troponin I High Sens 5.6 Total Protein 6.6 Albumin 4.1 Globulin 2.5 Albumin/Globulin Ratio 1.6 Lipase 22 - Rads (name of study) Chest x-ray Relevant Findings:: Final report received, EMP independent interpretation of test, Other (No cardiopulmonary abnormalities or findings) PD Medical Decision Making - ED course ED course: 78 yo female here with chronic chest pain. Exam without evidence of volume overload so doubt heart failure. EKG without signs of active ischemia. Given the timing of pain to ER presentation, single troponin was negative so doubt NSTEMI. Presentation not consistent with acute PE (Wells low risk low),pneumothorax (not visualized on chest xr), thoracic aortic dissection, pericarditis, tamponade, pneumonia (no infectious symptoms, clear chest xr), myocarditis (no recent illness, neg trop). HEART score:2 so plan to discharge patient home with PCP follow up Departure - Departure Disposition: 01 Home, Self Care Clinical Impression: Chest pain Instructions: ED Chest Pain Atypical Unkn Cause Comments: Thank you for trusting us with your care, we have completed labs, Xray, and EKG and are not seeing any obvious signs of a heart attack. If you go home and start to develop shortness of breath, change in patter of your chest pain or any other emergent concerning symptoms, please report back to the ER. Please follow up with your primary care doctor about this chronic chest pain and ask to establish care with a director specialty as soon as possible. Forms: PCP List Discharge Date/Time: 04/07/24 14:03
[2024-04-07 13:04] LABS: BASOPHILS % (AUTO) 0.6 %; EOSINOPHILS # (AUTO) 0.1 10^3/uL (0.0-0.7); EOSINOPHILS % (AUTO) 1.6 %; HCT - HEMATOCRIT 42.3 % (37.0-47.0); HGB - HEMOGLOBIN 13.3 g/dL (12.0-16.0); LYMPHOCYTES # (AUTO) 1.6 10^3/uL (1.5-3.5); LYMPHOCYTES % (AUTO) 26.4 %; MEAN CORPUSCULAR HEMOGLOBIN 31.9 pg (27.0-31.0); MEAN CORPUSCULAR HGB CONC 31.4 g/dL (32.0-36.0); MEAN CORPUSCULAR VOLUME 101.4 fL (81.0-99.0); MEAN PLATELET VOLUME 9.2 fL (7.9-10.8); MONOCYTES # (AUTO) 0.6 10^3/uL (0.0-1.0); MONOCYTES % (AUTO) 10.4 %; NEUTROPHILS # (AUTO) 3.7 10^3/uL (1.5-6.6); NEUTROPHILS % (AUTO) 60.7 %; PLT - PLATELET COUNT 246 10^3/uL (130-450); RED BLOOD COUNT 4.17 10^6/uL (4.20-5.40); RED CELL DISTRIBUTION WIDTH 12.7 % (12.0-15.0); WHITE BLOOD COUNT 6.2 x10^3/uL (4.8-10.8)
--- NOTE | 2024-04-07 13:08 | XRAY Report ---
PROCEDURE: Chest 1V INDICATIONS: Chest Pain TECHNIQUE: One view of the chest was acquired. COMPARISON: 06/04/2023 and 05/05/2023. FINDINGS: Surgical changes and dNone. None. Lungs and No pleural effusions or pneumothorax. Lungs are clear. clear. MediaMediastinal contours appear normal. Heart size is normal. normal. Bones and chesNo suspicious bony lesions. Overlying soft tissues appear unremarkable. rkable. IMPRESNo acute cardiopulmonary process. p ess. Reviewed by: Gunner Sahni MD on 04/07/2024 1:07 PM PDT Approved by: Gunner Sahni MD on 04/07/2024 1:07 PM PDT Station ID: [id number]
[2024-04-07 13:19] LABS: TROPONIN I HIGH SENSITIVITY 5.6 ng/L (2.3-14.8)
[2024-04-07 13:20] LABS: ALBUMIN 4.1 g/dL (3.2-5.5); ALBUMIN/GLOBULIN RATIO 1.6 (1.0-2.2); BILIRUBIN,TOTAL 0.4 mg/dL (0.2-1.0); CALCIUM 9.8 mg/dL (8.5-10.3); POTASSIUM 4.2 mmol/L (3.5-4.5); TOTAL PROTEIN 6.6 g/dL (6.4-8.9)
[2024-04-07 14:04] VITALS: BP 116/80; O2SAT 98
== END 2024-04-07 14:03 | disposition home or self-care (01) ==
LOC: EDUNIT# → ED 11:59
DX: R07.9 Chest pain, unspecified (principal); I10 Essential (primary) hypertension; I48.91 Unspecified atrial fibrillation; E78.00 Pure hypercholesterolemia, unspecified; Z86.718 Personal history of other venous thrombosis and embolism; Z86.711 Personal history of pulmonary embolism; Z79.899 Other long term (current) drug therapy
CPT/HCPCS: 36415; 80053; 83690; 84484; 85025; 93005; 99283; 99284

== ENCOUNTER 2024-04-15 03:26 | Outpatient (CLI) | payer MEDICARE, MEDICAID | END 2024-04-15 23:59 | disposition EMS.NT | LOC: EMS 03:26 | DX: Z03.89 Encounter for observation for other suspected diseases and conditions ruled out (principal) ==

== ENCOUNTER 2024-04-27 11:33 | Outpatient (CLI) | payer MEDICARE, MEDICAID ==
[2024-04-27 18:03] LABS: BASOPHILS # (AUTO) 0.1 10^3/uL (0.0-0.1); BASOPHILS % (AUTO) 0.9 %; EOSINOPHILS # (AUTO) 0.1 10^3/uL (0.0-0.7); EOSINOPHILS % (AUTO) 1.1 %; HCT - HEMATOCRIT 43.4 % (37.0-47.0); HGB - HEMOGLOBIN 13.7 g/dL (12.0-16.0); LYMPHOCYTES # (AUTO) 1.2 10^3/uL (1.5-3.5); LYMPHOCYTES % (AUTO) 22.4 %; MEAN CORPUSCULAR HEMOGLOBIN 31.6 pg (27.0-31.0); MEAN CORPUSCULAR HGB CONC 31.6 g/dL (32.0-36.0); MEAN CORPUSCULAR VOLUME 100.2 fL (81.0-99.0); MEAN PLATELET VOLUME 9.5 fL (7.9-10.8); MONOCYTES # (AUTO) 0.6 10^3/uL (0.0-1.0); MONOCYTES % (AUTO) 10.3 %; NEUTROPHILS # (AUTO) 3.6 10^3/uL (1.5-6.6); NEUTROPHILS % (AUTO) 65.1 %; PLT - PLATELET COUNT 269 10^3/uL (130-450); RED BLOOD COUNT 4.33 10^6/uL (4.20-5.40); RED CELL DISTRIBUTION WIDTH 12.8 % (12.0-15.0); WHITE BLOOD COUNT 5.5 x10^3/uL (4.8-10.8)
[2024-04-27 18:19] LABS: ALBUMIN 4.1 g/dL (3.2-5.5); ALBUMIN/GLOBULIN RATIO 1.8 (1.0-2.2); ALKALINE PHOSPHATASE 61 IU/L (42-121); ALT ALANINE AMINOTRANSFERASE 10 IU/L (10-60); AST ASPARTATE AMINOTRANSFERASE 11 IU/L (10-42); BILIRUBIN,TOTAL 0.4 mg/dL (0.2-1.0); BUN - BLOOD UREA NITROGEN 21 mg/dL (6-20); CALCIUM 10.1 mg/dL (8.5-10.3); CARBON DIOXIDE - CO2 28 mmol/L (21-32); CHLORIDE 108 mmol/L (101-111); CHOL/HDL RATIO 2.6 (<4.4); CHOLESTEROL 196 mg/dL; CREATININE 0.9 mg/dL (0.6-1.3); GFR - MDRD 60 (>89); GLUCOSE 92 mg/dL (74-104); HDL CHOLESTEROL 76 mg/dL; LDL CHOLESTEROL,CALCULATED 102 mg/dL; LDL/HDL RATIO 1.3 (<4.4); POTASSIUM 4.1 mmol/L (3.5-4.5); SODIUM 140 mmol/L (135-145); TOTAL PROTEIN 6.4 g/dL (6.4-8.9); TRIGLYCERIDES 91 mg/dL; VLDL CHOLESTEROL 18 mg/dL
[2024-04-27 18:35] LABS: THYROID STIMULATING HORMONE 0.53 uIU/mL (0.34-5.60)
== END 2024-04-27 11:34 | disposition home or self-care (01) ==
LOC: LAB.N 11:33
PROVIDERS: ATTEND Physician Assistant
DX: E41 Nutritional marasmus (principal); R00.0 Tachycardia, unspecified; Z13.220 Encounter for screening for lipoid disorders
CPT/HCPCS: 36415; 80053; 80061; 83721; 84439; 84443; 85025

== ENCOUNTER 2024-05-12 00:32 | Outpatient (CLI) | payer MEDICARE, MEDICAID | END 2024-05-12 23:59 | disposition EMS.NT | LOC: EMS 00:32 | DX: Z03.89 Encounter for observation for other suspected diseases and conditions ruled out (principal) ==

== ENCOUNTER 2024-05-16 16:39 | Outpatient (CLI) | payer MEDICARE, MEDICAID | END 2024-05-16 23:59 | disposition EMS.NT | LOC: EMS 16:39 | DX: Z03.89 Encounter for observation for other suspected diseases and conditions ruled out (principal) ==

== ENCOUNTER 2024-05-19 13:17 | Outpatient (CLI) | payer MEDICARE, MEDICAID | END 2024-05-19 23:59 | disposition critical access hospital (66) | LOC: EMS 13:17 | DX: R51.9 Headache, unspecified (principal); M54.2 Cervicalgia; M25.512 Pain in left shoulder; M25.511 Pain in right shoulder; M54.6 Pain in thoracic spine; M54.50 Low back pain, unspecified; M25.572 Pain in left ankle and joints of left foot; R42 Dizziness and giddiness; R53.1 Weakness; R11.0 Nausea; R06.02 Shortness of breath; W18.2XXA Fall in (into) shower or empty bathtub, initial encounter; Y92.091 Bathroom in other non-institutional residence as the place of occurrence of the external cause | CPT/HCPCS: A0425; A0429 ==

== ENCOUNTER 2024-05-19 13:37 | Emergency (ER) | payer MEDICARE, MEDICAID ==
--- NOTE | 2024-05-19 13:49 | ED Physician Documentation ---
PD HPI Fall - Stated complaint Stated Complaint: GLF - History obtained from History obtained from: Patient, EMS - Additional information Additional information: This is a 78-year-old female who resides at [facility], and was brought in by EMS today after a slip and fall in the shower. Patient has a history of chronic vertigo, recurrent falls, chronic nausea. She states she was feeling her chronic vertigo and nausea this morning, asked the RN for medication but states she did not get it, then she got into the shower, but dizzy and fell. This is not uncommon for her, she denies having any chest pain, no difficulty breathing, no focal weakness or numbness. She does feel dizzy though this is similar to her chronic vertigo, she feels nauseous and has abdominal pain though this is chronic and not new. She is complaining of new headache, neck pain, upper back pain from her fall and fell on both her knees as well. She denies any fever or chills, no recent illness, no recent nausea, vomiting, diarrhea, cough or URI symptoms, no urinary symptoms. Review of Systems Constitutional: reports: Reviewed and negative Eyes: reports: Reviewed and negative Ears: reports: Reviewed and negative Nose: reports: Reviewed and negative Throat: reports: Reviewed and negative Cardiac: reports: Reviewed and negative Respiratory: reports: Reviewed and negative GI: reports: Abdominal Pain (chronic), Nausea Musculoskeletal: reports: Neck pain, Extremity pain ( bilateral knees) Neurologic: reports: Other (Fall, chronic vertigo) Endocrine: reports: Reviewed and negative PD PAST MEDICAL HISTORY - Past Medical History Past Medical History: Yes Cardiovascular: Hypertension, High cholesterol, Deep vein thrombosis, Pulmonary embolism Respiratory: None Neuro: Head injury Endocrine/Autoimmune: None GI: GERD : Frequency, Incontinence Psych: Depression, Anxiety, Panic attacks Musculoskeletal: Osteoarthritis Derm: Other - Past Surgical History Past Surgical History: Yes 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, 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 HEENT: Tonsil/Adenoidectomy Derm: Skin cancer surgery - Present Medications Home Medications: Ambulatory Orders Medication Instructions Recorded Confirmed Venlafaxine ER [Effexor ER] 2 tab PO DAILY 04/30/13 04/07/24 Topiramate [Topamax] 200 mg PO QPM 11/24/15 04/07/24 Esomeprazole Magnesium 40 mg PO DAILY 12/26/18 04/07/24 Metoprolol Tartrate 12.5 mg PO BID 12/26/18 04/07/24 Calcitonin [Fortical] 1 sprays CAROLANN DAILY #1 each 07/14/23 04/07/24 Meloxicam [Mobic] 7.5 mg PO BID 10 Days #20 tablet 07/14/23 04/07/24 Meclizine [Antivert] 25 mg PO Q6H PRN 10/14/23 04/07/24 Venlafaxine [Effexor] 75 mg PO DAILY 10/14/23 04/07/24 Mupirocin 2% Oint [Bactroban 2% 1 applic TOP BID PRN #50 gm 11/03/23 04/07/24 Oint] cephALEXin [Keflex] 500 mg PO Q6H #40 cap 11/03/23 04/07/24 Trazodone HCl 100 mg PO 04/07/24 - Allergies Allergies/Adverse Reactions: Allergies Allergy/AdvReac Type Severity Reaction Status Date / Time lithium [[place]] Allergy Severe Edema Verified 05/19/24 13:46 tetracycline [Tetracycline] Allergy Severe Hives Verified 05/19/24 13:46 acetaminophen [From Fioricet] Allergy Hives Verified 05/19/24 13:46 caffeine [From Fioricet] Allergy Hives Verified 05/19/24 13:46 gabapentin Allergy Edema Verified 05/19/24 13:46 butalbital [From Fioricet] AdvReac Severe Dizziness Verified 05/19/24 13:46 ibuprofen AdvReac Nausea Verified 05/19/24 13:46 - Social History Does the pt smoke?: No Smoking Status: Never smoker Does the pt drink ETOH?: No Does the pt have substance abuse?: No - Immunizations Immunizations are current?: No - POLST Patient has POLST: No PD ED PE NORMAL - Vitals Vital signs reviewed: Yes - General General: Alert and oriented X 3, No acute distress, Well developed/nourished - HEENT HEENT: Atraumatic, PERRL, EOMI, Moist mucous membranes, Pharynx benign - Neck Neck: Supple, no meningeal sign, Other (Bony C-spine tenderness, remains in c- collar) - Cardiac Cardiac: RRR, No murmur - Respiratory Respiratory: No respiratory distress, Clear bilaterally - Abdomen Abdomen: Normal bowel sounds, Soft, Non tender, Non distended - Back Back: No CVA TTP, No spinal TTP - Derm Derm: Normal color, Other (Dry scabs on both arms) - Extremities Extremities: No deformity, No tenderness to palpate, Normal ROM s pain, No edema, No calf tenderness / cord - Neuro Neuro: Alert and oriented X 3 Eye Opening: Spontaneous Motor: Obeys Commands Verbal: Oriented GCS Score: 15 - Psych Psych: Normal mood, Normal affect Results - Vitals Vitals: Vital Signs - 24 hr 05/19/24 13:42 Temperature 36.5 C Heart Rate 82 Respiratory 20 Rate Blood Pressure 125/92 H O2 Saturation 96 Oxygen O2 Source Room air - Rads (name of study) No standard instances Relevant Findings:: Final report received PD Medical Decision Making - ED course Complexity details: reviewed old records, reviewed results, re-evaluated patient, d/w patient ED course: 78-year-old female with a history of a recurrent vertigo, nausea, and additional history as listed above presented after a fall at her care facility. Patient arrives here in a c-collar, is well-appearing, nontoxic and in no acute distress. Her physical exam is really unremarkable other than some cervical spine tenderness, no other bony injuries or tenderness, no other acute findings. Patient does have some vertigo that this and is not uncommon for her and therefore with lack of any additional neurologic symptoms I do not think this represents posterior stroke and suspect this is her chronic vertigo causing fall which is not uncommon for the patient. She was given meclizine and Zofran with improvement in her symptoms, we obtained a head and cervical spine CT which were reassuring, no acute findings, and I do believe patient stable for discharge home at this time. She was encouraged to stay well-hydrated, continue the meclizine as needed, Zofran as needed, and return precautions reviewed. Departure - Departure Disposition: 01 Home, Self Care Clinical Impression: Fall from ground level Head injury Qualifiers: Encounter type: initial encounter Qualified Code(s): S09.90XA - Unspecified injury of head, initial encounter Condition: Good Instructions: ED Head Injury Closed Comments: Your head and cervical spine CTs today are stable. Please continue the meclizine and Zofran as needed for your chronic nausea and vertigo. Return if you have any new or worsening symptoms. Forms: PCP List
[2024-05-19] MEDS: ONDANSETRON ODT 4 MG TABLET TL STA (14:29)
[2024-05-19] MEDS: MECLIZINE 12.5 MG TABLET PO STA (14:29)
--- NOTE | 2024-05-19 14:45 | CT Report ---
PROCEDURE: Head WO INDICATIONS: fall TECHNIQUE: Noncontrast 4.5 mm thick angled axial sections acquired from the foramen magnum to the vertex. For r adiation dose reduction, the following was used: automated exposure control, adjustment of mA and/or kV according to patient size. COMPARISON: CT cervical spine 05/19/2024, CT head 02/23/2024 FINDINGS: Image quality: Excellent. The ventricular system and cortical sulci demonstrate atrophy, consistent for patient's stated age. There are areas of hypodensity in the periventricular and subcortical white matter. There is no acut e intra or extra-axial fluid collection. No acute hemorrhage, mass lesion or midline shift. Brainst em is unremarkable. Globes are symmetrical. Sinuses are aerated. Osseous structures are intact. 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 . IMPRESSION: 1. No acute intracranial process. 2. Moderate atrophy and chronic microvascular ischemic changes. Reviewed by: Leta Adair MD on 05/19/2024 2:44 PM PDT Approved by: Leta Adair MD on 05/19/2024 2:44 PM PDT Station ID: [id number]
--- NOTE | 2024-05-19 14:49 | CT Report ---
PROCEDURE: Cervical Spine WO INDICATIONS: fall TECHNIQUE: Noncontrast 3 mm thick sections acquired from the skull base to the T4 level. Sagittal and coronal r eformats were then constructed. For radiation dose reduction, the following was used: automated exp osure control, adjustment of mA and/or kV according to patient size. COMPARISON: CT cervical spine 02/23/2024 FINDINGS: Image quality: Excellent. Bones: No acute fractures or dislocations. Unchanged wedge deformity at T1. Visualized superior rib s are intact. Multilevel degenerative changes. Soft tissues: Prevertebral soft tissues are normal in thickness. No paravertebral hematomas. No ap ical pneumothoraces. Unchanged appearance of low-attenuation foci particularly within the left thyro id lobe. IMPRESSION: Degenerative changes without visualized fracture. Reviewed by: Leta Adair MD on 05/19/2024 2:48 PM PDT Approved by: Leta Adair MD on 05/19/2024 2:48 PM PDT Station ID: [id number]
[2024-05-19 16:15] VITALS: BP 130/80; O2SAT 94
== END 2024-05-19 16:13 | disposition home or self-care (01) ==
LOC: EDUNIT# → ED 13:37
DX: S09.90XA Unspecified injury of head, initial encounter (principal); W18.2XXA Fall in (into) shower or empty bathtub, initial encounter; Y92.129 Unspecified place in nursing home as the place of occurrence of the external cause; I10 Essential (primary) hypertension; E78.00 Pure hypercholesterolemia, unspecified; Z79.899 Other long term (current) drug therapy
CPT/HCPCS: 70450; 72125; 99283; 99284; A9270; Q0162

== ENCOUNTER 2024-05-30 18:06 | Outpatient (CLI) | payer MEDICARE, MEDICAID | END 2024-05-30 18:07 | disposition EMS.NT | LOC: EMS 18:06 | DX: S00.83XA Contusion of other part of head, initial encounter (principal); W01.198A Fall on same level from slipping, tripping and stumbling with subsequent striking against other object, initial encounter; Y92.090 Kitchen in other non-institutional residence as the place of occurrence of the external cause ==

== ENCOUNTER 2024-06-02 17:28 | Outpatient (CLI) | payer MEDICARE, MEDICAID | END 2024-06-02 23:59 | disposition critical access hospital (66) | LOC: EMS 17:28 | DX: R51.9 Headache, unspecified (principal); M54.2 Cervicalgia; W01.190A Fall on same level from slipping, tripping and stumbling with subsequent striking against furniture, initial encounter; Y92.092 Bedroom in other non-institutional residence as the place of occurrence of the external cause | CPT/HCPCS: A0425; A0429 ==

== ENCOUNTER 2024-06-02 18:02 | Emergency (ER) | payer MEDICARE, MEDICAID ==
[2024-06-02 19:28] LABS: BASOPHILS % (AUTO) 0.6 %; EOSINOPHILS # (AUTO) 0.1 10^3/uL (0.0-0.7); EOSINOPHILS % (AUTO) 1.9 %; HCT - HEMATOCRIT 47.2 % (37.0-47.0); LYMPHOCYTES # (AUTO) 2.1 10^3/uL (1.5-3.5); MEAN CORPUSCULAR HEMOGLOBIN 32.5 pg (27.0-31.0); MEAN CORPUSCULAR HGB CONC 31.8 g/dL (32.0-36.0); MEAN CORPUSCULAR VOLUME 102.2 fL (81.0-99.0); MEAN PLATELET VOLUME 9.8 fL (7.9-10.8); MONOCYTES # (AUTO) 0.6 10^3/uL (0.0-1.0); MONOCYTES % (AUTO) 9.5 %; NEUTROPHILS # (AUTO) 3.6 10^3/uL (1.5-6.6); NEUTROPHILS % (AUTO) 55.7 %; PLT - PLATELET COUNT 171 10^3/uL (130-450); RED BLOOD COUNT 4.62 10^6/uL (4.20-5.40); WHITE BLOOD COUNT 6.4 x10^3/uL (4.8-10.8)
[2024-06-02 19:42] LABS: MAGNESIUM 1.9 mg/dL (1.7-2.3)
[2024-06-02 19:48] LABS: ALBUMIN 4.1 g/dL (3.2-5.5); ALBUMIN/GLOBULIN RATIO 1.6 (1.0-2.2); BILIRUBIN,TOTAL 0.4 mg/dL (0.2-1.0); CALCIUM 10.1 mg/dL (8.5-10.3); POTASSIUM 3.8 mmol/L (3.5-4.5); TOTAL PROTEIN 6.7 g/dL (6.4-8.9)
[2024-06-02 19:58] LABS: PT - PROTHROMBIN TIME 10.8 secs (9.9-12.6); THYROID STIMULATING HORMONE 0.97 uIU/mL (0.34-5.60)
--- NOTE | 2024-06-02 20:04 | CT Report ---
PROCEDURE: Head WO INDICATIONS: GLF, head injury TECHNIQUE: Noncontrast 4.5 mm thick angled axial sections acquired from the foramen magnum to the vertex. For r adiation dose reduction, the following was used: automated exposure control, adjustment of mA and/or kV according to patient size. COMPARISON: 05/19/2024. FINDINGS: Image quality: Excellent. CSF spaces: Basal cisterns are patent. No extra-axial fluid collections. Ventricles are normal in size and shape. Brain: No midline shift. No intracranial masses or hemorrhage. Age-related global volume loss and c hronic microvascular ischemic changes. Intracranial atherosclerotic vascular calcifications. Lemon-wh ite matter interface is normal. Skull and face: Calvarium and visualized facial bones are intact, without suspicious lesions. Left globe is shrunken with hyperdense material, stable compared to prior. Sinuses: Visualized sinuses and mastoids are clear. IMPRESSION: No acute intracranial pathology. Reviewed by: Yanick Herring MD on 06/02/2024 8:03 PM PDT Approved by: Yanick Herring MD on 06/02/2024 8:03 PM PDT Station ID: [email or web address]
--- NOTE | 2024-06-02 20:07 | CT Report ---
PROCEDURE: Cervical Spine WO INDICATIONS: neck pain after GLF TECHNIQUE: Noncontrast 3 mm thick sections acquired from the skull base to the T4 level. Sagittal and coronal r eformats were then constructed. For radiation dose reduction, the following was used: automated exp osure control, adjustment of mA and/or kV according to patient size. COMPARISON: 05/19/2014 FINDINGS: Image quality: Excellent. Bones: No fractures or dislocations. Multilevel degenerative changes of the cervical spine. Diffusel y decreased osseous mineralization. Visualized superior ribs are intact. Stable mild anterior wedge compression deformity at T1. Soft tissues: Prevertebral soft tissues are normal in thickness. No paravertebral hematomas. No ap ical pneumothoraces. Stable left thyroid nodule measuring 1.6 cm, ultrasound can be obtained for furt her evaluation if not previously performed. IMPRESSION: No acute, displaced fracture or traumatic subluxation. Degenerative changes of the cervical spine. Reviewed by: Yanick Herring MD on 06/02/2024 8:05 PM PDT Approved by: Yanick Herring MD on 06/02/2024 8:05 PM PDT Station ID: [email or web address]
--- NOTE | 2024-06-02 20:14 | ED Physician Documentation ---
History of Present Illness - Stated complaint Stated Complaint: GLF/HIT HEAD - Chief complaint Chief Complaint: Trauma Hd/Nk - Additonal information Additional information: 78-year-old female with history of hypertension, hypercholesterolemia, DVT, pulmonary embolism, head injuries presents emergency department for multiple ground-level falls. Patient says that she recently moved into [place] where there was confusion about discontinuation of her medication and restarting her medication by her primary care provider but she says that for the most part she believes that she has been restarted on all of her home meds. Patient has been to the ER multiple times for multiple ground-level falls this is the fifth fall this week she has been having dizziness and she also says that she feels like her legs are collapsing beneath her. 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 HEENT: Tonsil/Adenoidectomy Derm: Skin cancer surgery - Present Medications Home Medications: Ambulatory Orders Medication Instructions Recorded Confirmed Venlafaxine ER [Effexor ER] 2 tab PO BID 04/30/13 06/02/24 Topiramate [Topamax] 200 mg PO QPM 11/24/15 06/02/24 Esomeprazole Magnesium 40 mg PO BID PRN 12/26/18 06/02/24 Metoprolol Tartrate 12.5 mg PO DAILY 12/26/18 06/02/24 Calcitonin [Fortical] 1 sprays CAROLANN DAILY #1 each 07/14/23 06/02/24 Meloxicam [Mobic] 7.5 mg PO BID 10 Days #20 tablet 07/14/23 06/02/24 Meclizine [Antivert] 25 mg PO Q6H PRN 10/14/23 06/02/24 Mupirocin 2% Oint [Bactroban 2% 1 applic TOP BID PRN #50 gm 11/03/23 06/02/24 Oint] Trazodone HCl 100 mg PO DAILY 04/07/24 06/02/24 Acetaminophen [Tylenol] 500 mg PO Q6HR 06/02/24 06/02/24 Cholecalciferol (Vitamin D3) 50 mcg PO HS 06/02/24 06/02/24 [Vitamin D3] Clobetasol 0.05% Oint [Temovate 1 applic TOP DAILY PRN 06/02/24 06/02/24 0.05% Oint] Meclizine HCl [Antivert] 50 mg PO Q6HR PRN 06/02/24 06/02/24 Ondansetron HCl 4 - 8 mg PO Q8HR PRN 06/02/24 06/02/24 Polyethylene Glycol 8000 17 gm MC DAILY 06/02/24 06/02/24 [Polyethylene Glycol] Trazodone HCl 200 mg PO HS 06/02/24 06/02/24 cycloSPORINE [Restasis Multidose] 1 drops .ROUTE BID 06/02/24 06/02/24 - Allergies Allergies/Adverse Reactions: Allergies Allergy/AdvReac Type Severity Reaction Status Date / Time lithium [[place]] Allergy Severe Edema Verified 06/02/24 18:22 tetracycline [Tetracycline] Allergy Severe Hives Verified 06/02/24 18:22 acetaminophen [From Fioricet] Allergy Hives Verified 06/02/24 18:22 caffeine [From Fioricet] Allergy Hives Verified 06/02/24 18:22 gabapentin Allergy Edema Verified 06/02/24 18:22 butalbital [From Fioricet] AdvReac Severe Dizziness Verified 06/02/24 18:22 ibuprofen AdvReac Nausea Verified 06/02/24 18:22 - Social History Does the pt smoke?: No Smoking Status: Never smoker Does the pt drink ETOH?: No Does the pt have substance abuse?: No - Immunizations Immunizations are current?: No - POLST Patient has POLST: No PD ED PE NORMAL - Vitals Vital signs reviewed: Yes - General General: Alert and oriented X 3, No acute distress, Well developed/nourished - HEENT HEENT: PERRL, Other (old well healing forhead bruise) - Cardiac Cardiac: RRR, No murmur - Respiratory Respiratory: No respiratory distress, Clear bilaterally - Abdomen Abdomen: Normal bowel sounds, Soft - Derm Derm: Normal color, Warm and dry, No rash - Extremities Extremities: No deformity, No tenderness to palpate, Normal ROM s pain, No edema, No calf tenderness / cord - Neuro Neuro: Alert and oriented X 3, incident response analyst 2-12 intact, No motor deficit, No sensory deficit, Normal speech - Psych Psych: Normal mood, Normal affect PD ED PE EXPANDED - Neck Neck: Soft tissue TTP, Bony TTP Results - Vitals Vitals: Vital Signs - 24 hr 06/02/24 06/02/24 20:00 21:29 Heart Rate 88 81 Respiratory 18 18 Rate Blood Pressure 133/76 H 144/82 H O2 Saturation 97 96 Oxygen O2 Source Room air - Labs Labs: Laboratory Tests 06/02/24 06/02/24 06/02/24 19:15 19:15 19:15 WBC 6.4 RBC 4.62 Hgb 15.0 Hct 47.2 H MCV 102.2 H MCH 32.5 H MCHC 31.8 L RDW 13.0 Plt Count 171 MPV 9.8 Neut # (Auto) 3.6 Lymph # (Auto) 2.1 [place] # (Auto) 0.6 Eos # (Auto) 0.1 Baso # (Auto) 0.0 Absolute Nucleated RBC 0.00 Nucleated RBC % 0.0 PT 10.8 INR 1.0 Sodium 140 Potassium 3.8 Chloride 105 Carbon Dioxide 27 Anion Gap 8.0 BUN 25 H Creatinine 1.0 Estimated GFR (MDRD) 53 L Glucose 88 Calcium 10.1 Magnesium 1.9 Total Bilirubin 0.4 AST 10 ALT 4 L Alkaline Phosphatase 81 Total Protein 6.7 Albumin 4.1 Globulin 2.6 Albumin/Globulin Ratio 1.6 Lipase 17 TSH 0.97 - Rads (name of study) Cervical spine without Relevant Findings:: Final report received, EMP independent interpretation of test, Other (No subluxation or acute bony fractures. Chronic degenerative changes) Head CT without Relevant Findings:: Final report received, EMP independent interpretation of test, Other (No acute intracranial pathology or abnormalities) PD Medical Decision Making - ED course ED course: 78-year-old female presents emergency department for a ground-level fall. Head CT was complete for further evaluation and there is no intracranial hemorrhages or abnormalities cervical spine without was also complete for further evaluation again no subluxations or fractures are visualized. EKG does not show any acute arrhythmias or abnormalities no acute findings to indicate why patient has been experiencing some dizziness prior to passing out. Labs do not reveal any anemia normal PT/INR mild acute kidney injury, BUN 25, GFR 53 but really no other acute lab abnormalities. Patient was able to ambulate to the bathroom without any difficulty no dizziness and stable on her feet make me less suspicious for possible TIA. At this point time patient is safe for discharge she lives at [facility] living [facility]. She is told she may benefit from more long-term facility may need more involvement from staff but she has an appoint with her primary care provider coming up really Soon and she is told to come back to the ER if she has any concerning or worsening symptoms. All questions answered patient safe for discharge at this time. Departure - Departure Disposition: 01 Home, Self Care Clinical Impression: Ground-level fall Instructions: Falls Prevent Hospital, ED Fall Uncertain Cause Comments: Thank you for trusting us with your care, we have evaluated you for Your neck pain and head pain after sustaining another ground-level fall. It is very important that you follow-up with your primary care provider for further evaluation of your repeat ground-level falls and strongly consider getting in with physical therapy for further evaluation And reevaluation of the medications that you are on to see if any adjustments need to be made for these. Forms: PCP List Discharge Date/Time: 06/02/24 21:30
[2024-06-02] MEDS: ACETAMINOPHEN 500 MG TABLET PO STA (20:45)
[2024-06-02] MEDS: ONDANSETRON ODT 4 MG TABLET TL STA (20:45)
[2024-06-02] MEDS: NAPROXEN 250 MG TABLET PO STA (20:45)
[2024-06-02 21:35] VITALS: BP 144/82; O2SAT 96
== END 2024-06-02 21:30 | disposition home or self-care (01) ==
LOC: EDUNIT# → ED 18:02
DX: Z04.3 Encounter for examination and observation following other accident (principal); W18.30XA Fall on same level, unspecified, initial encounter; R51.9 Headache, unspecified; M54.2 Cervicalgia; R42 Dizziness and giddiness
CPT/HCPCS: 36415; 70450; 72125; 80053; 83690; 83735; 84443; 85025; 85610; 99284; A9270; Q0162

== ENCOUNTER 2024-06-02 23:35 | Outpatient (CLI) | payer MEDICARE, MEDICAID | END 2024-06-02 23:36 | disposition EMS.NT | LOC: EMS 23:35 | DX: Z03.89 Encounter for observation for other suspected diseases and conditions ruled out (principal); Z91.81 History of falling ==

== ENCOUNTER 2024-06-14 10:26 | Outpatient (CLI) | payer MEDICARE, MEDICAID | END 2024-06-14 23:59 | disposition EMS.NT | LOC: EMS 10:26 | DX: F41.9 Anxiety disorder, unspecified (principal) ==